=== PATIENT | female | born 1935 | race Caucasian/White ===

== ENCOUNTER 2020-10-30 | Outpatient (REF) | payer MEDICARE, SELFPAY ==
[2020-10-30 19:54] LABS: Microalbum/Creatinine Ratio Ur 7.4 ug/mg cr
== END 2020-10-30 00:01 | disposition home or self-care (01) ==
LOC: HO.LNP
PROVIDERS: Visit Provider Family Medicine
DX: Z13.89 Encounter for screening for other disorder (principal)
CPT/HCPCS: 82043

== ENCOUNTER 2020-12-21 08:43 | Outpatient (RCR) | payer MEDICARE, SELFPAY | END 2021-01-29 15:30 | disposition home or self-care (01) | LOC: HO.WCC 08:43 | PROVIDERS: PCP Family Medicine; Visit Provider Physician Assistant | DX: E11.622 Type 2 diabetes mellitus with other skin ulcer (principal); L97.912 Non-pressure chronic ulcer of unspecified part of right lower leg with fat layer exposed; E11.628 Type 2 diabetes mellitus with other skin complications; S81.811D Laceration without foreign body, right lower leg, subsequent encounter; I87.2 Venous insufficiency (chronic) (peripheral); R60.9 Edema, unspecified; Z79.84 Long term (current) use of oral hypoglycemic drugs | CPT/HCPCS: 11042; 99212 ==

== ENCOUNTER 2021-08-25 09:41 | Outpatient (REF) | payer MEDICARE, SELFPAY ==
[2021-08-25 10:50] LABS: MANUAL DIFF FLAG NO
[2021-08-25 11:04] LABS: Basophils Percent Auto 0.4 % (0-2); Eosinophils Absolute Auto 0.2 X10*3/uL (0.0-0.4); Eosinophils Percent Auto 2.3 % (0-4); Hematocrit 35.5 % (37.0-47.0); Hemoglobin 11.5 g/dl (12.0-16.0); Imm Gran Abs Auto 0.05 X10*3/uL (0.00-0.03); Imm Gran Pct Auto 0.6 % (0.0-0.4); Lymphocytes Absolute Auto 2.5 X10*3/uL (1.2-4.9); Lymphocytes Percent Auto 32.3 % (20-40); Mean Corpuscular HGB Conc 32.4 g/dl (31.0-35.0); Mean Corpuscular Hemoglobin 31.2 pg (27.0-33.0); Mean Corpuscular Volume 96.2 fL (80.0-98.0); Monocytes Absolute Auto 0.6 X10*3/uL (0.1-1.2); Monocytes Percent Auto 7.8 % (2-11); Neutrophils Absolute Auto 4.4 x10*3/uL (2.0-8.3); Neutrophils Percent Auto 56.6 % (45-73); Platelet Count 227 X10*3/uL (160-400); Red Blood Count 3.69 X10*6/uL (4.20-5.50); Red Cell Distribution Width 13.2 % (11.0-16.0); White Blood Count 7.7 X10*3/uL (4.8-10.8)
[2021-08-25 11:36] LABS: Alanine Aminotransferase 11 U/L (0-31); Albumin Level 3.5 g/dL (3.5-5.0); Alkaline Phosphatase 61 U/L (39-117); Anion Gap 13 (12-20); Aspartate Amino Transferase 11 U/L (5-31); Bilirubin Total 0.6 mg/dL (0.0-1.0); Blood Urea Nitrogen 13 mg/dL (9-16); Calcium 8.9 mg/dL (8.4-10.2); Carbon Dioxide 26 mmol/L (22-29); Chloride 105 mmol/L (96-108); Estimated Glomerular Filt Rate 47; Glucose Fasting 147 mg/dL (60-99); Potassium 3.2 mmol/L (3.3-5.1); Sodium 141 mmol/L (135-145); Total Protein 5.7 g/dL (6.5-8.0)
[2021-08-25 11:47] LABS: TSH reflex Free T4 1.45 uIU/mL (0.32-4.0)
== END 2021-08-25 09:42 | disposition home or self-care (01) ==
LOC: HO.WFDLDS 09:41
PROVIDERS: Visit Provider Family Medicine
DX: Z00.00 Encounter for general adult medical examination without abnormal findings (principal); R19.7 Diarrhea, unspecified; R63.0 Anorexia
CPT/HCPCS: 36415; 80053; 84443; 85025

== ENCOUNTER 2021-09-13 08:31 | Outpatient (REF) | payer MEDICARE, SELFPAY ==
[2021-09-13 11:36] LABS: MANUAL DIFF FLAG NO
[2021-09-13 11:59] LABS: Basophils Absolute Auto 0.1 X10*3/uL (0.0-0.2); Basophils Percent Auto 0.5 % (0-2); Eosinophils Absolute Auto 0.1 X10*3/uL (0.0-0.4); Eosinophils Percent Auto 1.4 % (0-4); Hematocrit 37.1 % (37.0-47.0); Hemoglobin 11.9 g/dl (12.0-16.0); Imm Gran Abs Auto 0.08 X10*3/uL (0.00-0.03); Imm Gran Pct Auto 0.9 % (0.0-0.4); Lymphocytes Percent Auto 31.7 % (20-40); Mean Corpuscular HGB Conc 32.1 g/dl (31.0-35.0); Mean Corpuscular Hemoglobin 31.3 pg (27.0-33.0); Mean Corpuscular Volume 97.6 fL (80.0-98.0); Mean Platelet Volume 11.3 fL (9.4-12.3); Monocytes Absolute Auto 0.7 X10*3/uL (0.1-1.2); Monocytes Percent Auto 7.6 % (2-11); Neutrophils Absolute Auto 5.4 x10*3/uL (2.0-8.3); Neutrophils Percent Auto 57.9 % (45-73); Platelet Count 294 X10*3/uL (160-400); Red Cell Distribution Width 13.3 % (11.0-16.0); White Blood Count 9.4 X10*3/uL (4.8-10.8)
[2021-09-13 12:02] LABS: Anion Gap 12 (12-20); Blood Urea Nitrogen 14 mg/dL (9-16); Calcium 9.2 mg/dL (8.4-10.2); Carbon Dioxide 30 mmol/L (22-29); Chloride 104 mmol/L (96-108); Estimated Glomerular Filt Rate 50; Glucose Random 105 mg/dL (60-115); Potassium 4.1 mmol/L (3.3-5.1); Sodium 142 mmol/L (135-145)
[2021-09-13 12:36] LABS: Folate 8.5 ng/mL (> or = 4.0); Vitamin B12 655 pg/mL (200-900)
[2021-09-13 12:53] LABS: Estimated Average Glucose 131 mg/dL; Hemoglobin A1c % 6.2 %
== END 2021-09-13 08:32 | disposition home or self-care (01) ==
LOC: HO.WFDLDS 08:31
PROVIDERS: Visit Provider Family Medicine
DX: Z00.00 Encounter for general adult medical examination without abnormal findings (principal); R73.01 Impaired fasting glucose; R19.7 Diarrhea, unspecified; D64.9 Anemia, unspecified; E53.8 Deficiency of other specified B group vitamins
CPT/HCPCS: 36415; 80048; 82607; 82746; 83036; 85025

== ENCOUNTER → 2021-09-22 10:10 | Outpatient (BNVA) | payer MEDICARE, SELFPAY | PROVIDERS: PCP Family Medicine; Referring Provider Family Medicine; Visit Provider Nurse Practitioner | DX: R15.9 Full incontinence of feces (principal); R19.7 Diarrhea, unspecified; R63.0 Anorexia | CPT/HCPCS: 99202 ==

== ENCOUNTER 2021-10-12 10:13 | Outpatient (REF) | payer MEDICARE, SELFPAY ==
[2021-10-12 13:56] LABS: MANUAL DIFF FLAG NO
[2021-10-12 14:03] LABS: Basophils Percent Auto 0.4 % (0-2); Eosinophils Absolute Auto 0.2 X10*3/uL (0.0-0.4); Eosinophils Percent Auto 1.9 % (0-4); Hematocrit 36.1 % (37.0-47.0); Hemoglobin 11.6 g/dl (12.0-16.0); Imm Gran Abs Auto 0.05 X10*3/uL (0.00-0.03); Imm Gran Pct Auto 0.5 % (0.0-0.4); Lymphocytes Absolute Auto 2.5 X10*3/uL (1.2-4.9); Lymphocytes Percent Auto 26.7 % (20-40); Mean Corpuscular HGB Conc 32.1 g/dl (31.0-35.0); Mean Corpuscular Hemoglobin 31.2 pg (27.0-33.0); Mean Platelet Volume 11.1 fL (9.4-12.3); Monocytes Absolute Auto 0.8 X10*3/uL (0.1-1.2); Monocytes Percent Auto 8.2 % (2-11); Neutrophils Absolute Auto 5.8 x10*3/uL (2.0-8.3); Neutrophils Percent Auto 62.3 % (45-73); Platelet Count 276 X10*3/uL (160-400); Red Blood Count 3.72 X10*6/uL (4.20-5.50); Red Cell Distribution Width 13.4 % (11.0-16.0); White Blood Count 9.3 X10*3/uL (4.8-10.8)
[2021-10-12 14:13] LABS: Estimated Average Glucose 123 mg/dL; Hemoglobin A1c % 5.9 %
[2021-10-12 14:38] LABS: Alanine Aminotransferase 10 U/L (0-31); Albumin Level 3.6 g/dL (3.5-5.0); Alkaline Phosphatase 70 U/L (39-117); Anion Gap 13 (12-20); Aspartate Amino Transferase 13 U/L (5-31); Bilirubin Total 0.6 mg/dL (0.0-1.0); Blood Urea Nitrogen 14 mg/dL (9-16); Calcium 9.2 mg/dL (8.4-10.2); Carbon Dioxide 30 mmol/L (22-29); Chloride 105 mmol/L (96-108); Cholesterol 227 mg/dL; Estimated Glomerular Filt Rate 52; Glucose Random 140 mg/dL (60-115); HDL Cholesterol 52 mg/dL; LDL Cholesterol Calculated 147 mg/dl; Potassium 3.8 mmol/L (3.3-5.1); Sodium 144 mmol/L (135-145); Total Protein 5.9 g/dL (6.5-8.0); Triglycerides 141 mg/dL
== END 2021-10-12 10:14 | disposition home or self-care (01) ==
LOC: HO.WFDLDS 10:13
PROVIDERS: Visit Provider Family Medicine
DX: Z00.00 Encounter for general adult medical examination without abnormal findings (principal); I50.9 Heart failure, unspecified; E11.9 Type 2 diabetes mellitus without complications
CPT/HCPCS: 36415; 80053; 80061; 83036; 85025

== ENCOUNTER 2021-12-15 14:23 | Outpatient (REF) | payer MEDICARE, SELFPAY ==
[2021-12-15 14:45] LABS: MANUAL DIFF FLAG NO
[2021-12-15 14:58] LABS: Basophils Percent Auto 0.4 % (0-2); Eosinophils Absolute Auto 0.2 X10*3/uL (0.0-0.4); Eosinophils Percent Auto 1.8 % (0-4); Hematocrit 36.9 % (37.0-47.0); Hemoglobin 12.2 g/dl (12.0-16.0); Imm Gran Abs Auto 0.09 X10*3/uL (0.00-0.03); Imm Gran Pct Auto 1.1 % (0.0-0.4); Lymphocytes Absolute Auto 2.1 X10*3/uL (1.2-4.9); Lymphocytes Percent Auto 24.4 % (20-40); Mean Corpuscular HGB Conc 33.1 g/dl (31.0-35.0); Mean Corpuscular Hemoglobin 31.4 pg (27.0-33.0); Mean Corpuscular Volume 94.9 fL (80.0-98.0); Mean Platelet Volume 9.9 fL (9.4-12.3); Monocytes Absolute Auto 0.8 X10*3/uL (0.1-1.2); Monocytes Percent Auto 9.9 % (2-11); Neutrophils Absolute Auto 5.3 x10*3/uL (2.0-8.3); Neutrophils Percent Auto 62.4 % (45-73); Platelet Count 326 X10*3/uL (160-400); Red Blood Count 3.89 X10*6/uL (4.20-5.50); Red Cell Distribution Width 13.2 % (11.0-16.0); White Blood Count 8.4 X10*3/uL (4.8-10.8)
[2021-12-15 15:28] LABS: C Reactive Protein 1.75 mg/dL (< or = 0.50)
[2021-12-22 13:46] LABS: Transglutaminase Ab IgG <1.0 U/mL; Transglutaminase IgA <1.0 U/mL
== END 2021-12-15 14:24 | disposition home or self-care (01) ==
LOC: HO.LAB 14:23
PROVIDERS: PCP Family Medicine; Visit Provider Nurse Practitioner
DX: Z00.00 Encounter for general adult medical examination without abnormal findings (principal); R19.7 Diarrhea, unspecified
CPT/HCPCS: 36415; 85025; 86140; 86364

== ENCOUNTER 2021-12-16 14:28 | Outpatient (REF) | payer MEDICARE, SELFPAY | END 2021-12-16 14:29 | disposition home or self-care (01) | LOC: HO.LNP 14:28 | PROVIDERS: Visit Provider Nurse Practitioner | DX: R19.7 Diarrhea, unspecified (principal) | CPT/HCPCS: 87045; 87046; 87338 ==

== ENCOUNTER → 2022-01-04 10:22 | Outpatient (BNVA) | payer MEDICARE, SELFPAY | PROVIDERS: PCP Family Medicine; Referring Provider Family Medicine; Visit Provider Nurse Practitioner | DX: R19.7 Diarrhea, unspecified (principal); R15.9 Full incontinence of feces | CPT/HCPCS: 99212 ==

== ENCOUNTER 2022-01-10 13:22 | Outpatient (REF) | payer MEDICARE, SELFPAY ==
--- NOTE | ~2022-01-10 | CT_ITS ---
EXAMINATION: CT HEAD WITHOUT CONTRAST CLINICAL INFORMATION: Unsteady gait. COMPARISON: None TECHNIQUE: Contiguous axial imaging was performed from the skull base to vertex without intravenous administration of contrast. This CT examination was performed using dose optimization techniques as appropriate, variously including the following: *Automated exposure control *Adjustment of mA and/or kV according to patient size (this includes techniques or standardized protocols for targeted exams where dose is matched to indication/reason for exam; i.e. extremities or head) *Use of iterative reconstruction technique DLP: 718 mGy-cm FINDINGS: There is no evidence of acute intracranial hemorrhage or territorial infarction. No abnormal mass effect or midline shift is seen. Larios to white matter differentiation is well preserved. No extra-axial fluid collections are identified. The lateral ventricles are enlarged and so are the cortical sulci. There is mild periventricular hypodensity suggestive of chronic small vessel ischemic changes. The osseous structures and soft tissues are normal. The mastoid air cells and visualized portions of the paranasal sinuses are well aerated. CT/CT head/brain wo con IMPRESSION: No acute intracranial process seen.
== END 2022-01-10 13:23 | disposition home or self-care (01) ==
LOC: HO.CT 13:22
PROVIDERS: Visit Provider Family Medicine
DX: R27.8 Other lack of coordination (principal); R26.81 Unsteadiness on feet
CPT/HCPCS: 70450

== ENCOUNTER → 2022-02-17 14:46 | Outpatient (BNVA) | payer MEDICARE, SELFPAY | PROVIDERS: PCP Family Medicine; Visit Provider Psychiatry & Neurology Neurology | DX: R26.9 Unspecified abnormalities of gait and mobility (principal); R15.9 Full incontinence of feces; R29.6 Repeated falls | CPT/HCPCS: 99202 ==

== ENCOUNTER 2022-02-24 13:31 | Outpatient (REF) | payer MEDICARE, SELFPAY ==
--- NOTE | ~2022-02-24 | MR_ITS ---
MR CERVICAL SPINE WITHOUT CONTRAST CLINICAL INFORMATION: Abnormality of gait/mobility. COMPARISON: None available. TECHNIQUE: MRI of the cervical spine was obtained using routine sequences without contrast. FINDINGS: Cervical alignment is normal. The vertebral body heights are maintained. There is moderate disc volume loss posteriorly at C5-C6 and C6-C7. Marrow edema along the anterior margin of the C4 vertebral body is most likely degenerative/inflammatory. There is no additional bone marrow edema. There are no acute fractures. Intraosseous hemangioma within the anterior and posterior elements of T3. There is a smaller hemangioma within the T1 vertebral body. Craniocervical junction is intact. The cervical arterial flow voids are maintained. No significant extraspinal soft tissue findings. C2-C3: Disc contour is normal. No central canal stenosis and no foraminal stenosis. C3-C4: Uncovertebral joint spurring and facet arthropathy result in mild left-sided foraminal encroachment. No central canal and no right foraminal stenosis. C4-C5: Uncovertebral joint spurring and facet arthropathy result in moderate left and mild right foraminal stenosis. No central canal stenosis. C5-C6: Disc osteophyte and ligamentum flavum thickening result in mild central canal stenosis. Advanced uncovertebral joint hypertrophy and hypertrophic facet arthropathy result in severe left and mild to moderate right foraminal stenosis. C6-C7: Disc osteophyte and ligamentum flavum thickening result in mild central canal stenosis. Advanced uncovertebral joint hypertrophy and hypertrophic facet arthropathy result in severe right and moderate to severe left foraminal stenosis. C7-T1: Disc contour is normal. No central canal stenosis and no foraminal stenosis. MR/MR cervical spine wo con IMPRESSION: - Multilevel cervical spondylosis. Spondylitic changes result in mild central canal stenosis at C5-C6 and C6-C7 as well as moderate left C4-C5, severe left and mild to moderate right C5-C6, and severe right and moderate to severe left C6-C7 foraminal stenosis. - There is a nodule within the posterior aspect of the right thyroid lobe that cannot be diagnostically measured, partially obscured by a saturation band. Thyroid ultrasound be helpful in further assessment.
== END 2022-02-24 13:32 | disposition home or self-care (01) ==
LOC: HO.MRI 13:31
PROVIDERS: Visit Provider Psychiatry & Neurology Neurology
DX: M54.2 Cervicalgia (principal); R15.9 Full incontinence of feces; R26.9 Unspecified abnormalities of gait and mobility; W19.XXXA Unspecified fall, initial encounter
CPT/HCPCS: 72141

== ENCOUNTER 2022-04-26 14:00 | Outpatient (RCR) | payer MEDICARE, SELFPAY ==
[2022-02-11 07:01] VITALS: BP 138/82; PULSE 72; O2SAT 96
--- NOTE | 2022-02-14 08:46 | MHC.PT.EP ---
[facility] [place] [facility] [place] [facility] [place] [facility] [address] Usman Mast [address] [phone] F: [phone] F: [phone] F: [phone] F: [phone] Physical Therapy Plan of Care Date of Evaluation: Date of Surgery: Diagnosis: Unsteadiness on feet R26.81, W19. XXA Unspecified fall, initial encounter, R27.8 Other lack of coordination signed by Dr. 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 Forbes following history of repeated falls in recent months. Pt exhibits poor LE and core strength, impaired static and dynamic balance, decreased coordination, and lack of confidence for ambulation of curbs/stairs/community ambulation. She expresses she utilize furniture for support with ambulation in her home. Today she presents to the office with use of std cane for ambulation demonstrating slow and unsteady gait. Pt expresses she has several walkers at home which were her husbands but she does not use them and is self conscious about even using her cane. She lacks a current exercise regimen and is deconditioned. Pt would benefit from attending skilled PT services at a frequency of 2x/week x 4 weeks to address impairments, implement HEP, and improve functional mobility to reduce risk of falls. Pt expressing she will be need upcoming surgery on her L anterior tibia for (+) skin CA removal- (waiting for surgical date from dermatology office). Frequency and Duration: The patient will be seen 2x/week x 4 weeks Short Term Goals: 1. Pt will demonstrate sit<>stand on first attempt. 2. Strength hip abduction 4+/5. 3. Pt will demonstrate strength hip extension 4+/5. 4. Demonstrate will demonstrate good eccentric control during functional transfers. 5. Pt will initiate HEP. Reshipping Clerk Goals: 1. Pt will complete SLR with good strength bilaterally. 2. Pt will demonstrate bridge with good symmetry. 3. Pt will be able to lift legs up and onto her bed independently with good strength. 4. Pt will demonstrate an 8 inch step with use of rail and std cane with good dynamic balance. 5. I HEP with good safety. Treatment Plan: Modalities to reduce pain, spasms and effusion. Manual therapy to restore motion and function. Therapeutic exercise to improve strength and flexibility. Neuromuscular re-education for posture and balance. Therapeutic activities to return to functional activities of daily living. Electronically signed by: Monica Osei, PT, DPT Please sign and return to therapist. Thank you for your referral.
== END 2022-05-05 15:21 | disposition home or self-care (01) ==
LOC: HO.PTWFD 14:00
PROVIDERS: Visit Provider Family Medicine
DX: R26.81 Unsteadiness on feet (principal); R27.8 Other lack of coordination; W19.XXXA Unspecified fall, initial encounter
CPT/HCPCS: 97110; 97140; 97162; 97530; 97535

== ENCOUNTER 2022-06-15 10:24 | Outpatient (REF) | payer MEDICARE, SELFPAY ==
[2022-06-15 14:44] LABS: Folate 6.7 ng/mL (> or = 4.0); Vitamin B12 555 pg/mL (200-900)
== END 2022-06-15 10:25 | disposition home or self-care (01) ==
LOC: HO.WFDLDS 10:24
PROVIDERS: Visit Provider Psychiatry & Neurology Neurology
DX: R26.81 Unsteadiness on feet (principal); W19.XXXA Unspecified fall, initial encounter
CPT/HCPCS: 36415; 82607; 82746

== ENCOUNTER → 2022-06-22 13:58 | Outpatient (BNVA) | payer MEDICARE, SELFPAY | PROVIDERS: PCP Family Medicine; Visit Provider Nurse Practitioner Family | DX: R26.9 Unspecified abnormalities of gait and mobility (principal); R15.9 Full incontinence of feces; M47.812 Spondylosis without myelopathy or radiculopathy, cervical region; M48.02 Spinal stenosis, cervical region; Z91.81 History of falling | CPT/HCPCS: 99212 ==

== ENCOUNTER 2022-09-20 10:05 | Outpatient (REF) | payer MEDICARE, SELFPAY ==
--- NOTE | ~2022-09-20 | XR_ITS ---
EXAMINATION: XR CHEST CLINICAL INFORMATION: Shortness of breath. COMPARISON: None TECHNIQUE: 2 views of the chest were obtained. FINDINGS: The lungs are clear. The heart and mediastinal structures are unremarkable. There is a moderate hiatal hernia. XR/XR chest 2V IMPRESSION: 1. No overt CHF or pneumonia. 2. Moderate hiatal hernia.
[2022-09-20 10:37] LABS: MANUAL DIFF FLAG NO
[2022-09-20 11:05] LABS: Influenza A PCR NEGATIVE (Negative); Influenza B PCR NEGATIVE (Negative); Resp Syncy Virus RNA Qual PCR NEGATIVE (Negative); SARS COV2 PCR INHOUSE NEGATIVE (Negative)
[2022-09-20 11:45] LABS: Basophils Percent Auto 0.5 % (0-2); Eosinophils Absolute Auto 0.2 X10*3/uL (0.0-0.4); Eosinophils Percent Auto 1.7 % (0-4); Hematocrit 34.2 % (37.0-47.0); Hemoglobin 11.6 g/dl (12.0-16.0); Imm Gran Abs Auto 0.05 X10*3/uL (0.00-0.03); Imm Gran Pct Auto 0.6 % (0.0-0.4); Lymphocytes Absolute Auto 1.6 X10*3/uL (1.2-4.9); Lymphocytes Percent Auto 17.6 % (20-40); Mean Corpuscular HGB Conc 33.9 g/dl (31.0-35.0); Mean Corpuscular Hemoglobin 31.4 pg (27.0-33.0); Mean Corpuscular Volume 92.7 fL (80.0-98.0); Monocytes Absolute Auto 0.9 X10*3/uL (0.1-1.2); Monocytes Percent Auto 9.9 % (2-11); Neutrophils Absolute Auto 6.1 x10*3/uL (2.0-8.3); Neutrophils Percent Auto 69.7 % (45-73); Platelet Count 239 X10*3/uL (160-400); Red Blood Count 3.69 X10*6/uL (4.20-5.50); White Blood Count 8.8 X10*3/uL (4.8-10.8)
[2022-09-20 12:48] LABS: Alanine Aminotransferase 10 U/L (0-31); Alkaline Phosphatase 73 U/L (39-117); Aspartate Amino Transferase 8 U/L (5-31); Bilirubin Total 0.6 mg/dL (0.0-1.0); Blood Urea Nitrogen 27 mg/dL (9-16); Estimated Glomerular Filt Rate 36; Glucose Random 152 mg/dL (60-115)
[2022-09-20 12:49] LABS: Albumin Level 3.4 g/dL (3.5-5.0); Anion Gap 13 (12-20); Carbon Dioxide 27 mmol/L (22-29); Chloride 99 mmol/L (96-108); Sodium 135 mmol/L (135-145); Total Protein 5.8 g/dL (6.5-8.0)
== END 2022-09-20 10:06 | disposition home or self-care (01) ==
LOC: HO.LAB 10:05
PROVIDERS: PCP Family Medicine; Visit Provider Family Medicine
DX: Z00.00 Encounter for general adult medical examination without abnormal findings (principal); Z20.822 Contact with and (suspected) exposure to COVID-19; B34.9 Viral infection, unspecified; R09.89 Other specified symptoms and signs involving the circulatory and respiratory systems; R53.83 Other fatigue
CPT/HCPCS: 0241U; 71046; 80053; 85025

== ENCOUNTER 2022-09-21 18:30 | Outpatient (REF) | payer MEDICARE, SELFPAY ==
[2022-09-22 07:52] LABS: Appearance Urine Cloudy; Color Urine Yellow; Glucose Urine UA Negative (Negative); Leukocyte Esterase Urine Moderate (2+) (Negative); Nitrite Urine Negative (Negative); Specific Gravity - Urine 1.015 (1.005-1.025); UMIC TRIGGER UA YES; Urine Blood Negative (Negative); Urine Ketones Negative (Negative); Urine Protein Negative (Neg-Trace)
[2022-09-22 08:03] LABS: Bacteria Urine None Seen (None Seen); Calcium Oxalate Crystals Urine Present; Granular Casts Urine Present
== END 2022-09-21 18:31 | disposition home or self-care (01) ==
LOC: HO.LNP 18:30
PROVIDERS: Visit Provider Family Medicine
DX: Z00.00 Encounter for general adult medical examination without abnormal findings (principal)
CPT/HCPCS: 81001

== ENCOUNTER 2022-10-11 11:18 | Outpatient (REF) | payer MEDICARE, SELFPAY ==
[2022-10-11 13:58] LABS: MANUAL DIFF FLAG NO
[2022-10-11 14:08] LABS: Basophils Absolute Auto 0.1 X10*3/uL (0.0-0.2); Basophils Percent Auto 0.6 % (0-2); Eosinophils Absolute Auto 0.2 X10*3/uL (0.0-0.4); Eosinophils Percent Auto 1.7 % (0-4); Hematocrit 35.8 % (37.0-47.0); Hemoglobin 11.6 g/dl (12.0-16.0); Imm Gran Abs Auto 0.13 X10*3/uL (0.00-0.03); Imm Gran Pct Auto 1.2 % (0.0-0.4); Lymphocytes Absolute Auto 2.7 X10*3/uL (1.2-4.9); Lymphocytes Percent Auto 25.2 % (20-40); Mean Corpuscular HGB Conc 32.4 g/dl (31.0-35.0); Mean Corpuscular Hemoglobin 30.6 pg (27.0-33.0); Mean Corpuscular Volume 94.5 fL (80.0-98.0); Mean Platelet Volume 11.1 fL (9.4-12.3); Monocytes Absolute Auto 1.1 X10*3/uL (0.1-1.2); Monocytes Percent Auto 9.9 % (2-11); Neutrophils Absolute Auto 6.6 x10*3/uL (2.0-8.3); Neutrophils Percent Auto 61.4 % (45-73); Platelet Count 326 X10*3/uL (160-400); Red Blood Count 3.79 X10*6/uL (4.20-5.50); Red Cell Distribution Width 13.9 % (11.0-16.0); White Blood Count 10.8 X10*3/uL (4.8-10.8)
[2022-10-11 14:20] LABS: Alanine Aminotransferase 11 U/L (0-31); Albumin Level 3.5 g/dL (3.5-5.0); Alkaline Phosphatase 76 U/L (39-117); Anion Gap 12 (12-20); Aspartate Amino Transferase 11 U/L (5-31); Bilirubin Total 0.5 mg/dL (0.0-1.0); Blood Urea Nitrogen 22 mg/dL (9-16); Carbon Dioxide 29 mmol/L (22-29); Chloride 104 mmol/L (96-108); Estimated Glomerular Filt Rate 32; Glucose Random 114 mg/dL (60-115); Potassium 3.2 mmol/L (3.3-5.1); Sodium 142 mmol/L (135-145)
[2022-10-11 14:27] LABS: B Type Natriuretic Peptide 179 pg/mL (<100)
== END 2022-10-11 11:19 | disposition home or self-care (01) ==
LOC: HO.WFDLDS 11:18
PROVIDERS: Visit Provider Family Medicine
DX: Z00.00 Encounter for general adult medical examination without abnormal findings (principal); I50.9 Heart failure, unspecified; R05.9 Cough, unspecified
CPT/HCPCS: 36415; 80053; 83880; 85025

== ENCOUNTER 2022-11-22 10:12 | Outpatient (REF) | payer MEDICARE, SELFPAY ==
[2022-11-22 11:49] LABS: Alanine Aminotransferase 18 U/L (0-31); Albumin Level 3.4 g/dL (3.5-5.0); Alkaline Phosphatase 82 U/L (39-117); Anion Gap 17 (12-20); Aspartate Amino Transferase 14 U/L (5-31); Bilirubin Total 0.6 mg/dL (0.0-1.0); Blood Urea Nitrogen 18 mg/dL (9-16); Calcium 9.2 mg/dL (8.4-10.2); Carbon Dioxide 29 mmol/L (22-29); Chloride 102 mmol/L (96-108); Estimated Glomerular Filt Rate 37; Glucose Random 131 mg/dL (60-115); Potassium 3.6 mmol/L (3.3-5.1); Sodium 144 mmol/L (135-145); Total Protein 6.3 g/dL (6.5-8.0)
== END 2022-11-22 10:13 | disposition home or self-care (01) ==
LOC: HO.WFDLDS 10:12
PROVIDERS: Visit Provider Family Medicine
DX: N17.9 Acute kidney failure, unspecified (principal)
CPT/HCPCS: 36415; 80053

== ENCOUNTER → 2022-12-09 14:05 | Outpatient (BNV) | payer MEDICARE, SELFPAY | PROVIDERS: PCP Family Medicine; Visit Provider Internal Medicine Medical Oncology | DX: I26.99 Other pulmonary embolism without acute cor pulmonale (principal) | CPT/HCPCS: 99204; 99213 ==

== ENCOUNTER 2023-01-10 10:14 | Outpatient (REF) | payer MEDICARE, SELFPAY ==
[2023-01-10 14:47] LABS: Uric Acid 8.7 mg/dL (2.4-5.7)
== END 2023-01-10 10:15 | disposition home or self-care (01) ==
LOC: HO.WFDLDS 10:14
PROVIDERS: Visit Provider Family Medicine
DX: M10.9 Gout, unspecified (principal)
CPT/HCPCS: 36415; 84550

== ENCOUNTER 2023-02-20 10:01 | Outpatient (REF) | payer MEDICARE, SELFPAY ==
[2023-02-20 11:13] LABS: MANUAL DIFF FLAG NO
[2023-02-20 11:39] LABS: Basophils Absolute Auto 0.1 X10*3/uL (0.0-0.2); Basophils Percent Auto 0.6 % (0-2); Eosinophils Absolute Auto 0.1 X10*3/uL (0.0-0.4); Eosinophils Percent Auto 0.9 % (0-4); Hematocrit 34.5 % (37.0-47.0); Hemoglobin 11.1 g/dl (12.0-16.0); Imm Gran Abs Auto 0.12 X10*3/uL (0.00-0.03); Imm Gran Pct Auto 1.2 % (0.0-0.4); Lymphocytes Absolute Auto 3.2 X10*3/uL (1.2-4.9); Lymphocytes Percent Auto 32.9 % (20-40); Mean Corpuscular HGB Conc 32.2 g/dl (31.0-35.0); Mean Corpuscular Hemoglobin 30.7 pg (27.0-33.0); Mean Corpuscular Volume 95.3 fL (80.0-98.0); Mean Platelet Volume 10.7 fL (9.4-12.3); Monocytes Absolute Auto 0.7 X10*3/uL (0.1-1.2); Monocytes Percent Auto 6.9 % (2-11); Neutrophils Absolute Auto 5.6 x10*3/uL (2.0-8.3); Neutrophils Percent Auto 57.5 % (45-73); Platelet Count 291 X10*3/uL (160-400); Red Blood Count 3.62 X10*6/uL (4.20-5.50); Red Cell Distribution Width 14.1 % (11.0-16.0); White Blood Count 9.7 X10*3/uL (4.8-10.8)
[2023-02-20 11:43] LABS: Alanine Aminotransferase 9 U/L (0-31); Albumin Level 3.3 g/dL (3.5-5.0); Alkaline Phosphatase 66 U/L (39-117); Anion Gap 12 (12-20); Aspartate Amino Transferase 9 U/L (5-31); Bilirubin Total 0.6 mg/dL (0.0-1.0); Blood Urea Nitrogen 25 mg/dL (9-16); Calcium 9.1 mg/dL (8.4-10.2); Carbon Dioxide 29 mmol/L (22-29); Chloride 104 mmol/L (96-108); Estimated Glomerular Filt Rate 24; Glucose Random 145 mg/dL (60-115); Potassium 3.6 mmol/L (3.3-5.1); Sodium 141 mmol/L (135-145); Total Protein 5.5 g/dL (6.5-8.0)
== END 2023-02-20 10:02 | disposition home or self-care (01) ==
LOC: HO.WFDLDS 10:01
PROVIDERS: Visit Provider Family Medicine
DX: Z00.00 Encounter for general adult medical examination without abnormal findings (principal); D64.9 Anemia, unspecified
CPT/HCPCS: 36415; 80053; 85025

== ENCOUNTER 2023-03-26 07:16 | Emergency (ER) | payer MEDICARE, SELFPAY ==
--- NOTE | ~2023-03-26 | XR_ITS ---
EXAMINATION: XR FOOT AND ANKLE, LEFT CLINICAL INFORMATION: Pain and swelling. COMPARISON: None available. TECHNIQUE: 3 views each of the left ankle and foot. FINDINGS: Diffuse moderate to severe soft tissue swelling is seen. Mild tibiotalar degenerative joint changes are seen with mild marginal osteophyte formation. The tarsal bones are normally aligned. Small plantar and retrocalcaneal spurs are seen. The metatarsals and phalanges are intact. There is no acute fracture or dislocation. XR/XR foot LT min 3V IMPRESSION: 1. Diffuse moderate to severe soft tissue swelling without acute underlying osseous abnormality. 2. Mild tibiotalar osteoarthritis. 3. Small degenerative calcaneal spurs.
--- NOTE | ~2023-03-26 | XR_ITS ---
EXAMINATION: XR FOOT AND ANKLE, LEFT CLINICAL INFORMATION: Pain and swelling. COMPARISON: None available. TECHNIQUE: 3 views each of the left ankle and foot. FINDINGS: Diffuse moderate to severe soft tissue swelling is seen. Mild tibiotalar degenerative joint changes are seen with mild marginal osteophyte formation. The tarsal bones are normally aligned. Small plantar and retrocalcaneal spurs are seen. The metatarsals and phalanges are intact. There is no acute fracture or dislocation. XR/XR ankle LT min 3V IMPRESSION: 1. Diffuse moderate to severe soft tissue swelling without acute underlying osseous abnormality. 2. Mild tibiotalar osteoarthritis. 3. Small degenerative calcaneal spurs.
[2023-03-26 07:23] VITALS: BP 156/59; BP 157/70; PULSE 59; PULSE 70; RESP 16; TEMP 37.1; O2SAT 96; O2SAT 97; BMI 31.8
[2023-03-26 07:32] VITALS: BP 156/59; PULSE 59; RESP 16; TEMP 37.1; O2SAT 96
[2023-03-26 08:02] VITALS: BP 145/50; PULSE 57; RESP 17; TEMP 36.7; O2SAT 93
[2023-03-26] MEDS: Acetaminophen 325 MG TABLET 975 MG PO (08:32)
--- NOTE | 2023-03-26 08:50 | ED_ITS ---
HPI - General Adult General Chief complaint: General Medical Stated complaint: Leg pain x 3 days per EMS Time Seen by Provider: 03/26/23 07:20 Source: patient and family Mode of arrival: EMS History of Present Illness HPI narrative: 88-year-old female who presents with complaints of left foot/ankle swelling and pain on ambulation for the past 3 days that is been increasing and denies any traumatic injury. Patient is on anticoagulation. Related Data Home Medications Medication Instructions Recorded Confirmed apixaban 5 mg tablet (Eliquis) 5 mg PO BID 11/22/22 03/06/23 Previous Rx's Medication Instructions Recorded epinephrine 0.3 mg/0.3 mL 0.3 mg (0.3 mL) IM Q10M PRN 11/17/20 injection, auto-injector (EpiPen anaphylaxis 30 days #2 ea 2-Nasir) lancets 28 gauge (FreeStyle 1 gauge miscellaneous DAILY for 10/06/21 Lancets) diabetes mellitus 90 days #100 ea lidocaine HCl 4 % topical cream 1 appl topical BID PRN pain 30 10/06/21 (Aspercreme (lidocaine HCl)) days #120 grams metoprolol succinate 50 mg 50 mg PO DAILY 90 days #90 tabs 04/19/22 tablet,extended release 24 hr blood sugar diagnostic (FreeStyle #100 ea 04/21/22 Lite Strips) lancets 28 gauge (FreeStyle #100 ea 04/25/22 Lancets) furosemide 40 mg tablet 40 mg PO DAILY 30 days #30 tabs 07/19/22 cane #1 ea 07/21/22 albuterol sulfate 90 mcg/actuation 1 inh inhalation QID PRN shortness 10/11/22 aerosol inhaler (Ventolin HFA) of breath or wheezing 30 days #8.5 grams collagenase clostridium histo. 250 1 appl topical BEDTIME PRN wound 12/30/22 unit/gram topical ointment (Santyl) care 21 days #30 grams clotrimazole 1 % topical cream 1 appl topical BID 2 weeks #60 01/16/23 grams metformin 500 mg tablet 250 mg PO BID 90 days #90 tabs 02/16/23 pantoprazole 40 mg tablet,delayed 40 mg PO DAILY 90 days #90 tabs 02/16/23 release apixaban 5 mg tablet (Eliquis) 5 mg PO BID #60 tabs 02/17/23 apixaban 5 mg tablet (Eliquis) 5 mg PO BID #60 tabs 02/17/23 apixaban 2.5 mg tablet (Eliquis) 2.5 mg PO BID #180 tabs 03/06/23 Allergies Allergy/AdvReac Type Severity Reaction Status Date / Time clams Allergy Intermediate Facial Verified 03/06/23 11:04 Swelling walnut Allergy Intermediate Hives Verified 03/06/23 11:04 ibuprofen Allergy Unknown Hives Verified 03/06/23 11:04 Review of Systems Review of Systems: Pertinent positives and negatives as stated in [facility] Past Medical History Source: nursing notes reviewed Medical History Diabetes type 2, controlled Essential hypertension Surgical History History of arthroscopy of right knee History of hysterectomy History of left knee replacement History of surgery Family History Family History Father No problems noted. Mother No problems noted. Brother No problems noted. Sister No problems noted. Son No problems noted. Son No problems noted. Son No problems noted. Daughter No problems noted. Daughter No problems noted. Daughter No problems noted. Daughter No problems noted. Social History Social History Household Members: None Housing: House Alcohol intake: never Patient Tobacco Use Status: Never used Tobacco Smoked in Last 30 Days: No e-Cigarette/Vaping Use: Never Used Second Hand Smoke Exposure: No Use of substances other than those prescribed or required for medical reasons: No Advance Directives: No service: No Current occupational status: retired Current occupational exposures/hazards: No Cognitive needs: No Hearing needs: No Vision needs: No Physical Exam ED Vital Signs: Vital Signs - 24 hr 03/26/23 07:23 03/26/23 07:32 03/26/23 08:02 Temperature 98.7 F 98.7 F 98.1 F Pulse Rate 59 59 57 Respiratory Rate 16 16 17 Blood Pressure 156/59 H 156/59 H 145/50 H Pulse Oximetry 96 96 93 Oxygen Delivery Method Room Air Room Air Room Air BMI result Body Mass Index 31.8 VITAL SIGNS: Reviewed. GENERAL: Well developed, well nourished, in no acute distress. HEAD: Normocephalic/atraumatic EYES: PERRLA, EOMI EARS: Ext canals without abnormality NOSE: Nares patent bilateral OROPHARYNX: no oral lesions noted, posterior pharynx clear NECK: Supple, no adenopathy LUNGS: Normal breath sounds. No adventitious sounds or accessory muscle use. SpO2<96> CARDIOVASCULAR: Regular rate and rhythm without noted murmurs, no JVD or lower extremity edema. ABDOMEN: Soft, non-tender, non-distended with bowel sounds. MUSCULOSKELETAL: No tenderness, deformities, or effusions noted on gross inspection. EXTREMITIES: No cyanosis, clubbing or edema; LEFT LOWER EXTREMITY: There is noted swelling over the lateral malleolus with tenderness to palpation, no pitting edema, swelling over the dorsum of the foot with mild warmth but no erythema or induration noted.. SKIN: Inspection of the skin reveals no rashes NEUROLOGIC: Alert and oriented x 4. Strength and sensation to light touch were grossly intact x 4. Medications Administered Discontinued Medications Generic Name Dose Route Start Last Admin Trade Name Freq PRN Reason Stop Dose Admin Acetaminophen 975 mg 03/26/23 08:12 03/26/23 08:32 Acetaminophen 325 Mg Tablet PO 03/26/23 08:13 975 mg ONCE ONE Administration Medical Decision Making Medical Decision Making MDM Narrative: 88-year-old female with history and clinical presentation and my interpretation is in agreement with radiology's impression that there are no acute fractures dislocations. I applied an Enmanuel wrap and will attempt to ambulate the patient and assess for improvement in weight-bearing. Clinical presentation is not consistent with cellulitis or gout at this time. On evaluation at bedside with a walker, patient is able to ambulate but foot is still significantly painful discussed with patient the possibility of short-term rehab which she is declining at this time in wishes to go home, daughter who is at bedside will be staying with her. She will follow-up with her physician andi gillow morning. Differential Diagnosis Please see the discussion above Radiology Impression Radiologist Impression: My interpretation is in agreement with radiology's impression Discharge Plan Discharge Clinical Impression: Ankle pain, left Patient Disposition: Home, Self-Care Instructions: Arthralgia (ED) Additional Instructions: 1. Resume all home medications as prescribed. 2. Recommend [id number] Tylenol and application of topical Aspercreme as well as Enmanuel wrap placement. 3. She developed worsening redness and swelling to your ankle/foot please do not hesitate to return. 4. Please follow-up with primary care provider in the morning. Return to the ER for any worsening symptoms. Prescriptions: No Action metoprolol succinate 50 mg tablet extended release 24 hr 50 mg PO DAILY 90 Days Qty: 90 3RF (DME) lancets [FreeStyle Lancets] 28 gauge misc See Rx Instructions .ROUTE .MEDSUPPLY Qty: 100 4RF Rx Instructions: As directed furosemide 40 mg tablet 40 mg PO DAILY 30 Days Qty: 30 3RF metformin 500 mg tablet 250 mg PO BID 90 Days Qty: 90 2RF pantoprazole 40 mg tablet,delayed release (DR/EC) 40 mg PO DAILY 90 Days Qty: 90 2RF Eliquis 5 mg Tablet 5 mg PO BID Qty: 60 4RF Eliquis 5 mg Tablet 5 mg PO BID Qty: 60 4RF Eliquis 2.5 mg Tablet 2.5 mg PO BID Qty: 180 3RF epinephrine [EpiPen 2-Nasir] 0.3 mg/0.3 mL auto-injector 0.3 mg IM Q10M PRN (Reason: anaphylaxis) 30 Days Qty: 2 1RF Rx Instructions: for 2 doses albuterol sulfate [Ventolin HFA] 90 mcg/actuation HFA aerosol inhaler 1 inh inhalation QID PRN (Reason: shortness of breath or wheezing) 30 Days Qty: 8.5 1RF clotrimazole 1 % cream 1 appl topical BID 14 Days Qty: 60 0RF lancets [FreeStyle Lancets] 28 gauge misc 1 gauge miscellaneous DAILY 90 Days Qty: 100 3RF lidocaine HCl [Aspercreme (lidocaine HCl)] 4 % cream 1 appl topical BID PRN (Reason: pain) 30 Days Qty: 120 2RF (DME) FreeStyle Lite Strips Strip See Rx Instructions .ROUTE .MEDSUPPLY Qty: 100 4RF Rx Instructions: DX: E11.9, test blood sugar once a day, 90 days (DME) cane Device See Rx Instructions .Route Qty: 1 0RF Rx Instructions: Cane, Daily As directed, 999 days. Eliquis 5 mg tablet 5 mg PO BID Santyl 250 unit/gram ointment 1 appl topical BEDTIME PRN (Reason: wound care) 21 Days Qty: 30 0RF Referrals: Ray Forbes MD [Primary Care Provider] -
[2023-03-26 10:46] VITALS: BP 136/60; PULSE 59; RESP 16; TEMP 36.6; O2SAT 95
== END 2023-03-26 10:57 | disposition home or self-care (01) ==
PROVIDERS: Emergency Provider Student in an Organized Health Care Education/Training Program; PCP Family Medicine
DX: M25.572 Pain in left ankle and joints of left foot (principal); Z79.899 Other long term (current) drug therapy
CPT/HCPCS: 73610; 73630; 99283; 99284

== ENCOUNTER 2023-04-28 11:09 | Outpatient (AMB) | payer MEDICARE, SELFPAY ==
[2023-04-28 11:13] VITALS: BP 130/68; PULSE 59; O2SAT 96; BMI 30.3
--- NOTE | 2023-04-28 11:13 | MHC.PC.OV ---
Vital Signs 04/28/23 11:13 Height 5 ft 3 in Weight 171 lb 2 oz BMI 30.3 BP 130/68 Blood Pressure Location Lt brachial Position Sitting Pulse 59 Pulse Source Pulse Oximeter Pulse Oximetry (%) 96 Oxygen Delivery Method Room Air Intake Visit Reasons: f/u L foot pain Intake Note: Patient is here for follow up on her left foot, which is still hurting, and giving out a little, and her diabetes. Accompanied by: Daughter Allergies clams Allergy (Intermediate, Verified 04/28/23 11:17) Facial Swelling walnut Allergy (Intermediate, Verified 04/28/23 11:17) Hives ibuprofen Allergy (Unknown, Verified 04/28/23 11:17) Hives Tobacco use date assessed: 04/28/23 Fall risk assessment: 2 + Falls in past year Last assessed Fall Risk: 04/28/23 Dental Screening Dental Screen Date: 04/28/23 Did you have a dental visit in the last 12 months?: Yes Did you have a dental problem in the last 6 months where you did not have access to dental care?: No Was dental information given to patient?: No HPI f/u L foot pain HPI Details 88 y/o female presents to f/u L foot pain. She reports ongoing L foot pain which is worse in the morning. She notes she had an x-ray in the emergency department which showed some arthritis and soft tissue swelling. Pain and swelling had much improved with prednisone but has returned. COUNT INCLUDES THE [facility] Medical History Diabetes type 2, controlled Essential hypertension Surgical History History of arthroscopy of right knee History of hysterectomy History of left knee replacement History of surgery Family History Father No problems noted. Mother No problems noted. Brother No problems noted. Sister No problems noted. Son No problems noted. Son No problems noted. Son No problems noted. Daughter No problems noted. Daughter No problems noted. Daughter No problems noted. Daughter No problems noted. Social History Household Members: None Housing: House Alcohol intake: never Patient Tobacco Use Status: Never used Tobacco e-Cigarette/Vaping Use: Never Used Second Hand Smoke Exposure: No service: No Current occupational status: retired Current occupational exposures/hazards: No Cognitive needs: No Hearing needs: No Vision needs: No Questionnaire PHQ-9 Over the last 2 weeks, how often have you been bothered by any of the following problems? 1. Little interest or pleasure in doing things: not at all 2. Feeling down, depressed, or hopeless: not at all 3. Trouble falling or staying asleep, or sleeping too much: not at all 4. Feeling tired or having little energy: nearly every day 5. Poor appetite or overeating: not at all 6. Feeling bad about yourself - or that you are a failure or have let yourself or your family down: not at all 7. Trouble concentrating on things, such as reading the newspaper or watching television: not at all 8. Moving or speaking so slowly that other people could have noticed. Or the opposite - being so fidgety or restless that you have been moving around a lot more than usual: not at all 9. Thoughts that you would be better off or of hurting yourself in some way: not at all Total score: 3 Source: Developed by Drs. Don Balderrama, Sakina Rodriguez, Reji Tse and colleagues, with an educational yaneli from [employer]. Thrive Questionnaire Date Thrive assessed: 10/11/22 CORNELIUS-7 AMB Questionnaire CORNELIUS-7 Date CORNELIUS - 7 assessed: 10/11/22 Source: Developed by Drs. Don Balderrama, Sakina Rodriguez, Reji Tse and colleagues, with an educational yaneli from [employer]. Physical exam (Primary Care) Vital Signs: Last Vital Signs Pulse 59 04/28/23 11:13 BP 130/68 04/28/23 11:13 Pulse Ox 96 04/28/23 11:13 Oxygen Delivery Method Room Air 04/28/23 11:13 BMI result Body Mass Index 30.3 Tobacco/Smoking Status: Tobacco use Status Tobacco use date assessed 04/28/23 04/28/23 11:19 Patient Tobacco Use Status Never used Tobacco 04/28/23 11:19 e-Cigarette/Vaping Use Never Used 04/28/23 11:19 PHQ-9: PHQ-9 Score PHQ-9: Total score 3 04/28/23 12:27 Thrive Assessment: Date of Thrive Assessment Date Thrive assessed 10/11/22 04/28/23 11:19 Assessment and Plan Assessment & Plan (1) Left foot pain: Code(s): M79.672 - Pain in left foot Plan: Ongoing left foot and ankle pain and swelling which was much improved with prednisone though pain and swelling have returned. X-ray showed moderately severe arthritis Check labs including uric acid level and ESR Will refer to orthopedics In the meantime, will give her a short course of prednisone again and patient notes that she had tolerated celecoxib in the past. Will give her a limited supply to help with pain while awaiting referral to Ortho. (2) Shoulder pain: Code(s): M25.519 - Pain in unspecified shoulder Plan: As above, checking labs and giving her a short course of prednisone and celecoxib. Orders: Orders CRP High Sensitivity Today M79.672 - Pain in left foot Erythrocyte Sedimentation Rate Today M79.672 - Pain in left foot Uric Acid Today M79.672 - Pain in left foot Basic Metabolic Panel Today M79.672 - Pain in left foot, Z00.00 - Encounter for general adult medical examination without abnormal findings Complete Blood Count Auto Diff Today M79.672 - Pain in left foot, Z00.00 - Encounter for general adult medical examination without abnormal findings Referrals Orthopedics Referral M19.072 - Primary osteoarthritis, left ankle and foot, M79.672 - Pain in left foot Medications: New prednisone 40 mg (2 x 20 mg) PO DAILY 8 tabs 0RF 4 days celecoxib 50 mg PO BID 56 caps 0RF 28 days Coding Level of Care Code Est Pt Level 3 (06670) Diagnoses Left foot pain M79.672 Shoulder pain M25.519
== END 2023-04-28 12:41 | disposition home or self-care (01) ==
PROVIDERS: PCP Family Medicine; Visit Provider Family Medicine
DX: M79.672 Pain in left foot (principal); M25.519 Pain in unspecified shoulder
CPT/HCPCS: 99213

== ENCOUNTER 2023-04-28 12:41 | Outpatient (REF) | payer MEDICARE, SELFPAY ==
[2023-04-28 14:24] LABS: MANUAL DIFF FLAG NO
[2023-04-28 14:35] LABS: Basophils Absolute Auto 0.1 X10*3/uL (0.0-0.2); Basophils Percent Auto 0.3 % (0-2); Eosinophils Absolute Auto 0.2 X10*3/uL (0.0-0.4); Eosinophils Percent Auto 1.2 % (0-4); Hematocrit 33.6 % (37.0-47.0); Hemoglobin 10.9 g/dl (12.0-16.0); Imm Gran Abs Auto 0.11 X10*3/uL (0.00-0.03); Imm Gran Pct Auto 0.8 % (0.0-0.4); Lymphocytes Absolute Auto 3.1 X10*3/uL (1.2-4.9); Lymphocytes Percent Auto 21.4 % (20-40); Mean Corpuscular HGB Conc 32.4 g/dl (31.0-35.0); Mean Corpuscular Hemoglobin 31.8 pg (27.0-33.0); Mean Platelet Volume 10.9 fL (9.4-12.3); Monocytes Absolute Auto 1.1 X10*3/uL (0.1-1.2); Monocytes Percent Auto 7.2 % (2-11); Neutrophils Percent Auto 69.1 % (45-73); Platelet Count 352 X10*3/uL (160-400); Red Blood Count 3.43 X10*6/uL (4.20-5.50); Red Cell Distribution Width 13.2 % (11.0-16.0); White Blood Count 14.5 X10*3/uL (4.8-10.8)
[2023-04-28 15:14] LABS: Erythrocyte Sedimentation Rate 38 MM/HR (0-20)
[2023-04-28 16:32] LABS: Anion Gap 17 (12-20); Blood Urea Nitrogen 21 mg/dL (9-16); Calcium 9.1 mg/dL (8.4-10.2); Carbon Dioxide 25 mmol/L (22-29); Chloride 102 mmol/L (96-108); Estimated Glomerular Filt Rate 45; Glucose Random 121 mg/dL (60-115); Potassium 3.1 mmol/L (3.3-5.1); Sodium 141 mmol/L (135-145); Uric Acid 9.7 mg/dL (2.4-5.7)
[2023-05-01 16:13] LABS: CRP High Sensitivity 3.1 mg/L
== END 2023-04-28 12:42 | disposition home or self-care (01) ==
LOC: HO.WFDLDS 12:41
PROVIDERS: Visit Provider Family Medicine
DX: Z00.00 Encounter for general adult medical examination without abnormal findings (principal); M79.672 Pain in left foot
CPT/HCPCS: 36415; 80048; 84550; 85025; 85652; 86141

== ENCOUNTER 2023-05-15 11:00 | Outpatient (AMB) | payer MEDICARE, SELFPAY ==
--- NOTE | 2023-05-15 11:02 | A.OFFPC_ITS ---
Vital Signs 05/15/23 11:03 Height 5 ft 3 in Weight 174 lb BMI 30.8 BP 130/70 Blood Pressure Location Lt brachial Position Sitting Pulse 68 Pulse Source Pulse Oximeter Pulse Oximetry (%) 95 Intake Visit Reasons: f/u labs Intake Note: pt is here for f/u on labs, pt is also concerned about a infection on leg Bulb Sorter Required: No Accompanied by: Self / Same As Patient Allergies clams Allergy (Intermediate, Verified 05/15/23 11:03) Facial Swelling walnut Allergy (Intermediate, Verified 05/15/23 11:03) Hives ibuprofen Allergy (Unknown, Verified 05/15/23 11:03) Hives Medication List - Last Reconciled 05/15/23 by Ray Forbes MD albuterol sulfate 90 mcg/actuation (Ventolin HFA) 1 inh inhalation QID PRN 30 days allopurinol 200 mg (2 x 100 mg) PO DAILY 30 days apixaban (Eliquis) 5 mg PO BID apixaban (Eliquis) 2.5 mg PO BID blood sugar diagnostic (FreeStyle Lite Strips) DX: E11.9, test blood sugar once a day, 90 days cane Cane, Daily As directed, 999 days. celecoxib 50 mg PO BID 28 days clotrimazole 1% 1 appl topical BID 2 weeks collagenase clostridium histo. (Santyl) 1 appl topical BEDTIME PRN 21 days epinephrine (EpiPen 2-Nasir) 0.3 mg (0.3 mL) IM Q10M PRN 30 days furosemide 40 mg PO DAILY 30 days lancets (FreeStyle Lancets) 1 gauge miscellaneous DAILY 90 days lancets (FreeStyle Lancets) As directed lidocaine HCl 4% (Aspercreme (lidocaine HCl)) 1 appl topical BID PRN 30 days metformin 250 mg (1/2 x 500 mg) PO BID 90 days metoprolol succinate ER 50 mg PO DAILY 90 days pantoprazole 40 mg PO DAILY 90 days Tobacco use date assessed: 04/28/23 Fall risk assessment: No Falls in past year Last assessed Fall Risk: 05/15/23 Dental Screening Dental Screen Date: 05/15/23 Did you have a dental visit in the last 12 months?: Yes Did you have a dental problem in the last 6 months where you did not have access to dental care?: No Was dental information given to patient?: Patient has dentist HPI f/u labs HPI Details 88 y/o female presents to f/u diabetes, hypertension and chronic conditions. Labs were drawn 04/28/23. Reviewed labs with pt. Ongoing anemia. Uric acid levels are high. Pt reports a skin infection on her leg. A1c today 05/15/23 is 6.2%. She is on metformin 250mg b.i.d. [facility] Medical History Diabetes type 2, controlled Essential hypertension Surgical History History of arthroscopy of right knee History of hysterectomy History of left knee replacement History of surgery Family History Father No problems noted. Mother No problems noted. Brother No problems noted. Sister No problems noted. Son No problems noted. Son No problems noted. Son No problems noted. Daughter No problems noted. Daughter No problems noted. Daughter No problems noted. Daughter No problems noted. Social History Household Members: None Housing: House Alcohol intake: never Patient Tobacco Use Status: Never used Tobacco e-Cigarette/Vaping Use: Never Used Second Hand Smoke Exposure: No service: No Current occupational status: retired Current occupational exposures/hazards: No Cognitive needs: No Hearing needs: No Vision needs: No Questionnaire Thrive Questionnaire Date Thrive assessed: 10/11/22 CORNELIUS-7 AMB Questionnaire CORNELIUS-7 Date CORNELIUS - 7 assessed: 10/11/22 Source: Developed by Drs. Don Balderrama, Sakina Rodriguez, Reji Tse and colleagues, with an educational yaneli from [employer]. Physical exam (Primary Care) Vital Signs: Last Vital Signs Pulse 68 05/15/23 11:03 BP 130/70 05/15/23 11:03 Pulse Ox 95 05/15/23 11:03 BMI result Body Mass Index 30.8 Tobacco/Smoking Status: Tobacco use Status Tobacco use date assessed 04/28/23 05/15/23 11:05 Patient Tobacco Use Status Never used Tobacco 05/15/23 11:05 e-Cigarette/Vaping Use Never Used 05/15/23 11:05 Thrive Assessment: Date of Thrive Assessment Date Thrive assessed 10/11/22 05/15/23 11:05 Results AMB Hemoglobin A1c AMB Hemoglobin A1c 6.2 % Last Edit by Steve Pierson CMA on 05/15/23 11: 20 Results Reviewed Results Reviewed: Laboratory Last Values Hgb A1c (Clinic) 6.2 % (4.0-6.0) H 05/15/23 11:15 Assessment and Plan Assessment & Plan (1) Gout: Code(s): M10.9 - Gout, unspecified Plan: Ankle in wrist pain with uric acid 9.7 She also has known arthritis Symptoms much improved with short course of prednisone and with Celebrex Can continue Celebrex for now. Referred to rheumatology (2) Elevated uric acid in blood: Code(s): E79.0 - Hyperuricemia without signs of inflammatory arthritis and tophaceous disease Plan: As above (3) Polyarthralgia: Code(s): M25.50 - Pain in unspecified joint Plan: As above (4) Arthritis: Code(s): M19.90 - Unspecified osteoarthritis, unspecified site Plan: History of arthritis Referred to rheumatology (5) Diabetes type 2, controlled: Code(s): E11.9 - Type 2 diabetes mellitus without complications Plan: A1c shows good control. Goal is less than 7.0% Continue current medication regimen (6) Infection of skin: Code(s): L08.9 - Local infection of the skin and subcutaneous tissue, unspecified Plan: Wound on left anterior weiss about 1/2 cm in diameter Mildly infected in wound but surrounding skin is currently intact Continue antibiotic ointment Increase dressing changes and elevate leg If not improving or worsens she will let me know and I will refer her back to wound care. Orders: Orders AMB Hemoglobin A1c Today E11.9 - Type 2 diabetes mellitus without complications, Z13.9 - Encounter for screening, unspecified Referrals Rheumatology Referral M10.9 - Gout, unspecified, M19.90 - Unspecified osteoarthritis, unspecified site, M25.50 - Pain in unspecified joint Coding Level of Care Code Est Pt Level 4 (87200) Diagnoses Gout M10.9 Elevated uric acid in blood E79.0 Polyarthralgia M25.50 Arthritis M19.90 Diabetes type 2, controlled E11.9 Infection of skin L08.9
[2023-05-15 11:03] VITALS: BP 130/70; PULSE 68; O2SAT 95; BMI 30.8
== END 2023-05-15 11:30 | disposition home or self-care (01) ==
PROVIDERS: PCP Family Medicine; Visit Provider Family Medicine
DX: M10.9 Gout, unspecified (principal); M25.50 Pain in unspecified joint; M19.90 Unspecified osteoarthritis, unspecified site; E11.9 Type 2 diabetes mellitus without complications; L08.9 Local infection of the skin and subcutaneous tissue, unspecified; Z13.9 Encounter for screening, unspecified
CPT/HCPCS: 83036; 99214

== ENCOUNTER 2023-05-31 10:53 | Outpatient (REF) | payer MEDICARE, SELFPAY ==
--- NOTE | ~2023-05-31 | US_ITS ---
EXAMINATION: US VENOUS ULTRASOUND WITH DOPPLER LOWER EXTREMITY, LEFT CLINICAL INFORMATION: History of DVT. COMPARISON: None available. TECHNIQUE: Ultrasound of the deep veins is performed from the hip to the calf with compression sonography and color and pulse Doppler assessment. Spectral analysis with color-flow imaging is performed. FINDINGS: There is normal venous compression and respiratory variation and augmented flow. The visualized common femoral vein, superficial femoral vein, profunda femoral vein, popliteal vein, and the trifurcation region shows no evidence of deep venous thrombosis. There is no significant popliteal fossa cyst. If the patient's symptoms persist, followup ultrasound in 5 days 7 days might be of value to exclude proximal propagation from a non-visualized calf vein. US/US venous duplex LE IMPRESSION: No DVT demonstrated in the left lower extremity.
== END 2023-05-31 10:54 | disposition home or self-care (01) ==
LOC: HO.US 10:53
PROVIDERS: PCP Family Medicine; Visit Provider Internal Medicine Medical Oncology
DX: I26.99 Other pulmonary embolism without acute cor pulmonale (principal)
CPT/HCPCS: 93971

== ENCOUNTER 2023-08-10 14:59 | Outpatient (AMB) | payer MEDICARE, SELFPAY ==
[2023-08-10 15:11] VITALS: BP 116/58; PULSE 61; TEMP 36.2; O2SAT 96; BMI 31.1
--- NOTE | 2023-08-10 15:11 | MHC.OFFVIS ---
Intake Vital Signs 08/10/23 15:11 Height 5 ft 3 in Weight 175 lb 7.807 oz BMI 31.1 BP 116/58 L Blood Pressure Location Rt brachial Position Sitting Pulse 61 Pulse Source Pulse Oximeter Temp 97.2 F Temp Source Skin Pulse Oximetry (%) 96 Intake Visit Reasons: Joint Pain/Gout Intake Note: New pt presents today for consult. C/o widespread joint and muscle pain. C/o pain and swelling left foot Scientific Manager Required: No Accompanied by: Daughter in Law Rocio Allergies clams Allergy (Intermediate, Verified 08/10/23 15:17) Facial Swelling walnut Allergy (Intermediate, Verified 08/10/23 15:17) Hives ibuprofen Allergy (Unknown, Verified 08/10/23 15:17) Hives Medication List - Last Reconciled 08/10/23 by Tobi Thorne MD albuterol sulfate 90 mcg/actuation (Ventolin HFA) 1 inh inhalation QID PRN 30 days allopurinol 200 mg (2 x 100 mg) PO DAILY apixaban (Eliquis) 5 mg PO BID blood sugar diagnostic (FreeStyle Lite Strips) DX: E11.9, test blood sugar once a day, 90 days cane Cane, Daily As directed, 999 days. clotrimazole 1% 1 appl topical BID PRN colchicine (gout) 0.6 mg PO BID collagenase clostridium histo. (Santyl) 1 appl topical BEDTIME PRN 21 days epinephrine (EpiPen 2-Nasir) 0.3 mg (0.3 mL) IM Q10M PRN 30 days furosemide 40 mg PO DAILY 30 days lancets (FreeStyle Lancets) 1 gauge miscellaneous DAILY 90 days lancets (FreeStyle Lancets) As directed lidocaine HCl 4% (Aspercreme (lidocaine HCl)) 1 appl topical BID PRN 30 days metformin 250 mg (1/2 x 500 mg) PO BID 90 days metoprolol succinate ER 50 mg PO DAILY 90 days pantoprazole 40 mg PO DAILY 90 days prednisone Take 3 tabs by mouth once daily with breakfast for 3 days then 2 tabs daily for 3 days then 1 tab daily for 3 days then stop HPI HPI Comments History of Present Illness Details This is an 88-year-old female who presents for evaluation of gout. Back in march of 2023 she woke up 1 day with abrupt onset left ankle and foot pain and swelling. She went to the emergency room. She was prescribed prednisone taper with relief. Since then she had 1 or 2 similar flare-ups affecting both her feet. Treated with prednisone taper. She was also briefly on Celebrex. Her uric acid was found to be 9.7. She was was started on allopurinol 200 mg daily by her PCP 3 months ago. Yesterday morning she woke up with another flare-up affecting her left foot but not as severe as her previous flare-ups. States that both her sons and her have gout. She is unaware of any history of kidney stones. COUNT INCLUDES THE [facility] Medical History Essential hypertension Diabetes type 2, controlled Surgical History History of surgery History of left knee replacement History of arthroscopy of right knee History of hysterectomy Family History Father No problems noted. Mother No problems noted. Son Multiple sclerosis Daughter Rheumatoid arthritis Hx of cancer of lung Social History Household Members: None Housing: House Alcohol intake: current Alcohol intake frequency: other Alcohol type: beer Patient Tobacco Use Status: Never used Tobacco e-Cigarette/Vaping Use: Never Used Second Hand Smoke Exposure: No service: No Current occupational status: retired Current occupational exposures/hazards: No Cognitive needs: No Hearing needs: No Vision needs: No Review of Systems Const Reports fatigue and Reports weakness Eyes Reports itchy eyes ENT Reports dry mouth Card Reports chest pain and Reports dyspnea Resp Reports dyspnea GI Reports constipation and Reports heartburn Musc Reports arthralgias, Reports joint swelling and Reports stiffness Skin/Breast Reports unusual bruising Neuro Reports weakness Endo Reports fatigue Aller/Immun Reports itchy eyes Physical Exam Vital Signs: Last Vital Signs Temp 97.2 F 08/10/23 15:11 Pulse 61 08/10/23 15:11 BP 116/58 L 08/10/23 15:11 Pulse Ox 96 08/10/23 15:11 BMI result Body Mass Index 31.1 Const General: cooperative, healthy appearing and comfortable Nutritional Appearance: obese Orientation/consciousness: patient oriented x3 Limitations: ambulation with walker HEENT Head: Yes normocephalic and Yes atraumatic Mouth: moist mucous membranes Resp Effort & Inspection: normal respiratory effort and able to speak in complete sentences Skin General skin exam: dry skin Neuro General: patient oriented x3 Extrem Other: Osteoarthritic changes of both hands with prominent 1st CMC joint bilaterally, reduced bilateral shoulder abduction Negative MCP squeeze test bilaterally Few fibromyalgia tender points bilaterally Significant edema of both lower extremities Left foot swelling, erythema warmth and tenderness Assessment & Plan Assessment & Plan (1) Gout: Code(s): M10.9 - Gout, unspecified Qualifiers: Gout site: multiple sites Gout etiology: idiopathic Chronicity: chronic Presence of tophus: without tophus Qualified Code(s): M1A.09X0 - Idiopathic chronic gout, multiple sites, without tophus (tophi) Plan: This is an 88-year-old female who presents for evaluation of gout. Her gout diagnosis is not crystal proven but she has classic symptoms and high uric acid level. Start prednisone taper to treat the acute flare Start colchicine 0.6 mg Twice daily for prophylaxis. Advised patient to lower it to 1 tablet daily if she develops diarrhea Continue allopurinol 200 mg daily We discussed some of the commonly known precipitants of gout such as seafood and alcohol consumption is a especially beer. Advised patient to avoid as much as possible. Advised patient to mixed 2 tommy with large glass of water and drink daily, use tart walters extract (with no added sugar) Labs before next visit in 2 months Plan I spent 46 minutes reviewing patient's chart, evaluating patient, ordering diagnostic workup, counseling patient and documenting in the chart Orders: Orders Complete Blood Count Auto Diff 2 Months M10.9 - Gout, unspecified Comprehensive Met. Panel 2 Months M10.9 - Gout, unspecified Uric Acid 2 Months M10.9 - Gout, unspecified Medications: New prednisone Take 3 tabs by mouth once daily with breakfast for 3 days then 2 tabs daily for 3 days then 1 tab daily for 3 days then stop 18 tabs 1RF colchicine (gout) 0.6 mg PO BID 60 tabs 2RF Changed From allopurinol 200 mg (2 x 100 mg) PO DAILY 30 days 60 tabs 2RF To allopurinol 200 mg (2 x 100 mg) PO DAILY 120 tabs 0RF Coding Level of Care Code New Pt Level 4 (14995) Diagnoses Idiopathic chronic gout of multiple sites without tophus M1A.09X0 Gout site: multiple sites Gout etiology: idiopathic Chronicity: chronic Presence of tophus: without tophus
== END 2023-08-10 15:51 | disposition home or self-care (01) ==
PROVIDERS: PCP Family Medicine; Visit Provider Student in an Organized Health Care Education/Training Program
DX: M1A.09X0 Idiopathic chronic gout, multiple sites, without tophus (tophi) (principal)
CPT/HCPCS: 99204

== ENCOUNTER → 2023-08-10 14:59 | Outpatient (BNVA) | payer MEDICARE, SELFPAY | PROVIDERS: PCP Family Medicine; Visit Provider Student in an Organized Health Care Education/Training Program ==

== ENCOUNTER 2023-09-04 14:27 | Outpatient (AMB) | payer MEDICARE, SELFPAY ==
[2023-09-04 14:31] VITALS: BP 120/62; PULSE 62; TEMP 36.8; O2SAT 97; BMI 29.8
--- NOTE | 2023-09-04 14:31 | A.OFFPC_ITS ---
Vital Signs 09/04/23 14:31 Height 5 ft 3 in Weight 168 lb 3 oz BMI 29.8 BP 120/62 Blood Pressure Location Lt brachial Position Sitting Pulse 62 Pulse Source Pulse Oximeter Temp 98.2 F Temp Source Oral Pulse Oximetry (%) 97 Oxygen Delivery Method Room Air Intake Visit Reasons: ? upper respiratory infection Intake Note: Patient is here with question of RSV, her grandchildren were diagnosed, now she has symptoms. Allergies clams Allergy (Intermediate, Verified 09/04/23 14:33) Facial Swelling walnut Allergy (Intermediate, Verified 09/04/23 14:33) Hives ibuprofen Allergy (Unknown, Verified 09/04/23 14:33) Hives Tobacco use date assessed: 09/04/23 Fall risk assessment: No Falls in past year Last assessed Fall Risk: 09/04/23 HPI ? upper respiratory infection HPI Details 88 y/o female presents with ? of an uppe r respiratory infection. Patient is here with question of RSV, her grandchildren were diagnosed, now she has symptoms. [facility] Medical History Essential hypertension Diabetes type 2, controlled Surgical History History of surgery History of left knee replacement History of arthroscopy of right knee History of hysterectomy Family History Father No problems noted. Mother No problems noted. Son Multiple sclerosis Daughter Rheumatoid arthritis Hx of cancer of lung Social History Household Members: None Housing: House Alcohol intake: current Alcohol intake frequency: other Alcohol type: beer Patient Tobacco Use Status: Never used Tobacco e-Cigarette/Vaping Use: Never Used Second Hand Smoke Exposure: No service: No Current occupational status: retired Current occupational exposures/hazards: No Cognitive needs: No Hearing needs: No Vision needs: No Questionnaire Thrive Questionnaire Date Thrive assessed: 10/11/22 CORNELIUS-7 AMB Questionnaire CORNELIUS-7 Date CORNELIUS - 7 assessed: 10/11/22 Source: Developed by Drs. Don Balderrama, Sakina Rodriguez, Reji Tse and colleagues, with an educational yaneli from [employer]. Review of Systems Const Denies chills, Denies fatigue, Denies fever(s), Denies headache(s) and Denies weakness ENT Denies dizziness and Denies headache(s) Card Denies chest pain, Denies lightheadedness, Denies dyspnea and Denies other (Palpitations) Resp Denies cough, Denies dyspnea, Denies wheezing and Denies other ( shortness of breath) Musc Denies numbness and Denies tingling Neuro Denies dizziness, Denies headache(s), Denies numbness, Denies tingling, Denies paresthesias and Denies weakness Psych Denies anxiety and Denies depression Endo Denies fatigue Aller/Immun Denies wheezing Physical exam (Primary Care) Vital Signs: Last Vital Signs Temp 98.2 F 09/04/23 14:31 Pulse 62 09/04/23 14:31 BP 120/62 09/04/23 14:31 Pulse Ox 97 09/04/23 14:31 Oxygen Delivery Method Room Air 09/04/23 14:31 BMI result Body Mass Index 29.8 Tobacco/Smoking Status: Tobacco use Status Tobacco use date assessed 09/04/23 09/04/23 14:34 Patient Tobacco Use Status Never used Tobacco 09/04/23 14:34 e-Cigarette/Vaping Use Never Used 09/04/23 14:34 Thrive Assessment: Date of Thrive Assessment Date Thrive assessed 10/11/22 09/04/23 14:34 Const General: no acute distress and well developed Nutritional Appearance: well nourished Orientation/consciousness: [facility]: Yes normocephalic and Yes atraumatic Eyes General: appearance normal, both eyes and all related structures Pupils: Equal, round and reactive pupils present EOM: EOMs intact bilaterally Resp Effort & Inspection: normal respiratory effort Auscultation: clear to auscultation bilaterally Cardio Rate: regular rate Rhythm: regular rhythm Heart sounds: S1 normal heart sound present, S2 normal heart sound present, no gallops, no murmurs and no rubs Neuro General: patient oriented x3 and gait normal Cranial nerves: Yes Equal, round and reactive pupils present Psych Affect: normal affect Assessment and Plan Assessment & Plan (1) Viral illness: Code(s): B34.9 - Viral infection, unspecified Plan: Likely?RSV?as?this?appears?to?be?a?viral?illness?and?she?has?relatives?who?had?R SV?and?visited?her?recently. Will?check?COVID/flu/RSV?swab Encouraged?fluids?and?rest Call?or?return?to?office?or?again?seen?at?urgent?care/ED?if?worsening Orders: Orders SARS-CoV2/FLU/RSV Today B34.9 - Viral infection, unspecified, R09.89 - Other specified symptoms and signs involving the circulatory and respiratory systems Coding Level of Care Code Est Pt Level 3 (08013) Diagnoses Viral illness B34.9
== END 2023-09-04 14:56 | disposition home or self-care (01) ==
PROVIDERS: PCP Family Medicine; Visit Provider Family Medicine
DX: B34.9 Viral infection, unspecified (principal)
CPT/HCPCS: 99213

== ENCOUNTER 2023-09-04 14:41 | Outpatient (REF) | payer MEDICARE, SELFPAY ==
[2023-09-05 15:37] LABS: Influenza A PCR NEGATIVE (Negative); Influenza B PCR NEGATIVE (Negative); Resp Syncy Virus RNA Qual PCR NEGATIVE (Negative); SARS COV2 PCR INHOUSE NEGATIVE (Negative)
== END 2023-09-04 14:42 | disposition home or self-care (01) ==
LOC: HO.LAB 14:41
PROVIDERS: Visit Provider Family Medicine
DX: R09.89 Other specified symptoms and signs involving the circulatory and respiratory systems (principal); Z20.822 Contact with and (suspected) exposure to COVID-19
CPT/HCPCS: 0241U

== ENCOUNTER 2023-09-29 08:22 | Outpatient (AMB) | payer MEDICARE, SELFPAY ==
--- NOTE | 2023-09-29 08:34 | MHC.PC.OV ---
Vital Signs 09/29/23 08:35 Height 5 ft 3 in Weight 173 lb 8 oz BMI 30.7 BP 126/70 Blood Pressure Location Rt brachial Position Sitting Respiration 13 Pulse 64 Pulse Source Pulse Oximeter Temp 97.8 F Temp Source Temporal Artery Scan Pulse Oximetry (%) 98 Oxygen Delivery Method Room Air Intake Visit Reasons: f/u diabetes, hypertension and chronic conditions Assistant Professor Of Drama Required: No Accompanied by: Self / Same As Patient Allergies clams Allergy (Intermediate, Verified 09/29/23 08:37) Facial Swelling walnut Allergy (Intermediate, Verified 09/29/23 08:37) Hives ibuprofen Allergy (Unknown, Verified 09/29/23 08:37) Hives Tobacco use date assessed: 09/04/23 Fall risk assessment: No Falls in past year Last assessed Fall Risk: 09/29/23 Dental Screening Dental Screen Date: 09/29/23 Did you have a dental visit in the last 12 months?: Yes Did you have a dental problem in the last 6 months where you did not have access to dental care?: No Was dental information given to patient?: Patient has dentist HPI f/u diabetes, hypertension and chronic conditions HPI Details 88 y/o female presents to f/u diabetes, hypertension and chronic conditions. A1c today 09/29/23 5.9%. She is on metformin 250mg b.i.d. BP today 126/70. She is on metoprolol 50mg daily. She notes she has an appt. next week with rheumatology. Had discontinued her colchicine as it had been causing her diarrhea. HPI Comments History of Present Illness Details Documentation assistance for Ray Forbes MD, was provided by Elio Acosta, Home Care Chaplain on 09/29/2023 9:04 AM [facility]. I, Dr. Forbes, have read, observed, and verified documentation. [facility] Medical History Essential hypertension Diabetes type 2, controlled Surgical History History of surgery History of left knee replacement History of arthroscopy of right knee History of hysterectomy Family History Father No problems noted. Mother No problems noted. Son Multiple sclerosis Daughter Rheumatoid arthritis Hx of cancer of lung Social History Household Members: None Housing: House Alcohol intake: current Alcohol intake frequency: other Alcohol type: beer Patient Tobacco Use Status: Never used Tobacco e-Cigarette/Vaping Use: Never Used Second Hand Smoke Exposure: No service: No Current occupational status: retired Current occupational exposures/hazards: No Cognitive needs: No Hearing needs: No Vision needs: No Questionnaire Thrive Questionnaire Date Thrive assessed: 10/11/22 CORNELIUS-7 AMB Questionnaire CORNELIUS-7 Date CORNELIUS - 7 assessed: 10/11/22 Source: Developed by Drs. Don Balderrama, Sakina Rodriguez, Reji Tse and colleagues, with an educational yaneli from [employer]. Review of Systems Const Denies chills, Denies fatigue, Denies fever(s), Denies headache(s) and Denies weakness ENT Denies dizziness and Denies headache(s) Card Denies dyspnea Resp Denies cough, Denies dyspnea, Denies wheezing and Denies other (shortness of breath) Musc Denies numbness and Denies tingling Neuro Denies dizziness, Denies headache(s), Denies numbness, Denies tingling and Denies weakness Psych Denies anxiety and Denies depression Endo Denies fatigue Aller/Immun Denies wheezing Physical exam (Primary Care) Vital Signs: Last Vital Signs Temp 97.8 F 09/29/23 08:35 Pulse 64 09/29/23 08:35 Resp 13 09/29/23 08:35 BP 126/70 09/29/23 08:35 Pulse Ox 98 09/29/23 08:35 Oxygen Delivery Method Room Air 09/29/23 08:35 BMI result Body Mass Index 30.7 Tobacco/Smoking Status: Tobacco use Status Tobacco use date assessed 09/04/23 09/29/23 08:35 Patient Tobacco Use Status Never used Tobacco 09/29/23 08:35 e-Cigarette/Vaping Use Never Used 09/29/23 08:35 Thrive Assessment: Date of Thrive Assessment Date Thrive assessed 10/11/22 09/29/23 08:35 Const General: well developed; No acute distress Nutritional Appearance: well nourished Orientation/consciousness: patient oriented x3 HENMT Head: Yes normocephalic and Yes atraumatic Eyes General: appearance normal, both eyes and all related structures Pupils: Equal, round and reactive pupils present EOM: EOMs intact bilaterally Resp Effort & Inspection: normal respiratory effort Auscultation: clear to auscultation bilaterally Cardio Rate: regular rate Rhythm: regular rhythm Heart sounds: S1 normal heart sound present, S2 normal heart sound present, no gallops, no murmurs and no rubs Neuro General: patient oriented x3 and gait normal Cranial nerves: Yes Equal, round and reactive pupils present Psych Affect: normal affect Results AMB Hemoglobin A1c AMB Hemoglobin A1c 5.9 % Last Edit by Kyung Aparicio MA on 09/29/23 08:53 AMB Hemoglobin A1c AMB Hemoglobin A1c 5.9 % Last Edit by Cynthia Powell CMA on 09/29/23 09:07 Results Reviewed Results Reviewed: Laboratory Last Values Hgb A1c (Clinic) 5.9 % (4.0-6.0) 09/29/23 09:06 Assessment and Plan Assessment & Plan (1) Diabetes type 2, controlled: Code(s): E11.9 - Type 2 diabetes mellitus without complications Plan: 9%?is?good?control.??Goal?is Less?than?7.0% Continue?current?medication (2) Essential hypertension: Code(s): I10 - Essential (primary) hypertension Plan: Blood?pressure?is?controlled.??Goal?is?less?than?140/90 Continue?current?medication (3) Polyarthralgia: Code(s): M25.50 - Pain in unspecified joint Plan: Gout?and?uric?acid?level?higher?than?10 She?did?not?tolerate?colchicine?due?to?diarrhea She?has?an?upcoming?appointment?with?[id number]?with?rheumatology?as?recommended (4) Elevated serum creatinine: Code(s): R79.89 - Other specified abnormal findings of blood chemistry Plan: Creatinine?level?is?elevated?mildly. Encouraged?her?to?increase?hydration Will?follow-up?with?next?lab?draw If?still?elevated?we?may?need?to?switch?metformin?to?something?else Orders: Orders AMB Hemoglobin A1c Today Z13.9 - Encounter for screening, unspecified Coding Level of Care Code Est Pt Level 4 (55857) Diagnoses Diabetes type 2, controlled E11.9 Essential hypertension I10 Polyarthralgia M25.50 Elevated serum creatinine R79.89
[2023-09-29 08:35] VITALS: BP 126/70; PULSE 64; RESP 13; TEMP 36.6; O2SAT 98; BMI 30.7
== END 2023-09-29 09:16 | disposition home or self-care (01) ==
PROVIDERS: PCP Family Medicine; Visit Provider Family Medicine
DX: E11.9 Type 2 diabetes mellitus without complications (principal); I10 Essential (primary) hypertension; M25.50 Pain in unspecified joint; R79.89 Other specified abnormal findings of blood chemistry
CPT/HCPCS: 83036; 99214

== ENCOUNTER 2023-09-29 09:31 | Outpatient (REF) | payer MEDICARE, SELFPAY ==
[2023-09-29 11:21] LABS: MANUAL DIFF FLAG NO
[2023-09-29 11:29] LABS: Basophils Absolute Auto 0.1 X10*3/uL (0.0-0.2); Basophils Percent Auto 0.9 % (0-2); Eosinophils Absolute Auto 0.3 X10*3/uL (0.0-0.4); Eosinophils Percent Auto 3.7 % (0-4); Hemoglobin 10.8 g/dl (12.0-16.0); Imm Gran Abs Auto 0.03 X10*3/uL (0.00-0.03); Imm Gran Pct Auto 0.3 % (0.0-0.4); Lymphocytes Absolute Auto 2.9 X10*3/uL (1.2-4.9); Lymphocytes Percent Auto 31.7 % (20-40); Mean Corpuscular HGB Conc 31.8 g/dl (31.0-35.0); Mean Corpuscular Hemoglobin 31.1 pg (27.0-33.0); Mean Platelet Volume 11.4 fL (9.4-12.3); Monocytes Absolute Auto 0.6 X10*3/uL (0.1-1.2); Monocytes Percent Auto 7.1 % (2-11); Neutrophils Absolute Auto 5.1 x10*3/uL (2.0-8.3); Neutrophils Percent Auto 56.3 % (45-73); Platelet Count 290 X10*3/uL (160-400); Red Blood Count 3.47 X10*6/uL (4.20-5.50); Red Cell Distribution Width 14.5 % (11.0-16.0)
[2023-09-29 11:43] LABS: Alanine Aminotransferase 10 U/L (0-31); Albumin Level 3.8 g/dL (3.5-5.0); Alkaline Phosphatase 82 U/L (39-117); Anion Gap 12 (12-20); Aspartate Amino Transferase 14 U/L (5-31); Bilirubin Total 0.3 mg/dL (0.0-1.0); Blood Urea Nitrogen 19 mg/dL (9-16); Calcium 9.8 mg/dL (8.4-10.2); Carbon Dioxide 31 mmol/L (22-29); Chloride 104 mmol/L (96-108); Estimated Glomerular Filt Rate 31; Glucose Random 117 mg/dL (60-115); Potassium 3.3 mmol/L (3.3-5.1); Sodium 144 mmol/L (135-145); Total Protein 6.5 g/dL (6.5-8.0); Uric Acid 4.3 mg/dL (2.4-5.7)
== END 2023-09-29 09:32 | disposition home or self-care (01) ==
LOC: HO.WFDLDS 09:31
PROVIDERS: Visit Provider Student in an Organized Health Care Education/Training Program
DX: M10.9 Gout, unspecified (principal); Z13.9 Encounter for screening, unspecified
CPT/HCPCS: 36415; 80053; 84550; 85025

== ENCOUNTER 2023-10-05 14:41 | Outpatient (AMB) | payer MEDICARE, SELFPAY ==
--- NOTE | 2023-10-05 14:44 | A.OFFVIS_ITS ---
Intake Vital Signs 10/05/23 14:53 Height 5 ft 3 in Weight 175 lb 7.807 oz BMI 31.1 BP 140/72 H Blood Pressure Location Rt brachial Position Sitting Pulse 62 Pulse Source Pulse Oximeter Temp 97 F Temp Source Skin Pulse Oximetry (%) 95 Oxygen Delivery Method Room Air Intake Visit Reasons: Gout Intake Note: Pt last seen 08/10/23 presents today for follow up and test results. 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 clotrimazole 1% 1 appl topical BID PRN collagenase clostridium histo. (Santyl) 1 appl topical BEDTIME PRN 21 days epinephrine (EpiPen 2-Nasir) 0.3 mg (0.3 mL) IM Q10M PRN 30 days furosemide 40 mg PO DAILY 30 days lancets (FreeStyle Lancets) 1 gauge miscellaneous DAILY 90 days lancets (FreeStyle Lancets) As directed lidocaine HCl 4% (Aspercreme (lidocaine HCl)) 1 appl topical BID PRN 30 days metformin 250 mg (1/2 x 500 mg) PO BID 90 days metoprolol succinate ER 50 mg PO DAILY 90 days pantoprazole 40 mg PO DAILY 90 days HPI HPI Comments History of Present Illness Details 88-year-old female with gout returns for follow-up. She is doing well overall in terms of her gout. On allopurinol 200 mg daily. She could not tolerate colchicine even 1 tab daily. Has not had any gout flare-ups since last visit. She has been using the tart walters juice. She states that she has known bilateral shoulder osteoarthritis as well as rotator cuff tendinitis. She used to get steroid injections in her shoulders by Orthopedics but she missed her most recent appointment as she was sick with a viral infection. Today she is complaining of bilateral shoulder pain, worse on the right and requesting an injection. States that her blood sugar is in the 90s Initial history: This is an 88-year-old female who presents for evaluation of gout. Back in march of 2023 she woke up 1 day with abrupt onset left ankle and foot pain and swelling. She went to the emergency room. She was prescribed prednisone taper with relief. Since then she had 1 or 2 similar flare-ups affecting both her feet. Treated with prednisone taper. She was also briefly on Celebrex. Her uric acid was found to be 9.7. She was was started on allopurinol 200 mg daily by her PCP 3 months ago. Yesterday morning she woke up with another flare-up affecting her left foot but not as severe as her previous flare-ups. States that both her sons and her have gout. She is unaware of any history of kidney stones. [facility] Medical History Essential hypertension Diabetes type 2, controlled Surgical History History of surgery History of left knee replacement History of arthroscopy of right knee History of hysterectomy Family History Father No problems noted. Mother No problems noted. Son Multiple sclerosis Daughter Rheumatoid arthritis Hx of cancer of lung Social History Household Members: None Housing: House Alcohol intake: current Alcohol intake frequency: other Alcohol type: beer Patient Tobacco Use Status: Never used Tobacco e-Cigarette/Vaping Use: Never Used Second Hand Smoke Exposure: No service: No Current occupational status: retired Current occupational exposures/hazards: No Cognitive needs: No Hearing needs: No Vision needs: No Review of Systems Musc Reports arthralgias, Reports limited range of motion and Reports stiffness Physical Exam Vital Signs: Last Vital Signs Temp 97 F 10/05/23 14:53 Pulse 62 10/05/23 14:53 BP 140/72 H 10/05/23 14:53 Pulse Ox 95 12/21/23 14:53 Oxygen Delivery Method Room Air 10/05/23 14:53 BMI result Body Mass Index 31.1 Const General: cooperative, healthy appearing and comfortable Nutritional Appearance: obese Orientation/consciousness: patient oriented x3 Limitations: ambulation with walker HEENT Head: Yes normocephalic and Yes atraumatic Mouth: moist mucous membranes Resp Effort & Inspection: normal respiratory effort and able to speak in complete sentences Skin General skin exam: dry skin Neuro General: patient oriented x3 Extrem Other: Osteoarthritic changes of both hands with prominent 1st CMC joint bilaterally, reduced bilateral shoulder abduction worse on the right Negative MCP squeeze test bilaterally Few fibromyalgia tender points bilaterally Significant edema of both lower extremities No active synovitis today Office Procedures Joint Injection/Drain Joint Injection/Drain Primary Site: right shoulder Prep: site was prepped using sterile technique and ethochloride spray was applied Injected: 40 mg of, Kenalog and other (2 mL of 1% lidocaine) Approach Used: posterolateral Procedure: The patient tolerated the procedure well Coding Details: With the patient's consent the right shoulder was prepped with ChloraPrep and alcohol. Under a topical ethyl chloride spray the left subacromial space was injected with 40 mg of triamcinolone and 2 cc of 1% lidocaine. The patient tolerated the procedure without any acute adverse effects. - Large joint Procedure code (CPT) selection complete Assessment & Plan Assessment & Plan (1) Gout: Comment: Allopurinol 07/2023 Colchicine could not be tolerated even 1 tab daily Code(s): M10.9 - Gout, unspecified Qualifiers: Gout site: multiple sites Gout etiology: idiopathic Chronicity: chronic Presence of tophus: without tophus Qualified Code(s): M1A.09X0 - Idiopathic chronic gout, multiple sites, without tophus (tophi) Plan: This is an 88-year-old female with gout who presents for follow-up. Doing well overall no gout flare-ups. On allopurinol 100 mg daily. Uric acid level is 4.3. At target. She could not tolerate colchicine even 1 tab daily Patient has been using the tart walters juice. Continue with that Continue allopurinol 200 mg daily Labs before next visit in 3 months (2) Osteoarthritis of shoulders, bilateral: Code(s): M19.011 - Primary osteoarthritis, right shoulder; M19.012 - Primary osteoarthritis, left shoulder Qualifiers: Osteoarthritis type: primary Qualified Code(s): M19.011 - Primary osteoarthritis, right shoulder; M19.012 - Primary osteoarthritis, left shoulder Plan: With patient consent, right shoulder was injected with Kenalog today. Advised patient to watch her blood sugar [id number] 3-4 days. Can call the office for injection in the left shoulder as needed Plan I spent 26 minutes reviewing patient's chart, evaluating patient, ordering diagnostic workup, counseling patient and documenting in the chart Orders: Orders Comprehensive Met. Panel 3 Months M10.9 - Gout, unspecified Uric Acid 3 Months M10.9 - Gout, unspecified AMB Joint Injection/Aspiration Today M19.011 - Primary osteoarthritis, right shoulder, M19.012 - Primary osteoarthritis, left shoulder Coding Level of Care Code Est Pt Level 4 (71135) Diagnoses Idiopathic chronic gout of multiple sites without tophus M1A.09X0 Gout site: multiple sites Gout etiology: idiopathic Chronicity: chronic Presence of tophus: without tophus Primary osteoarthritis of both shoulders M19.011; M19.012 Osteoarthritis type: primary CPT Codes Coding - 25483 Large joint: 37466 - Large joint ([id number])
[2023-10-05 14:53] VITALS: BP 140/72; PULSE 62; TEMP 36.1; O2SAT 95; BMI 31.1
== END 2023-10-05 15:20 | disposition home or self-care (01) ==
PROVIDERS: PCP Family Medicine; Visit Provider Student in an Organized Health Care Education/Training Program
DX: M1A.09X0 Idiopathic chronic gout, multiple sites, without tophus (tophi) (principal); M19.011 Primary osteoarthritis, right shoulder; M19.012 Primary osteoarthritis, left shoulder
CPT/HCPCS: 20610; 99214

== ENCOUNTER → 2023-10-05 14:41 | Outpatient (BNVA) | payer MEDICARE, SELFPAY | PROVIDERS: PCP Family Medicine; Visit Provider Student in an Organized Health Care Education/Training Program | DX: M1A.09X0 Idiopathic chronic gout, multiple sites, without tophus (tophi) (principal); M19.011 Primary osteoarthritis, right shoulder; M19.012 Primary osteoarthritis, left shoulder | CPT/HCPCS: 20610; 99212 ==

== ENCOUNTER 2024-01-04 09:55 | Outpatient (REF) | payer MEDICARE, SELFPAY ==
[2024-01-04 11:54] LABS: MANUAL DIFF FLAG NO
[2024-01-04 12:03] LABS: Basophils Absolute Auto 0.1 X10*3/uL (0.0-0.2); Basophils Percent Auto 0.5 % (0-2); Eosinophils Absolute Auto 0.3 X10*3/uL (0.0-0.4); Eosinophils Percent Auto 2.8 % (0-4); Hemoglobin 10.6 g/dl (12.0-16.0); Imm Gran Abs Auto 0.04 X10*3/uL (0.00-0.03); Imm Gran Pct Auto 0.4 % (0.0-0.4); Lymphocytes Absolute Auto 2.5 X10*3/uL (1.2-4.9); Lymphocytes Percent Auto 26.9 % (20-40); Mean Corpuscular HGB Conc 32.1 g/dl (31.0-35.0); Mean Corpuscular Hemoglobin 31.1 pg (27.0-33.0); Mean Corpuscular Volume 96.8 fL (80.0-98.0); Mean Platelet Volume 10.9 fL (9.4-12.3); Monocytes Absolute Auto 0.5 X10*3/uL (0.1-1.2); Monocytes Percent Auto 5.5 % (2-11); Neutrophils Absolute Auto 5.9 x10*3/uL (2.0-8.3); Neutrophils Percent Auto 63.9 % (45-73); Platelet Count 281 X10*3/uL (160-400); Red Blood Count 3.41 X10*6/uL (4.20-5.50); Red Cell Distribution Width 14.7 % (11.0-16.0); White Blood Count 9.3 X10*3/uL (4.8-10.8)
[2024-01-04 12:10] LABS: D Dimer High Sensitivity < 150 NG/ML
[2024-01-04 12:30] LABS: Alanine Aminotransferase 8 U/L (0-31); Albumin Level 3.6 g/dL (3.5-5.0); Alkaline Phosphatase 72 U/L (39-117); Anion Gap 12 (12-20); Aspartate Amino Transferase 12 U/L (5-31); Bilirubin Total 0.5 mg/dL (0.0-1.0); Blood Urea Nitrogen 18 mg/dL (9-16); Calcium 9.6 mg/dL (8.4-10.2); Carbon Dioxide 29 mmol/L (22-29); Chloride 105 mmol/L (96-108); Cholesterol 220 mg/dL (<200); Estimated Glomerular Filt Rate 42; Glucose Fasting 104 mg/dL (60-99); Glucose Random 102 mg/dL (60-115); HDL Cholesterol 49 mg/dL (>40); LDL Cholesterol Calculated 140 mg/dL (<100); Potassium 3.1 mmol/L (3.3-5.1); Sodium 143 mmol/L (135-145); Total Protein 6.3 g/dL (6.5-8.0); Triglycerides 157 mg/dL (<150)
[2024-01-04 12:45] LABS: Uric Acid 4.2 mg/dL (2.4-5.7)
[2024-01-04 12:52] LABS: Vitamin D 25-OH Total 30.4 ng/mL (>30)
[2024-01-04 13:03] LABS: Folate 6.7 ng/mL (> or = 4.0); Vitamin B12 523 pg/mL (200-900)
== END 2024-01-04 09:56 | disposition home or self-care (01) ==
LOC: HO.WFDLDS 09:55
PROVIDERS: Internal Medicine Medical Oncology; Referring Provider Student in an Organized Health Care Education/Training Program; Visit Provider Family Medicine
DX: Z00.00 Encounter for general adult medical examination without abnormal findings (principal); Z13.6 Encounter for screening for cardiovascular disorders; I26.99 Other pulmonary embolism without acute cor pulmonale; E55.9 Vitamin D deficiency, unspecified; E53.8 Deficiency of other specified B group vitamins; M10.9 Gout, unspecified
CPT/HCPCS: 36415; 80053; 80061; 82306; 82607; 82746; 84550; 85025; 85379

== ENCOUNTER 2024-01-08 14:01 | Outpatient (AMB) | payer MEDICARE, SELFPAY ==
--- NOTE | 2024-01-08 14:15 | A.OFFVIS_ITS ---
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 Accompanied by: Daughter Allergies clams Allergy (Intermediate, Verified 01/08/24 14:23) Facial Swelling walnut Allergy (Intermediate, Verified 01/08/24 14:23) Hives ibuprofen Allergy (Unknown, Verified 01/08/24 14:23) Hives colchicine Adverse Reaction (Intermediate, Verified 01/08/24 14:44) gi upset Medication List - Last Reconciled 01/08/24 by Tobi Thorne MD albuterol sulfate 90 mcg/actuation (Ventolin HFA) 1 inh inhalation QID PRN 30 days allopurinol 200 mg (2 x 100 mg) PO DAILY apixaban (Eliquis) 5 mg PO BID apixaban (Eliquis) 2.5 mg PO BID blood sugar diagnostic (FreeStyle Lite Strips) DX: E11.9, test blood sugar once a day, 90 days cane Cane, Daily As directed, 999 days. collagenase clostridium histo. (Santyl) 1 appl topical BEDTIME PRN 21 days epinephrine (EpiPen 2-Nasir) 0.3 mg (0.3 mL) IM Q10M PRN 30 days furosemide 40 mg PO DAILY 30 days lancets (FreeStyle Lancets) 1 gauge miscellaneous DAILY 90 days lancets (FreeStyle Lancets) As directed lidocaine HCl 4% (Aspercreme (lidocaine HCl)) 1 appl topical BID PRN 30 days metformin 250 mg (1/2 x 500 mg) PO BID 90 days metoprolol succinate ER 50 mg PO DAILY 90 days pantoprazole 40 mg PO DAILY 90 days HPI HPI Comments History of Present Illness Details 88-year-old female with gout returns for follow-up. She is doing well overall in terms of her gout. On allopurinol 200 mg daily. Has had no flare- ups for many months. She states that steroid injection done last visit did not provide any relief. She continues to have bilateral shoulder stiffness and limited range of motion, much worse on the right Initial history: This is an 88-year-old female who presents for evaluation of gout. Back in march of 2023 she woke up 1 day with abrupt onset left ankle and foot pain and swelling. She went to the emergency room. She was prescribed prednisone taper with relief. Since then she had 1 or 2 similar flare-ups af fecting both her feet. Treated with prednisone taper. She was also briefly on Celebrex. Her uric acid was found to be 9.7. She was was started on allopurinol 200 mg daily by her PCP 3 months ago. Yesterday morning she woke up with another flare-up affecting her left foot but not as severe as her previous flare-ups. States that both her sons and her have gout. She is unaware of any h istory of kidney stones. [facility] Medical History Essential hypertension Diabetes type 2, controlled Surgical History History of surgery History of left knee replacement History of arthroscopy of right knee History of hysterectomy Family History Father No problems noted. Mother No problems noted. Son Multiple sclerosis Daughter Rheumatoid arthritis Hx of cancer of lung Social History Household Members: None Housing: House Alcohol intake: current Alcohol intake frequency: other Alcohol type: beer Patient Tobacco Use Status: Never used Tobacco e-Cigarette/Vaping Use: Never Used Second Hand Smoke Exposure: No service: No Current occupational status: retired Current occupational exposures/hazards: No Cognitive needs: No Hearing needs: No Vision needs: No Review of Systems Musc Reports arthralgias, Reports limited range of motion and Reports stiffness Physical Exam Vital Signs: Last Vital Signs Temp 97 F 01/08/24 14:22 Pulse 60 01/08/24 14:22 BP 144/76 H 01/08/24 14:22 BMI result Body Mass Index 29.8 Const General: cooperative, healthy appearing and comfortable Nutritional Appearance: obese Orientation/consciousness: patient oriented x3 Limitations: ambulation with walker HEENT Head: Yes normocephalic and Yes atraumatic Mouth: moist mucous membranes Resp Effort & Inspection: normal respiratory effort and able to speak in complete sentences Skin General skin exam: dry skin Neuro General: patient oriented x3 Extrem Other: Osteoarthritic changes of both hands with prominent 1st CMC joint bilaterally, reduced bilateral shoulder abduction worse on the right Negative MCP squeeze test bilaterally Few fibromyalgia tender points bilaterally Significant edema of both lower extremities No active synovitis today Assessment & Plan Assessment & Plan (1) Gout: Comment: Allopurinol 07/2023 Colchicine could not be tolerated even 1 tab daily Code(s): M10.9 - Gout, unspecified Qualifiers: Chronicity: chronic Gout etiology: idiopathic Gout site: multiple sites Presence of tophus: without tophus Qualified Code(s): M1A.09X0 - Idiopathic chronic gout, multiple sites, without tophus (tophi) Plan: This is an 88-year-old female with gout who presents for follow-up. Doing well overall no gout flare-ups. On allopurinol 100 mg daily. Uric acid level is 4.2. At target. Patient has been using the tart walters juice. Continue with that Continue allopurinol 200 mg daily At this point, patient has not had any gout flare-ups for 4-5 months. Follow-up with PCP. Follow-up with me as needed (2) Osteoarthritis of shoulders, bilateral: Code(s): M19.011 - Primary osteoarthritis, right shoulder; M19.012 - Primary osteoarthritis, left shoulder Qualifiers: Osteoarthritis type: primary Qualified Code(s): M19.011 - Primary osteo arthritis, right shoulder; M19.012 - Primary osteoarthritis, left shoulder Plan: Right shoulder Injection done last visit, not helpful, will refer patient to pain management (3) Hypokalemia: Code(s): E87.6 - Hypokalemia Plan: Follow-up with PCP Plan I spent 26 minutes reviewing patient's chart, evaluating patient, counseling patient and documenting in the chart Orders: Referrals Pain Management Referral M19.011 - Primary osteoarthritis, right shoulder, M19.012 - Primary osteoarthritis, left shoulder Coding Level of Care Code Est Pt Level 4 (89894) Diagnoses Idiopathic chronic gout of multiple sites without tophus M1A.09X0 Chronicity: chronic Gout etiology: idiopathic Gout site: multiple sites Presence of tophus: without tophus Primary osteoarthritis of both shoulders M19.011; M19.012 Osteoarthritis type: primary Hypokalemia E87.6
[2024-01-08 14:22] VITALS: BP 144/76; PULSE 60; TEMP 36.1; BMI 29.8
== END 2024-01-08 14:42 | disposition home or self-care (01) ==
PROVIDERS: PCP Family Medicine; Visit Provider Student in an Organized Health Care Education/Training Program
DX: M1A.09X0 Idiopathic chronic gout, multiple sites, without tophus (tophi) (principal); M19.011 Primary osteoarthritis, right shoulder; M19.012 Primary osteoarthritis, left shoulder; E87.6 Hypokalemia
CPT/HCPCS: 99214

== ENCOUNTER → 2024-01-08 14:01 | Outpatient (BNVA) | payer MEDICARE, SELFPAY | PROVIDERS: PCP Family Medicine; Visit Provider Student in an Organized Health Care Education/Training Program | DX: M1A.09X0 Idiopathic chronic gout, multiple sites, without tophus (tophi) (principal); M19.011 Primary osteoarthritis, right shoulder; M19.012 Primary osteoarthritis, left shoulder; E87.6 Hypokalemia | CPT/HCPCS: 99212 ==

== ENCOUNTER 2024-01-09 10:50 | Outpatient (AMB) | payer MEDICARE, SELFPAY ==
[2024-01-09 10:54] VITALS: BP 142/78; PULSE 53; O2SAT 99
--- NOTE | 2024-01-09 10:54 | MHC.PC.OV ---
Vital Signs 01/09/24 10:54 Height 5 ft 3 in Weight 169 lb 2 oz BMI 30.0 BP 142/78 H Blood Pressure Location Lt brachial Position Sitting Pulse 53 Pulse Source Pulse Oximeter Pulse Oximetry (%) 99 Oxygen Delivery Method Room Air Intake Visit Reasons: Extended exam with f/u labs and health maint. Intake Note: Patient is here for extended exam and follow up on labs. Allergies clams Allergy (Intermediate, Verified 01/09/24 10:57) Facial Swelling walnut Allergy (Intermediate, Verified 01/09/24 10:57) Hives ibuprofen Allergy (Unknown, Verified 01/09/24 10:57) Hives colchicine Adverse Reaction (Intermediate, Verified 01/09/24 10:57) gi upset Tobacco use date assessed: 01/09/24 Fall risk assessment: 1 Fall in past year Last assessed Fall Risk: 01/09/24 Dental Screening Dental Screen Date: 01/09/24 Did you have a dental visit in the last 12 months?: Yes Did you have a dental problem in the last 6 months where you did not have access to dental care?: No Was dental information given to patient?: Patient has dentist HPI Extended exam with f/u labs and health maint. HPI Details 88 y/o female presents for an extended exam with f/u labs. Labs were drawn 01/04/24. Reviewed labs with pt. Ongoing anemia. Last A1c September 5.9%. Triglycerides 157. TC 220. LDL 140. HDL 49. Follows up with Cardiology Dr. Mota for her heart murmur. [facility] Medical History Essential hypertension Diabetes type 2, controlled Surgical History History of surgery History of left knee replacement History of arthroscopy of right knee History of hysterectomy Family History Father No problems noted. Mother No problems noted. Son Multiple sclerosis Daughter Rheumatoid arthritis Hx of cancer of lung Social History Household Members: None Housing: House Alcohol intake: current Alcohol intake frequency: other Alcohol type: beer Patient Tobacco Use Status: Never used Tobacco e-Cigarette/Vaping Use: Never Used Second Hand Smoke Exposure: No service: No Current occupational status: retired Current occupational exposures/hazards: No Cognitive needs: No Hearing needs: No Vision needs: No Questionnaire PHQ-9 Over the last 2 weeks, how often have you been bothered by any of the following problems? 1. Little interest or pleasure in doing things: not at all 2. Feeling down, depressed, or hopeless: not at all 3. Trouble falling or staying asleep, or sleeping too much: not at all 4. Feeling tired or having little energy: not at all 5. Poor appetite or overeating: not at all 6. Feeling bad about yourself - or that you are a failure or have let yourself or your family down: not at all 7. Trouble concentrating on things, such as reading the newspaper or watching television: not at all 8. Moving or speaking so slowly that other people could have noticed. Or the opposite - being so fidgety or restless that you have been moving around a lot more than usual: not at all 9. Thoughts that you would be better off or of hurting yourself in some way: not at all Total score: 0 Depression Screening Interpretation: Negative Depression Screening Done: Yes Source: Developed by Drs. Don Balderrama, Sakina Rodriguez, Reji Tse and colleagues, with an educational yaneli from [employer]. Thrive Questionnaire Date Thrive assessed: 01/09/24 I am a: Patient What is your living situation today?: I have a steady place to live Within the past 12 months, did the food you bought not last and you didn't have the money to get more?: Never true Within the past 12 months, did you worry whether your food would run out before you got money to buy more?: Never true Do you have trouble paying for medicines?: No Do you have trouble getting transportation to medical appointments?: No Do you have trouble paying your heating and electricity bill?: No Do you have trouble taking care of your child, family member or friend?: No Do you have trouble with day-to-day activities such as bathing, preparing meals, shopping, managing finances, etc.?: No Are you currently unemployed and looking for a job?: No Are you interested in more education?: No THRIVE Score: 0 AUDIT C Alcohol Use Questionnaire (AUDIT-C) 1. How often do you have a drink containing alcohol?: Monthly or less 2. How many drinks containing alcohol do you have on a typical day when you are drinking?: 1 or 2 3. How often do you have six or more drinks on one occasion?: Never Total Score: 1 CORNELIUS-7 AMB Questionnaire CORNELIUS-7 Date CORNELIUS - 7 assessed: 01/09/24 Feeling nervous, anxious, or on edge: 0 = Not at all Not being able to stop or control worryin = Not at all Worrying too much about different things: 0 = Not at all Trouble relaxin = Not at all Being so restless that it is hard to sit still: 0 = Not at all Becoming easily annoyed or irritable: 0 = Not at all Feeling afraid as if something awful might happen: 0 = Not at all Total CORNELIUS-7 score (0-4 normal; 5-9 mild; 10-14 moderate; 15-21 severe): 0 Source: Developed by Drs. Don Balderrama, Sakina Rodriguez, Reji Tse and colleagues, with an educational yaneli from [employer]. Review of Systems Const Denies chills, Denies fatigue, Denies fever(s), Denies headache(s) and Denies weakness Eyes Denies change in vision ENT Denies dizziness, Denies headache(s), Denies hearing loss, Denies nasal congestion, Denies sinus pain, Denies sinus pressure and Denies sore throat Card Denies chest pain, Denies lightheadedness, Denies dyspnea and Denies other (palpitations) Resp Denies cough, Denies dyspnea and Denies wheezing GI Denies abdominal pain, Denies melena, Denies hematochezia, Denies change in bowel habits, Denies dyspepsia and Denies nausea Denies hematuria and Denies dysuria Musc Denies abnormal gait, Denies myalgias, Denies arthralgias, Denies numbness and Denies tingling Skin/Breast Denies rash, Denies unusual bruising and Denies wounds Neuro Denies abnormal gait, Denies dizziness, Denies headache(s), Denies memory loss, Denies numbness, Denies Sensory deficit (Neuro), Denies tingling and Denies weakness Psych Denies anxiety, Denies depression and Denies memory loss Endo Denies cold intolerance, Denies fatigue, Denies heat intolerance, Denies polydipsia and Denies polyuria Braxton/Lymph Denies easy bleeding and Denies easy bruising Aller/Immun Denies wheezing Physical exam (Primary Care) Vital Signs: Last Vital Signs Pulse 53 01/09/24 10:54 BP 142/78 H 01/09/24 10:54 Pulse Ox 99 01/09/24 10:54 Oxygen Delivery Method Room Air 01/09/24 10:54 BMI result Body Mass Index 30.0 Tobacco/Smoking Status: Tobacco use Status Tobacco use date assessed 01/09/24 01/09/24 11:03 Patient Tobacco Use Status Never used Tobacco 01/09/24 11:03 e-Cigarette/Vaping Use Never Used 01/09/24 11:03 PHQ-9: PHQ-9 Score PHQ-9: Total score 0 01/09/24 11:05 Depression Screening Interpretation: Negative Thrive Assessment: Date of Thrive Assessment Date Thrive assessed 01/09/24 01/09/24 11:03 Const General: no acute distress, well developed, alert and awake Nutritional Appearance: well nourished Orientation/consciousness: patient oriented x3 HENMT Head: Yes normocephalic and Yes atraumatic Ears: hearing grossly normal bilaterally and TM's normal bilaterally General nose exam: Normal external nose present and Normal nares present Mouth: Normal oral and palatal mucosa present and moist mucous membranes Teeth and gingiva: dentition normal Throat: Yes posterior oropharynx normal Eyes General: appearance normal, both eyes and all related structures Pupils: Equal, round and reactive pupils present and Pupil accommodation reflex normal EOM: EOMs intact bilaterally Neck Neck: Yes normal visual inspection, Yes no lymphadenopathy and Yes trachea midline Thyroid: Thyroid normal Carotids: no bruits Lymphatic: no lymphadenopathy noted Chest Chest palpation & inspection: normal inspection of the chest Resp Effort & Inspection: normal respiratory effort Auscultation: clear to auscultation bilaterally Cardio Rate: regular rate Rhythm: regular rhythm Heart sounds: S1 normal heart sound present, S2 normal heart sound present, no gallops, Murmur heart sound present and no rubs Bruits: no abdominal aortic bruits and no carotid bruits GI Palpation (GI): No Abdominal aortic bruit present, Soft to palpation, nontender, No hepatosplenomegaly present and No Rebound tenderness present Auscultation: normal bowel sounds General: Yes no CVA tenderness Back/Spine/Pelvis Back: no CVA tenderness Cervical Spine: cervical ROM normal and No Cervical spine tenderness Thoracic/Lumbar Spine: thoraco-lumbar ROM normal, No pain with thoraco-lumbar ROM, No thoracic spinal tenderness and No lumbar spinal tenderness Skin Lesions: no lesions Rashes: no rashes Trauma: no lacerations or abrasions Wounds: no wounds Nails: normal Neuro General: patient oriented x3 Cranial nerves: Yes Equal, round and reactive pupils present Cognition (Neuro): normal cognition Gait exam (Neuro): Normal gait present Motor exam (neuro): 5/5 motor strength present throughout Sensory Exam: No Sensory deficit (Neuro) Deep tendon reflexes (DTR's): Right patellar reflex intensity grade: 2+ and Left patellar reflex intensity grade: 2+ Extrem General: Yes normal to inspection and No edema Psych Appearance: grossly normal Affect: normal affect Attitude: cooperative Thought process: Normal thought process present Assessment and Plan Assessment & Plan (1) Anemia: Code(s): D64.9 - Anemia, unspecified Plan: Mild, stable?anemia.??Follow-up?with?Hematology-Oncology?as?recommended (2) Essential hypertension: Code(s): I10 - Essential (primary) hypertension Plan: Blood?pressure?is?a?little?too?high.??Goal?is?less?than?140/90 Had?been?on?losartan?but?her?creatinine?level?had?risen. Continue?metoprolol.??Will?trial?a?low?dose?of?amlodipine.??She?will?let?me?know?if?lower?extremity?edema?occurs (3) Right shoulder strain: Code(s): S46.911A - Strain of unspecified muscle, fascia and tendon at shoulder and upper arm level, right arm, initial encounter Plan: Followed?by?rheumatology?and?has?been?referred?to?pain?management Continue?Tylenol?and?can?use?topicals?as?well?as?ice?and?heat (4) Diabetes type 2, controlled: Code(s): E11.9 - Type 2 diabetes mellitus without complications Plan: She?is?taking?metformin?as?prescribed Will?check?A1c?with?her?next?lab?work (5) Gout: Comment: Allopurinol 07/2023 Colchicine could not be tolerated even 1 tab daily Code(s): M10.9 - Gout, unspecified Qualifiers: Chronicity: chronic Gout etiology: idiopathic Gout site: multiple sites Presence of tophus: without tophus Qualified Code(s): M1A.09X0 - Idiopathic chronic gout, multiple sites, without tophus (tophi) Plan: On?allopurinol?and?followed?by?rheumatology Was?recent?uric?acid?was?4.2 Continue?current?regimen (6) Screening for osteoporosis: Code(s): Z13.820 - Encounter for screening for osteoporosis Plan: Due?for?bone?density?test (7) Subjective hearing change: Code(s): H91.90 - Unspecified hearing loss, unspecified ear Plan: Referred?to?audiology?for?testing (8) GERD (gastroesophageal reflux disease): Code(s): K21.9 - Gastro-esophageal reflux disease without esophagitis Plan: Currently?on?pantoprazole Avoid?triggers Will?refer?her?back?to?GI?if?symptoms?worsen. (9) Murmur: Code(s): R01.1 - Cardiac murmur, unspecified Plan: Loud,?stable?systolic?murmur - known. Followed?by?cardiology,?Dr. Mota?whom?she?recently?saw. Will?request?note (10) Unsteady gait: Code(s): R26.81 - Unsteadiness on feet Plan: Unsteady?gait?secondary?to?lower?extremity?weakness?due?to?deconditioning Patient?has?had?a?few?falls Referred?to?physical?therapy Use?cane (11) Adult general medical exam: Code(s): Z00.00 - Encounter for general adult medical examination without abnormal findings Plan: 88-year-old?female?presents?for?an?extended?exam Orders: Orders XR DEXA axial skeleton Today M81.0 - Age-related osteoporosis without current pathological fracture Referrals Audiology Referral H91.90 - Unspecified hearing loss, unspecified ear Medications: New amlodipine 5 mg PO DAILY 30 tabs 2RF 30 days atorvastatin 10 mg PO BEDTIME 90 tabs 2RF 90 days Coding Level of Care Code Est Pt Level 4 (74716) Diagnoses Anemia D64.9 Essential hypertension I10 Right shoulder strain S46.911A Diabetes type 2, controlled E11.9 Idiopathic chronic gout of multiple sites without tophus M1A.09X0 Chronicity: chronic Gout etiology: idiopathic Gout site: multiple sites Presence of tophus: without tophus Screening for osteoporosis Z13.820 Subjective hearing change H91.90 GERD (gastroesophageal reflux disease) K21.9 Murmur R01.1 Unsteady gait R26.81 Adult general medical exam Z00.00
== END 2024-01-09 11:36 | disposition home or self-care (01) ==
PROVIDERS: PCP Family Medicine; Visit Provider Family Medicine
DX: E11.9 Type 2 diabetes mellitus without complications (principal); D64.9 Anemia, unspecified; I10 Essential (primary) hypertension; S46.911A Strain of unspecified muscle, fascia and tendon at shoulder and upper arm level, right arm, initial encounter; M1A.09X0 Idiopathic chronic gout, multiple sites, without tophus (tophi); R26.81 Unsteadiness on feet; Z13.820 Encounter for screening for osteoporosis; K21.9 Gastro-esophageal reflux disease without esophagitis; R01.1 Cardiac murmur, unspecified; H91.93 Unspecified hearing loss, bilateral
CPT/HCPCS: 99214

== ENCOUNTER 2024-01-15 14:39 | Outpatient (AMB) | payer MEDICARE, SELFPAY ==
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
[2024-01-15 15:00] VITALS: BP 140/66; PULSE 65; RESP 14; O2SAT 95; BMI 29.2
== END 2024-01-15 15:07 | disposition home or self-care (01) ==
PROVIDERS: PCP Family Medicine; Referring Provider Student in an Organized Health Care Education/Training Program; Visit Provider Anesthesiology
DX: M19.011 Primary osteoarthritis, right shoulder (principal); M19.012 Primary osteoarthritis, left shoulder; M25.511 Pain in right shoulder; M54.12 Radiculopathy, cervical region; M50.30 Other cervical disc degeneration, unspecified cervical region
CPT/HCPCS: 99203

== ENCOUNTER → 2024-01-15 14:39 | Outpatient (BNVA) | payer MEDICARE, SELFPAY | PROVIDERS: PCP Family Medicine; Referring Provider Student in an Organized Health Care Education/Training Program; Visit Provider Anesthesiology | DX: M19.012 Primary osteoarthritis, left shoulder (principal); M19.011 Primary osteoarthritis, right shoulder; M54.12 Radiculopathy, cervical region; M50.30 Other cervical disc degeneration, unspecified cervical region | CPT/HCPCS: 99202 ==

== ENCOUNTER 2024-02-13 06:17 | Outpatient (REF) | payer MEDICARE, SELFPAY ==
--- NOTE | ~2024-02-13 | FL_ITS ---
EXAMINATION: XR FLUOROSCOPY WITH IMAGES CLINICAL INFORMATION: Right shoulder injection. COMPARISON: None available. TECHNIQUE: Fluoroscopy Supervised By: Dr. Bhavesh Hanson. Fluoroscopy Time: 0.4 minute. Cumulative Dose: 2.56 mGy. DAP: 0.688 Gycm2. Images: 2. FINDINGS: Intraoperative fluoroscopy and spot films were performed during a procedure in the OR. A needle is present in the region of the axilla with some contrast around its tip. Please see Dr. Bhavesh Hanson's report for complete details. FL/FL guidance in treatment room IMPRESSION: Intraoperative fluoroscopy and spot films were obtained. Please see Dr. Bhavesh Hanson's report for complete details.
== END 2024-02-13 06:18 | disposition home or self-care (01) ==
LOC: CF 06:17
PROVIDERS: Visit Provider Anesthesiology
DX: M19.011 Primary osteoarthritis, right shoulder (principal); M19.012 Primary osteoarthritis, left shoulder; M54.12 Radiculopathy, cervical region; M50.30 Other cervical disc degeneration, unspecified cervical region
CPT/HCPCS: 64418; J2795; Q9967

== ENCOUNTER 2024-02-13 13:16 | Outpatient (AMB) | payer MEDICARE, SELFPAY ==
[2024-02-13 13:18] VITALS: BP 126/74; PULSE 59; RESP 14; O2SAT 97; BMI 29.2
--- NOTE | 2024-02-13 13:18 | MHC.OFFVIS ---
Vital Signs 02/13/24 13:18 02/13/24 14:24 Height 5 ft 3 in Weight 165 lb BMI 29.2 BP 126/74 132/80 Blood Pressure Location Lt brachial Lt brachial Position Sitting Sitting Respiration 14 16 Pulse 59 66 Pulse Source Pulse Oximeter Pulse Oximeter Pulse Oximetry (%) 97 95 Oxygen Delivery Method Room Air Room Air Comment Pre-Op Post Op Intake Visit Reasons: RIGHT DIAGNOSTIC SUPRASCAPULAR NERVE BLOCK Allergies clams Allergy (Intermediate, Verified 01/15/24 14:55) Facial Swelling walnut Allergy (Intermediate, Verified 01/15/24 14:55) Hives ibuprofen Allergy (Unknown, Verified 01/15/24 14:55) Hives colchicine Adverse Reaction (Intermediate, Verified 01/15/24 14:55) gi upset PFSH Medical History Essential hypertension Diabetes type 2, controlled Surgical History History of surgery History of left knee replacement History of arthroscopy of right knee History of hysterectomy Family History Father No problems noted. Mother No problems noted. Son Multiple sclerosis Daughter Rheumatoid arthritis Hx of cancer of lung Social History Household Members: None Housing: House Alcohol intake: current Alcohol intake frequency: other Alcohol type: beer Patient Tobacco Use Status: Never used Tobacco e-Cigarette/Vaping Use: Never Used Second Hand Smoke Exposure: No service: No Current occupational status: retired Current occupational exposures/hazards: No Cognitive needs: No Hearing needs: No Vision needs: No Physical Exam Vital Signs: Last Vital Signs Pulse 66 02/13/24 14:24 Resp 16 02/13/24 14:24 BP 132/80 02/13/24 14:24 Pulse Ox 95 02/13/24 14:24 Oxygen Delivery Method Room Air 02/13/24 14:24 BMI result Body Mass Index 29.2 Assessment & Plan Assessment & Plan (1) Bilateral shoulder region arthritis: Code(s): M19.011 - Primary osteoarthritis, right shoulder; M19.012 - Primary osteoarthritis, left shoulder Category: Medical Plan: Right diagnostic suprascapular nerve block ?Informed consent was explained to the patient. All questions were explained and answered.? The patient was taken inside the operating room where she was positioned prone on the operating table. Time-out was performed delineating correct site, side, the nature of the procedure, patient's allergy, preoperative antibiotic if needed.? All operating room staff was participating in OR time-out procedure. Right side of the back was prepped with ChloraPrep and draped with sterile towels.? Sterilely draped C-arm was brought over the operating field and sq picture of the right scapula was delineated on the screen.? Points of interest were delineated as the suprascapular notch on the right. It was chosen as the target of the tip of the needles on AP view.? The projections of the point of interest to the skin were injected with the small amount of local anesthetic lidocaine 2% 1-1.5 cc.? After that 22 gauge 3and 1/2 inch? spinal needle was driven to the point of interest in tunnel vision fashion. After needle gently contacted the bone at the point of interests the needle was injected with small amount of the contrast. The injections did not demonstrate intravascular or pleural spread.. After that ropivacaine 0.5%-2cc. was injected into the needle Upon completion of the injections the needle was removed and sterile dressings were applied, the patient was a taken? outside of the operating room to recovery room where she recovered uneventfully. (2) Right shoulder pain: Code(s): M25.511 - Pain in right shoulder Category: Medical (3) Radiculopathy, cervical: Code(s): M54.12 - Radiculopathy, cervical region Category: Medical (4) Degeneration, intervertebral disc, cervical: Code(s): M50.30 - Other cervical disc degeneration, unspecified cervical region Category: Medical Plan Possibility exists that the patient pain does come from the pain in the shoulder. However she has significant changes on her MRI of the cervical spine which would allow me to suspect radiculopathy on the right as well. I offered this patient diagnostic suprascapular nerve block. With success of the block I can treat the pain in the right shoulder with sprint PNS. However if the block was not be possible I would pay more attention to patient's cervical spine were on several levels severe foraminal stenosis exists. I probably would need to perform interlaminar epidural steroid injection. Spinal cord stimulator cervical position would be considered if she has not a surgical candidate and her pain is coming from the right side foramina in the cervical spine. Orders: Orders FL guidance in treatment room Today M25.511 - Pain in right shoulder Coding Level of Care Code Procedure Only Diagnoses Bilateral shoulder region arthritis M19.011; M19.012 Right shoulder pain M25.511 Radiculopathy, cervical M54.12 Degeneration, intervertebral disc, cervical M50.30
[2024-02-13 14:24] VITALS: BP 132/80; PULSE 66; RESP 16; O2SAT 95
== END 2024-02-13 14:22 | disposition home or self-care (01) ==
LOC: HO.PMCPRC 13:16
PROVIDERS: PCP Family Medicine; Visit Provider Anesthesiology
DX: M19.011 Primary osteoarthritis, right shoulder (principal); M25.511 Pain in right shoulder
CPT/HCPCS: 64418; 77002

== ENCOUNTER 2024-02-19 13:21 | Outpatient (AMB) | payer MEDICARE, SELFPAY ==
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
[2024-02-19 13:30] VITALS: BP 160/80; PULSE 62; RESP 16; O2SAT 98; BMI 29.8
== END 2024-02-19 13:55 | disposition home or self-care (01) ==
PROVIDERS: PCP Family Medicine; Visit Provider Anesthesiology
DX: M19.011 Primary osteoarthritis, right shoulder (principal); M19.012 Primary osteoarthritis, left shoulder; M54.12 Radiculopathy, cervical region; M50.30 Other cervical disc degeneration, unspecified cervical region
CPT/HCPCS: 99213

== ENCOUNTER → 2024-02-19 13:21 | Outpatient (BNVA) | payer MEDICARE, SELFPAY | PROVIDERS: PCP Family Medicine; Visit Provider Anesthesiology | DX: M19.011 Primary osteoarthritis, right shoulder (principal); M19.012 Primary osteoarthritis, left shoulder; M25.511 Pain in right shoulder; M54.12 Radiculopathy, cervical region; M50.30 Other cervical disc degeneration, unspecified cervical region | CPT/HCPCS: 99212 ==

== ENCOUNTER 2024-03-13 15:35 | Outpatient (REF) | payer MEDICARE, SELFPAY | END 2024-03-13 15:36 | disposition home or self-care (01) | LOC: HO.SH 15:35 | PROVIDERS: Visit Provider Family Medicine | DX: Z01.118 Encounter for examination of ears and hearing with other abnormal findings (principal); H90.3 Sensorineural hearing loss, bilateral | CPT/HCPCS: 92557 ==

== ENCOUNTER 2024-03-19 06:54 | Outpatient (REF) | payer MEDICARE, SELFPAY | END 2024-03-19 06:55 | disposition home or self-care (01) | LOC: CF 06:54 | PROVIDERS: Visit Provider Anesthesiology | DX: M19.012 Primary osteoarthritis, left shoulder (principal); M19.011 Primary osteoarthritis, right shoulder; M54.12 Radiculopathy, cervical region; M50.30 Other cervical disc degeneration, unspecified cervical region | CPT/HCPCS: 64415; J2795 ==

== ENCOUNTER 2024-03-19 13:08 | Outpatient (AMB) | payer MEDICARE, SELFPAY ==
--- NOTE | 2024-03-19 13:50 | MHC.OFFVIS ---
Vital Signs 03/19/24 15:11 Height 5 ft 3 in Weight 168 lb BMI 29.8 BP 128/68 Blood Pressure Location Lt brachial Position Sitting Respiration 14 Pulse 60 Pulse Source Pulse Oximeter Pulse Oximetry (%) 98 Oxygen Delivery Method Room Air Comment Post-Op Intake Visit Reasons: Right Dx interscalene block Allergies clams Allergy (Intermediate, Verified 02/19/24 13:30) Facial Swelling walnut Allergy (Intermediate, Verified 02/19/24 13:30) Hives ibuprofen Allergy (Unknown, Verified 02/19/24 13:30) Hives colchicine Adverse Reaction (Intermediate, Verified 02/19/24 13:30) gi upset PFSH Medical History Essential hypertension Diabetes type 2, controlled Surgical History History of surgery History of left knee replacement History of arthroscopy of right knee History of hysterectomy Family History Father No problems noted. Mother No problems noted. Son Multiple sclerosis Daughter Rheumatoid arthritis Hx of cancer of lung Social History Household Members: None Housing: House Alcohol intake: current Alcohol intake frequency: other Alcohol type: beer Patient Tobacco Use Status: Never used Tobacco e-Cigarette/Vaping Use: Never Used Second Hand Smoke Exposure: No service: No Current occupational status: retired Current occupational exposures/hazards: No Cognitive needs: No Hearing needs: No Vision needs: No Physical Exam Vital Signs: Last Vital Signs Pulse 60 03/19/24 15:11 Resp 14 03/19/24 15:11 BP 128/68 03/19/24 15:11 Pulse Ox 98 03/19/24 15:11 Oxygen Delivery Method Room Air 03/19/24 15:11 BMI result Body Mass Index 29.8 Assessment & Plan Assessment & Plan (1) Bilateral shoulder region arthritis: Code(s): M19.011 - Primary osteoarthritis, right shoulder; M19.012 - Primary osteoarthritis, left shoulder Category: Medical (2) Right shoulder pain: Code(s): M25.511 - Pain in right shoulder Category: Medical Plan: Interscalene left brachial plexus block Informed consent was thoroughly explained to the patient before the procedure.? The patient came to the operating room.? She was positioned supine with the head and shoulders elevated on the examination bed. Time-out was performed delineating correct site and side of the procedure, nature of the injection, name and date of of the patient. The left neck and left upper shoulder of the patient was prepped with ChloraPrep and draped with sterile utility towels.? Sterilely draped ultrasound probe was brought over the operating field and image of the brachial plexus in the interscalene space was demonstrated on the screen. After that echo stim needle 100 mm 22 gauge was inserted extra anatomically through the skin and was advanced to were the brachial plexus on the direct ultrasound view. When tip of the needle entered between the 4th and 5th brachial plexus roots injection of the normal saline was performed demonstrating spread of the medication in appropriate fashion. After that injection of the treatment medicine ropivacaine 0.5% 4 cc was slowly performed into the needle. Upon completion of the injection needle was withdrawn sterile Band-Aid was applied. The patient tolerated procedure well. (3) Radiculopathy, cervical: Code(s): M54.12 - Radiculopathy, cervical region Category: Medical (4) Degeneration, intervertebral disc, cervical: Code(s): M50.30 - Other cervical disc degeneration, unspecified cervical region Category: Medical Plan Possibility exists that the patient pain does come from the pain in the shoulder. However she has significant changes on her MRI of the cervical spine which would allow me to suspect radiculopathy on the right as well. Diagnostic suprascapular nerve block resulted in no improvement. I offered the patient today diagnostic ultrasound-guided interscalene injection. If this will help the patient I will be able to schedule her for the trial of PNS. Alternatively considering her complains on pain in the contralateral left shoulder spinal cord stimulator site trial in cervical position might be better option to treat this patient's pain. Orders: Orders [place] guidance in treatment room Today M25.511 - Pain in right shoulder Coding Level of Care Code Procedure Only Diagnoses Bilateral shoulder region arthritis M19.011; M19.012 Right shoulder pain M25.511 Radiculopathy, cervical M54.12 Degeneration, intervertebral disc, cervical M50.30
[2024-03-19 15:11] VITALS: BP 128/68; PULSE 60; RESP 14; O2SAT 98; BMI 29.8
== END 2024-03-19 14:11 | disposition home or self-care (01) ==
LOC: HO.PMCPRC 13:08
PROVIDERS: PCP Family Medicine; Referring Provider Family Medicine; Visit Provider Anesthesiology
DX: M25.512 Pain in left shoulder (principal); M19.012 Primary osteoarthritis, left shoulder
CPT/HCPCS: 64415; 76942

== ENCOUNTER 2024-03-25 13:02 | Outpatient (AMB) | payer MEDICARE, SELFPAY ==
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
[2024-03-25 13:24] VITALS: BP 132/86; PULSE 60; RESP 12; O2SAT 96; BMI 29.8
== END 2024-03-25 13:42 | disposition home or self-care (01) ==
PROVIDERS: PCP Family Medicine; Visit Provider Anesthesiology
DX: M19.011 Primary osteoarthritis, right shoulder (principal); M19.012 Primary osteoarthritis, left shoulder; M25.511 Pain in right shoulder; M54.12 Radiculopathy, cervical region; M50.30 Other cervical disc degeneration, unspecified cervical region
CPT/HCPCS: 99214

== ENCOUNTER → 2024-03-25 13:02 | Outpatient (BNVA) | payer MEDICARE, SELFPAY | PROVIDERS: PCP Family Medicine; Visit Provider Anesthesiology | DX: M19.011 Primary osteoarthritis, right shoulder (principal); M19.012 Primary osteoarthritis, left shoulder; M25.511 Pain in right shoulder; M54.12 Radiculopathy, cervical region; M50.30 Other cervical disc degeneration, unspecified cervical region | CPT/HCPCS: 99212 ==

== ENCOUNTER 2024-04-12 08:48 | Outpatient (AMB) | payer MEDICARE, SELFPAY ==
--- NOTE | 2024-04-12 08:58 | A.OFFPC_ITS ---
Vital Signs 04/12/24 09:04 04/12/24 09:08 Height 5 ft 1.02 in Weight 164 lb 6 oz BMI 31.0 BP 152/66 H 143/63 H Blood Pressure Location Rt brachial Rt brachial Position Sitting Sitting Respiration 14 Pulse 57 Pulse Source Pulse Oximeter Temp 97.5 F Temp Source Temporal Artery Scan Pulse Oximetry (%) 95 Oxygen Delivery Method Room Air Intake Visit Reasons: est/ right leg infections Intake Note: New patient visit. Glucose fasting this morning 92. Bean Picker Required: No Allergies clams Allergy (Intermediate, Verified 04/12/24 09:03) Facial Swelling walnut Allergy (Intermediate, Verified 04/12/24 09:03) Hives ibuprofen Allergy (Unknown, Verified 04/12/24 09:03) Hives colchicine Adverse Reaction (Intermediate, Verified 04/12/24 09:03) gi upset Tobacco use date assessed: 04/12/24 Fall risk assessment: 2 + Falls in past year Last assessed Fall Risk: 04/12/24 Dental Screening Dental Screen Date: 04/12/24 Did you have a dental visit in the last 12 months?: Yes Did you have a dental problem in the last 6 months where you did not have access to dental care?: No Was dental information given to patient?: Patient has dentist HPI HPI Comments History of Present Illness Details This is an 89-year-old female with a past medical history of controlled type 2 diabetes, CAD, CKD stage IIIB, DVT and PE, CHF, hypertension and chronic pain presenting for evaluation of a skin infection. The symptoms began 3 or 4 days ago. She noticed redness on her right weiss. It has slowly expanded over the last few days. She also noticed a smaller red spot close to it this morning. It is not painful. It feels warm. Denies trauma, fevers, chills. She applied bacitracin without improvement. Her blood glucose this morning was 92. Reviewed lab 01/06: Creatinine 1.21, GFR 42. PFSH Medical History Essential hypertension Diabetes type 2, controlled Surgical History History of surgery History of left knee replacement History of arthroscopy of right knee History of hysterectomy Family History (Updated 04/12/24 @ 09:08 by Brittaney Espitia CMA) Father No problems noted. Mother No problems noted. Son Multiple sclerosis Daughter Rheumatoid arthritis Hx of cancer of lung Social History (Reviewed 01/09/24 @ 10:59 by Cynthia Powell [facility]) Household Members: None Housing: House Alcohol intake: current Alcohol intake frequency: other Alcohol type: beer Patient Tobacco Use Status: Never used Tobacco e-Cigarette/Vaping Use: Never Used Second Hand Smoke Exposure: No service: No Current occupational status: retired Current occupational exposures/hazards: No Cognitive needs: No Hearing needs: No Vision needs: No Questionnaire Thrive Questionnaire Date Thrive assessed: 01/09/24 AUDIT C Alcohol Use Questionnaire (AUDIT-C) 1. How often do you have a drink containing alcohol?: Monthly or less (rarely) 2. How many drinks containing alcohol do you have on a typical day when you are drinking?: 1 or 2 3. How often do you have six or more drinks on one occasion?: Never Total Score: 1 CRONELIUS-7 AMB Questionnaire CORNELIUS-7 Date CORNELIUS - 7 assessed: 01/09/24 Source: Developed by Drs. Don Balderrama, Sakina Rodriguez, Reji Tse and colleagues, with an educational yaneli from [employer]. Review of Systems Const Details: Constitutional: No fevers or chills Neurologic: No headache, dizziness, syncope Skin: see HPI Physical exam (Primary Care) Vital Signs: Last Vital Signs Temp 97.5 F 04/12/24 09:04 Pulse 57 04/12/24 09:04 Resp 14 04/12/24 09:04 BP 143/63 H 04/12/24 09:08 Pulse Ox 95 04/12/24 09:04 Oxygen Delivery Method Room Air 04/12/24 09:04 BMI result Body Mass Index 31.0 Tobacco/Smoking Status: Tobacco use Status Tobacco use date assessed 04/12/24 04/12/24 09:09 Patient Tobacco Use Status Never used Tobacco 04/12/24 09:09 e-Cigarette/Vaping Use Never Used 04/12/24 09:09 Thrive Assessment: Date of Thrive Assessment Date Thrive assessed 01/09/24 04/12/24 09:09 Const Other: Constitutional: Alert, in no distress. Respiratory: Clear to auscultation. Cardiovascular: S1 S2 regular. Murmur present. Extremities: No edema present. Dry, flaking skin on lower extremities. 4 x 2.4 cm erythematous, warm area on right weiss with yellowish skin in the center. Small erythematous spot inferior to this. No fluctuance, discharge or open wound of either lesion. They are nontender. 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 Diabetes is currently well controlled. Continue current management plan and glucose monitoring. The patient is prescribed cephalexin. I will have her repeat her creatinine test today to make sure it is stable. Based on last labs creatinine clearance is 39 therefore cephalexin does not require dose adjustment. Instructed to keep the areas clean and dry. Take cephalexin 500 mg every 6 hours for 10 days. Take with food and probiotics/yougurt to minimize GI side effects. She will follow up on Monday for a recheck. Traced lesions. She will monitor closely at home. Advised to go to the ER for rapidly expanding erythema, fevers, chills or other worsening symptoms. 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
[2024-04-12 09:04] VITALS: BP 152/66; PULSE 57; RESP 14; TEMP 36.4; O2SAT 95; BMI 31.0
[2024-04-12 09:08] VITALS: BP 143/63
== END 2024-04-12 09:36 | disposition home or self-care (01) ==
PROVIDERS: PCP Family Medicine; Visit Provider Physician Assistant Medical
DX: L03.115 Cellulitis of right lower limb (principal); E11.22 Type 2 diabetes mellitus with diabetic chronic kidney disease; N18.32 Chronic kidney disease, stage 3b
CPT/HCPCS: 99214; G2211

== ENCOUNTER 2024-04-12 09:42 | Outpatient (REF) | payer MEDICARE, SELFPAY ==
[2024-04-12 12:01] LABS: Estimated Glomerular Filt Rate 29
== END 2024-04-12 09:43 | disposition home or self-care (01) ==
LOC: HO.WFDLDS 09:42
PROVIDERS: Visit Provider Physician Assistant Medical
DX: L03.115 Cellulitis of right lower limb (principal)
CPT/HCPCS: 36415; 82565

== ENCOUNTER 2024-04-15 08:45 | Outpatient (AMB) | payer MEDICARE, SELFPAY ==
--- NOTE | 2024-04-15 08:47 | A.OFFPC_ITS ---
Vital Signs 04/15/24 08:54 Weight 165 lb 6 oz BP 148/68 H Blood Pressure Location Rt brachial Position Sitting Pulse 59 Pulse Source Pulse Oximeter Temp 97.8 F Temp Source Temporal Artery Scan Pulse Oximetry (%) 98 Oxygen Delivery Method Room Air Intake Visit Reasons: recheck cellulitis Intake Note: patient is here for follow up on cellulitis. 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 Required: No Is last menstrual period known: No Post menopausal: No Patient : No Allergies clams Allergy (Intermediate, Verified 04/12/24 09:03) Facial Swelling walnut Allergy (Intermediate, Verified 04/12/24 09:03) Hives ibuprofen Allergy (Unknown, Verified 04/12/24 09:03) Hives colchicine Adverse Reaction (Intermediate, Verified 04/12/24 09:03) gi upset Tobacco use date assessed: 04/12/24 Dental Screening Dental Screen Date: 04/12/24 HPI HPI Comments History of Present Illness Details This is an 89-year-old female with a past medical history of controlled type 2 diabetes, CAD, CKD stage IIIB, DVT and PE, CHF, hypertension and chronic pain presenting for re-evaluation of cellulitis. I documented the following at our visit on 04/12/2024: The symptoms began 3 or 4 days ago. She noticed redness on her right weiss. It has slowly expanded over the last few days. She also noticed a smaller red spot close to it this morning. It is not painful. It feels warm. Denies trauma, fevers, chills. She applied bacitracin without improvement. Her blood glucose this morning was 92. Reviewed lab 01/06: Creatinine 1.21, GFR 42. Patient was placed on cephalexin 500 mg t.i.d. (dose adjusted for renal impairment-creatinine level drawn that day). Creatinine has fluctuated over the past year: 04/12/2024 1.65 01/04/2024 1.21 11/21/2023 1.33 09/29/2023 1.59 06/02/2023 1.53 04/28/2023 1.15 03/06/2023 1.38 02/20/2023 1.99 The patient started her 1st dose of antibiotics on Monday evening. The smaller spot on her weiss has faded. She noticed pinkness spreading yesterday morning a little bit lower than the tracing of the larger spot, but today it is fading. No fevers or chills. Her blood glucose yesterday was 103. [facility] Medical History Essential hypertension Diabetes type 2, controlled Surgical History History of surgery History of left knee replacement History of arthroscopy of right knee History of hysterectomy Family History (Updated 04/12/24 @ 09:08 by Brittaney Espitia CMA) Father No problems noted. Mother No problems noted. Son Multiple sclerosis Daughter Rheumatoid arthritis Hx of cancer of lung Social History Household Members: None Housing: House Alcohol intake: current Alcohol intake frequency: other Alcohol type: beer Patient Tobacco Use Status: Never used Tobacco e-Cigarette/Vaping Use: Never Used Second Hand Smoke Exposure: No service: No Current occupational status: retired Current occupational exposures/hazards: No Cognitive needs: No Hearing needs: No Vision needs: No Questionnaire Thrive Questionnaire Date Thrive assessed: 01/09/24 CORNELIUS-7 AMB Questionnaire CORNELIUS-7 Date CORNELIUS - 7 assessed: 01/09/24 Source: Developed by Drs. Don Balderrama, Sakina Rodriguez, Reji Tse and colleagues, with an educational yaneli from [employer] (acquired by [employer] in 2014). Review of Systems Const Details: Constitutional: No fevers or chills Skin: see HPI Physical exam (Primary Care) Tobacco/Smoking Status: Tobacco use Status Tobacco use date assessed 04/12/24 04/15/24 08:49 Patient Tobacco Use Status Never used Tobacco 04/15/24 08:49 e-Cigarette/Vaping Use Never Used 04/15/24 08:49 Thrive Assessment: Date of Thrive Assessment Date Thrive assessed 01/09/24 04/15/24 08:49 Const Other: Constitutional: Alert, in no distress. Respiratory: Clear to auscultation. Cardiovascular: S1 S2 regular. Murmur present. Extremities: No edema present. Dry, flaking skin on lower extremities. The larger erythematous area on the right weiss with yellowish skin at the center now has dried out some in the center, and the erythema around the edges is faded though there is light pink discoloration a little beyond the lower border of the tracing. The small spot inferior to this has faded significantly. No fluctuance, discharge or open wound of either lesion. They are nontender. 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 Diabetes is currently well controlled. Continue current management plan and glucose m onitoring. The patient will continue cephalexin 500 mg t.i.d. which was dose adjusted for renal impairment. There was a little erythema spreading beyond the lower edge of the tracing, but this was early in her course of antibiotics, and it is fading today. I will also have her apply topical Bactroban ointment twice daily. She was instructed to elevate her leg, and she can apply warm compresses. She has a follow up scheduled with her PCP on April 23 2024, and she did schedule a follow up to recheck her cellulitis this Monday, but I advised her that she can cancel it and wait until April 23 if it continues to improve. Her systolic blood pressure is a little elevated today. In the past she had been referred to Dr. Sumner. Discussed referral back She will discuss this with her PCP at the follow up appointment. Medications: New mupirocin 2% 1 appl topical BID 10 days 22 grams 0RF Coding Level of Care Code Est Pt Level 4 (11647) Complex EM visit Add On G2211 Diagnoses Cellulitis of right leg L03.115 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 disease, without long-term current use of insulin E11.22; N18.30 Diabetes mellitus long-term insulin use: without long-term use Diabetes mellitus complication status: with kidney complications Diabetes mellitus complication detail: with chronic kidney disease Chronic kidney disease stage: stage 3 (moderate) CKD stage 3b, GFR 30-44 ml/min N18.32
[2024-04-15 08:54] VITALS: BP 148/68; PULSE 59; TEMP 36.6; O2SAT 98
== END 2024-04-15 09:20 | disposition home or self-care (01) ==
PROVIDERS: PCP Family Medicine; Visit Provider Physician Assistant Medical
DX: E11.22 Type 2 diabetes mellitus with diabetic chronic kidney disease (principal); L03.115 Cellulitis of right lower limb; N18.32 Chronic kidney disease, stage 3b
CPT/HCPCS: 99214; G2211

== ENCOUNTER 2024-04-19 08:48 | Outpatient (AMB) | payer MEDICARE, SELFPAY ==
--- NOTE | 2024-04-19 08:58 | MHC.PC.OV ---
Vital Signs 04/19/24 09:00 Height 5 ft 1.02 in Weight 165 lb BMI 31.2 BP 128/60 Blood Pressure Location Lt brachial Position Sitting Respiration 14 Pulse 65 Pulse Source Pulse Oximeter Temp 98.1 F Temp Source Oral Pulse Oximetry (%) 95 Oxygen Delivery Method Room Air Intake Visit Reasons: follow up leg infection Intake Note: Follow up, leg infected right leg Allergies clams Allergy (Intermediate, Verified 04/19/24 08:59) Facial Swelling walnut Allergy (Intermediate, Verified 04/19/24 08:59) Hives ibuprofen Allergy (Unknown, Verified 04/19/24 08:59) Hives colchicine Adverse Reaction (Intermediate, Verified 04/19/24 08:59) gi upset Tobacco use date assessed: 04/12/24 Dental Screening Dental Screen Date: 04/12/24 HPI HPI Comments History of Present Illness Details This is an 89-year-old female with a past medical history of controlled type 2 diabetes, CAD, CKD stage IIIB, DVT and PE, CHF, hypertension and chronic pain presenting for re-evaluation of cellulitis. I documented the following at our visit on 04/12/2024: The symptoms began 3 or 4 days ago. She noticed redness on her right weiss. It has slowly expanded over the last few days. She also noticed a smaller red spot close to it this morning. It is not painful. It feels warm. Denies trauma, fevers, chills. She applied bacitracin without improvement. Her blood glucose this morning was 92. Reviewed lab 01/06: Creatinine 1.21, GFR 42. Patient was placed on cephalexin 500 mg t.i.d. (dose adjusted for renal impairment-creatinine level drawn that day). At her follow-up visit she was also put on topical mupirocin ointment. No fevers or chills. [facility] Medical History Essential hypertension Diabetes type 2, controlled Surgical History History of surgery History of left knee replacement History of arthroscopy of right knee History of hysterectomy Family History (Updated 04/12/24 @ 09:08 by Brittaney Espitia CMA) Father No problems noted. Mother No problems noted. Son Multiple sclerosis Daughter Rheumatoid arthritis Hx of cancer of lung Social History Household Members: None Housing: House Alcohol intake: current Alcohol intake frequency: other Alcohol type: beer Patient Tobacco Use Status: Never used Tobacco e-Cigarette/Vaping Use: Never Used Second Hand Smoke Exposure: No service: No Current occupational status: retired Current occupational exposures/hazards: No Cognitive needs: No Hearing needs: No Vision needs: No Questionnaire Thrive Questionnaire Date Thrive assessed: 01/09/24 CORNELIUS-7 AMB Questionnaire CORNELIUS-7 Date CORNELIUS - 7 assessed: 01/09/24 Source: Developed by Drs. Don Balderrama, Sakina Rodriguez, Reji Tse and colleagues, with an educational yaneli from [employer]. Review of Systems Const Details: Constitutional: No fevers or chills Skin: see HPI Physical exam (Primary Care) Vital Signs: Last Vital Signs Temp 98.1 F 04/19/24 09:00 Pulse 65 04/19/24 09:00 Resp 14 04/19/24 09:00 BP 128/60 04/19/24 09:00 Pulse Ox 95 04/19/24 09:00 Oxygen Delivery Method Room Air 04/19/24 09:00 BMI result Body Mass Index 31.2 Tobacco/Smoking Status: Tobacco use Status Tobacco use date assessed 04/12/24 04/19/24 09:03 Patient Tobacco Use Status Never used Tobacco 04/19/24 09:03 e-Cigarette/Vaping Use Never Used 04/19/24 09:03 Thrive Assessment: Date of Thrive Assessment Date Thrive assessed 01/09/24 04/19/24 09:03 Const Other: Constitutional: Alert, in no distress. Respiratory: Clear to auscultation. Cardiovascular: S1 S2 regular. Murmur present. Extremities: No edema present. Dry, flaking skin on lower extremities. The larger erythematous area on the right weiss is stable from prior exam in size and color. The scab in the center is gone now. The smaller inferior spot is stable in size and color, and there is a pinpoint pustule at the center. No fluctuance or discharge. They are nontender. Psychiatric: Normal mood and affect Assessment and Plan Assessment & Plan (1) Cellulitis of right leg: Code(s): L03.115 - Cellulitis of right lower limb (2) Diabetes type 2, controlled: Code(s): E11.9 - Type 2 diabetes mellitus without complications Qualifiers: Chronic kidney disease stage: stage 3 (moderate) Diabetes mellitus complication detail: with chronic kidney disease Diabetes mellitus complication status: with kidney complications Diabetes mellitus local company intermodal truck driver insulin use: without local company intermodal truck driver use Qualified Code(s): E11.22 - Type 2 diabetes mellitus with diabetic chronic kidney disease; N18.30 - Chronic kidney disease, stage 3 unspecified Plan The patient has type 2 diabetes which increases her risk of infection. Diabetes is currently well controlled. Continue current management plan and glucose monitoring. Continue to apply mupirocin ointment. Patient will discontinue cephalexin. Lesions do not look worse, but they are not getting progressively better since last exam. Start doxycycline. We reviewed potential side effects of the medication including nausea, vomiting, acid reflux and a rash. We discussed that the skin may be more sensitive to sunlight or develop a rash with sun exposure. Administer with meals to decrease GI upset. Administer capsules and tablets with at least 8 ounces of water and sit up for at least 30 minutes after taking it to reduce the risk of esophageal irritation and ulceration. Patient is on PPI. She was instructed to elevate her leg, and she can apply warm compresses. She has a follow up scheduled with her PCP on April 23 2024. Medications: New clotrimazole 1% 1 appl topical BID 2 weeks 30 grams 3RF doxycycline hyclate 100 mg PO BID 10 days 20 caps 0RF Discontinued cephalexin Discontinued Reason: No Longer Medically Relevant 500 mg PO Q6H 10 days 40 caps 0RF Coding Level of Care Code Est Pt Level 4 (85467) Complex EM visit Add On G2211 Diagnoses Cellulitis of right leg L03.115 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 disease, without long-term current use of insulin E11.22; N18.30 Chronic kidney disease stage: stage 3 (moderate) Diabetes mellitus complication detail: with chronic kidney disease Diabetes mellitus complication status: with kidney complications Diabetes mellitus assisted insulin use: without local company intermodal truck driver use
[2024-04-19 09:00] VITALS: BP 128/60; PULSE 65; RESP 14; TEMP 36.7; O2SAT 95; BMI 31.2
== END 2024-04-19 10:43 | disposition home or self-care (01) ==
PROVIDERS: PCP Family Medicine; Visit Provider Physician Assistant Medical
DX: L03.115 Cellulitis of right lower limb (principal); E11.22 Type 2 diabetes mellitus with diabetic chronic kidney disease; N18.30 Chronic kidney disease, stage 3 unspecified
CPT/HCPCS: 99214; G2211

== ENCOUNTER 2024-04-23 14:42 | Outpatient (AMB) | payer MEDICARE, SELFPAY ==
[2024-04-23 14:49] VITALS: BP 130/72; PULSE 61; O2SAT 97; BMI 31.0
--- NOTE | 2024-04-23 14:49 | A.OFFPC_ITS ---
Vital Signs 04/23/24 14:49 Height 5 ft 1.02 in Weight 164 lb BMI 31.0 BP 130/72 Blood Pressure Location Lt brachial Position Sitting Pulse 61 Pulse Source Pulse Oximeter Pulse Oximetry (%) 97 Oxygen Delivery Method Room Air Intake Visit Reasons: 3 month follow up Intake Note: Patient is here for 3 month follow up on hypertension and diabetes. Allergies clams Allergy (Intermediate, Verified 04/23/24 14:57) Facial Swelling walnut Allergy (Intermediate, Verified 04/23/24 14:57) Hives ibuprofen Allergy (Unknown, Verified 04/23/24 14:57) Hives colchicine Adverse Reaction (Intermediate, Verified 04/23/24 14:57) gi upset Medication List - Last Reconciled 04/23/24 by Ray Forbes MD allopurinol 200 mg (2 x 100 mg) PO DAILY amlodipine 5 mg PO DAILY 30 days apixaban (Eliquis) 5 mg PO BID atorvastatin 10 mg PO BEDTIME 90 days blood sugar diagnostic (FreeStyle Lite Strips) DX: E11.9, test blood sugar once a day, 90 days cane Cane, Daily As directed, 999 days. clotrimazole 1% 1 appl topical BID 2 weeks doxycycline hyclate 100 mg PO BID 10 days epinephrine (EpiPen 2-Nasir) 0.3 mg (0.3 mL) IM Q10M PRN 30 days furosemide 40 mg PO DAILY 30 days lancets (FreeStyle Lancets) 1 gauge miscellaneous DAILY 90 days lancets (FreeStyle Lancets) As directed lidocaine HCl 4% (Aspercreme (lidocaine HCl)) 1 appl topical BID PRN 30 days metformin 250 mg (1/2 x 500 mg) PO BID 90 days metoprolol succinate ER 50 mg PO DAILY 90 days mupirocin 2% 1 appl topical BID 10 days pantoprazole 40 mg PO DAILY 90 days Tobacco use date assessed: 04/12/24 Fall risk assessment: 2 + Falls in past year Last assessed Fall Risk: 04/23/24 Dental Screening Dental Screen Date: 04/12/24 HPI 3 month follow up HPI Details 89 y/o female presents to f/u hypertensi on and diabetes. Blood pressure today 130/72. She is on metoprolol 50mg, amlodipine 5mg daily. Last A1c September 5.9%. A1c today 7/9/24 is 5.8%. She is on metformin and denies any problems with this medication. Pt reports dizziness when changing directions or tilting her head back. HPI Comments History of Present Illness Details Documentation assistance for Ray Forbes MD, was provided by Elio Acosta, Heel Builder on 04/23/2024 at 3:22 PM EST. I, Dr. Forbes, have read, observed, and verified documentation. [facility] Medical History Essential hypertension Diabetes type 2, controlled Surgical History History of surgery History of left knee replacement History of arthroscopy of right knee History of hysterectomy Family History (Updated 04/12/24 @ 09:08 by Brittaney Espitia CMA) Father No problems noted. Mother No problems noted. Son Multiple sclerosis Daughter Rheumatoid arthritis Hx of cancer of lung Social History Household Members: None Housing: House Alcohol intake: current Alcohol intake frequency: other Alcohol type: beer Patient Tobacco Use Status: Never used Tobacco e-Cigarette/Vaping Use: Never Used Second Hand Smoke Exposure: No service: No Current occupational status: retired Current occupational exposures/hazards: No Cognitive needs: No Hearing needs: No Vision needs: No Questionnaire Thrive Questionnaire Date Thrive assessed: 01/09/24 CORNELIUS-7 AMB Questionnaire CORNELIUS-7 Date CORNELIUS - 7 assessed: 01/09/24 Source: Developed by Drs. Don Balderrama, Sakina Rodriguez, Reji Tse and colleagues, with an educational yaneli from [employer]. Review of Systems Const Denies chills, Denies fatigue, Denies fever(s), Denies headache(s) and Denies weakness ENT Denies dizziness and Denies headache(s) Card Denies dyspnea Resp Denies cough, Denies dyspnea, Denies wheezing and Denies other (shortness of breath) Musc Denies numbness and Denies tingling Neuro Denies dizziness, Denies headache(s), Denies numbness, Denies tingling and Denies weakness Psych Denies anxiety and Denies depression Endo Denies fatigue Aller/Immun Denies wheezing Physical exam (Primary Care) Vital Signs: Last Vital Signs Pulse 61 07/09/24 14:49 BP 130/72 04/23/24 14:49 Pulse Ox 97 04/23/24 14:49 Oxygen Delivery Method Room Air 04/23/24 14:49 BMI result Body Mass Index 31.0 Tobacco/Smoking Status: Tobacco use Status Tobacco use date assessed 04/12/24 04/23/24 14:54 Patient Tobacco Use Status Never used Tobacco 04/23/24 14:54 e-Cigarette/Vaping Use Never Used 04/23/24 14:54 Thrive Assessment: Date of Thrive Assessment Date Thrive assessed 01/09/24 04/23/24 14:54 Const General: well developed; No acute distress Nutritional Appearance: well nourished Orientation/consciousness: patient oriented x3 HENMT Head: Yes normocephalic and Yes atraumatic Eyes General: appearance normal, both eyes and all related structures Pupils: Equal, round and reactive pupils present EOM: EOMs intact bilaterally Resp Effort & Inspection: normal respiratory effort Neuro General: patient oriented x3 and gait normal Cranial nerves: Yes Equal, round and reactive pupils present Psych Affect: normal affect Assessment and Plan Assessment & Plan (1) Essential hypertension: Code(s): I10 - Essential (primary) hypertension Plan: Blood?pressure?is?controlled.??Goal?is?less?than?140/90 Continue?current?medication (2) Diabetes type 2, controlled: Code(s): E11.9 - Type 2 diabetes mellitus without complications Qualifiers: Chronic kidney disease stage: stage 3 (moderate) Diabetes mellitus complication detail: with chronic kidney disease Diabetes mellitus complication status: with kidney complications Diabetes mellitus manager long term care insulin use: without manager long term care use Qualified Code(s): E11.22 - Type 2 diabetes mellitus with diabetic chronic kidney disease; N18.30 - Chronic kidney disease, stage 3 unspecified Plan: A1c?5.8%.??Good?control.??Goal?is?less?than?7.0% Continue?current?medication (3) Cellulitis: Code(s): L03.90 - Cellulitis, unspecified Plan: She?has?been?taking?doxycycline. Infection?appears?improved However,?she?also?had?history?of?squamous?cell?carcinoma?and?lesion?on?leg?is?mi ldly?suspicious.??Referred?to?Dermatology (4) History of squamous cell carcinoma: Code(s): Z85.89 - Personal history of malignant neoplasm of other organs and systems Plan: As?above (5) Swelling of right lower extremity: Code(s): M79.89 - Other specified soft tissue disorders Plan: Some?venous?insufficiency Elevate?legs (6) Dizziness: Code(s): R42 - Dizziness and giddiness Plan: Ongoing?dizziness?associated?with?head?movements Referred?to?ENT (7) Neoplasm of uncertain behavior of skin: Code(s): D48.5 - Neoplasm of uncertain behavior of skin Plan: As?above,?she?has?a?lesion?on?right?weiss?and?hi story?of?squamous?cell?carcinoma?on?legs. Referred?to?Dermatology (8) Osteoarthritis of shoulder: Code(s): M19.019 - Primary osteoarthritis, unspecified shoulder Plan: Was?seen?by?pain?management. May?benefit?from?opioid?therapy?and?she?will?follow-up?with?pain?management?to?d etermine?if?this?is?the?proper?course. She?can?managed?by?pain?management?or?by?me. We?can?review?after?her?next?visit?with?pain?management. (9) Screening for osteoporosis: Code(s): Z13.820 - Encounter for screening for osteoporosis Plan: Patient?declines?this?as?she?is?89?years?old?and?does?not?want?t o?perform?testing. Orders: Referrals Ear/Nose/Throat Referral H91.90 - Unspecified hearing loss, unspecified ear, R42 - Dizziness and giddiness Dermatology Referral D48.5 - Neoplasm of uncertain behavior of skin, Z85.89 - Personal history of malignant neoplasm of other organs and systems Coding Level of Care Code Est Pt Level 4 (75095) Diagnoses Essential hypertension I10 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 disease, without long-term current use of insulin E11.22; N18.30 Chronic kidney disease stage: stage 3 (moderate) Diabetes mellitus complication detail: with chronic kidney disease Diabetes mellitus complication status: with kidney complications Diabetes mellitus care home insulin use: without manager long term care use Cellulitis L03.90 History of squamous cell carcinoma Z85.89 Swelling of right lower extremity M79.89 Dizziness R42 Neoplasm of uncertain behavior of skin D48.5 Osteoarthritis of shoulder M19.019 Screening for osteoporosis Z13.820
== END 2024-04-23 15:40 | disposition home or self-care (01) ==
PROVIDERS: PCP Family Medicine; Visit Provider Family Medicine
DX: I12.9 Hypertensive chronic kidney disease with stage 1 through stage 4 chronic kidney disease, or unspecified chronic kidney disease (principal); E11.22 Type 2 diabetes mellitus with diabetic chronic kidney disease; N18.30 Chronic kidney disease, stage 3 unspecified; L03.90 Cellulitis, unspecified; Z85.89 Personal history of malignant neoplasm of other organs and systems; M79.89 Other specified soft tissue disorders; R42 Dizziness and giddiness; D48.5 Neoplasm of uncertain behavior of skin; M19.011 Primary osteoarthritis, right shoulder; Z13.820 Encounter for screening for osteoporosis
CPT/HCPCS: 83036; 99214

== ENCOUNTER 2024-07-03 10:37 | Outpatient (AMB) | payer MEDICARE, SELFPAY ==
--- NOTE | 2024-07-03 10:40 | A.OFFPC_ITS ---
Vital Signs 07/03/24 10:44 Height 5 ft 3 in Weight 165 lb 6 oz BMI 29.3 BP 120/80 Blood Pressure Location Rt brachial Position Sitting Respiration 12 Pulse 51 Pulse Source Pulse Oximeter Temp 98.3 F Temp Source Tympanic Pulse Oximetry (%) 99 Oxygen Delivery Method Room Air Intake Visit Reasons: f/u chronic conditions Intake Note: follow up for chronic conditions Allergies clams Allergy (Intermediate, Verified 07/03/24 10:41) Facial Swelling walnut Allergy (Intermediate, Verified 07/03/24 10:41) Hives ibuprofen Allergy (Unknown, Verified 07/03/24 10:41) Hives colchicine Adverse Reaction (Intermediate, Verified 07/03/24 10:41) gi upset Medication List - Last Reconciled 07/03/24 by Ray Forbes MD allopurinol 200 mg (2 x 100 mg) PO DAILY amlodipine 5 mg PO DAILY 30 days atorvastatin 10 mg PO BEDTIME 90 days blood sugar diagnostic (FreeStyle Lite Strips) DX: E11.9, test blood sugar once a day, 90 days cane Cane, Daily As directed, 999 days. clotrimazole 1% 1 appl topical BID 2 weeks epinephrine (EpiPen 2-Nasir) 0.3 mg (0.3 mL) IM Q10M PRN 30 days furosemide 40 mg PO DAILY 30 days lancets (FreeStyle Lancets) 1 gauge miscellaneous DAILY 90 days lancets (FreeStyle Lancets) As directed lidocaine HCl 4% (Aspercreme (lidocaine HCl)) 1 appl topical BID PRN 30 days metformin 250 mg (1/2 x 500 mg) PO BID 90 days metoprolol succinate ER 50 mg PO DAILY 90 days mupirocin 2% 1 appl topical BID 10 days pantoprazole 40 mg PO DAILY 90 days Tobacco use date assessed: 04/12/24 Dental Screening Dental Screen Date: 04/12/24 HPI f/u chronic conditions HPI Details 89 y/o female presents to f/u diabetes, hypertension. Also f/u LE edema, lesion on R weiss. Followed?by?pain?management?and?they?have?determine?that?she?may?benefit?from?op ioid?therapy. Blood pressure today 120/80, 51p. She is on amlodipine 5mg, metoprolol 50mg daily. Had referred to ENT for dizziness. A1c today 07/03/24 5.8%. Creatinine level 1.66 mg/Dl from labs drawn in May. [facility] Medical History Essential hypertension Diabetes type 2, controlled Surgical History History of surgery History of left knee replacement History of arthroscopy of right knee History of hysterectomy Family History Father No problems noted. Mother No problems noted. Son Multiple sclerosis Daughter Rheumatoid arthritis Hx of cancer of lung Social History Household Members: None Housing: House Alcohol intake: current Alcohol intake frequency: other Alcohol type: beer Patient Tobacco Use Status: Never used Tobacco e-Cigarette/Vaping Use: Never Used Second Hand Smoke Exposure: No service: No Current occupational status: retired Current occupational exposures/hazards: No Cognitive needs: No Hearing needs: No Vision needs: No Questionnaire Thrive Questionnaire Date Thrive assessed: 01/09/24 CORNELIUS-7 AMB Questionnaire CORNELIUS-7 Date CORNELIUS - 7 assessed: 01/09/24 Source: Developed by Drs. Don Balderrama, Sakina Rodriguez, Reji ortiz nd colleagues, with an educational yaneli from [employer]. Review of Systems Const Denies chills, Denies fatigue, Denies fever(s), Denies headache(s) and Denies weakness ENT Denies dizziness and Denies headache(s) Card Denies dyspnea Resp Denies cough, Denies dyspnea, Denies wheezing and Denies other (shortness of breath) Musc Denies numbness and Denies tingling Neuro Denies dizziness, Denies headache(s), Denies numbness, Denies tingling and Denies weakness Psych Denies anxiety and Denies depression Endo Denies fatigue Aller/Immun Denies wheezing Physical exam (Primary Care) Vital Signs: Last Vital Signs Temp 98.3 F 07/03/24 10:44 Pulse 51 07/03/24 10:44 Resp 12 07/03/24 10:44 BP 120/80 07/03/24 10:44 Pulse Ox 99 07/03/24 10:44 Oxygen Delivery Method Room Air 07/03/24 10:44 BMI result Body Mass Index 29.3 Tobacco/Smoking Status: Tobacco use Status Tobacco use date assessed 04/12/24 07/03/24 10:43 Patient Tobacco Use Status Never used Tobacco 07/03/24 10:43 e-Cigarette/Vaping Use Never Used 07/03/24 10:43 Thrive Assessment: Date of Thrive Assessment Date Thrive assessed 01/09/24 07/03/24 10:43 Const General: well developed; No acute distress Nutritional Appearance: well nourished Orientation/consciousness: patient oriented x3 HENMT Head: Yes normocephalic and Yes atraumatic Eyes General: appearance normal, both eyes and all related structures Pupils: Equal, round and reactive pupils present EOM: EOMs intact bilaterally Resp Effort & Inspection: normal respiratory effort Auscultation: clear to auscultation bilaterally Cardio Rate: regular rate Rhythm: regular rhythm Heart sounds: S1 normal heart sound present, S2 normal heart sound present, no gallops, no murmurs and no rubs Neuro General: patient oriented x3 and gait normal Cranial nerves: Yes Equal, round and reactive pupils present Psych Affect: normal affect Assessment and Plan Assessment & Plan (1) Diabetes type 2, controlled: Code(s): E11.9 - Type 2 diabetes mellitus without complications Qualifiers: Chronic kidney disease stage: stage 3 (moderate) Diabetes mellitus complication detail: with chronic kidney disease Diabetes mellitus complication status: with kidney complications Diabetes mellitus custodial insulin use: without watermelon harvesting supervisor use Qualified Code(s): E11.22 - Type 2 diabetes mellitus with diabetic chronic kidney disease; N18.30 - Chronic kidney disease, stage 3 unspecified Plan: A1c?shows?good?control.??Goal?is?less?than?7.0% She?is?on?metformin?250?mg?b.i.d. Good?control?and?no?changes?made?today. However,?creatinine?level?is?rising.??Referring?her?to?Nephro logy.??May?need?to?adjust/change?her?medication (2) Essential hypertension: Code(s): I10 - Essential (primary) hypertension Plan: Blood?pressure?is?controlled.??Goal?is?less?than?130/80 Continue?current?medications (3) Dizziness: Code(s): R42 - Dizziness and giddiness Plan: Had?referred?her?to?ENT?and?they?sent?her?a?letter?but?she?has?not?received?it?a nd?not?been?contacted. I?gave?her?the?phone?number?for?ENT?and?she?will?call?to?make?an?appointment. If?ENT?does?not?find?a?cause?of?her?dizziness,?will change?direction?of?our?investigation. (4) Osteoarthritis of shoulder: Code(s): M19.019 - Primary osteoarthritis, unspecified shoulder Plan: Ongoing?right?shoulder?and?neck?pain. She?has?seen?pain?management?and?they?have?tried?injection?therapy. Pain?management?says?that?she?is?a?good?candidate?for?opioid?therapy?and?I?advis ed?her?to?follow-up?with?them. (5) Renal failure: Code(s): N19 - Unspecified kidney failure Plan: Worsening?renal?failure Will?refer?her?to?Nephrology. She?is?stable?on?metformin?but?we?may?need?to?adjust?this. She?is?also?on?furosemide?which?may?be?significantly?affecting?her?renal?functio n?as?well.??However?patient?bain s?rather?significant?lower?extremity?edema?and?furosemide?is?prescribed?by?her?c ardiologist.??She?has?a?history?of?CHF. Advised?she?elevate?legs?as?much?as?she?can.??Avoid?salt/sodium. I?have?referred?her?to?Nephrology (6) CHF (congestive heart failure): Code(s): I50.9 - Heart failure, unspecified Plan: History?of?CHF She?is?on?furosemide?prescribed?by?Cardiology Avoid?salt/sodium.??Continue?furosemide?for?now?but?I?am?referring?her?to?nephro logy?due?to worsening?renal?function. She? does?have?significant?lower?extremity?edema?but?no?JVD?distention?and?she?is?elenita athing?easily?with?clear?lungs. Checking?BNP (7) Bilateral lower extremity edema: Code(s): R60.0 - Localized edema Plan: As?above Orders: Orders B Type Natriuretic Peptide Today I50.9 - Heart failure, unspecified Complete Blood Count Auto Diff Today Z00.00 - Encounter for general adult medical examination without abnormal findings Comprehensive Met. Panel Today N19 - Unspecified kidney failure D Dimer High Sensitivity Today I26.99 - Other pulmonary embolism without acute cor pulmonale Referrals Nephrology Referral N19 - Unspecified kidney failure Coding Level of Care Code Est Pt Level 4 (43212) Diagnoses 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 disease, without long-term current use of insulin E11.22; N18.30 Chronic kidney disease stage: stage 3 (moderate) Diabetes mellitus complication detail: with chronic kidney disease Diabetes mellitus complication status: with kidney complications Diabetes mellitus custodial insulin use: without custodial use Essential hypertension I10 Dizziness R42 Osteoarthritis of shoulder M19.019 Renal failure N19 CHF (congestive heart failure) I50.9 Bilateral lower extremity edema R60.0
[2024-07-03 10:44] VITALS: BP 120/80; PULSE 51; RESP 12; TEMP 36.8; O2SAT 99; BMI 29.3
== END 2024-07-03 11:28 | disposition home or self-care (01) ==
PROVIDERS: PCP Family Medicine; Visit Provider Family Medicine
DX: E11.22 Type 2 diabetes mellitus with diabetic chronic kidney disease (principal); N18.30 Chronic kidney disease, stage 3 unspecified; I50.9 Heart failure, unspecified; I10 Essential (primary) hypertension; R42 Dizziness and giddiness; M19.019 Primary osteoarthritis, unspecified shoulder; N19 Unspecified kidney failure; R60.0 Localized edema

== ENCOUNTER → 2024-07-03 10:37 | Outpatient (BNVA) | payer MEDICARE, SELFPAY | PROVIDERS: PCP Family Medicine; Visit Provider Family Medicine | DX: I13.0 Hypertensive heart and chronic kidney disease with heart failure and stage 1 through stage 4 chronic kidney disease, or unspecified chronic kidney disease (principal); E11.22 Type 2 diabetes mellitus with diabetic chronic kidney disease; N18.30 Chronic kidney disease, stage 3 unspecified; I50.9 Heart failure, unspecified; R42 Dizziness and giddiness; M19.019 Primary osteoarthritis, unspecified shoulder; R60.0 Localized edema | CPT/HCPCS: 99212 ==

== ENCOUNTER 2024-07-03 11:34 | Outpatient (REF) | payer MEDICARE, SELFPAY ==
[2024-07-03 14:13] LABS: MANUAL DIFF FLAG NO
[2024-07-03 14:36] LABS: Basophils Absolute Auto 0.1 X10*3/uL (0.0-0.2); Basophils Percent Auto 0.6 % (0-2); Eosinophils Absolute Auto 0.3 X10*3/uL (0.0-0.4); Eosinophils Percent Auto 2.7 % (0-4); Hematocrit 35.2 % (37.0-47.0); Hemoglobin 11.4 g/dl (12.0-16.0); Imm Gran Abs Auto 0.06 X10*3/uL (0.00-0.03); Imm Gran Pct Auto 0.5 % (0.0-0.4); Lymphocytes Absolute Auto 3.2 X10*3/uL (1.2-4.9); Lymphocytes Percent Auto 28.7 % (20-40); Mean Corpuscular HGB Conc 32.4 g/dl (31.0-35.0); Mean Corpuscular Hemoglobin 32.1 pg (27.0-33.0); Mean Corpuscular Volume 99.2 fL (80.0-98.0); Mean Platelet Volume 11.1 fL (9.4-12.3); Monocytes Absolute Auto 0.8 X10*3/uL (0.1-1.2); Monocytes Percent Auto 7.2 % (2-11); Neutrophils Absolute Auto 6.7 x10*3/uL (2.0-8.3); Neutrophils Percent Auto 60.3 % (45-73); Platelet Count 290 X10*3/uL (160-400); Red Blood Count 3.55 X10*6/uL (4.20-5.50); Red Cell Distribution Width 14.2 % (11.0-16.0); White Blood Count 11.1 X10*3/uL (4.8-10.8)
[2024-07-03 14:47] LABS: B Type Natriuretic Peptide 464 pg/mL (<100)
[2024-07-03 15:00] LABS: D Dimer High Sensitivity 416 NG/ML
[2024-07-03 15:20] LABS: Alanine Aminotransferase 7 U/L (0-31); Albumin Level 3.9 g/dL (3.5-5.0); Alkaline Phosphatase 94 U/L (39-117); Anion Gap 13 (12-20); Aspartate Amino Transferase 13 U/L (5-31); Bilirubin Total 0.4 mg/dL (0.0-1.0); Blood Urea Nitrogen 22 mg/dL (9-16); Calcium 9.7 mg/dL (8.4-10.2); Carbon Dioxide 28 mmol/L (22-29); Chloride 107 mmol/L (96-108); Estimated Glomerular Filt Rate 27; Glucose Random 97 mg/dL (60-115); Potassium 4.1 mmol/L (3.3-5.1); Sodium 144 mmol/L (135-145); Total Protein 6.6 g/dL (6.5-8.0)
== END 2024-07-03 11:35 | disposition home or self-care (01) ==
LOC: HO.WFDLDS 11:34
PROVIDERS: Visit Provider Family Medicine
DX: Z00.00 Encounter for general adult medical examination without abnormal findings (principal); I26.99 Other pulmonary embolism without acute cor pulmonale; E11.22 Type 2 diabetes mellitus with diabetic chronic kidney disease; I13.0 Hypertensive heart and chronic kidney disease with heart failure and stage 1 through stage 4 chronic kidney disease, or unspecified chronic kidney disease; I50.9 Heart failure, unspecified; N18.30 Chronic kidney disease, stage 3 unspecified; R42 Dizziness and giddiness; M19.011 Primary osteoarthritis, right shoulder; M54.2 Cervicalgia; R60.0 Localized edema
CPT/HCPCS: 36415; 80053; 83880; 85025; 85379; 99212

== ENCOUNTER 2024-07-25 14:19 | Outpatient (AMB) | payer MEDICARE, SELFPAY ==
--- NOTE | 2024-07-25 14:20 | HO.NEPHOV_ITS ---
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 She is 89 years of age who has been in good health. She is a diabetic and does not have any retinopathy, significant proteinuria or neuropathy. She de nies any carotid artery disease, CVA, GURPREET, PAD, CAD or CHF. She has chronic edema. She has H/O PE. She does not take any excessive nonsteroidal anti- inflammatories. She has no history of dry eyes and dry mouth or generalized joint pains. She does not get recurrent urinary infections. She tries to maintain good hydration. She has no hearing issues, sinusitis, epistaxis, photosensitivity, urinary symptoms, history of renal calculus, flank pain, new bone pain. She has no history of hypercalcemia. She is clinically well and was without any specific complaints [facility] Medical History Essential hypertension Diabetes type 2, controlled Surgical History History of surgery History of left knee replacement History of arthroscopy of right knee History of hysterectomy Family History Father No problems noted. Mother No problems noted. Son Multiple sclerosis Daughter Rheumatoid arthritis Hx of cancer of lung Social History Household Members: None Housing: House Alcohol intake: current Alcohol intake frequency: other Alcohol type: beer Patient Tobacco Use Status: Never used Tobacco e-Cigarette/Vaping Use: Never Used Second Hand Smoke Exposure: No service: No Current occupational status: retired Current occupational exposures/hazards: No Cognitive needs: No Hearing needs: No Vision needs: No Review of Systems Const All systems reviewed & are unremarkable except as noted in HPI and below Physical Exam Vital Signs: Last Vital Signs Pulse 55 07/25/24 14:23 BP 140/62 H 07/25/24 14:23 Pulse Ox 96 07/25/24 14:23 Oxygen Delivery Method Room Air 07/25/24 14:23 BMI result Body Mass Index 30.0 Const General: comfortable and no acute distress Orientation/consciousness: patient oriented x3 HEENT Head: Yes normocephalic Mouth: Normal oral and palatal mucosa present Eyes EOM: EOMs intact bilaterally Neck Neck: Yes supple Resp Auscultation: clear to auscultation bilaterally Cardio Jugular venous distension: no JVD Rate: regular rate GI Palpation (GI): Soft to palpation Auscultation: normal bowel sounds General: Yes no CVA tenderness Back/Spine/Pelvis Back: no CVA tenderness Skin General skin exam: no rashes or lesions noted Neuro General: patient oriented x3 and moves all extremities Extrem General: Yes edema Results Reviewed Nephrology Results: Hgb 11.4 g/dl (12.0-16.0) L 07/03/24 WBC 11.1 X10*3/uL (4.8-10.8) H 07/03/24 Plt Count 290 X10*3/uL (160-400) 07/03/24 Sodium 144 mmol/L (135-145) 07/03/24 Potassium 4.1 mmol/L (3.3-5.1) 07/03/24 Chloride 107 mmol/L (96-108) 07/03/24 Carbon Dioxide 28 mmol/L (22-29) 07/03/24 BUN 22 mg/dL (9-16) H 07/03/24 Creatinine 1.76 mg/dL (0.5-1.4) H 07/03/24 Calcium 9.7 mg/dL (8.4-10.2) 07/03/24 Assessment & Plan Assessment & Plan (1) CKD stage 3a, GFR 45-59 ml/min: Code(s): N18.31 - Chronic kidney disease, stage 3a Category: Medical (2) Bilateral lower extremity edema: Code(s): R60.0 - Localized edema Category: Medical (3) Essential hypertension: Code(s): I10 - Essential (primary) hypertension Category: Medical Plan Lakshmi likely had TITUS due to tubular injury sometime ago. She is not known to have any significant proteinuria. She does not take any excessive nonsteroidal inflammatories. She denies any renal calculi , microscopic hematuria or pedal edema. She denied retinopathy. She has good urine output and there is no reason to suspect any obstructive uropathy. I asked her to cut down sodium in the diet and maintain good hydration. I discontinued Amlodipine and started her on Isosorbide. She had an ECHO copy of which was not available for review at the time of this office visit. I have ordered repeat renal functions . I plan to do creatinine clearance after next visit. Time spent retrieving all her past medical records, patient encounter and documentation 52 minutes. All questions answered. Follow-up appointment given Orders: Orders Creatinine 4 Weeks N18.31 - Chronic kidney disease, stage 3a Blood Urea Nitrogen 4 Weeks N18.31 - Chronic kidney disease, stage 3a Electrolytes 4 Weeks N18.31 - Chronic kidney disease, stage 3a Medications: New isosorbide mononitrate ER 30 mg PO DAILY 30 tabs 2RF Discontinued amlodipine Discontinued Reason: Doctor's Order 5 mg PO DAILY 30 days 30 tabs 2RF Coding Level of Care Code New Pt Level 5 (98152) Diagnoses CKD stage 3a, GFR 45-59 ml/min N18.31 Bilateral lower extremity edema R60.0 Essential hypertension I10
[2024-07-25 14:23] VITALS: BP 140/62; PULSE 55; O2SAT 96
== END 2024-07-25 15:06 | disposition home or self-care (01) ==
PROVIDERS: PCP Family Medicine; Referring Provider Family Medicine; Visit Provider Internal Medicine Nephrology
DX: N18.31 Chronic kidney disease, stage 3a (principal); R60.0 Localized edema; I10 Essential (primary) hypertension
CPT/HCPCS: 99204

== ENCOUNTER → 2024-07-25 14:19 | Outpatient (BNVA) | payer MEDICARE, SELFPAY | PROVIDERS: PCP Family Medicine; Referring Provider Family Medicine; Visit Provider Internal Medicine Nephrology | DX: I12.9 Hypertensive chronic kidney disease with stage 1 through stage 4 chronic kidney disease, or unspecified chronic kidney disease (principal); R60.0 Localized edema; N18.31 Chronic kidney disease, stage 3a | CPT/HCPCS: 99202 ==

== ENCOUNTER 2024-08-09 09:42 | Outpatient (AMB) | payer MEDICARE, SELFPAY ==
--- NOTE | 2024-08-09 10:00 | MHC.PC.OV ---
Vital Signs 08/09/24 10:05 08/09/24 10:11 Height 5 ft 3 in Weight 168 lb 8 oz BMI 29.8 BP 164/70 H 171/74 H Blood Pressure Location Lt brachial Lt brachial Position Sitting Sitting Respiration 14 Pulse 49 L Pulse Source Pulse Oximeter Temp 36.1 F L Temp Source Temporal Artery Scan Pulse Oximetry (%) 97 Oxygen Delivery Method Room Air Intake Visit Reasons: f/u labs, chronic conditions - see comments Intake Note: follow up labs and chronic conditions Allergies clams Allergy (Intermediate, Verified 08/09/24 10:03) Facial Swelling walnut Allergy (Intermediate, Verified 08/09/24 10:03) Hives ibuprofen Allergy (Unknown, Verified 08/09/24 10:03) Hives colchicine Adverse Reaction (Intermediate, Verified 08/09/24 10:03) gi upset Tobacco use date assessed: 04/12/24 Dental Screening Dental Screen Date: 04/12/24 HPI f/u labs, chronic conditions - see comments HPI Details 89 y/o female presents to f/u worsening renal function. Had referred her to nephrology. Had seen nephrology 07/25/24. Had discontinued her amlodipine and started her on isosorbide. Has a follow up with them in a couple weeks. Blood pressure today 164/70, 49p. She is on metoprolol 50mg, isosorbide 30mg daily. She notes she checked her blood pressure at home about a week ago and had recorded 130s systolic. HPI Comments History of Present Illness Details Documentation assistance for Ray Forbes MD, was provided by Elio Acosta,? [employer] on 08/09/2024 at 10:39 AM EST. I, Dr. Forbes, have read, observed, and verified documentation. [facility]LY [facility], [facility] Medical History Essential hypertension Diabetes type 2, controlled Surgical History History of surgery History of left knee replacement History of arthroscopy of right knee History of hysterectomy Family History Father No problems noted. Mother No problems noted. Son Multiple sclerosis Daughter Rheumatoid arthritis Hx of cancer of lung Social History Household Members: None Housing: House Alcohol intake: current Alcohol intake frequency: other Alcohol type: beer Patient Tobacco Use Status: Never used Tobacco e-Cigarette/Vaping Use: Never Used Second Hand Smoke Exposure: No service: No Current occupational status: retired Current occupational exposures/hazards: No Cognitive needs: No Hearing needs: No Vision needs: No Questionnaire PHQ-9 Over the last 2 weeks, how often have you been bothered by any of the following problems? 1. Little interest or pleasure in doing things: not at all 2. Feeling down, depressed, or hopeless: not at all 3. Trouble falling or staying asleep, or sleeping too much: not at all 4. Feeling tired or having little energy: not at all 5. Poor appetite or overeating: not at all 6. Feeling bad about yourself - or that you are a failure or have let yourself or your family down: not at all 7. Trouble concentrating on things, such as reading the newspaper or watching television: not at all 8. Moving or speaking so slowly that other people could have noticed. Or the opposite - being so fidgety or restless that you have been moving around a lot more than usual: not at all 9. Thoughts that you would be better off or of hurting yourself in some way: not at all Total score: 0 Source: Developed by Drs. Don Balderrama, Sakina Rodriguez, Reji Tse and colleagues, with an educational yaneli from [employer]. Thrive Questionnaire Date Thrive assessed: 01/09/24 I am a: Patient What is your living situation today?: I have a steady place to live Within the past 12 months, did the food you bought not last and you didn't have the money to get more?: Never true Within the past 12 months, did you worry whether your food would run out before you got money to buy more?: Never true Do you have trouble paying for medicines?: No Do you have trouble getting transportation to medical appointments?: No Do you have trouble paying your heating and electricity bill?: No Do you have trouble taking care of your child, family member or friend?: No Do you have trouble with day-to-day activities such as bathing, preparing meals, shopping, managing finances, etc.?: Yes Are you currently unemployed and looking for a job?: No Are you interested in more education?: No Please select the resources that you would like help with: Daily support Currently or been in a relationship where the following occur: No concerns reported THRIVE Score: 0 AUDIT C Alcohol Use Questionnaire (AUDIT-C) 1. How often do you have a drink containing alcohol?: Never Total Score: 0 CORNELIUS-7 AMB Questionnaire CORNELIUS-7 Date CORNELIUS - 7 assessed: 01/09/24 Feeling nervous, anxious, or on edge: 0 = Not at all Not being able to stop or control worryin = Not at all Worrying too much about different things: 0 = Not at all Trouble relaxin = Not at all Being so restless that it is hard to sit still: 0 = Not at all Becoming easily annoyed or irritable: 0 = Not at all Feeling afraid as if something awful might happen: 0 = Not at all Total CORNELIUS-7 score (0-4 normal; 5-9 mild; 10-14 moderate; 15-21 severe): 0 Source: Developed by Drs. Don Balderrama, Sakina Rodriguez, Reji Tse and colleagues, with an educational yaneli from [employer]. Review of Systems Const Denies chills, Denies fatigue, Denies fever(s), Denies headache(s) and Denies weakness ENT Denies dizziness and Denies headache(s) Card Denies dyspnea Resp Denies cough, Denies dyspnea, Denies wheezing and Denies other (shortness of breath) Musc Denies numbness and Denies tingling Neuro Denies dizziness, Denies headache(s), Denies numbness, Denies tingling and Denies weakness Psych Denies anxiety and Denies depression Endo Denies fatigue Aller/Immun Denies wheezing Physical exam (Primary Care) Vital Signs: Last Vital Signs Temp 36.1 F L 08/09/24 10:05 Pulse 49 L 08/09/24 10:05 Resp 14 08/09/24 10:05 BP 171/74 H 08/09/24 10:11 Pulse Ox 97 08/09/24 10:05 Oxygen Delivery Method Room Air 08/09/24 10:05 BMI result Body Mass Index 29.8 Tobacco/Smoking Status: Tobacco use Status Tobacco use date assessed 04/12/24 08/09/24 10:00 Patient Tobacco Use Status Never used Tobacco 08/09/24 10:00 e-Cigarette/Vaping Use Never Used 08/09/24 10:00 PHQ-9: PHQ-9 Score PHQ-9: Total score 0 08/09/24 10:39 Thrive Assessment: Date of Thrive Assessment Date Thrive assessed 01/09/24 08/09/24 10:00 Currently or been in a relationship where the following occur: No concerns reported Const General: well developed; No acute distress Nutritional Appearance: well nourished Orientation/consciousness: patient oriented x3 HENMT Head: Yes normocephalic and Yes atraumatic Eyes General: appearance normal, both eyes and all related structures Pupils: Equal, round and reactive pupils present EOM: EOMs intact bilaterally Resp Effort & Inspection: normal respiratory effort Neuro General: patient oriented x3 and gait normal Cranial nerves: Yes Equal, round and reactive pupils present Psych Affect: normal affect Coding Level of Care Code Est Pt Level 3 (16965) Diagnoses CKD stage 3a, GFR 45-59 ml/min N18.31 Essential hypertension I10 Bilateral lower extremity edema R60.0 Assessment & Plan Assessment & Plan (1) CKD stage 3a, GFR 45-59 ml/min: Code(s): N18.31 - Chronic kidney disease, stage 3a Category: Medical Plan: Now?followed?by?Nephrology?and?has?upcoming?appointment?again?in?a?couple?of?weeks (2) Essential hypertension: Code(s): I10 - Essential (primary) hypertension Category: Medical Plan: Had?been?on?amlodipine?and?metoprolol She?does?get?lower?extremity?edema so?amlodipine?was?stopped?and?isosorbide?mononitrate?was?started. However,?now?blood?pressure?is?significantly?elevated. Will?add?back?a?small?amount?of?amlodipine?to?see?if?we?can?get?better?blood?pressure?control?without?so?much?edema. (3) Bilateral lower extremity edema: Code(s): R60.0 - Localized edema Category: Medical Plan: As?above Elevate?legs Avoid?salt/sodium Using?furosemide?every?other?day Will?follow Medications: New amlodipine 2.5 mg PO DAILY 30 tabs 1RF 30 days
[2024-08-09 10:05] VITALS: BP 164/70; PULSE 49; RESP 14; TEMP 2.3; TEMP 36.1; O2SAT 97; BMI 29.8
[2024-08-09 10:11] VITALS: BP 171/74
== END 2024-08-09 10:54 | disposition home or self-care (01) ==
PROVIDERS: PCP Family Medicine; Visit Provider Family Medicine
DX: N18.31 Chronic kidney disease, stage 3a (principal); I10 Essential (primary) hypertension; R60.0 Localized edema

== ENCOUNTER → 2024-08-09 09:42 | Outpatient (BNVA) | payer MEDICARE, SELFPAY | PROVIDERS: PCP Family Medicine; Visit Provider Family Medicine | DX: R60.0 Localized edema (principal); I12.9 Hypertensive chronic kidney disease with stage 1 through stage 4 chronic kidney disease, or unspecified chronic kidney disease; N18.31 Chronic kidney disease, stage 3a | CPT/HCPCS: 96127; 99212 ==

== ENCOUNTER 2024-08-23 08:13 | Outpatient (REF) | payer MEDICARE, SELFPAY ==
[2024-08-23 11:02] LABS: Appearance Urine Cloudy; Color Urine Yellow; Glucose Urine UA Negative (Negative); Leukocyte Esterase Urine Trace (Negative); Nitrite Urine Negative (Negative); Specific Gravity - Urine 1.015 (1.005-1.025); UMIC TRIGGER UA YES; Urine Blood Negative (Negative); Urine Ketones Negative (Negative); Urine Protein Negative (Neg-Trace)
[2024-08-23 11:14] LABS: Bacteria Urine None Seen (None Seen); Calcium Oxalate Crystals Urine Present; Hyaline Casts Urine 0-2 /LPF (0-2); RBC Urine 0-2 /HPF (0-2); WBC Urine 0-5 /HPF (0-5)
[2024-08-23 11:52] LABS: Basophils Absolute Auto 0.1 X10*3/uL (0.0-0.2); Basophils Percent Auto 0.5 % (0-2); Eosinophils Absolute Auto 0.3 X10*3/uL (0.0-0.4); Eosinophils Percent Auto 3.6 % (0-4); Hematocrit 34.3 % (37.0-47.0); Hemoglobin 11.1 g/dl (12.0-16.0); Imm Gran Abs Auto 0.04 X10*3/uL (0.00-0.03); Imm Gran Pct Auto 0.4 % (0.0-0.4); Lymphocytes Absolute Auto 2.6 X10*3/uL (1.2-4.9); Lymphocytes Percent Auto 27.7 % (20-40); MANUAL DIFF FLAG NO; Mean Corpuscular HGB Conc 32.4 g/dl (31.0-35.0); Mean Corpuscular Hemoglobin 31.5 pg (27.0-33.0); Mean Corpuscular Volume 97.4 fL (80.0-98.0); Monocytes Absolute Auto 0.6 X10*3/uL (0.1-1.2); Monocytes Percent Auto 6.9 % (2-11); Neutrophils Absolute Auto 5.7 x10*3/uL (2.0-8.3); Neutrophils Percent Auto 60.9 % (45-73); Platelet Count 270 X10*3/uL (160-400); Red Blood Count 3.52 X10*6/uL (4.20-5.50); Red Cell Distribution Width 13.8 % (11.0-16.0); White Blood Count 9.3 X10*3/uL (4.8-10.8)
[2024-08-23 12:13] LABS: Estimated Average Glucose 114 mg/dL; Hemoglobin A1C 111.1128 umol/L; Hemoglobin A1c % 5.6 % (<6.0)
[2024-08-23 12:19] LABS: Creatinine Urine 73.03 mg/dL; Microalbum/Creatinine Ratio Ur 8.2 ug/mg cr (<30)
[2024-08-23 12:26] LABS: B Type Natriuretic Peptide 190 pg/mL (<100)
[2024-08-23 12:40] LABS: Alanine Aminotransferase 7 U/L (0-31); Albumin Level 3.8 g/dL (3.5-5.0); Alkaline Phosphatase 106 U/L (39-117); Anion Gap 14 (12-20); Aspartate Amino Transferase 15 U/L (5-31); Bilirubin Total 0.5 mg/dL (0.0-1.0); Blood Urea Nitrogen 21 mg/dL (9-16); Calcium 9.6 mg/dL (8.4-10.2); Carbon Dioxide 26 mmol/L (22-29); Chloride 108 mmol/L (96-108); Estimated Glomerular Filt Rate 29; Glucose Fasting 97 mg/dL (60-99); Potassium 3.8 mmol/L (3.3-5.1); Sodium 144 mmol/L (135-145); Total Protein 6.4 g/dL (6.5-8.0)
== END 2024-08-23 08:14 | disposition home or self-care (01) ==
LOC: HO.WFDLDS 08:13
PROVIDERS: Student in an Organized Health Care Education/Training Program; Referring Provider Internal Medicine Nephrology; Visit Provider Family Medicine
DX: Z00.00 Encounter for general adult medical examination without abnormal findings (principal); I50.9 Heart failure, unspecified; E11.9 Type 2 diabetes mellitus without complications; I10 Essential (primary) hypertension
CPT/HCPCS: 36415; 80053; 81001; 82043; 82570; 83036; 83880; 85025

== ENCOUNTER 2024-08-29 14:07 | Outpatient (AMB) | payer MEDICARE, SELFPAY ==
--- NOTE | 2024-08-29 14:32 | HO.NEPHOV_ITS ---
Vital Signs 08/29/24 14:33 Height 5 ft 3 in Weight 169 lb BMI 29.9 BP 146/60 H Blood Pressure Location Lt brachial Position Sitting Pulse 58 Pulse Source Pulse Oximeter Pulse Oximetry (%) 95 Oxygen Delivery Method Room Air Intake Visit Reasons: 4-6wk follow up-Conf Lost And Found Clerk Required: No Accompanied by: Daughter Allergies clams Allergy (Intermediate, Verified 08/29/24 14:33) Facial Swelling walnut Allergy (Intermediate, Verified 08/29/24 14:33) Hives ibuprofen Allergy (Unknown, Verified 08/29/24 14:33) Hives colchicine Adverse Reaction (Intermediate, Verified 08/29/24 14:33) gi upset HPI Comments Details: Lakshmi was seen for fluctuant serum creatinine on a backdrop of CKD. She is 89 years of age who has been in good health. She is a diabetic and does not have any retinopathy, significant proteinuria or neuropathy. She denies any carotid artery disease, CVA, GURPREET, PAD, CAD or CHF. She has chronic edema. She has H/O PE. She does not take any excessive nonsteroidal anti-inflammatories. She has no history of dry eyes and dry mouth or generalized joint pains. She does not get recurrent urinary infections. She tries to maintain good hydration. She has no hearing issues, sinusitis, epistaxis, photosensitivity, urinary symptoms, history of renal calculus, flank pain, new bone pain. She has no history of hypercalcemia. [facility] Medical History Essential hypertension Diabetes type 2, controlled Surgical History History of surgery History of left knee replacement History of arthroscopy of right knee History of hysterectomy Family History Father No problems noted. Mother No problems noted. Son Multiple sclerosis Daughter Rheumatoid arthritis Hx of cancer of lung Social History Household Members: None Housing: House Alcohol intake: current Alcohol intake frequency: other Alcohol type: beer Patient Tobacco Use Status: Never used Tobacco e-Cigarette/Vaping Use: Never Used Second Hand Smoke Exposure: No service: No Current occupational status: retired Current occupational exposures/hazards: No Cognitive needs: No Hearing needs: No Vision needs: No Review of Systems Const All systems reviewed & are unremarkable except as noted in HPI and below Physical Exam Vital Signs: Last Vital Signs Pulse 58 08/29/24 14:33 BP 146/60 H 08/29/24 14:33 Pulse Ox 95 08/29/24 14:33 Oxygen Delivery Method Room Air 08/29/24 14:33 BMI result Body Mass Index 29.9 Const General: comfortable and no acute distress Orientation/consciousness: patient oriented x3 HEENT Head: Yes normocephalic Mouth: Normal oral and palatal mucosa present Eyes EOM: EOMs intact bilaterally Neck Neck: Yes supple Resp Auscultation: clear to auscultation bilaterally Cardio Jugular venous distension: no JVD Rate: regular rate GI Palpation (GI): Soft to palpation Auscultation: normal bowel sounds General: Yes no CVA tenderness Back/Spine/Pelvis Back: no CVA tenderness Skin General skin exam: no rashes or lesions noted Neuro General: patient oriented x3 and moves all extremities Results Reviewed Nephrology Results: Hgb 11.1 g/dl (12.0-16.0) L 08/23/24 WBC 9.3 X10*3/uL (4.8-10.8) 08/23/24 Plt Count 270 X10*3/uL (160-400) 08/23/24 Sodium 144 mmol/L (135-145) 08/23/24 Potassium 3.8 mmol/L (3.3-5.1) 08/23/24 Chloride 108 mmol/L (96-108) 08/23/24 Carbon Dioxide 26 mmol/L (22-29) 08/23/24 BUN 21 mg/dL (9-16) H 08/23/24 Creatinine 1.65 mg/dL (0.5-1.4) H 08/23/24 Calcium 9.6 mg/dL (8.4-10.2) 08/23/24 Urine Protein Negative mg/dL (Neg-Trace) 08/23/24 Urine Creatinine 73.03 mg/dL 08/23/24 Assessment & Plan Assessment & Plan (1) CKD stage 3a, GFR 45-59 ml/min: Code(s): N18.31 - Chronic kidney disease, stage 3a Category: Medical (2) Essential hypertension: Code(s): I10 - Essential (primary) hypertension Category: Medical Plan Lakshmi has CKD 3 at baseline. Her renal functions are stable. She is not known to have any significant proteinuria. She does not take any excessive nonsteroidal inflammatories. She denies any renal calculi , microscopic hematuria or pedal edema. She denied retinopathy. She has good urine output and there is no reason to suspect any obstructive uropathy. I asked her to cut down sodium in the diet and maintain good hydration. I have ordered repeat renal functions. All questions answered. Orders: Orders Creatinine 6 Months N18.31 - Chronic kidney disease, stage 3a Blood Urea Nitrogen 6 Months N18.31 - Chronic kidney disease, stage 3a Calcium 6 Months N18.31 - Chronic kidney disease, stage 3a Immunofixation Pnl, Serum 6 Months N18.31 - Chronic kidney disease, stage 3a Electrolytes 6 Months N18.31 - Chronic kidney disease, stage 3a Parathyroid Hormone Intact 6 Months N18.31 - Chronic kidney disease, stage 3a Vitamin D 25-OH Total 6 Months N18.31 - Chronic kidney disease, stage 3a Coding Level of Care Code Est Pt Level 4 (74956) Diagnoses CKD stage 3a, GFR 45-59 ml/min N18.31 Essential hypertension I10
[2024-08-29 14:33] VITALS: BP 146/60; PULSE 58; O2SAT 95; BMI 29.9
== END 2024-08-29 15:03 | disposition home or self-care (01) ==
PROVIDERS: PCP Family Medicine; Visit Provider Internal Medicine Nephrology
DX: N18.31 Chronic kidney disease, stage 3a (principal); I10 Essential (primary) hypertension
CPT/HCPCS: 99214

== ENCOUNTER → 2024-08-29 14:07 | Outpatient (BNVA) | payer MEDICARE, SELFPAY | PROVIDERS: PCP Family Medicine; Visit Provider Internal Medicine Nephrology | DX: I12.9 Hypertensive chronic kidney disease with stage 1 through stage 4 chronic kidney disease, or unspecified chronic kidney disease (principal); R60.9 Edema, unspecified; N18.31 Chronic kidney disease, stage 3a | CPT/HCPCS: 99212 ==

== ENCOUNTER 2024-09-23 10:22 | Outpatient (AMB) | payer MEDICARE, SELFPAY ==
--- NOTE | 2024-09-23 10:27 | MHC.PC.OV ---
Vital Signs 09/23/24 10:32 Height 5 ft 3 in Weight 168 lb 4 oz BMI 29.8 BP 130/60 Blood Pressure Location Rt brachial Position Sitting Respiration 16 Pulse 53 Pulse Source Pulse Oximeter Temp 97.4 F Temp Source Oral Pulse Oximetry (%) 96 Oxygen Delivery Method Room Air Intake Visit Reasons: f/u hypertension, chronic conditions Intake Note: HTN f/u Allergies clams Allergy (Intermediate, Verified 09/23/24 10:31) Facial Swelling walnut Allergy (Intermediate, Verified 09/23/24 10:31) Hives ibuprofen Allergy (Unknown, Verified 09/23/24 10:31) Hives colchicine Adverse Reaction (Intermediate, Verified 09/23/24 10:31) gi upset Medication List - Last Reconciled 09/23/24 by Ray Forbes MD allopurinol TAKE 2 TABLETS (200mg) BY MOUTH ONCE DAILY amlodipine 2.5 mg PO DAILY 30 days atorvastatin 10 mg PO BEDTIME 90 days blood sugar diagnostic (FreeStyle Lite Strips) DX: E11.9, test blood sugar once a day, 90 days cane Cane, Daily As directed, 999 days. clotrimazole 1% 1 appl topical BID PRN epinephrine (EpiPen 2-Nasir) 0.3 mg (0.3 mL) IM Q10M PRN 30 days furosemide 20 mg PO DAILY isosorbide mononitrate ER 30 mg PO DAILY lancets (FreeStyle Lancets) 1 gauge miscellaneous DAILY 90 days lancets (FreeStyle Lancets) As directed lidocaine HCl 4% (Aspercreme (lidocaine HCl)) 1 appl topical BID PRN 30 days metformin 250 mg (1/2 x 500 mg) PO BID 90 days metoprolol succinate ER 50 mg PO DAILY 90 days mupirocin 2% 1 appl topical BID 10 days pantoprazole 40 mg PO DAILY 90 days Tobacco use date assessed: 04/12/24 Dental Screening Dental Screen Date: 04/12/24 HPI f/u hypertension, chronic conditions HPI Details 89 y/o female presents to f/u hypertension, chronic conditions. Blood pressure today 130/60, 53p. She is on isosorbide 30mg, metoprolol 50mg. Kidney function checked 08/23/24. Creatinine level improved from 1.76 to 1.65. [facility] Medical History Essential hypertension Diabetes type 2, controlled Surgical History History of surgery History of left knee replacement History of arthroscopy of right knee History of hysterectomy Family History Father No problems noted. Mother No problems noted. Son Multiple sclerosis Daughter Rheumatoid arthritis Hx of cancer of lung Social History Household Members: None Housing: House Alcohol intake: current Alcohol intake frequency: other Alcohol type: beer Patient Tobacco Use Status: Never used Tobacco e-Cigarette/Vaping Use: Never Used Second Hand Smoke Exposure: No service: No Current occupational status: retired Current occupational exposures/hazards: No Cognitive needs: No Hearing needs: No Vision needs: No Questionnaire Thrive Questionnaire Date Thrive assessed: 08/09/24 I am a: Patient What is your living situation today?: I have a steady place to live Within the past 12 months, did the food you bought not last and you didn't have the money to get more?: Never true Within the past 12 months, did you worry whether your food would run out before you got money to buy more?: Never true Do you have trouble paying for medicines?: No Do you have trouble getting transportation to medical appointments?: No Do you have trouble paying your heating and electricity bill?: No Do you have trouble taking care of your child, family member or friend?: No Do you have trouble with day-to-day activities such as bathing, preparing meals, shopping, managing finances, etc.?: Yes Are you currently unemployed and looking for a job?: No Are you interested in more education?: No Please select the resources that you would like help with: Daily support Currently or been in a relationship where the following occur: No concerns reported THRIVE Score: 0 CORNELIUS-7 AMB Questionnaire CORNELIUS-7 Date CORNELIUS - 7 assessed: 01/09/24 Source: Developed by Drs. Don Balderrama, Sakina Rodriguez, Reji Tse and colleagues, with an educational yaneli from [employer]. Physical exam (Primary Care) Vital Signs: Last Vital Signs Temp 97.4 F 09/23/24 10:32 Pulse 53 09/23/24 10:32 Resp 16 09/23/24 10:32 BP 130/60 09/23/24 10:32 Pulse Ox 96 09/23/24 10:32 Oxygen Delivery Method Room Air 09/23/24 10:32 BMI result Body Mass Index 29.8 Tobacco/Smoking Status: Tobacco use Status Tobacco use date assessed 04/12/24 09/23/24 10:28 Patient Tobacco Use Status Never used Tobacco 09/23/24 10:28 e-Cigarette/Vaping Use Never Used 09/23/24 10:28 Thrive Assessment: Date of Thrive Assessment Date Thrive assessed 08/09/24 09/23/24 10:28 Currently or been in a relationship where the following occur: No concerns reported Coding Level of Care Code Est Pt Level 4 (56101) Diagnoses Essential hypertension I10 CKD stage 3a, GFR 45-59 ml/min N18.31 Immunization counseling Z71.85 Assessment & Plan Assessment & Plan (1) Essential hypertension: Code(s): I10 - Essential (primary) hypertension Category: Medical Plan: Blood?pressure?is?controlled.??Goal?is?less?than?140/90 Continue?current?medications (2) CKD stage 3a, GFR 45-59 ml/min: Code(s): N18.31 - Chronic kidney disease, stage 3a Category: Medical Plan: Creatinine?is?at?baseline?of?around?1.65 Stable Control?blood?pressure,?avoid?salt/sodium. ?We?have?adjusted?her?hypertension?medications she?is?taking?furosemide?20 mg?daily?rather?40?daily. Follow-up?nephrology?as?recommended (3) Immunization counseling: Code(s): Z71.85 - Encounter for immunization safety counseling Category: Medical Plan: She?has?gotten?her?COVID?and?flu?shots?this?year. Has?not?gotten?RSV?yet?and?I?advised?this
[2024-09-23 10:32] VITALS: BP 130/60; PULSE 53; RESP 16; TEMP 36.3; O2SAT 96; BMI 29.8
== END 2024-09-23 10:52 | disposition home or self-care (01) ==
PROVIDERS: PCP Family Medicine; Visit Provider Family Medicine
DX: I10 Essential (primary) hypertension (principal); N18.31 Chronic kidney disease, stage 3a; Z71.85 Encounter for immunization safety counseling

== ENCOUNTER → 2024-09-23 10:22 | Outpatient (BNVA) | payer MEDICARE, SELFPAY | PROVIDERS: PCP Family Medicine; Visit Provider Family Medicine | DX: I12.9 Hypertensive chronic kidney disease with stage 1 through stage 4 chronic kidney disease, or unspecified chronic kidney disease (principal); N18.31 Chronic kidney disease, stage 3a; Z71.85 Encounter for immunization safety counseling | CPT/HCPCS: 99212 ==

== ENCOUNTER 2024-12-26 10:44 | Outpatient (AMB) | payer MEDICARE, SELFPAY ==
--- NOTE | 2024-12-26 11:31 | A.OFFPC_ITS ---
Vital Signs 12/26/24 11:33 Height 5 ft 3 in Weight 174 lb 4 oz BMI 30.9 BP 136/60 Blood Pressure Location Lt brachial Position Sitting Respiration 14 Pulse 61 Pulse Source Pulse Oximeter Temp 97.8 F Temp Source Oral Pulse Oximetry (%) 96 Oxygen Delivery Method Room Air Intake Visit Reasons: f/u HTN, kidney functions Intake Note: patient is scheduled to follow up on htn and kidney function [place] Library Director Required: No Allergies clams Allergy (Intermediate, Verified 12/26/24 11:32) Facial Swelling walnut Allergy (Intermediate, Verified 12/26/24 11:32) Hives ibuprofen Allergy (Unknown, Verified 12/26/24 11:32) Hives colchicine Adverse Reaction (Intermediate, Verified 12/26/24 11:32) gi upset Medication List - Last Reconciled 12/26/24 by Ray Forbes MD allopurinol TAKE 2 TABLETS (200mg) BY MOUTH ONCE DAILY amlodipine 2.5 mg PO DAILY 30 days atorvastatin 10 mg PO BEDTIME 90 days blood sugar diagnostic (FreeStyle Lite Strips) DX: E11.9, test blood sugar once a day, 90 days cane Cane, Daily As directed, 999 days. clotrimazole 1% 1 appl topical BID PRN epinephrine (EpiPen 2-Nasir) 0.3 mg (0.3 mL) IM Q10M PRN 30 days furosemide 20 mg PO DAILY isosorbide mononitrate ER 30 mg PO DAILY lancets (FreeStyle Lancets) 1 gauge miscellaneous DAILY 90 days lancets (FreeStyle Lancets) As directed lidocaine HCl 4% (Aspercreme (lidocaine HCl)) 1 appl topical BID PRN 30 days metformin 250 mg (1/2 x 500 mg) PO BID 90 days metoprolol succinate ER 50 mg PO DAILY 90 days mupirocin 2% 1 appl topical BID 10 days pantoprazole 40 mg PO DAILY 90 days Tobacco use date assessed: 04/12/24 Dental Screening Dental Screen Date: 04/12/24 HPI f/u HTN, kidney functions HPI Details 89 y/o female presents to f/u HTN, kidne y functions. Blood pressure today 136/60, 61p. She is on isosorbide, amlodipine and metoprolol. Last creatinine level 08/23/24 1.65. Follows up with Dr. Paiz in February. Last A1c 5.6% which was good control. A1c today 12/26/24 5.9%. She notes ongoing shoulder pain, joint pain. She takes tylenol during the day which seems to help some. Also notes jaw joint pain, R side. HPI Comments History of Present Illness Details Documentation assistance for Ray Forbes MD, was provided by Elio Acosta,? Coal Gasification Technician on 12/26/2024 at 11:45 AM EST. I, Dr. Forbes, have read, observed, and verified documentation. [facility] Medical History Essential hypertension Diabetes type 2, controlled Surgical History History of surgery History of left knee replacement History of arthroscopy of right knee History of hysterectomy Family History Father No problems noted. Mother No problems noted. Son Multiple sclerosis Daughter Rheumatoid arthritis Hx of cancer of lung Social History Household Members: None Housing: House Alcohol intake: current Alcohol intake frequency: other Alcohol type: beer Patient Tobacco Use Status: Never used Tobacco e-Cigarette/Vaping Use: Never Used Second Hand Smoke Exposure: No service: No Current occupational status: retired Current occupational exposures/hazards: No Cognitive needs: No Hearing needs: No Vision needs: No Questionnaire PHQ-9 Over the last 2 weeks, how often have you been bothered by any of the following problems? 1. Little interest or pleasure in doing things: not at all 2. Feeling down, depressed, or hopeless: not at all 3. Trouble falling or staying asleep, or sleeping too much: not at all 4. Feeling tired or having little energy: not at all 5. Poor appetite or overeating: not at all 6. Feeling bad about yourself - or that you are a failure or have let yourself or your family down: not at all 7. Trouble concentrating on things, such as reading the newspaper or watching television: not at all 8. Moving or speaking so slowly that other people could have noticed. Or the opposite - being so fidgety or restless that you have been moving around a lot more than usual: not at all 9. Thoughts that you would be better off or of hurting yourself in some way: not at all Total score: 0 Depression Screening Interpretation: Negative Depression Screening Done: Yes 00193 - PHQ-9 Billing: Yes Source: Developed by Drs. Don Balderrama, Sakina Rodriguez, Reji Tse and colleagues, with an educational yaneli from [employer]. Thrive Questionnaire Date Thrive assessed: 12/19/24 I am a: Patient What is your living situation today?: I have a steady place to live Within the past 12 months, did the food you bought not last and you didn't have the money to get more?: Never true Within the past 12 months, did you worry whether your food would run out before you got money to buy more?: Never true Do you have trouble paying for medicines?: No Do you have trouble getting transportation to medical appointments?: No Do you have trouble paying your heating and electricity bill?: No Do you have trouble taking care of your child, family member or friend?: I choose not to answer this question Do you have trouble with day-to-day activities such as bathing, preparing meals, shopping, managing finances, etc.?: Yes Are you currently unemployed and looking for a job?: No Are you interested in more education?: No Please select the resources that you would like help with: None Currently or been in a relationship where the following occur: No concerns reported THRIVE Score: 0 AUDIT C Alcohol Use Questionnaire (AUDIT-C) 3. How often do you have six or more drinks on one occasion?: Never Total Score: 0 CORNELIUS-7 AMB Questionnaire CORNELIUS-7 Date CORNELIUS - 7 assessed: 01/09/24 Feeling nervous, anxious, or on edge: 0 = Not at all Not being able to stop or control worryin = Not at all Worrying too much about different things: 0 = Not at all Trouble relaxin = Not at all Being so restless that it is hard to sit still: 0 = Not at all Becoming easily annoyed or irritable: 0 = Not at all Feeling afraid as if something awful might happen: 0 = Not at all Total CORNELIUS-7 score (0-4 normal; 5-9 mild; 10-14 moderate; 15-21 severe): 0 Source: Developed by Drs. Don Balderrama, Sakina Rodriguez, Reji Tse and colleagues, with an educational yaneli from [employer]. Review of Systems Musc Details: Shoulder pain Physical exam (Primary Care) Vital Signs: Last Vital Signs Temp 97.8 F 12/26/24 11:33 Pulse 61 12/26/24 11:33 Resp 14 12/26/24 11:33 BP 136/60 12/26/24 11:33 Pulse Ox 96 12/26/24 11:33 Oxygen Delivery Method Room Air 12/26/24 11:33 BMI result Body Mass Index 30.9 Tobacco/Smoking Status: Tobacco use Status Tobacco use date assessed 04/12/24 12/26/24 11:37 Patient Tobacco Use Status Never used Tobacco 12/26/24 11:37 e-Cigarette/Vaping Use Never Used 12/26/24 11:37 PHQ-9: PHQ-9 Score PHQ-9: Total score 0 12/26/24 11:44 Depression Screening Interpretation: Negative Thrive Assessment: Date of Thrive Assessment Date Thrive assessed 12/19/24 12/26/24 11:37 Currently or been in a relationship where the following occur: No concerns repor rory Results AMB Hemoglobin A1c AMB Hemoglobin A1c 5.9 % Last Edit by Yesica Iniguez RN on 12/26/24 12:25 Coding Level of Care Code Est Pt Level 4 (95027) Diagnoses Essential hypertension I10 CKD (chronic kidney disease) N18.9 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 disease, without long-term current use of insulin E11.22; N18.30 Chronic kidney disease stage: stage 3 (moderate) Diabetes mellitus complication detail: with chronic kidney disease Diabetes mellitus complication status: with kidney complications 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 use: without intermediate use Polyarthralgia M25.50 Shoulder pain M25.519 Jaw pain R68.84 Sleep apnea G47.30 Thumb pain M79.646 Left wrist pain M25.532 Additional Codes PHQ-9 - 86565 - PHQ-9 Billing: Yes ([id number]) Assessment & Plan Assessment & Plan (1) Essential hypertension: Code(s): I10 - Essential (primary) hypertension Category: Medical Plan: Blood?pressure?is?controlled.??Goal?is?less?than?140/90 Continue?her?medications (2) CKD (chronic kidney disease): Code(s): N18.9 - Chronic kidney disease, unspecified Category: Medical Plan: Followed?by??[facility] Avoid?salt Controlled?blood?pressure?and?blood?sugar Check?labs (3) Diabetes type 2, controlled: Code(s): E11.9 - Type 2 diabetes mellitus without complications Category: Medical Qualifiers: Chronic kidney disease stage: stage 3 (moderate) Diabetes mellitus complication detail: with chronic kidney disease Diabetes mellitus complication status: with kidney complications Diabetes mellitus intermediate insulin use: without regional intermodal truck driver use Qualified Code(s): E11.22 - Type 2 diabetes mellitus with diabetic chronic kidney disease; N18.30 - Chronic kidney disease, stage 3 unspecified Plan: A1c?5.6%?in?August Today?A1c is?5.9%.??Still?good?control.??Goal?is?less?than?7.0% Continue?metformin?as?prescribed She?sees?Dr. Nicholas for?diabetic?retinal?exam?once?a?year.??She?is?up-to-date?though?she?says?she?ne eds?an?appointment?fairly?soon?and?I?reminded?her?to?call (4) Polyarthralgia: Code(s): M25.50 - Pain in unspecified joint Category: Medical Plan: Multiple?joint?pains. Uses?Tylenol,?ice?and?heat Will?give?her?a?script?for diclofenac?gel (5) Shoulder pain: Code(s): M25.519 - Pain in unspecified shoulder Category: Medical Plan: As?above (6) Jaw pain: Code(s): R68.84 - Jaw pain Category: Medical Plan: Likely?TMJ Follow-up?with?dentist (7) Sleep apnea: Code(s): G47.30 - Sleep apnea, unspecified Category: Medical Plan: Patient?has?not?been?evaluated?in?years. Referred?to?Sleep?Medicine (8) Thumb pain: Code(s): M79.646 - Pain in unspecified finger(s) Category: Medical Plan: Ongoing?left?wrist?and?base?of?thumb?pain. Referred?to?hand?specialist (9) Left wrist pain: Code(s): M25.532 - Pain in left wrist Category: Medical Plan: As above Orders: Orders Microalbumin, Random (w Creat) Today I10 - Essential (primary) hypertension Basic Metabolic Panel Today I10 - Essential (primary) hypertension, Z00.00 - Encounter for general adult medical examination without abnormal findings Referrals Sleep Medicine Referral M79.646 - Pain in unspecified finger(s) Hand Surgery Referral M25.532 - Pain in left wrist, M79.646 - Pain in unspecified finger(s) Medications: New diclofenac sodium 1% (Arthritis Pain (diclofenac)) 4 grams topical BID 30 days 200 grams 2RF
[2024-12-26 11:33] VITALS: BP 136/60; PULSE 61; RESP 14; TEMP 36.6; O2SAT 96; BMI 30.9
--- OUTSIDE RECORDS SUMMARY | 2024-12-26 13:38 | XMS_ITS | Clinical Summary ---
Author Organization [facility] Facility Address [address] [place] [id number] Care Team Providers Care Gas Flow Regulator Name Role Phone Unavailable Primary Care Provider Unavailabl e Social History Tobacco Use Types Packs/Day Years Used Date Smoking Tobacco: Never Assessed Comments Unknown Sex and Gender Information Value Date Recorded Sex Assigned at Not on file Legal Sex Female 1:54 PM EST Gender Identity Not on file Sexual Orientation Not on file Plan of Treatment Health Maintenance Due Date Last Done Comments Diabetes: Hemoglobin A1C 11/25/2022 Diabetes: Ophthalmology Exam 11/25/2022 Diabetes: Pedal Pulse Checked 11/25/2022 Diabetes: Sensory Foot Exam 11/25/2022 Diabetes: Visual Foot Exam 11/25/2022 Influenza Vaccine (#1) 2024 Pneumococcal Vaccine: 65+ Years Completed 07/15/2019, 06/26/2019, 07/19/2005 Hepatitis B Vaccine Aged Out No longe r eligible based on patient's age to complete this topic Insurance MEDICARE [facility] MEDICARE [facility]
== END 2024-12-26 13:19 | disposition home or self-care (01) ==
LOC: HO.HMCFM 10:45
PROVIDERS: PCP Family Medicine; Visit Provider Family Medicine
DX: I12.9 Hypertensive chronic kidney disease with stage 1 through stage 4 chronic kidney disease, or unspecified chronic kidney disease (principal); N18.9 Chronic kidney disease, unspecified; E11.22 Type 2 diabetes mellitus with diabetic chronic kidney disease; N18.30 Chronic kidney disease, stage 3 unspecified; M25.50 Pain in unspecified joint; M25.519 Pain in unspecified shoulder; R68.84 Jaw pain; G47.30 Sleep apnea, unspecified; M79.646 Pain in unspecified finger(s); M25.532 Pain in left wrist; Z13.9 Encounter for screening, unspecified

== ENCOUNTER → 2024-12-26 10:44 | Outpatient (BNVA) | payer MEDICARE, SELFPAY | PROVIDERS: PCP Family Medicine; Visit Provider Family Medicine | DX: Z00.00 Encounter for general adult medical examination without abnormal findings (principal); I12.9 Hypertensive chronic kidney disease with stage 1 through stage 4 chronic kidney disease, or unspecified chronic kidney disease; E11.22 Type 2 diabetes mellitus with diabetic chronic kidney disease; N18.30 Chronic kidney disease, stage 3 unspecified; R68.84 Jaw pain; G47.30 Sleep apnea, unspecified; M25.532 Pain in left wrist | CPT/HCPCS: 83036; 96127; 99212 ==

== ENCOUNTER 2025-01-22 00:20 | Emergency (ER) | payer MEDICARE, SELFPAY ==
[2025-01-22] VITALS (8 sets, daily range): BP systolic 117–149; BP diastolic 37–86; PULSE 64–86; RESP 16–18; TEMP 36.2–37.3; O2SAT 90–97; BMI 30.7
--- NOTE | ~2025-01-22 | CT_ITS ---
CLINICAL HISTORY: Left ear pain left neck pain rule out abscess CT head without contrast Comparison: None Findings: Scattered subcortical and periventricular hypoattenuation, likely in keeping with chronic small vessel ischemic disease. Parenchymal volume loss with compensatory prominence of the ventricles and CSF spaces. No acute territorial infarction, intracranial hemorrhage, midline shift or hydrocephalus. Scattered lacunar infarcts throughout the supra tentorium and right cerebellum. Left mastoid effusion. Paranasal sinuses are clear. Suspect subtle soft tissue thickening in the left middle ear cavity, nonspecific. The orbits are unremarkable. No skull fracture. Bilateral lens extraction. IMPRESSION: 1. No acute intracranial hemorrhage or territorial infarction. 2. Additional findings as described. This document has been electronically signed by: Mickey Holguin MD on 01/22/2025 04:42:17
--- NOTE | ~2025-01-22 | CT_ITS ---
CLINICAL HISTORY: Left ear pain left-sided neck pain, r o abscess CT soft tissue neck without contrast Comparison: None Findings: Large left mastoid effusion. Mild soft tissue thickening noted in the mesial and hypo tympanum of the left middle ear cavity. No erosive changes along the middle ear ossicles. Thickening of the left tympanic membrane. No prevertebral fluid. Epiglottis is within normal limits. Pharyngeal mucosal space and parapharyngeal fat are normal. Salivary glands are within normal limits. No sialoliths. Multinodular thyroid gland with the dominant nodule in the right gland with calcifications measuring up to 4.9 cm. This may be further evaluated with ultrasound. Atelectasis. No acute fracture or dislocation. 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 Multilevel spondylosis with osteophytosis, uncovertebral hypertrophy, facet arthropathy and degenerative disc disease. 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 Sclerotic focus along the left posterior aspect of T5 may reflect bone island nonspecific. No erosive changes. IMPRESSION: Left mastoid effusion with soft tissue thickening in the middle ear cavity. Differentials include mastoiditis, otomastoiditis, less likely cholesteatoma, otitis media amongst other etiologies. Clinical correlation advised. ENT consult may be helpful. This document has been electronically signed by: Mickey Holguin MD on 01/22/2025 04:43:41
--- OUTSIDE RECORDS SUMMARY | 2025-01-22 00:46 | XMS_ITS | Clinical Summary ---
Author Organization [facility] Facility Address [address] [place] [id number] Care Team Providers Care Auto Detailer Name Role Phone Unavailable Primary Care Provider [...] Diabetes: Visual Foot Exam 11/25/2022 Influenza Vaccine (Season Ended) 2025 Pneumococcal Vaccine: 65+ Years Completed 07/15/2019, 06/26/2019, 07/19/2005 Hepatitis B Vaccine Aged Out No longe r eligible based on patient's age to complete this topic Insurance MEDICARE [facility] MEDICARE [facility]
--- NOTE | 2025-01-22 02:11 | PC.NURSE ---
pt states he neck hurt each time she breaths in. provider made aware.
--- NOTE | 2025-01-22 02:22 | ED_ITS ---
HPI - Ear Problem General Chief complaint: Ear Problems Stated complaint: EAR INFECTION Time Seen by Provider: 01/22/25 02:10 Source: patient and family (Daughter) Mode of arrival: ambulatory Limitations: no limitations History of Present Illness ED Provider: DR. Mckeon HPI Narrative: 89-year-old female recently diagnosed with left ear infection at a walk-in clinic last week patient was started on amoxicillin 5 days ago for total of 10 days' course presented today for worsening of left ear pain, left-sided neck pain especially when she moves or taking a deep breath, signed chills, otherwise no fever. Related Data Home Medications ?Medication ?Instructions ?Recorded ?Confirmed clotrimazole 1 % topical cream 1 appl topical BID PRN 07/25/24 12/26/24 furosemide 40 mg tablet 20 mg PO DAILY 07/25/24 12/26/24 Previous Rx's ?Medication ?Instructions ?Recorded epinephrine 0.3 mg/0.3 mL 0.3 mg (0.3 mL) IM Q10M PRN 11/17/20 injection, auto-injector (EpiPen anaphylaxis 30 days #2 ea 2-Nasir) lancets 28 gauge (FreeStyle 1 gauge miscellaneous DAILY for 10/06/21 Lancets) diabetes mellitus 90 days #100 ea lidocaine HCl 4 % topical cream 1 appl topical BID PRN pain 30 10/06/21 (Aspercreme (lidocaine HCl)) days #120 grams blood sugar diagnostic (FreeStyle #100 ea 04/21/22 Lite Strips) lancets 28 gauge (FreeStyle #100 ea 04/25/22 Lancets) cane #1 ea 07/21/22 mupirocin 2 % topical ointment 1 appl topical BID 10 days #22 04/15/24 grams metoprolol succinate 50 mg 50 mg PO DAILY 90 days #90 tabs 07/17/24 tablet,extended release 24 hr pantoprazole 40 mg tablet,delayed 40 mg PO DAILY 90 days #90 tabs 08/12/24 release metformin 500 mg tablet 250 mg (1/2 x 500 mg) PO BID 90 08/31/24 days #90 tabs allopurinol 100 mg tablet See Rx Instructions .Route 11/04/24 .COMPLEX #180 tabs isosorbide mononitrate 30 mg 30 mg PO DAILY #30 tabs 11/06/24 tablet,extended release 24 hr amlodipine 2.5 mg tablet 2.5 mg PO DAILY 30 days #30 tabs 12/05/24 atorvastatin 10 mg tablet 10 mg PO BEDTIME 90 days #90 tabs 12/08/24 diclofenac sodium 1 % topical gel 4 g topical BID 30 days #200 grams 12/26/24 (Arthritis Pain (diclofenac)) Allergies Allergy/AdvReac Type Severity Reaction Status Date / Time clams Allergy Intermediate Facial Verified 01/22/25 00:32 Swelling walnut Allergy Intermediate Hives Verified 01/22/25 00:32 ibuprofen Allergy Unknown Hives Verified 01/22/25 00:32 colchicine AdvReac Intermediate gi upset Verified 01/22/25 00:32 Review of Systems 2 Review of Systems: All other systems are reviewed and are negative Constitutional: Reports as per HPI and Reports no additional constitutional complaints Eyes: Reports as per HPI and Reports no additional eye complaints Reports system reviewed and no additional complaints, except as documented Cardiovascular: Reports as per HPI and Reports no additional cardiovascular complaints Respiratory: Reports as per HPI and Reports no additional respiratory complaints Gastrointestinal: Reports as per HPI and Reports no additional gastrointestinal complaints Genitourinary: Reports no additional female genitourinary complaints Musculoskeletal: Reports no additional musculoskeletal complaints Skin/Breast: Reports system reviewed and no additional complaints, except as docu Psychiatric: Reports no additional psychiatric complaints Endocrine: Reports no additional endocrine complaints Hematologic/Lymphatic: Reports no additional hematologic/lymphatic complaints Allergic/Immunologic: Reports no additional allergic/immunologic complaints Reports system reviewed and no additional complaints, except as documented and Reports Abnormal speech present [facility] Past Medical History Medical History Essential hypertension Diabetes type 2, controlled Surgical History History of surgery History of left knee replacement History of arthroscopy of right knee History of hysterectomy Family History Family History Father No problems noted. Mother No problems noted. Son Multiple sclerosis Daughter Rheumatoid arthritis Hx of cancer of lung Social History Social History Household Members: None Housing: House Alcohol intake: never Patient Tobacco Use Status: Never used Tobacco Smoked in Last 30 Days: No e-Cigarette/Vaping Use: Never Used Second Hand Smoke Exposure: No Use of substances other than those prescribed or required for medical reasons: No Advance Directives: No Do you have a plan to hurt others: No Plan service: No Current occupational status: retired Current occupational exposures/hazards: No Cognitive needs: No Hearing needs: No Vision needs: No Physical Exam 2 Vital Signs: Vital Signs: Last Vital Signs Temp 99.1 F 01/22/25 04:00 Pulse 64 01/22/25 04:00 Resp 16 01/22/25 04:00 BP 117/37 L 01/22/25 04:00 Pulse Ox 93 01/22/25 04:00 O2 Del Method Room Air 01/22/25 04:00 BMI result Body Mass Index 30.7 Vital signs have been reviewed and appear to be correct. Blood pressure elevated. Heart rate normal. Respiratory rate normal. Temperature normal. Oxygen saturation normal. Appearance: Alert. Oriented X3. No acute distress. Head: Normal external exam. Normocephalic. Atraumatic. No Barrera signs noted. No raccoon eyes noted Eyes: PERRLA. EOMI. Conjunctiva and sclera normal. Eyelids normal. ENT: TM's Normal. Pharynx normal. Uvula midline. Moist mucous membranes. No sign of erythema or tenderness over left mastoid, there is a left-sided neck mild tenderness with no appreciated abscess of fluctuation. No trismus noted. No drooling noted. No muffled voice noted. Neck: Normal inspection. Neck supple. FROM. No adenopathy. Thyroid Normal. No meningeal signs. No neck mass noted. CVS: Normal heart rate and rhythm. Heart sound normal. No murmurs noted. Pulses normal throughout. Respiratory: No respiratory distress. Painless inspiration. Breath sounds normal. No wheezes/rales/rhonchi noted. Chest nontender. No accessory muscle usage noted or decreased air movement noted. Abdomen: Soft and nontender. Bowel sounds normal in all 4 quadrants. No distention noted. No organomegaly noted. No visible injury noted. Back: No CVA tenderness. Full range of motion noted. Skin: Skin warm and dry. Normal skin color. Normal skin turgor. No rashes/lesions/lacerations noted. Extremities: No lower extremity edema. Extremities exhibit normal range of motion. Extremities nontender. Neuro: Oriented X 3. Cranial nerve exam: II-XII are grossly intact No motor deficit. No sensory deficit. Reflexes normal. Course Reevaluation(s) Reevaluation #1: Progression of left ear pain and left-sided neck pain after been treated for left ear infection with amoxicillin day 5. +leukocytosis, CT is concern of mastoiditis, unsuccessful phone calls to the local hospital to accept the patient, patient has been accepted to [facility] ED worrlel. Time: 06:45 Medications Administered Discontinued Medications Generic Name Dose Route Start Last Admin Trade Name Freq PRN Reason Stop Dose Admin Hydromorphone HCl 0.5 mg 01/22/25 02:34 01/22/25 03:36 Hydromorphone Hcl 0.5 Mg/0.5 Ml Syringe IVPUSH 01/22/25 02:35 0.5 mg ONCE ONE Administration Protocol Medical Decision Making Differential Diagnosis Differential Diagnoses: The differential diagnosis associated with the presentation includes (Left neck abscess, left mastoiditis, worsening of left otitis media.) Admission/Observation Consideration of admission/observation: Escalation of care including admission/observation considered Lab Data [facility] Lab Attestation statement: I reviewed the patient's lab results. 01/22/25 04:28 01/22/25 04:28 Labs: Lab Results 01/22/25 Range/Units 04:28 WBC 17.0 H (4.8-10.8) X10*3/uL RBC 3.34 L (4.20-5.50) X10*6/uL Hgb 10.8 L (12.0-16.0) g/dl Hct 31.2 L (37.0-47.0) % MCV 93.4 (80.0-98.0) fL MCH 32.3 (27.0-33.0) pg MCHC 34.6 (31.0-35.0) g/dl RDW 13.9 (11.0-16.0) % Plt Count 250 (160-400) X10*3/uL MPV 10.2 (9.4-12.3) fL Immature Gran % (Auto) 0.6 H (0.0-0.4) % Neut % (Auto) 78.8 H (45-73) % Lymph % (Auto) 10.4 L (20-40) % [place] % (Auto) 9.8 (2-11) % Eos % (Auto) 0.1 (0-4) % Baso % (Auto) 0.3 (0-2) % Lymph # (Auto) 1.8 (1.2-4.9) X10*3/uL [place] # (Auto) 1.7 H (0.1-1.2) X10*3/uL Eos # (Auto) 0.0 (0.0-0.4) X10*3/uL Baso # (Auto) 0.1 (0.0-0.2) X10*3/uL Abs Immat Gran (auto) 0.10 H (0.00-0.03) X10*3/uL Absolute Neuts (auto) 13.4 H (2.0-8.3) x10*3/uL Absolute Nucleated RBC 0.000 (0.0-0.012) X10*3/uL Nucleated RBC % (auto) 0.0 (0.0-0.2) /100WBC Smear Tech's Comments VERIFIED Sodium 140 (135-145) mmol/L Potassium 4.2 (3.3-5.1) mmol/L Chloride 109 H (96-108) mmol/L Carbon Dioxide 21 L (22-29) mmol/L Anion Gap 14 (12-20) BUN 24 H (9-16) mg/dL Creatinine 1.61 H (0.5-1.4) mg/dL Estim Creat Clear Calc 24.0 Estimated GFR 30 Random Glucose 164 H (60-115) mg/dL Calcium 9.0 D (8.4-10.2) mg/dL Independent Interpretation I performed an independent interpretation of an: CT Scan (Head and neck CT:Left mastoid effusion with soft tissue thickening in the middle ear cavity. Differentials include mastoiditis, otomastoiditis, less likely cholesteatoma, otitis media amongst other etiologies. Clinical correlation advised. ENT consult may be helpful.) Radiology Impression Discussion of test interpretation with radiology: I have reviewed the radiologist's reading. Discharge Plan Discharge Clinical Impression: Acute mastoiditis of left side, Acute left otitis media [facility] Transfer Details: [facility] ED. Prescriptions: No Action (DME) lancets [FreeStyle Lancets] 28 gauge misc See Rx Instructions .ROUTE .MEDSUPPLY Qty: 100 4RF Rx Instructions: As directed metoprolol succinate 50 mg tablet extended release 24 hr 50 mg PO DAILY 90 Days Qty: 90 3RF pantoprazole 40 mg tablet,delayed release (DR/EC) 40 mg PO DAILY 90 Days Qty: 90 2RF allopurinol 100 mg tablet See Rx Instructions .ROUTE .COMPLEX Qty: 180 0RF Dose Instruction: TAKE 2 TABLETS (200mg) BY MOUTH ONCE DAILY Rx Instructions: TAKE 2 TABLETS (200mg) BY MOUTH ONCE DAILY isosorbide mononitrate 30 mg tablet extended release 24 hr 30 mg PO DAILY Qty: 30 2RF amlodipine 2.5 mg tablet 2.5 mg PO DAILY 30 Days Qty: 30 2RF atorvastatin 10 mg tablet 10 mg PO BEDTIME 90 Days Qty: 90 2RF metformin 500 mg tablet 250 mg PO BID 90 Days Qty: 90 2RF epinephrine [EpiPen 2-Nasir] 0.3 mg/0.3 mL auto-injector 0.3 mg IM Q10M PRN (Reason: anaphylaxis) 30 Days Qty: 2 1RF Rx Instructions: for 2 doses mupirocin 2 % ointment 1 appl topical BID 10 Days Qty: 22 0RF lancets [FreeStyle Lancets] 28 gauge misc 1 gauge miscellaneous DAILY 90 Days Qty: 100 3RF lidocaine HCl [Aspercreme (lidocaine HCl)] 4 % cream 1 appl topical BID PRN (Reason: pain) 30 Days Qty: 120 2RF (DME) FreeStyle Lite Strips Strip See Rx Instructions .ROUTE .MEDSUPPLY Qty: 100 4RF Rx Instructions: DX: E11.9, test blood sugar once a day, 90 days (DME) cane Device See Rx Instructions .Route Qty: 1 0RF Rx Instructions: Cane, Daily As directed, 999 days. clotrimazole 1 % cream 1 appl topical BID PRN furosemide 40 mg tablet 20 mg PO DAILY diclofenac sodium [Arthritis Pain (diclofenac)] 1 % gel 4 g topical BID 30 Days Qty: 200 2RF Print Language: Malagasy
--- NOTE | 2025-01-22 03:09 | PC.NURSE ---
pt taken to ct, 20 left ac.
[2025-01-22] MEDS: HYDROmorphone HCl 0.5 MG/0.5 ML SYRINGE IVPUSH ×2 (03:36→08:24)
[2025-01-22 04:35] LABS: Basophils Absolute Auto 0.1 X10*3/uL (0.0-0.2); Basophils Percent Auto 0.3 % (0-2); Eosinophils Percent Auto 0.1 % (0-4); Hematocrit 31.2 % (37.0-47.0); Hemoglobin 10.8 g/dl (12.0-16.0); Imm Gran Pct Auto 0.6 % (0.0-0.4); Lymphocytes Absolute Auto 1.8 X10*3/uL (1.2-4.9); Lymphocytes Percent Auto 10.4 % (20-40); MANUAL DIFF FLAG SCAN; Mean Corpuscular HGB Conc 34.6 g/dl (31.0-35.0); Mean Corpuscular Hemoglobin 32.3 pg (27.0-33.0); Mean Corpuscular Volume 93.4 fL (80.0-98.0); Mean Platelet Volume 10.2 fL (9.4-12.3); Monocytes Absolute Auto 1.7 X10*3/uL (0.1-1.2); Monocytes Percent Auto 9.8 % (2-11); Neutrophils Absolute Auto 13.4 x10*3/uL (2.0-8.3); Neutrophils Percent Auto 78.8 % (45-73); Platelet Count 250 X10*3/uL (160-400); Red Blood Count 3.34 X10*6/uL (4.20-5.50); Red Cell Distribution Width 13.9 % (11.0-16.0); SCAN SMEAR FLAG 1
[2025-01-22 04:36] LABS: SLIDE REVIEW VERIFIED
[2025-01-22 04:48] LABS: Anion Gap 14 (12-20); Blood Urea Nitrogen 24 mg/dL (9-16); Carbon Dioxide 21 mmol/L (22-29); Chloride 109 mmol/L (96-108); Estimated Glomerular Filt Rate 30; Glucose Random 164 mg/dL (60-115); Potassium 4.2 mmol/L (3.3-5.1); Sodium 140 mmol/L (135-145)
[2025-01-22] MEDS: Piperacillin Sodium/Tazobactam 3.375 GM in 0.9 % Sodium Chloride 50 ML IV (06:45)
--- NOTE | 2025-01-22 07:18 | PC.NURSE ---
Report called to Theresa etcher printed circuit boards at ED.
== END 2025-01-22 08:48 | disposition short-term general hospital (02) ==
PROVIDERS: Emergency Provider Emergency Medicine; PCP Family Medicine
DX: H70.002 Acute mastoiditis without complications, left ear (principal); H66.92 Otitis media, unspecified, left ear; M54.2 Cervicalgia; H92.02 Otalgia, left ear; Z79.899 Other long term (current) drug therapy
CPT/HCPCS: 36415; 70450; 70490; 80048; 85025; 96365; 96375; 96376; 99284; J1171; J2543

== ENCOUNTER → 2025-01-22 02:18 | Outpatient (BNV) | payer MEDICARE, SELFPAY | PROVIDERS: Emergency Provider Emergency Medicine; PCP Family Medicine; Visit Provider Radiology Diagnostic Radiology | DX: H74.8X2 Other specified disorders of left middle ear and mastoid (principal); H92.02 Otalgia, left ear; M54.2 Cervicalgia | CPT/HCPCS: 70450; 70490 ==

== ENCOUNTER → 2025-01-29 11:26 | Outpatient (BNVA) | payer MEDICARE, SELFPAY | PROVIDERS: PCP Family Medicine ==

== ENCOUNTER 2025-01-29 13:46 | Outpatient (REF) | payer MEDICARE, SELFPAY ==
--- OUTSIDE RECORDS SUMMARY | 2025-01-29 16:27 | XMS_ITS | Encounter Summary ---
Author Organization Formerly [facility] Address [address] [place] [address] Care Team Providers Care Experimental Physicist Name Role Phone Unavailable Primary Care Provider Unavailabl e Reason for Referral * Home Health (Routine) - Pending Review Specialty Diagnoses / Procedures Referred By Conttrevon t Referred To Contact Diagnoses Mastoiditis Lissy Burgess, DO [address] [place] [address] Phone: tel: fax: [facility] [address] [place] [address] Phone: tel: fax: Referral ID Status Reason Start Date Expiration Date V isits Requested Visits Authorized [id number] Pending Review 01/24/2025 01/25/2026 999 999 Question Answer Primary Reason for Home Health (Enter diagnosis; avoid symptoms): Mastoiditis [[id number]] Physician to follow patient's care PCP At Home Intensive? No Pre-Book? No Comments Please evaluate Lakshmi Huffman for admission to HomeCare Services The following services are medically necessary home health services: Nursing: Disease Process: assess for S/S of decompensation or adverse effects of new/exacerbated disease Medication Management and Teaching Nutritional Status: assess and provide teaching about disease specific diet recommendations Safety Eval: assess for additional needs Physical Therapy: ADL/IADLs: improve independence Home Safety Evaluation and Teaching Strengthening: improve function and mobility Secondary Disciplines &Services: Occupational Therapy: , ADL/IADLs: improve independence, Home Safety Evaluation and Teaching, and Strengthening: improve function and mobility Special Instructions: None This patient is homebound because: Difficulty with ambulation and transfers requiring assistance of others to leave home safely. and Extreme weakness r/t disease and illness Date of F2F Encounter: I verify that a F2F Encounter occurred on 01/24/25 upon which the patient was found to be homebound and require intermittent skilled care by a SN, PT, ST or OT. Services. The encounter findings are communicated to the certifying physician Reason for Visit * Reason Comments Jaw Pain * Auth/Cert (Routine) Specialty Diagnoses / Procedures Referred By Contac t Referred To Contact Diagnoses Mastoiditis L side Mastoiditis Procedures N/A Referral ID Status Reason Start Date Expiration Date Visits Re quested Visits Authorized [id number] 1 1 Encounter Details Date Type Department Care Team (Late st Contact Info) Description 01/22/2025 9:39 AM EDT - 01/24/2025 12:21 PM EDT Hospital Encounter [facility] [address] [place] [phone] Angelic Gross MD Emergency Medicine [address] [place] [phone] Audrey Simmons MD [address] [place] [phone] Lissy Burgess DO [address] [place] [id number] Mastoiditis (Primary Dx) Discharge Disposition: Home with Health Care Services Social History Tobacco Use Types Packs/Day Years Used Date Smoking Tobacco: Never Assessed [facility] Utilities Answer Date Recorded In the past 12 months has e whoactually, gas, oil, or water [employer]ES[employer] threatened to shut off services in your home? No 01/23/2025 Hunger Vital Sign Answer Date Recorded Within the past 12 months, y ou worried that your food would run out before you got the money to buy more. Never true 01/24/20 25 Within the past 12 months, t he food you bought just didn't last and you didn't have money to get more. Never true 01/23/2025 PRAPARE - Transportation Answer Date Re corded In the past 12 months, has l ack of transportation kept you from medical appointments or from getting medications? No 01/14 In the past 12 months, has l ack of transportation kept you from meetings, work, or from getting things needed for daily living? No 01/23/2025 Housing Stability Vital Sign Answer Davi e Recorded In the last 12 months, was t here a time when you were not able to pay the mortgage or rent on time? No 01/23/2025 In the past 12 months, how m any times have you moved where you were living? 1 01/23/2025 At any time in the past 12 m [facility], were you homeless or living in a chcf (including now)? No 01/23/2025 Comments Unknown Sex and Gender Information Value Date Recorded Sex Assigned at Female 01/22/2025 9:42 AM EDT Legal Sex Female 6:14 AM EDT Gender Identity Female 01/22/2025 9:42 AM EDT Sexual Orientation Choose not to disclose 2024 9:42 AM EDT documented as of this encounter Last Filed Vital Signs Vital Sign Reading Time Taken Comments Blood Pressure 126/70 01/24/2025 8:25 AM EDT Pulse 68 01/24/2025 8:25 AM EDT Temperature 37.6 ??C (99.6 ??F) 01/24/2025 4:41 AM ED T Respiratory Rate 16 01/24/2025 4:41 AM EDT Oxygen Saturation 99% 01/24/2025 4:41 AM EDT Inhaled Oxygen Concentration - - Weight 77.1 kg (170 lb) 01/22/2025 2:55 PM EDT Height 160 cm (5' 3 ) 01/22/2025 2:55 PM EDT Body Mass Index 30.11 01/22/2025 2:55 PM EDT documented in this encounter Discharge Summaries * Lissy Burgess DO - 01/24/2025 10:07 AM EDT 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 Allergies Allergen Reactions Clams Unknown/Patient and Family Unable to Define Colchicine Unknown/Patient and Family Unable to Define Ibuprofen Unknown/Patient and Family Unable to Define [place] Unknown/Patient and Family Unable to Define Admission Date: 01/22/2025 Admitting Provider: Audrey Simmons MD Discharge Provider: Lissy Burgess DO Discharge Date: 01/24/25 Primary Care Physician at Discharge: No primary care provider on file. OUTPATIENT TEAM No care steam pan sponger to display PRIMARY DISCHARGE DIAGNOSIS Primary Discharge Diagnosis Principal Problem: Mastoiditis (POA: Yes) Active Problems: CKD (chronic kidney disease) (POA: Unknown) Type 2 diabetes mellitus without complication, without long-term current use of insulin (HCC) (POA:Unknown) CHF (congestive heart failure) (HCC) (POA: Unknown) HTN (hypertension) (POA: Unknown) Resolved Problems: DISCHARGE DISPOSITION Home Or Self Care Code Status Procedures DNR (DO NOT RESUSCITATE) Order Specific Question: Decision thoroughly discussed with Answer: Patient . MEDICATIONS AT TIME OF ADMISSION Current Outpatient Medications Medication Instructions acetaminophen (TYLENOL) 650 mg, Oral, Every 6 hours PRN allopurinol (ZYLOPRIM) 200 mg, Oral, Daily amLODIPine (NORVASC) 2.5 mg, Oral, Daily amoxicillin (AMOXIL) 500 MG capsule TAKE 2 CAPSULES BY MOUTH TWICE DAILY FOR 10 DAYS amoxicillin-clavulanate (AUGMENTIN) 500-125 MG per tablet 1 tablet, Oral, 2 times daily atorvastatin (LIPITOR) 10 mg, Oral, Nightly isosorbide mononitrate (IMDUR) 30 mg, Oral, Daily metFORMIN (GLUCOPHAGE) 500 MG tablet 0.5 tablets, Mouth/Oral Cavity, Every 12 hours metoPROLOL SUCCINATE (TOPROL-XL) 50 mg, Oral, Daily PANTOprazole (PROTONIX) 40 mg, Oral, Daily DISCHARGE MEDICATIONS ( Includes Changes Made During Current Admission) Discharge Medications New Medications Sig amoxicillin-clavulanate 500-125 MG per tablet Commonly known as: AUGMENTIN Take 1 tablet by mouth 2 times a day. Quantity: 42 tablet Stop taking on: February 14, 2025 Medications To Continue Sig acetaminophen 325 MG tablet Commonly known as: TYLENOL Take 2 tablets (650 mg total) by mouth 4 times daily (every 6 hours) as needed for mild pain. allopurinol 100 mg tablet Commonly known as: ZYLOPRIM Take 2 tablets (200 mg total) by mouth daily. amLODIPine 2.5 MG tablet Commonly known as: NORVASC Take 1 tablet (2.5 mg total) by mouth daily. atorvastatin 10 MG tablet Commonly known as: LIPITOR Take 1 tablet (10 mg total) by mouth nightly. isosorbide mononitrate 30 MG 24 hr tablet Commonly known as: IMDUR Take 1 tablet (30 mg total) by mouth daily. metoPROLOL SUCCINATE 50 MG 24 hr tablet Commonly known as: TOPROL-XL Take 1 tablet (50 mg total) by mouth daily. PANTOprazole 40 MG EC tablet Commonly known as: PROTONIX Take 1 tablet (40 mg total) by mouth daily. Stopped Medications amoxicillin 500 MG capsule Commonly known as: AMOXIL metFORMIN 500 MG tablet Commonly known as: GLUCOPHAGE DISCHARGE INSTRUCTIONS Basic Metabolic Panel Standing Status: Future Number of Occurrences: 1 Standing Exp. Date: 01/24/26 Release to Patient Immediate [1] Amb Referral to Home Health Referral Priority: Routine Referral Type: Home Health Referral Location: [facility] Number of Visits Requested: 999 Activity as tolerated DISCHARGE DIET Diet Restricted Diet Diet Restrictions Diabetic Calorie/Carb Restriction Carb Counting 60g/meal 1600-1900kcal FOLLOW UP No future appointments. ACTIVE ISSUES FOR FOLLOW UP Please see discharge instructions and radiological and hematological tests below for follow up. Mastoiditis S/p iv unasyn while inpatient. She was seen by ENT and no surgical intervention was recommended. Her symptoms improved significantly. Discharge on augmentin 500 BID for 3 weeks, the dose may need to be adjusted if her kidney function improves. Follow up with PCP TITUS on CKD Unclear baseline Cr. She is not sure her baseline and says this is a recent diagnosis. She was supposed to see a motorcycle engine assembler this week but will have to reschedule due to this hospitalization. She has been instructed to hold her lasix and metformin until she gets the Cr rechecked. She says she wants to go home today and will go to her primary care provider on Monday to get her bloodwork rechecked. INCIDENTAL FINDINGS Incidental hospital findings:none PENDING TEST RESULTS DISCHARGE DAY NOTE Patient was seen and examined by me on the date of discharge. General Appearance: Alert, Awake, not in acute distress. Cardiovascular: S1-S2 present, no murmurs present. Respiratory: Bilateral air entry present, no added sounds heard Gastrointestinal: soft, non-tender, non-distended, bowel sounds present. Extremities: negative edema I spoke with the patient regarding the discharge plan. The discharge plan was discussed with the case management and the nursing staff. Patient verbalzied understanding of the discharge and was agreeable for the discharge plan. Discharge Condition: stable Last Vitals: Pulse:68,Resp:16,BP:126/70,SpO2:99 %,Weight: 77.1 kg (170 lb) Temp Last 24 hrs: Temp Min: 97.3 ??F (36.3 ??C) Max: 99.6 ??F (37.6 ??C) DETAILS OF HOSPITAL STAY History of Present Illness (from the H&P) This is an 89-year-old female with past medical history of congestive heart failure, unknown EF, history of pulmonary emboli-not currently on Eliquis, CKD, hypertension, diabetes, hyperlipidemia. Patient has been having left ear pain for 5 to 6 days for which she was seen at urgent care and prescribed antibiotics. Symptoms continued to get worse for which she presented to the emergency room at [facility] last night. CAT scan revealed mastoiditis. Patient was transferred to [facility] for ENT evaluation which was not available at [facility]. Hospital Course Patient was admitted due to mastoiditis. She was seen by ENT no surgical intervention was recommended. She was seen by infectious disease and maintained on Unasyn while admitted inpatient. She had significant improvement in her symptoms including both ear pain and anterior neck pain. Her leukocytosis improved from 22-13. She did have an elevated creatinine during her hospital stay, starting at 1.5 and elevating to 2.2. Is unclear what her baseline creatinine is given she was recently diagnosed with CKD in [place] however we do not have those records and she does not know what her baseline creatinine is. Her Lasix was held. She first leaves today rather than staying to continue to monitor her kidney function. She will be discharged without her Lasix or metformin and she will need to get a recheck of her BMP on Monday with her PCP. She reports that she will go to his office on Monday to get the blood drawn. She was supposed to see motorcycle engine assembler this week however it has been rescheduled due to her hospitalization. She will try to schedule that appointment as soon as possible. She will be discharged on renally adjusted Augmentin 500 twice daily for 3 weeks per infectious disease recommendations. Consults: This is an 89-year-old female with a history of CHF, history of pulmonary emboli not on anticoagulation, history of hypertension, history of CKD, history of type 2 diabetes, history hyperlipidemia, who has had left ear pain for 5 to 6 days. She was seen in urgent care and given antibiotics. Symptoms continued to get worse and she came to the ED at [place] last night. CT scan showed mastoiditis. Patient was transferred here for ENT evaluation. She has discomfort over the left ear that can get severe at times. White count is 22.2. The patient has had a course of amoxicillin. CT scan without contrast showed a partial effusion of the left mastoid air cells, none coalesced, no bony erosion. ENT recommends continuing the amoxicillin although it did not seem to be working for her. Temperature is99 with a white count of 22.2. The patient is on Unasyn. Allergies include clams colchicine ibuprofen walnuts Social history she lives by herself. Does not drink or smoke. She is independent. Family history there is no history of premature coronary disease Procedures: none Diagnostic Studies: CTA Chest for P.E. Result Date: 01/22/2025 EXAM DESCRIPTION: CT CHEST ANGIOGRAPHY WITH IV CONTRAST INDICATION: Chest pain and history of pulmonary embolism in the past. COMPARISON: XR Chest 01/22/2025. TECHNIQUE: Contiguous axial CT images ofthe chest following the uneventful administration of intravenous contrast. MIPS and/or 3-D reconstructions, and coronal and sagittal reformats. This exam was performed according to our departmental dose-optimization program, which includes automated exposure control, adjustment of the mA and/or kV according to patient size and/or use of iterative reconstruction technique. FINDINGS: Mediastinum: Mild cardiomegaly.No significant mediastinal or hilar lymphadenopathy. Small pericardial effusion. Coronary artery calcifications. The thoracic aorta is normal in course and caliber. Large atherosclerotic plaque of the thoracic aorta. Large hiatal hernia containing most of the stomach. Pulmonary arteries: The pulmonary arteries are well opacified. No filling defect is identified to suggest pulmonary embolism. Lungs: No consolidation.. There is no pleural effusion . No pneumothorax. Bilateral lower lobe atelectasis. Bones: Multilevel degenerative changes of the spine. Degenerative changes of theshoulders. Thoracic dextroscoliosis. T3 vertebral body hemangioma. Upper abdomen: Calcified granuloma in the liver. Colonic diverticula. Misc: Bilateral thyroid nodules with a 2.9 x 2.4 cm right thyroid nodule and a 2.9 x 1.3 cm left thyroid nodule. 1. No evidence of pulmonary embolism. 2. Large hiatal hernia. 3. Bilateral thyroid nodules. Recommend non-emergent thyroid ultrasound if clinically warranted given patient age. Reference: J Am Aranza Radiol. 2015 Nov;12(2): 143-50 XR Chest 1 view-Portable Result Date: 01/22/2025 EXAMINATION: XR CHEST CLINICAL INFORMATION: SOB COMPARISON: None available. TECHNIQUE: Single frontal semierect view of the chest was obtained. FINDINGS: Heart is enlarged. Obscuration of portions ofthe left heart border and left hemidiaphragm could be related to patient positioning, airspace consolidation, and/or effusion. No pneumothorax. Nonspecific interstitial prominence could be related tomild interstitial edema and/or scarring. Cardiomegaly. Increased opacity at the left lung base, as discussed above, in this patient without prior studies available for direct comparison. CACHORRO Archive for reference only CT Result Date: 01/22/2025 This order has been auto-finalized and does not contain a result. CACHORRO Archive for reference only CT Result Date: 01/22/2025 This order has been auto-finalized and does not contain a result. Results from last 7 days Lab Units 01/24/25 0659 01/23/25 0740 01/22/25 1106 WHITE BLOOD CELL COUNT Thou/uL 13.8* 20.6* 22.2* HEMOGLOBIN g/dL 9.6* 10.5* 11.7 HEMATOCRIT % 30.4* 32.7* 37.3 PLATELET COUNT Thou/uL 251 267 254 NEUTROS PCT % -- 76.0 82.8 LYMPHS PCT % -- 14.7 7.5 MONOS PCT % -- 8.2 8.2 EOS PCT % -- 0.2 0.0 BASOS PCT % -- 0.2 0.2 Results from last 7 days Lab Units 01/24/25 0802 01/24/25 0659 01/23/25 2156 01/23/25 1143 01/23/25 0740 01/22/25 1742 01/22/25 1106 SODIUM mmol/L -- 138 -- -- 139 -- 141 POTASSIUM mmol/L -- 3.7 -- -- 3.6 -- 3.8 CHLORIDE mmol/L -- 103 -- -- 103 -- 104 CO2 mmol/L -- 24 -- -- 22 -- 23 BUN mg/dL -- 34* -- -- 29* -- 23* CREATININE mg/dL -- 2.2* -- -- 1.8* -- 1.5* CALCIUM mg/dL -- 9.1 -- -- 9.0 -- 9.2 GLUCOSE mg/dL -- 133* -- -- 115* -- 158* GLUCOSE, POC mg/dL 134* -- 97 < > -- < > -- EGFR -- 21* -- -- 27* -- 33* < > = values in this interval not displayed. No results found for: ALT , AST , GGT , ALKPHOS , BILITOT Results from last 7 days Lab Units 01/22/25 1210 PROTHROMBIN TIME (PT) seconds 13.6* INR 1.2 Lab Results Component Value Date PROBNP 2,546 (H) 01/22/2025 Blood Cultures: No results found for: SOURCE , SREQ , CULTURE , STATUS Urine Cultures: No results found for: CRYSUA , HYALNCSTUA , UROBILINOGEN , BILIUA , BLOODUA , CLARITYUA , COLORUA , UACOMMENT , GLUCU , KETONESUA , LEUKOCYTESUA , NITRITEUA , PHUA , PROTEINUA , RBCUA , SPECIMEN , SPECGRAVUA , SQEPIUA , WBCUA C. Difficile: No results found for: CDIFFTOX , NAP1 TIME SPENT FOR DISCHARGE Total time spent for discharge >30 minutes Time was spent in educating the patient, making a comprehensive discharge plan and discussion with the staff regarding the discharge plan, medication reconciliation and discharge summary. Lissy Burgess DO 01/24/2025 10:08 AM documented in this encounter Discharge Instructions * Discharge Instr - Other Orders* Lissy Burgess DO - 01/24/2025 9:37 AM EDT Please follow up with your primary care provider next week. You need to get a repeat BMP done on Monday or Monday and discuss the results with your primary care provider. You should not take your lasix or metformin until your kidney function improves. Call your doctor or return to the ER if you note a significant decrease in the amount of urine you make or if you develop nausea, vomiting, confusion, excessive sleepiness. Please weight yourself daily and call your doctor if you gain more than 2lbs for 2 days in a row or 5lbs in 1 week as this may mean you may need to restart your lasix. * Attachments The following attachments cannot be sent through Care Everywhere. * Otitis Media Adult Gaaz-cy-Xidd ([place]) * Acute Kidney Injury Adult ([place]wandan) documented in this encounter Medications at Time of Discharge allopurinol (ZYLOPRIM) 100 mg tablet Take 2 tablets (200 mg total) by mouth daily. 11/04/2024 amLODIPine (NORVASC) 2.5 MG tablet Take 1 tablet (2.5 mg total) by mouth daily. 12/05/2024 atorvastatin (LIPITOR) 10 MG tablet Take 1 tablet (10 mg total) by mouth nightly. 01/15/2025 isosorbide mononitrate (IMDUR) 30 MG 24 hr tablet Take 1 tablet (30 mg total) by mouth daily. 11/06/2024 metoPROLOL SUCCINATE (TOPROL-XL) 50 MG 24 hr tablet Take 1 tablet (50 mg total) by mouth daily. 01/15/2025 PANTOprazole (PROTONIX) 40 MG EC tablet Take 1 tablet (40 mg total) by mouth daily. 12/04/2024 acetaminophen (TYLENOL) 325 MG tablet Take 2 tablets (650 mg total) by mouth 4 times daily (every 6 hours) as needed for mild pain. amoxicillin-clavu lanate (AUGMENTIN) 500-125 MG per tabletIndications :Mastoiditis Take 1 tablet by mouth 2 times a day. 42 tablet 01/24/2025 02/14/2025 documented as of this encounter Progress Notes * Claudia Proctor RN - 01/24/2025 10:25 AM EDT 01/24/25 1000 Discharge Coordination/Tasks Status Patient/Patient [employer] Provided With Choices Of Homecare Company Preferences(s) Homecare Company Preference(s) [facility] Plan Plan Home with Home care Patient/Family in Agreement with Plan yes Final Discharge Disposition Code 06 - home with home health care Final Case Management Care Plan Note Summary: Per provider, patient is medically ready to transition home with services. Confirmed that patient is able to obtain medications/food/necessities post discharge. Met with patient at bedside and patient verified she has all the help she needs at home. She is agreeable to [facility] for SN, OT, PT. Son is at bedside and daughter is on her way to slate picker patient. Patient is agreeable to discharge today and has no further questions/concerns at this time. Final Destination: home with home care Plan for home support/Caregiver/responsible person: self/sons and daughters available to assist. Follow-up provider appointment: Per AVS/W-10 Equipment Ordered and Given at Discharge: n/a - patient has cane, RW Final Discharge Transportation: family * Marco Jackson MD - 01/24/2025 9:47 AM EDT [facility] Progress Note Assessment & Plan Assessment History of CHF Pulmonary emboli Hypertension CKD Type 2 diabetes Diagnosed with left mastoiditis ENT does not see much on their exam Her main complaint is left neck pain The pain is much better Temperature is 99.6 with a white count of 13.8 and a creatinine of 2.2 Not sure why her creatinine is elevated. Could be because she is dry. Plan We would send her home on Augmentin 500 mg twice a day for 3 weeks. Subjective No shortness of breath or chest pain Objective Last Vitals Pulse:68,Resp:16,BP:126/70,SpO2:99 %,Weight:77.1 kg (170 lb) Temp Last 24 hrs: Temp Min: 97.3 ??F (36.3 ??C) Max: 99.6 ??F (37.6 ??C) Last temp: 99.6 ??F (37.6 ??C) (Tympanic) Physical Exam Lungs: Clear Cardiac: RRR Abdomen: +BS Soft Nontender Skin:No rash No skin lesions Anti-infectives (From admission, onward) Start Dose/Rate Route Frequency Ordered Stop 01/22/25 1800 ampicillin-sulbactam (UNASYN) 3 g in sodium chloride-MBP (NS) 100 mL IVPB-MBP 3 g 100 mL/hr over 60 Minutes Intravenous Every 12 hours 01/22/25 1737 Intake/Output Summary (Last 24 hours) at 01/24/2025 0947 Last data filed at 01/24/2025 0533 Gross per 24 hour Intake 10 ml Output 1 ml Net 9 ml Relevant data reviewed MEDICATIONS Current Facility-Administered Medications Medication Dose Route Frequency Provider Last Rate Last Admin allopurinol (ZYLOPRIM) tablet 200 mg 200 mg Oral Daily Audrey Simmons MD 200 mg at 01/24/25826 amLODIPine (NORVASC) tablet 2.5 mg 2.5 mg Oral Daily Audrey Simmons MD 2.5 mg at 01/24/25826 ampicillin-sulbactam (UNASYN) 3 g in sodium chloride-MBP (NS) 100 mL IVPB-MBP 3 g Intravenous Q12H Marco Jackson MD 100 mL/hr at 01/24/25 0828 3 g at 01/24/25827 atorvastatin (LIPITOR) tablet 10 mg 10 mg Oral Nightly Audrey Simmons MD 10 mg at 01/23/252235 glucose (GLUTOSE 15) 40 % oral gel 37.5 g 1 Tube Oral Q15 Min PRN Audrey Simmons MD Or glucose (GLUTOSE 15) 40 % oral gel 75 g 2 Tube Oral Q15 Min PRN Audrey Simmons MD Or dextrose 50 % solution 12.5 g 12.5 g Intravenous Q15 Min PRN Audrey Simmons MD Or dextrose 50 % solution 25 g 25 g Intravenous Q15 Min PRN Audrey Simmons MD Or glucagon (GLUCAGEN) injection 1 mg 1 mg Intramuscular Daily PRN Audrey Simmons MD enoxaparin (LOVENOX) syringe 30 mg 30 mg Subcutaneous Q24H ZAID Audrey Simmons MD 30 mg at 01/24/25826 HYDROmorphone (DILAUDID) injection 1 mg 1 mg Intravenous Q4H PRN Audrey Simmons MD HYDROmorphone (DILAUDID) tablet 2 mg 2 mg Oral Q4H PRN Audrey Simmons MD 2 mg at 01/23/25 2249 insulin lispro (HumaLOG/ADMELOG) 100 units/mL injection 1-6 Units 1-6 Units Subcutaneous TID with meals Audrey Simmons MD 3 Units at 01/23/25 1759 isosorbide mononitrate (IMDUR) 24 hr tablet 30 mg 30 mg Oral Daily Audrey Simmons MD 30 mg at 01/24/25 0827 metoPROLOL SUCCINATE (TOPROL-XL) 24 hr tablet 50 mg 50 mg Oral Daily Audrey Simmons MD 50 mg at 01/24/25 0827 ondansetron (ZOFRAN-ODT) disintegrating tablet 4 mg 4 mg Oral Q6H PRN Audrey Simmons MD 4 mg at 01/22/25 1856 PANTOprazole (PROTONIX) EC tablet 40 mg 40 mg Oral Daily Audrey Simmons MD 40 mg at 01/24/25 08 polyethylene glycol (miraLAx) packet 17 g 17 g Oral Daily PRN Audrey Simmons MD Notable labs are: Lab Results Component Value Date WBC 13.8 (H) 01/24/2025 HGB 9.6 (L) 01/24/2025 HCT 30.4 (L) 01/24/2025 PLT 251 01/24/2025 No results found for: AST , ALT , ALKPHOS , BILITOT , BILIDIR , ALBUMIN , PROT Lab Results Component Value Date CREAT 2.2 (H) 01/24/2025 Blood Cultures: No results found for: SOURCE , SREQ , CULTURE , STATUS Urine Cultures: No results found for: CRYSUA , HYALNCSTUA , UROBILINOGEN , BILIUA , BLOODUA , CLARITYUA , COLORUA , UACOMMENT , GLUCU , KETONESUA , LEUKOCYTESUA , NITRITEUA , PHUA , PROTEINUA , RBCUA , SPECIMEN , SPECGRAVUA , SQEPIUA , WBCUA No components found for: WOUND C. Difficile: No results found for: CDIFFTOX , NAP1 Sign Marco Jackson MD 01/24/2025 9:47 AM Marco Jackson * Claudia Proctor RN - 01/23/2025 7:09 PM EDT 01/23/25 1900 General Information Admission Type inpatient Arrived From Hospital Initial Information Source of Information patient;health record Designated Caregiver for Discharge Coordination Do You Have a Designated Caregiver for Discharge? yes Designated Caregiver's Name Gris Caregiver's Relationship to Patient children's entertainer's Living Environment People in Home alone Current Living Arrangements home Family Caregiver if Needed child(sherry), adult Able to Return to Prior Arrangements yes Resource/Environmental Concerns Transportation Concerns none Disability/Function Equipment Currently Used at Home cane, straight;walker, rolling Functional Status, IADL IADL Comments Independent Living Arrangement Living arrangement: Alone Type of residence: Private residence Housing Stability In the last 12 months, was there a time when you were not able to pay the mortgage or rent on time?N In the past 12 months, how many times have you moved where you were living? 1 At any time in the past 12 months, were you homeless or living in a chcf (including now)? N Food Insecurity Within the past 12 months, you worried that your food would run out before you got the money to buymore. Never true Within the past 12 months, the food you bought just didn't last and you didn't have money to get more. Never true Transportation Needs In the past 12 months, has lack of transportation kept you from medical appointments or from getting medications? no In the past 12 months, has lack of transportation kept you from meetings, work, or from getting things needed for daily living? No Utilities In the past 12 months has the whoactually, gas, oil, or water [employer] threatened to shut off services in your home? No Interpersonal Safety Within the last year, have you been humiliated or emotionally abused in other ways by anyone? No Within the last year, have you been kicked, hit, slapped, or otherwise physically hurt by anyone? No Discharge Needs Assessment Readmission Within the Last 30 Days no previous admission in last 30 days Concerns to be Addressed discharge planning Patient/Family Anticipates Transition to home with help/services Patient/Family Anticipated Services at Transition home health care Transportation Anticipated family or friend will provide Discharge Coordination/Tasks Status Patient/Patient [employer] Provided With Choices Of they had no preference Plan Plan Home with Home care Patient/Family in Agreement with Plan yes Final Discharge Disposition Code 06 - home with home health care * Marco Jackson MD - 01/23/2025 12:45 PM EDT [facility] Progress Note Assessment & Plan Assessment History of CHF Pulmonary emboli Hypertension CKD Type 2 diabetes Diagnosed with left mastoiditis ENT does not see much on their exam Her main complaint is left neck pain Temperature is 98.6 with a white count of 20.6 and a creatinine of 1.8 Plan She is on Unasyn Should we get a CT of her neck? Subjective Left ear pain seems a little less Objective Last Vitals Pulse:69,Resp:16,BP:(!) 123/57,SpO2:(!) 90 %,Weight:77.1 kg (170 lb) Temp Last 24 hrs: Temp Min: 96.1 ??F (35.6 ??C) Max: 98.6 ??F (37 ??C) Last temp: 96.9 ??F (36.1 ??C) (Tympanic) Physical Exam Lungs: Clear Cardiac: RRR Abdomen: +BS Soft Nontender Skin:No rash No skin lesions Anti-infectives (From admission, onward) Start Dose/Rate Route Frequency Ordered Stop 01/22/25 1800 ampicillin-sulbactam (UNASYN) 3 g in sodium chloride-MBP (NS) 100 mL IVPB-MBP 3 g 100 mL/hr over 60 Minutes Intravenous Every 12 hours 01/22/25 1737 Intake/Output Summary (Last 24 hours) at 01/23/2025 1245 Last data filed at 01/23/2025 0931 Gross per 24 hour Intake 111 ml Output -- Net 111 ml Relevant data reviewed MEDICATIONS Current Facility-Administered Medications Medication Dose Route Frequency Provider Last Rate Last Admin allopurinol (ZYLOPRIM) tablet 200 mg 200 mg Oral Daily Audrey Simmons MD 200 mg at 01/23/25 0931 amLODIPine (NORVASC) tablet 2.5 mg 2.5 mg Oral Daily Audrey Simmons MD 2.5 mg at 01/23/25 0931 ampicillin-sulbactam (UNASYN) 3 g in sodium chloride-MBP (NS) 100 mL IVPB-MBP 3 g Intravenous Q12H Marco Jackson MD 100 mL/hr at 01/23/2531 3 g at 01/23/25930 atorvastatin (LIPITOR) tablet 10 mg 10 mg Oral Nightly Audrey Simmons MD 10 mg at 01/22/252154 glucose (GLUTOSE 15) 40 % oral gel 37.5 g 1 Tube Oral Q15 Min PRN Audrey Simmons MD Or glucose (GLUTOSE 15) 40 % oral gel 75 g 2 Tube Oral Q15 Min PRN Audrey Simmons MD Or dextrose 50 % solution 12.5 g 12.5 g Intravenous Q15 Min PRN Audrey Simmons MD Or dextrose 50 % solution 25 g 25 g Intravenous Q15 Min PRN Audrey Simmons MD Or glucagon (GLUCAGEN) injection 1 mg 1 mg Intramuscular Daily PRN Audrey Simmons MD enoxaparin (LOVENOX) syringe 30 mg 30 mg Subcutaneous Q24H ZAID Audrey Simmons MD 30 mg at 01/23/25930 HYDROmorphone (DILAUDID) injection 1 mg 1 mg Intravenous Q4H PRN Audrey Simmons MD HYDROmorphone (DILAUDID) tablet 2 mg 2 mg Oral Q4H PRN Audrey Simmons MD insulin lispro (HumaLOG/ADMELOG) 100 units/mL injection 1-6 Units 1-6 Units Subcutaneous TID with meals Audrey Simmons MD 1 Units at 01/22/25 1748 isosorbide mononitrate (IMDUR) 24 hr tablet 30 mg 30 mg Oral Daily Audrey Simmons MD 30 mg at 01/23/2530 metoPROLOL SUCCINATE (TOPROL-XL) 24 hr tablet 50 mg 50 mg Oral Daily Audrey Simmons MD 50 mg at 01/23/25930 ondansetron (ZOFRAN-ODT) disintegrating tablet 4 mg 4 mg Oral Q6H PRN Audrey Simmons MD 4 mg at 01/22/25 1856 PANTOprazole (PROTONIX) EC tablet 40 mg 40 mg Oral Daily Audrey Simmons MD 40 mg at 01/23/25930 polyethylene glycol (miraLAx) packet 17 g 17 g Oral Daily PRN Audrey Simmons MD Notable labs are: Lab Results Component Value Date WBC 20.6 (H) 01/23/2025 HGB 10.5 (L) 01/23/2025 HCT 32.7 (L) 01/23/2025 PLT 267 01/23/2025 No results found for: AST , ALT , ALKPHOS , BILITOT , BILIDIR , ALBUMIN , PROT Lab Results Component Value Date CREAT 1.8 (H) 01/23/2025 Blood Cultures: No results found for: SOURCE , SREQ , CULTURE , STATUS Urine Cultures: No results found for: CRYSUA , HYALNCSTUA , UROBILINOGEN , BILIUA , BLOODUA , CLARITYUA , COLORUA , UACOMMENT , GLUCU , KETONESUA , LEUKOCYTESUA , NITRITEUA , PHUA , PROTEINUA , RBCUA , SPECIMEN , SPECGRAVUA , SQEPIUA , WBCUA No components found for: WOUND C. Difficile: No results found for: CDIFFTOX , NAP1 Sign Marco Jackson MD 01/23/2025 12:45 PM Marco Jackson * Lissy Burgess DO - 01/23/2025 8:51 AM EDT Progress Note Hospital Day: 2, Admit Date: 01/22/2025 Assessment and plan: Ms. Huffman is a 89 y.o. female with past medical history of congestive heart failure, unknown EF, history of pulmonary emboli-not currently on Eliquis, CKD, hypertension, diabetes, hyperlipidemia, presenting with ear pain and admitted for mastoiditis Assessment & Plan Mastoiditis ID and ENT following ENT recs reviewed, no surgical intervention planned at this time Id recs reviewed, continue unasyn CKD (chronic kidney disease) Unknown baseline Cr today is 1.8 Will hold lasix for now Avoid nephrotoxic medications Type 2 diabetes mellitus without complication, without long-term current use of insulin (HCC) SSI and diabetic diet CHF (congestive heart failure) (HCC) Appears euvolemic on exam Holding lasix for now, it does not look like it was renewed so I will need to clarify if she is still on this Continue lipitor Continue metoprolol Continue imdur HTN (hypertension) Continue amlodipine Holding lasix as above I have updated the Patient and addressed their questions/concerns. Barriers to patient transition/ medical necessity requiring continued inpatient stay: IV antibiotics Quality metrics: # Telemetry: No Active Telemetry Order # Diet: Diet Diabetic/ Calorie Controlled; Carb Counting 60g/meal [id number] kcal # Code status: DNR # Nava catheter: No Active Urethral Catheter (Nava) Order # Central lines: # Expected Date of Discharge: 01/24/2025 VTE Time Out IMPROVE SCORE: 3 (01/22/2025 2:17 PM) Interpretation - High Risk Chemical Prophylaxis enoxaparin (LOVENOX) syringe 30 mg Subcutaneous Every 24 hours scheduled Enoxaparin Sodium 30 mg Last dose 01/22/2025 5:47 PM Mechanical Prophylaxis SCDs are ordered - Bilateral (Knee High) # Antibiotic Stewardship: Treatment Indication: mastoiditis Current antibiotic/day of therapy: Anti-infectives (From admission, onward) Start Dose/Rate Route Frequency Ordered Stop 01/22/25 1800 ampicillin-sulbactam (UNASYN) 3 g in sodium chloride-MBP (NS) 100 mL IVPB-MBP 3 g 100 mL/hr over 60 Minutes Intravenous Every 12 hours 01/22/25 6897 Subjective: Chief complaint Chief Complaint Patient presents with Jaw Pain Patient is being seen for acute medical problems and follow-up for chronic medical issues as mentioned in the assessment and plan above. # Event overnight: No acute events reported Ms. Huffman was seen earlier today. she reported feeling significantly better though she still has some ear pain. Patient denies chest pain, palpitations, cough, shortness of breath, abdominal pain, nausea, vomiting. Objective: Last Filed Values 01/23/25927 BP: (!) 123/57 Pulse: 69 Resp: Temp: TempSrc: SpO2: (!) 90% SpO2 Min: 92 % Max: 98 % O2 Device: nasal cannula Flow (L/min) (Oxygen Therapy): 1 Weight: on admission: 77.1 kg (170 lb), (01/22/2025 2:55 PM) Recent: 77.1 kg (170 lb), (01/22/2025 2:55 PM) Last Documented Bowel Movement - 01/20/25 (01/22/25 1752) Intake/Output Summary (Last 24 hours) at 01/23/2025 0891 Last data filed at 01/22/20252053 Gross per 24 hour Intake 11 ml Output -- Net 11 ml Physical Exam Constitutional - alert. well appearing and not in acute distress. Head - normocephalic and atraumatic. Ear - right and left external ear normal. Slight tenderness of the left mastoid, no erythema Eyes - PERRL and conjunctivae normal. no scleral icterus. Nose - appears normal. Cardiovascular - normal rate. murmur +. Pulmonary - breath sounds present bilaterally. no wheezing and no crackles. Abdominal - soft. no distension and no tenderness. Musculoskeletal - no joint swelling. Skin - warm. no rash, no bruising and no jaundice. Neurological - alert and oriented x 4. Scheduled medications 01/23/25 8:51 AM As needed medications: allopurinol, 200 mg, Oral, Daily amLODIPine, 2.5 mg, Oral, Daily ampicillin-sulbactam, 3 g, Intravenous, Q12H atorvastatin, 10 mg, Oral, Nightly enoxaparin (LOVENOX) injection for prophylaxis, 30 mg, Subcutaneous, Q24H ZAID insulin lispro, 1-6 Units, Subcutaneous, TID with meals isosorbide mononitrate, 30 mg, Oral, Daily metoPROLOL SUCCINATE, 50 mg, Oral, Daily PANTOprazole, 40 mg, Oral, Daily glucose OR glucose OR dextrose OR dextrose OR glucagon HYDROmorphone HYDROmorphone ondansetron polyethylene glycol Current infusions: Diagnostic studies: I have reviewed the labs and ordered new labs if needed. Recent Labs 01/22/25 1106 01/23/25 0740 WBC 22.2* 20.6* HGB 11.7 10.5* HCT 37.3 32.7* PLT 254 267 Recent Labs 01/22/25 1106 01/23/25 0740 NA 141 139 K 3.8 3.6 CO2 23 22 CL 104 103 BUN 23* 29* CREAT 1.5* 1.8* CALCIUM 9.2 9.0 Recent Labs 01/22/25 1210 INR 1.2 No results for input(s): SARSCOV2 , INFLAV , INFLBV in the last 72 hours. Blood Culture Results Since Admission No results found for this visit on 01/22/25. Urine Culture Results Since Admission No results found for this visit on 01/22/25. Imaging Studies: No images to review. Lissy Burgess DO * Joseph Heredia PharmD - 01/22/2025 5:33 PM EDT Images from the original note were not included. Pharmacy - Antibiotic Renal Adjustment Note Labs: Renal Creatinine (72h ago through now) Date/Time Serum Creatinine Range CrCl 01/22/25 1106 1.5 mg/dL 0.4 - 1.1 mg/dL 25.5 mL/min Blood Urea Nitrogen (BUN) BUN 01/22/25 1106 23 Estimated Creatinine Clearance: 25.5 mL/min (A) (by C-G formula based on SCr of 1.5 mg/dL (H)). Last Height/Weight Flowsheet Row Most Recent Value Height 1.6 m (5' 3 ) filed at: 01/22/2025 1455 Weight 77.1 kg (170 lb) filed at: 01/22/2025 1455 [place] body weight: 52.4 kg (115 lb 8.3 oz) Adjusted ideal body weight: 62.3 kg (137 lb 5 oz) Lakshmi Huffman is a 89 y.o. female that is receiving antimicrobial therapy for mastoiditis . Ampicillin/ Sulbactam was changed from 1.5 gram q8h to 1.5 gram q12h per the pharmacist automatic renal adjustment protocol. Pharmacy will continue to follow the patient's renal function, culture results and clinical progress daily. Joseph Heredia (RJ), PharmD, [facility], [facility] A Document for: [facility] Title: Pharmacist Automatic Antimicrobial Renal Dose Adjustment_[facility] Purpose: To define practices for pharmacist automatic antimicrobial renal dose adjustment Scope: Pharmacists, providers Policy Statement(s): Antibiotics included in the Pharmacist Automatic Antimicrobial Renal Dose Adjustment document will automatically be dose-adjusted for renal function and appropriate dosing. The pharmacist will automatically dose-adjust antibiotic frequencies, based on the patient???s estimated creatinine clearance If the indication specified at wire border assembler does not meet the dosing recommendations within the protocol or is not included in the protocol, providers will be contacted for order clarification. Indication-specific doses should not be adjusted per protocol as some indications have differing doses. Dosing intervals should be automatically adjusted based on creatinine clearance ranges. (For example: pharmacists may change daptomycin from q24h dosing to q48h dosing for a CrCl of 20 mL/min, but NOT from 6 mg/kg dose to 8 mg/kg dose.) If an antimicrobial requires an adjustment in dose at a specific creatinine clearance range, pharmacists may automatically adjust (For example: an order originally placed for cefepime 2 g can be automatically reduced to 1 g every 24 hours for a CrCl less than 10 mL/min) Indication-specific dosing recommendations are suggestions, and patient-specific factors may require alternative dosing recommendations that are not highlighted in the table below. Due to the vast number of possible antimicrobial indications for antimicrobials included, some indications may not be listed. Providers should be contacted if questions arise regarding the appropriateness of dosing regimens. Patients requiring extracorporeal membrane circulation (ECMO) are excluded from this policy, and required dose adjustments should be discussed with the provider. This document contains antimicrobial dosing regimens that are safe, effective, and evidence based. However, there are some instances where multiple dosing regimens are safe, effective, and evidence based. Please consider alternative dosing regimens when an infectious diseases provider is placing anorder for an antimicrobial. Please contact [facility] if you have any questions. Procedure: Upon receipt or review of an order that contains a dosing frequency that does not correspond with apatient???s creatinine clearance, the pharmacist will automatically adjust the antibiotic to the frequency that is defined by the dosing parameters in the protocol. Dosage adjustments will be made for antibiotics that do not have dose ranges. Antibiotics that havedose ranges will not be automatically adjusted and the provider will be contacted. Dosage adjustments for renal dysfunction will be processed and documented in [facility]. All orders entered in [facility] should be entered as ???per protocol: no cosign required?? . Antimicrobial renal dose adjustments should be documented as ivents in Epic under ???Antimicrobial stewardship?? with the subtype ???renal dose adjustment?? . Ivents must be copied into the chart as a progress note. Definitions: Ivent: an ivent is a means of documentation in Epic viewable only to pharmacist. Appendix A: Adult Antimicrobial Dosing Guide [facility] Adult Antimicrobial Dosing Guide Antimicrobial Agent Creatinine Clearance (mL/min) Indication-specific dosing Greater than 50 30-50 10-30 Less than 10 or HD (dose after dialysis) CRRT Acyclovir (IV) Use AdjBW if weight greater than 120% of IBW HSV encephalitis/ VZV/ zoster ophthalmicus 10 mg/kg q8h 10 mg/kg q12h 10 mg/kg q24h 5 mg/kg q24h 10 mg/kg q12h HSV genital or mucocutaneous 5 mg/kg q8h 5 mg/kg q12h 5 mg/kg q24h 2.5 mg/kg q24h 5 mg/kg q12h Acyclovir (PO) VZV 800 mg 5 times daily 800 mg q8h 800 mg q12h HSV genital or mucocutaneous 400 mg q8h 200 mg q8h 200 mg q12h HSV prophylaxis 400 mg q12h 200 mg q12h Amphotericin B Lipid Complex (Abelcet??)(IV) Dose using IBW. Use actual weight if less than IBW 5 mg/kg q24h Liposomal Amphotericin B (Ambisome) (IV) Use AdjBW if weight greater than 120% of IBW Cryptococcal meningitis 3-4 mg/kg q24h Mucormycosis 5-10 mg/kg q24h Other systemic infection 3-5 mg/kg q24h Amoxicillin (PO) All others 500 mg q8h 500 mg q12h 500 mg q24h 500 mg q12h CAP 1g q8h 1g q12h 500 mg q12h 500 mg q12h Amoxicillin/ clavulanate (PO) 875/125 mg q12h 500/125 mg q12h 500/125 mg q24h 500/125 mg q24h Ampicillin (IV) Endocarditis/ [employer] S[employer] HEALTH MANAGER/ bacteremia/ osteomyelitis/ PJI/ severe^ 2 g q4h 2 g q6h 2 g q8h 2 g q12h 2 g q8h All others 2 g q6h 2 g q8h 2 g q12h 2 g q24h 2 g q8h Ampicillin/ Sulbactam (IV) All others 3 g q6h 3 g q12h 3 g q24h 3 g q8h Cystitis 1.5 g q6h 1.5 g q8h 1.5 g q12h 1.5 g q24h 1.5 g q8h MDR+ Acinetobacter baumannii 3g q4h 3g q6h 3g q8h 3g q12h 3g q6h Azithromycin (IV/PO) 500 mg q24h Aztreonam (IV) Pseudomonas/ severe^ 2 g q8h 2 g q12h 2 g q24h 1 g q24h 2 g q8h All others 1 g q8h 1g q12h 1 g q24h 1 g q24h 1 g q8h Cefazolin (IV) All others 2 g q8h 2 g q12h CrCl less than 10 HD 2 g q8h 2 g q24h 1 g q24h UTI/ cellulitis/ uncomplicated SSTIs 1 g q8h 1 g q12h 1 g q24h 1 g q8h Cefepime (IV) All others/ SDD isolates* 2 g q8h 2 g q12h 2 g q24h 1 g q24h 2 g q8h UTI/ cellulitis/ uncomplicated SSTIs 1 g q8h 1 g q12h 1 g q24h 1g q24h 1 g q8h Cefiderocol (IV) CrCl greater than or equal to 120 CrCl 60-120 CrCl 30-60 CrCl 15-30 CrCl less than 15 or HD CRRT 2 g q6h 2 g q8h 1.5 g q8h 1 g q8h 750 mg q12h Dosing based on effluent rate; see package insert [facility] Adult Antimicrobial Dosing Guide Antimicrobial Agent Creatinine Clearance (mL/min) Indication-specific dosing Greater than 50 30-50 10-30 Less than 10 or HD (dose after dialysis) CRRT Cefpodoxime (PO) All others 200 mg q12h 200 mg q24h UTI 100 mg q12h 100 mg q24h SSTI or bacteremia 400 mg q12h 400 mg q24h 200 mg q24h Ceftaroline (IV) Bacteremia/ endocarditis/ severe^ 600 mg q8h 400 mg q8h 300 mg q8h 200 mg q8h 600 mg q8h All others 600 mg q12h 400 mg q12h 300 mg q12h 200 mg q12h 600 mg q12h Ceftazidime (IV) [employer] HE[employer]NAGER/ pneumonia/ severe^ 2 g q8h 2 g q12h 2 g q24h 1 g q24h 2 g q8h All others 1 g q8h 1 g q12h 1g q24h 1g q24h 1 g q8h Ceftazidime/ avibactam (IV) 2.5 g q8h 1.25 g q8h CrCl 15-29 CrCl 5-14 CrCl less than 5 HD 1.25 g q8h 0.94 g q12h 0.94 g q24h 0.94 g q48h 0.94 g q24h Ceftolozane/ tazobactam (IV) Pneumonia/ bacteremia/ severe^ 3 g q8h 1.5 g q8h CrCl 15-29 CrCl less than 15 HD 1.5 g q8h 750 mg q8h No data 2.25 g x1, then 450 mg q8h All others 1.5 g q8h 750 mg q8h CrCl 15-29 CrCl less than 15 HD 1.5 g q8h 375 mg q8h No data 750 mg x1, then 150 mg q8h Ceftriaxone (IV) [employer] HE[employer]GER or Enterococcal IE synergy 2 g q12h Osteomyelitis/ septic joint/ Strep. endocarditis/ Lyme 2 g q24h All others 1 g q24h Cefuroxime (PO) All others 500 mg q12h 500 mg q24h 500 mg q48h UTI 250 mg q12h 250 mg q24h 250 mg q48h Cephalexin (PO) All others 500 mg q6h 500 mg q8h 500 mg q12h 500 mg q12h UTI 500 mg q12h 500 mg q24h 500 mg q24h Ciprofloxacin (IV) Pneumonia/ severe^ 400 mg q8h 400 mg q12h 400 mg q24h 400 mg q8h All others 400 mg q12h 400 mg q24h 400 mg q12h Ciprofloxacin (PO) Pneumonia/ severe^ 750 mg q12h 750 mg q24h 750 mg q12h All others 500 mg q12h 500 mg q24h 500 mg q12h Clindamycin (IV) Necrotizing fasciitis/ PJP/ toxoplasmosis 900 mg q8h All others 600 mg q8h Clindamycin (PO) 300-450 mg q6-8h Dalbavancin (IV) Acute bacterial SSSI (one-time dose in ED only) 1,500 mg x1 1,125 mg x1 1,500 mg x1 Daptomycin (IV) Use AdjBW if weight greater than 120% of IBW VRE infection bacteremia/ endocarditis/ SDD* 10-12 mg/kg q24h 10-12 mg/kg q48h MRSA bacteremia/ endocarditis 8-10 mg/kg q24h 8-10 mg/kg q48h All others 6 mg/kg q24h 6 mg/kg q48h Doxycycline (IV/PO) 100 mg q12h [facility] Adult Antimicrobial Dosing Guide Antimicrobial Agent Creatinine Clearance (mL/min) Indication-specific dosing Greater than 50 30-50 10-30 Less than 10 or HD (dose after dialysis) CRRT Fluconazole (IV/PO) Invasive candidiasis 800 mg (12 mg/kg) x1, then 400 mg (6 mg/kg) q24h 800 mg (12 mg/kg) x1, then 200 mg (3mg/kg) q24h 800 mg (12 mg/kg) x1, then 400 mg (6 mg/kg) q24h Esophageal candidiasis 400 mg q24h 200 mg q24h Febrile neutropenia prophylaxis 400 mg q24h 200 mg q24h Oropharyngeal candidiasis 200 mg q24h 100 mg q24h Flucytosine (PO) Use IBW if weight greater than 120% of IBW CrCl greater than 40 CrCl 20-40 CrCl 10-20 CrCl less than 10 or HD 25 mg/kg [id number] 25 mg/kg q6h 25 mg/kg q12h 25 mg/kg q24h 25 mg/kg q48h Fosfomycin (PO) Complicated UTI 3 g q48h x3 doses 3 g q72h x2 doses Uncomplicated UTI 3 g x1 dose Ganciclovir (IV) Use AdjBW if weight greater than 120% of IBW CMV treatment CrCl greater than 70 CrCl 50-70 CrCl 25-50 CrCl 10-25 CrCl less than 10 or HD 5 mg/kg q12h 2.5 mg/kg q12h 2.5 mg/kg q24h 1.25 mg/kg q24h 1.25 mg/kg three times weekly CMV prophylaxis 5 mg/kg q24h 2.5 mg/kg q24h 1.25 mg/kg q24h 0.625 mg/kg q24h 0.625 mg/kg three times weekly Isavuconazonium sulfate (IV/PO) Invasive aspergillosis or mucormycosis 372 mg q8h x 6 doses, then 372 mg q24h (initiate 12-24h after last loading dose) Letermovir (IV) CMV prophylaxis, allogeneic HSCT 480 mg q24h No dose adjustment with CrCl > 10 mL/min. Accumulation of IV vehicle may occur in CrCl < 50 mL/min, closely monitor SCr Letermovir (PO) CMV prophylaxis, allogeneic HSCT 480 mg q24h CrCl less than 10 Not defined Levofloxacin (IV/PO) Pneumonia/ severe^ 750 mg q24h CrCl 20-49 CrCl less than 20 or HD 750 mg q24h 750 mg q48h 500 mg q48h All others 500 mg q24h CrCl 20-49 CrCl less than 20 or HD 500 mg q24h 500 mg q48h 250 mg q48h Linezolid (IV/PO) 600 mg q12h Maribavir (PO) CMV treatment, refractory 400 mg q12h Meropenem (IV) [employer] HEALTH MANAGER/VAP 2 g q8h 1 g q8h CrCl less than 30 HD 2 g q8h 1 g q12h 500 mg q24h All others 500 mg q6h 500 mg q8h CrCl less than 30 HD 500 mg q6h 500 mg q12h 500 mg q24h Metronidazole (IV/PO) Brain abscess 500 mg q6h Clostridioides difficile infection 500 mg q8h All others 500 mg q12h Micafungin (IV) Esophageal candidiasis/ intravascular infection 150 mg q24h All others, including prophylaxis 100 mg q24h Minocycline (PO) All others 100 mg q12h Stenotrophomonas maltophilia or MDR+ A. baumannii 200 mg q12h Nafcillin (IV) 2 g q4h [facility] Adult Antimicrobial Dosing Guide Antimicrobial Agent Creatinine Clearance (mL/min) Indication-specific dosing Greater than 50 30-50 10-30 Less than 10 or HD (dose after dialysis) CRRT Nitrofurantoin (PO) Uncomplicated cystitis CrCl greater than 30 CrCl less than 30 100 mg q12h Avoid use Oseltamivir (PO) Influenza treatment 75 mg q12h 75 mg q24h CrCl Less than 10 HD 75 mg x1 then 30 mg q24h 30 mg q24h 75 mg x1 then 30 mg post HD Influenza prophylaxis 75 mg q24h 30 mg q24h 30 mg q48h CrCl Less than 10 HD 30 mg q24h 30 mg q48h 30 mg x1, then 30 mg post HD Penicillin G (IV) Neurosyphilis/ meningitis/ necrotizing fasciitis/ endocarditis 4 mil units q4h 3 mil units q4h 2 mil units q4h 4 mil units x1, then 3 mil units q4h Peramivir (IV) Influenza treatment 600 mg once 200 mg once 100 mg once 100 mg once Piperacillin/ tazobactam (IV) CrCl > 40 CrCl 20-40 CrCl < 20 or HD 4.5 g q6h 4.5 g q6h 4.5 g q8h 4.5 g q12h Posaconazole (PO) 300 mg q12h x 2 doses then 300 mg q24h Posaconazole (IV) 300 mg q12h x 2 doses then 300 mg q24h Oral formulation preferred when CrCl < 50 mL/min Trimethoprim/ sulfamethoxazole (IV/PO) Dose calculated based on TMP; use AdjBW if weight greater than 120% of IBW UTI & pyelonephritis 1 DS tab q12h 1 DS tab q24h PJP or Nocardia 15-20 mg/kg/day divided in 3-4 doses 7.5-10mg/kg/day divided in 1-2 doses Toxoplasma encephalitis 10 mg/kg/day divided in 2 doses 5 mg/kg/day divided in 2 doses S. maltophilia or Systemic infection 8-12 mg/kg/day divided in 2-3 doses 4-6 mg/kg/day divided in 1-2 doses Valacyclovir (PO) Herpes zoster 1000 mg q8h 1000 mg q12h 1000 mg q24h 500 mg q24h Cold sores (x1 day) 2 g q12h 1 g q12h 500 mg q12h 500 mg x 1 Genital herpes treatment: Initial episode (x10 days) 1000 mg q12h 1000 mg q24h 500 mg q24h Genital herpes treatment: recurrent episodes (x3 days) 500 mg q12h 500 mg q24h 500 mg q24h Genital herpes prophylaxis: immunocompetent 500 - 1000 mg q24h 500 - 1000 mg q24h 500 mg q24h 500 mg q24h Genital herpes prophylaxis: HIV-infected/ immunocompromised 500 mg q12h 500 mg q12h 500 mg q24h 500 mg q24h Valganciclovir (PO) CMV Treatment CrCl greater than or equal to 60 CrCl 40-60 CrCl 25-40 CrCl less than 25 or HD 450 mg q12h 900 mg q12h 450 mg q12h 450 mg q24h 450 mg q48h CMV Prophylaxis 900 mg q24h 450 mg q24h 450 mg q48h 450 mg twice weekly 450 mg q24h [facility] Adult Antimicrobial Dosing Guide Antimicrobial Agent Creatinine Clearance (mL/min) Indication-specific dosing Greater than 50 30-50 10-30 Less than 10 or HD (dose after dialysis) CRRT Vancomycin (PO) Clostridioides difficile infection (nonfulminant) 125 mg q6h Clostridioides difficile infection (fulminant) 500 mg q6h Clostridioides difficile Prophylaxis 125 mg q24h Voriconazole (IV) Use AdjBW if weight greater than 120% of IBW 6 mg/kg q12h x 1 day, then 4 mg/kg q12h Oral formulation preferred when CrCl < 50 mL/ min Voriconazole (PO) Use AdjBW if weight greater than 120% of IBW 6 mg/kg q12h x 1 day, then 4 mg/kg q12h *SDD: Susceptible dose dependent (isolates that are susceptible dose dependent will be reported as such in Epic) +MDR: Multi-drug resistant, which includes carbapenem-resistant Acinetobacter baumannii (CRAB) ^Severe: Infections categorized as severe may include but are not limited to pneumonia, endocarditis, bacteremia, necrotizing fasciitis, meningitis, osteomyelitis. Categorization of infection type should be discussed with provider. * Sara MillerD - 01/22/2025 3:35 PM EDT Pharmacy- Enoxaparin VTE Prophylaxis Dose Adjustment Note Lakshmi Huffman is a 89 y.o. female who is receiving enoxaparin for VTE prophylaxis. Enoxaparin was changed from 40 mg every day to 30 mg daily per the Pharmacist Automatic Prophylactic Enoxaparin Renal and Weight Dose Adjustment protocol. Pharmacy will continue to follow the patient's renal function and weight. Weight: Last wt 01/22/25 77.1 kg (170 lb) Labs: Estimated Creatinine Clearance: 25.5 mL/min (A) (by C-G formula based on SCr of 1.5 mg/dL (H)). Creatinine Date/Time Value Ref Range Status 01/22/2025 11:06 AM 1.5 (H) 0.4 - 1.1 mg/dL Final Blood Urea Nitrogen (BUN) Date/Time Value Ref Range Status 01/22/2025 11:06 AM 23 (H) 8 - 21 mg/dL Final Luis Lopez, PharmD Title: Pharmacist Automatic Prophylactic Enoxaparin Renal and Weight Dose Adjustment_[facility] Purpose: To define practices for pharmacist automatic renal and weight dose adjustment Scope: Licensed Practitioners and pharmacists Protocol: 1. The pharmacist will automatically adjust enoxaparin doses and frequencies, based on the patient???s renal function, using estimated creatinine clearance, and weight as described below. 2. Exclusions for this protocol are as follows: One time doses Switch to unfractionated heparin (UFH) Obstetric patients Patients with weight greater than 100 kg AND BMI greater than 40 Patients with acute ischemic stroke, spinal cord injury, traumatic brain injury, or cerebral hemorrhage. Procedure: 1. Upon receipt or review of an order that contains a dose or frequency that does not correspond with an adult patient???s creatinine clearance or weight, the pharmacist will automatically adjust theenoxaparin to the regimen that is defined by the dosing parameters in the protocol. (See table below.) 2. Dosage adjustments for renal function or weight will be processed and documented in [facility]. All orders entered in [facility] should be entered as ???per protocol: no cosign required?? . Enoxaparin renal dose or weight adjustments should be documented as I-vents in [facility] under Pharmacy Dosing Protocol - s ubtype Enoxaparin?? . I-vents must be copied into the chart as a progress note. 3. For patients on prophylactic enoxaparin, pharmacists are authorized to order serum creatinine ifnot obtained in the last three days or resulted within 30 days pre-op. Table 1. Enoxaparin Regimen Adjustments for Non-Trauma Patients Creatinine Clearance (mL/min) Weight/BMI/CrCl Greater than 30 Less than or equal to 30 Hemodialysis or Peritoneal dialysis Weight less than 100 kg OR BMI less than 40 AND more than 45 kg 40 mg SQ q24h 30 mg SQ q24h Avoid use-contact licensed practitioner to recommend UFH 5000 units SQ q8h Weight more than 100 kg AND BMI greater than 40 Contact licensed practitioner to discuss risk/benefit of dose adjustment Contact licensed practitioner to discuss risk/benefit of dose adjustment Contact licensed practitioner to discuss risk/benefit of dose adjustment 35-45 kg 30 mg SQ q24h Contact licensed practitioner to recommend UFH 5000 units SQ q12h Avoid use-contact licensed practitioner to recommend UFH 5000 units SQ q12h Table 2. Enoxaparin Regimen Adjustments for Trauma Patients Creatinine Clearance (mL/min) Age/Weight/BMI/CrCl Greater than 60 30-60 CrCl less than 30 mLs/min OR HD 18-65 years Weight less than 100 kg OR BMI less than 40 AND more than 45 kg 40 mg SQ q12h 40 mg SQ q24h Avoid use-contact licensed practitioner to recommend UFH 5000 units SQ q8h More than 65 years Weight less than 100 kg OR BMI less than 40 AND more than 45 kg 40 mg SQ q24h 40 mg SQ q24h Avoid use-contact licensed practitioner to recommend UFH 5000 units SQ q8h Weight more than 100 kg AND BMI greater than 40 Contact licensed practitioner to discuss risk/benefit of dose adjustment Contact licensed practitioner to discuss risk/benefit of dose adjustment Contact licensed practitioner to discuss risk/benefit of dose adjustment 35-45 kg 30 mg SQ q24h 30 mg SQ q24h Avoid use-contact licensed practitioner to recommend UFH 5000 units SQ q12h documented in this encounter H&P Notes * Audrey Simmons MD - 01/22/2025 2:04 PM EDT Images from the original note were not included. HOSPITAL MEDICINE ADMISSION HISTORY & PHYSICAL Admit Date: 01/22/2025 9:39 AM Patient's Primary Care Physician: No primary care provider on file. ASSESSMENT & PLAN Active Problems: * No active hospital problems. * Resolved Problems: Brief summary/HPI This is an 89-year-old female with past medical history of congestive heart failure, unknown EF, history of pulmonary emboli-not currently on Eliquis, CKD, hypertension, diabetes, hyperlipidemia. Patient has been having left ear pain for 5 to 6 days for which she was seen at urgent care and prescribed antibiotics. Symptoms continued to get worse for which she presented to the emergency room at [facility] last night. CAT scan revealed mastoiditis. Patient was transferred to [facility] for ENT evaluation which was not available at [facility]. ED course Patient currently reporting some left ear discomfort and generalized malaise. She denies any recentfevers or chills. Denies any nausea or vomiting. She has also been having some chest discomfort today. Vitals She is afebrile, not tachycardic or tachypneic, blood pressure 133/60, O2 sats of 96% on room air at this time. Labs Leukocytosis with WBC count of 22.2, H&H is within normal, platelet count is normal. Sodium and potassium levels within normal, BUN/creatinine of 23/1.5, blood glucose of 158. High-sensitivity troponin of 27, proBNP of 2500. Imaging Chest [id number] cardiomegaly. Increased opacity at the left lung base. No previous x-ray available for comparison. CTA chest 1. No evidence of pulmonary embolism. 2. Large hiatal hernia. 3. Bilateral thyroid nodules. Recommend non-emergent thyroid ultrasound if clinically warranted given patient age. EKG Normal sinus rhythm with ventricular rate of [address] wave changes. Meds given Patient reportedly received some antibiotic at [facility] prior to the transfer. Assessment Mastoiditis Leukocytosis of 22K BUN/creatinine of 23/1.5 CKD with unclear baseline creatinine. Diabetes mellitus-not on insulin. History of congestive heart failure. Details are unclear. High-sensitivity troponin of 27, proBNP of 2500 Chest x-ray showing cardiomegaly Patient currently does not appear fluid overloaded. Previous history of pulmonary emboli. No longer on Eliquis which was discontinued sometime last year. Plan Admit to medicine [facility] antibiotics ENT consult Will hold off on IV hydration given history of CHF. Ins and outs will be monitored. Will monitor daily weights. Will hold Lasix at this time while treating for infection. Blood glucose management with regular insulin sliding scale protocol. Low-salt and low sugar diet. Other previous home medications including allopurinol, amlodipine, atorvastatin, Imdur, metoprolol succinate and pantoprazole will be continued. CODE STATUS: do not resuscitate HCP/Decision maker: Patient Discussed patient's condition,further plan and management with patient and agreed with it. Expected Date of Discharge: [facility] Telemetry: No DVT PROPHYLAXIS Risk Assessment Scores and Dates: VTE Time Out VTE risk assessment NOT done - Click here to document Chemical Prophylaxis Mechanical Prophylaxis ANTIBIOTIC STEWARDSHIP (Disclaimer : absence of data in section implies that patient is not on any antibiotics). ANTIBIOTIC TIME OUT Treatment Indication: Acute mastoiditis with leukocytosis Current antibiotic/day of therapy: Oral antibiotic transition date: To be decided Anticipated Stop date: To be decided Supportive Microbiology: Emp[facility] SUBJECTIVE Chief Complaint: Transferred to [facility] with diagnosis of acute mastoiditis Chief Complaint Patient presents with Jaw Pain Subjective Patient reporting generalized malaise and left ear discomfort at this time. Reports chronic chest discomfort on and off. Denies any recent trouble breathing. Denies any changes in urination or bowel movements. Reports chronically poor appetite REVIEW OF SYSTEMS Review of Systems Constitutional: Positive for decreased appetite and malaise/fatigue. Negative for chills and fever. HENT: Positive for ear pain. Negative for sore throat. Eyes: Negative for visual disturbance. Cardiovascular: Negative for chest pain and dyspnea on exertion. Respiratory: Negative for cough and shortness of breath. Hematologic/Lymphatic: Does not bruise/bleed easily. Skin: Negative for rash. Musculoskeletal: Negative for joint pain and joint swelling. Gastrointestinal: Negative for abdominal pain, diarrhea, nausea and vomiting. Genitourinary: Negative for dysuria and frequency. Neurological: Negative for dizziness and light-headedness. Psychiatric/Behavioral: Negative for depression. The patient is not nervous/anxious. PAST HISTORY No past medical history on file. No past surgical history on file. No family history on file. ALLERGIES Allergies Allergen Reactions Clams Unknown/Patient and Family Unable to Define Colchicine Unknown/Patient and Family Unable to Define Ibuprofen Unknown/Patient and Family Unable to Define [place] Unknown/Patient and Family Unable to Define HOME MEDICATIONS Prior to Admission medications Not on File OBJECTIVE Patient Vitals for the past 8 hrs: BP Temp Temp src Pulse Resp SpO2 01/22/25 1228 133/60 98.7 ??F (37.1 ??C) Tympanic 64 -- 96 % 01/22/25 0935 122/68 99 ??F (37.2 ??C) Tympanic 70 18 98 % No intake or output data in the 24 hours ending 01/22/25 1405 Physical Exam Constitutional: General: She is not in acute distress. Appearance: Normal appearance. HENT: Mouth/Throat: Mouth: Mucous membranes are moist. Eyes: Extraocular Movements: Extraocular movements intact. Pupils: Pupils are equal, round, and reactive to light. Cardiovascular: Rate and Rhythm: Normal rate and regular rhythm. Pulses: Normal pulses. Heart sounds: Normal heart sounds. Pulmonary: Effort: Pulmonary effort is normal. Breath sounds: Normal breath sounds. No wheezing or rales. Abdominal: General: Bowel sounds are normal. Palpations: Abdomen is soft. Tenderness: There is no abdominal tenderness. Musculoskeletal: General: Normal range of motion. Cervical back: Normal range of motion and neck supple. Right lower leg: No edema. Left lower leg: No edema. Skin: General: Skin is warm. Neurological: General: No focal deficit present. Mental Status: She is alert and oriented to person, place, and time. Mental status is at baseline. Psychiatric: Mood and Affect: Mood normal. Relevant data reviewed Results from last 7 days Lab Units 01/22/25 1106 WHITE BLOOD CELL COUNT Thou/uL 22.2* HEMOGLOBIN g/dL 11.7 HEMATOCRIT % 37.3 PLATELET COUNT Thou/uL 254 NEUTROS PCT % 82.8 LYMPHS PCT % 7.5 MONOS PCT % 8.2 EOS PCT % 0.0 BASOS PCT % 0.2 Results from last 7 days Lab Units 01/22/25 1106 SODIUM mmol/L 141 POTASSIUM mmol/L 3.8 CHLORIDE mmol/L 104 CO2 mmol/L 23 BUN mg/dL 23* CREATININE mg/dL 1.5* CALCIUM mg/dL 9.2 GLUCOSE mg/dL 158* EGFR 33* No results found for: ALT , AST , GGT , ALKPHOS , BILITOT Results from last 7 days Lab Units 01/22/25 1210 PROTHROMBIN TIME (PT) seconds 13.6* INR 1.2 Sign Audrey Simmons MD 01/22/2025 2:05 PM documented in this encounter Consult Notes * Marco Jackson MD - 01/22/2025 5:35 PM EDT [facility] DISE[facility] CONSULT NOTE Date of Consult: 01/22/2025 Patient's Primary Care Physician: No primary care provider on file. Physician Requesting Consult: Audrey Simmons MD Reason for Consultation: Mastoiditis Principal Problem: Mastoiditis (POA: Yes) Resolved Problems: ASSESSMENT & PLAN Assessment Left mastoiditis. She has pain in the ear. Plan Cover with Unasyn SUBJECTIVE Chief Complaint: Left ear pain History of Present Illness: This is an 89-year-old female with a history of CHF, history of pulmonary emboli not on anticoagulation, history of hypertension, history of CKD, history of type 2 diabetes, history hyperlipidemia, who has had left ear pain for 5 to 6 days. She was seen in urgent care and given antibiotics. Symptoms continued to get worse and she came to the ED at [place] last night. CT scan showed mastoiditis. Patient was transferred here for ENT evaluation. She has discomfort over the left ear that can get severe at times. White count is 22.2. The patient has had a course of amoxicillin. CT scan without contrast showed a partial effusion of the left mastoid air cells, none coalesced, no bony erosion. ENT recommends continuing the amoxicillin although it did not seem to be working for her. Temperature is99 with a white count of 22.2. The patient is on Unasyn. Allergies include clams colchicine ibuprofen walnuts Social history she lives by herself. Does not drink or smoke. She is independent. Family history there is no history of premature coronary disease Review of Systems: Weakness, fatigue otherwise 10 point review of systems is negative PAST MEDICAL HISTORY: Past Medical History: Diagnosis Date CHF (congestive heart failure) (HCC) Diabetes mellitus (HCC) GERD (gastroesophageal reflux disease) Hyperlipidemia Hypertension Pulmonary embolism (HCC) Renal disorder No past surgical history on file. SOCIAL HISTORY: FAMILY HISTORY: No family history on file. OBJECTIVE Allergies Allergen Reactions Clams Unknown/Patient and Family Unable to Define Colchicine Unknown/Patient and Family Unable to Define Ibuprofen Unknown/Patient and Family Unable to Define [place] Unknown/Patient and Family Unable to Define Physical Exam Last Vitals Pulse:72,Resp:18,BP:(!) 144/65,SpO2:92 %,Weight:77.1 kg (170 lb) Temp Last 24 hrs: Temp Min: 96.1 ??F (35.6 ??C) Max: 99 ??F (37.2 ??C) Last temp: (!) 96.1 ??F (35.6 ??C) (Tympanic) No acute distress HEENT: Mucous membranes are moist. PERRLA. EOMI. Neck supple without nodes. Lungs: Clear. Cardiac: RRR. Abdomen: +BS Soft Nontender. Extremities: No lesions. Joints: No degenerative joint disease. Skin: No rash. Lymph nodes: No lymph nodes palpated. Neuro: Moves all extremities. No intake or output data in the 24 hours ending 01/22/25 1735 Relevant data reviewed: Results from last 7 days Lab Units 01/22/25 1106 WHITE BLOOD CELL COUNT Thou/uL 22.2* HEMOGLOBIN g/dL 11.7 HEMATOCRIT % 37.3 PLATELET COUNT Thou/uL 254 NEUTROS PCT % 82.8 LYMPHS PCT % 7.5 MONOS PCT % 8.2 EOS PCT % 0.0 BASOS PCT % 0.2 Results from last 7 days Lab Units 01/22/25 1106 SODIUM mmol/L 141 POTASSIUM mmol/L 3.8 CHLORIDE mmol/L 104 CO2 mmol/L 23 BUN mg/dL 23* CREATININE mg/dL 1.5* CALCIUM mg/dL 9.2 GLUCOSE mg/dL 158* EGFR 33* No results found for: ALT , AST , GGT , ALKPHOS , BILITOT Results from last 7 days Lab Units 01/22/25 1210 PROTHROMBIN TIME (PT) seconds 13.6* INR 1.2 proBNP, N-terminal Date Value Ref Range Status 01/22/2025 2,546 (H) <450 pg/mL Final Blood Cultures: No results found for: SOURCE , SREQ , CULTURE , STATUS Urine Cultures: No results found for: CRYSUA , HYALNCSTUA , UROBILINOGEN , BILIUA , BLOODUA , CLARITYUA , COLORUA , UACOMMENT , GLUCU , KETONESUA , LEUKOCYTESUA , NITRITEUA , PHUA , PROTEINUA , RBCUA , SPECIMEN , SPECGRAVUA , SQEPIUA , WBCUA C. Difficile: No results found for: CDIFFTOX , NAP1 Current Medications: Current Facility-Administered Medications Medication Dose Route Frequency Provider Last Rate Last Admin allopurinol (ZYLOPRIM) tablet 200 mg 200 mg Oral Daily Audrey Simmons MD 200 mg at 01/22/25 1458 amLODIPine (NORVASC) tablet 2.5 mg 2.5 mg Oral Daily Audrey Simmons MD 2.5 mg at 01/22/25 1458 ampicillin-sulbactam (UNASYN) 1.5 g in sodium chloride-MBP (NS) 100 mL IVPB-MBP 1.5 g Intravenous Q12H Audrey Simmons MD atorvastatin (LIPITOR) tablet 10 mg 10 mg Oral Nightly Audrey Simmons MD glucose (GLUTOSE 15) 40 % oral gel 37.5 g 1 Tube Oral Q15 Min PRN Audrey Simmons MD Or glucose (GLUTOSE 15) 40 % oral gel 75 g 2 Tube Oral Q15 Min PRN Audrey Simmons MD Or dextrose 50 % solution 12.5 g 12.5 g Intravenous Q15 Min PRN Audrey Simmons MD Or dextrose 50 % solution 25 g 25 g Intravenous Q15 Min PRN Audrey Simmons MD Or glucagon (GLUCAGEN) injection 1 mg 1 mg Intramuscular Daily PRN Audrey Simmons MD enoxaparin (LOVENOX) syringe 30 mg 30 mg Subcutaneous Q24H ZAID Audrey Simmons MD insulin lispro (HumaLOG/ADMELOG) 100 units/mL injection 1-6 Units 1-6 Units Subcutaneous TID with meals Audrey Simmons MD isosorbide mononitrate (IMDUR) 24 hr tablet 30 mg 30 mg Oral Daily Audrey Simmons MD 30 mg at 01/22/25 1458 metoPROLOL SUCCINATE (TOPROL-XL) 24 hr tablet 50 mg 50 mg Oral Daily Audrey Simmons MD 50 mg at 01/22/25 1458 PANTOprazole (PROTONIX) EC tablet 40 mg 40 mg Oral Daily Audrey Simmons MD 40 mg at 01/22/25 1458 polyethylene glycol (miraLAx) packet 17 g 17 g Oral Daily PRN Audrey Simmons MD Imaging Studies: CTA Chest for P.E. Result Date: 01/22/2025 EXAM DESCRIPTION: CT CHEST ANGIOGRAPHY WITH IV CONTRAST INDICATION: Chest pain and history of pulmonary embolism in the past. COMPARISON: XR Chest 01/22/2025. TECHNIQUE: Contiguous axial CT images ofthe chest following the uneventful administration of intravenous contrast. MIPS and/or 3-D reconstructions, and coronal and sagittal reformats. This exam was performed according to our departmental dose-optimization program, which includes automated exposure control, adjustment of the mA and/or kV according to patient size and/or use of iterative reconstruction technique. FINDINGS: Mediastinum: Mild cardiomegaly.No significant mediastinal or hilar lymphadenopathy. Small pericardial effusion. Coronary artery calcifications. The thoracic aorta is normal in course and caliber. Large atherosclerotic plaque of the thoracic aorta. Large hiatal hernia containing most of the stomach. Pulmonary arteries: The pulmonary arteries are well opacified. No filling defect is identified to suggest pulmonary embolism. Lungs: No consolidation.. There is no pleural effusion . No pneumothorax. Bilateral lower lobe atelectasis. Bones: Multilevel degenerative changes of the spine. Degenerative changes of theshoulders. Thoracic dextroscoliosis. T3 vertebral body hemangioma. Upper abdomen: Calcified granuloma in the liver. Colonic diverticula. Misc: Bilateral thyroid nodules with a 2.9 x 2.4 cm right thyroid nodule and a 2.9 x 1.3 cm left thyroid nodule. 1. No evidence of pulmonary embolism. 2. Large hiatal hernia. 3. Bilateral thyroid nodules. Recommend non-emergent thyroid ultrasound if clinically warranted given patient age. Reference: J Am Aranza Radiol. 2015 Nov;12(2): 143-50 XR Chest 1 view-Portable Result Date: 01/22/2025 EXAMINATION: XR CHEST CLINICAL INFORMATION: SOB COMPARISON: None available. TECHNIQUE: Single frontal semierect view of the chest was obtained. FINDINGS: Heart is enlarged. Obscuration of portions ofthe left heart border and left hemidiaphragm could be related to patient positioning, airspace consolidation, and/or effusion. No pneumothorax. Nonspecific interstitial prominence could be related tomild interstitial edema and/or scarring. Cardiomegaly. Increased opacity at the left lung base, as discussed above, in this patient without prior studies available for direct comparison. CACHORRO Archive for reference only CT Result Date: 01/22/2025 This order has been auto-finalized and does not contain a result. CACHORRO Archive for reference only CT Result Date: 01/22/2025 This order has been auto-finalized and does not contain a result. Sign: Marco Jackson MD 01/22/2025 5:35 PM documented in this encounter ED Notes * Ankush Abbott RN - 01/22/2025 3:54 PM EDT S Situation Lakshmi Huffman is a 89 y.o. female with a chief complaint of Jaw Pain Lakshmi Huffman is being admitted with an admitting diagnosis of: 1. Mastoiditis . B Background Stated Reason for Visit: Pt arrives via EMS from [facility], pt with x3 weeks of L jaw pain, pt dx with mastoiditis, coming for ENT, airway patent, 92% RA at OSH so placed on 2L, denies TC A Assessment Neuro/Cognitive Assessment: Cognitive/Neuro/Behavioral WDL: WDL Skin Assessment: Skin WDL: WDL Cardiac Rhythm: Focused Assessment:his is an 89-year-old female with past medical history of congestive heart failure, unknown EF, history of pulmonary emboli-not currently on Eliquis, CKD, hypertension, diabetes, hyperlipidemia. Patient has been having left ear pain for 5 to 6 days for which she was seen at urgent care and prescribed antibiotics. Symptoms continued to get worse for which she presented to the emergency room at [facility] last night. CAT scan revealed mastoiditis. Patient was transferred to [facility] for ENT evaluation which was not available at [facility]. Isolation: No active isolations Critical labs: see chart Recent Labs 01/22/25 1106 GLUC 158* Type of Diabetes:N/A Insulin Pump:N/A Insulin Therapy (fast-acting):N/A Insulin Therapy (long-acting):N/A Interventions performed: see chart R Recommendation Special Needs or Precautions: see chart Pending tests or interventions: see chart Ankush Abbott RN 01/22/25 3:54 PM Phone number: [phone] Ankush Abbott RN 01/22/25 1554 * Domonique Delgado RN - 01/22/2025 3:32 PM EDT Report given to ankush chen and care transferred at this time. Domonique Delgado RN 01/22/25 1533 * Domonique Delgado RN - 01/22/2025 2:58 PM EDT Pt resting on stretcher in nad. RR even and unlabored on RA, breathing with ease. Pt took off O2, satting 93% and reports no sob. Continues to have chest pain but mild. No other complaints. Medicatedper dec. Plan for admit. Domonique Delgado RN 01/22/25 1539 * Angelic Gross MD - 01/22/2025 11:46 AM EDT Attending Attestation Note: I personally saw the patient and performed a substantive portion of thevisit including all aspects of the medical decision- making. I reviewed the AP's or resident's findings, supervised the management of the patient, made/approved the management plan and take responsibility for the patient management. Further, I agree with the controlled substance prescriptions(s) and/or order(s) as written by the AP, if any. My note reflects my personal findings on my history and exam. I Reviewed any nurses notes, vital signs, home medication lists, other history or pertinent diagnostic tests available HPI: Lakshmi Huffman is a 89 y.o. female who presents to the emergency department with 5 days of left ear pain, took amoxicillin with no improvement. Went to [facility] ED today, CT showed possible mastoiditis. Gave zosyn and sent for ENT eval. 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 She was place d on nasal cannula at the outside hospital for sats of 91%. No past medical history on file. Social History Socioeconomic History Marital status: Spouse name: Not on file Number of children: Not on file Years of education: Not on file Highest education level: Not on file Occupational History Not on file Tobacco Use Smoking status: Not on file Smokeless tobacco: Not on file Substance and Sexual Activity Alcohol use: Not on file Drug use: Not on file Sexual activity: Not on file Other Topics Concern Not on file Social History Narrative Not on file Social Determinants of Health Financial Resource Strain: Not on file Food Insecurity: Not on file Transportation Needs: Not on file Physical Activity: Not on file Stress: Not on file Social Connections: Not on file Housing Stability: Not on file No family history on file. Review of Systems: Per documentation in HPI Physical Exam: Vitals: 01/22/25 0935 BP: 122/68 Pulse: 70 Resp: 18 Temp: 99 ??F (37.2 ??C) SpO2: 98% General: no acute distress HEENT: dry mucous membranes. Left mastoid tenderness. TM clear. CV: Normal rate and rhythm, + chest wall tenderness to palpation Respiratory: Clear to auscultation bilaterally Neuro: No gross focal deficits MSK: Appropriate range of motion Skin: Warm and dry Medical Decision Making Lakshmi Huffman presents today with the above documented complaints. ENT consulted for the possible mastoiditis. In regards to her pleuritic chest pain, she does have a history of PE and will obtain CTA PE to rule out. Leukocytosis here to 22K will continue IV antibiotics. Planned admission. Co-Morbidities Present During Encounter: See above. Comorbidities Impact on Encounter: See above Records Reviewed from External Provider, Facility, or Healthcare Organization: Recent visits in EMR. Care Everywhere. History Obtained from Other Source: Medical records. Relative. Interpretation of Diagnostic Study: Laboratory test. Radiology. Interpretation Comments: See above Treatments Given During Visit: as per [facility] Testing or Treatment Considered but Not Performed: N/A. Discussion with Other Healthcare Provider: Flavio VICKERS Prescription Medication Management: Home medication management deferred to admitting team. Social Determinants of Health that Impact Care: Patient-specific factors. Social Determinants Limited Treatment by: N/A Admission vs. Discharge: admission Patient Refusal of Diagnostic Procedure or Treatment: N/A Angelic Gross MD 01/22/25 11:46 AM Angelic Gross MD 01/22/25 1520 * Alexander Cooley PA-C - 01/22/2025 11:45 AM EDT History Chief Complaint Patient presents with Jaw Pain HPI: Associated symptoms and Additional history: Patient is a 89-year-old female with a past medical history of hypertension, hyperlipidemia, and diabetes who presents to the ED for evaluation of mastoiditis as a transfer from [facility]. Patient notes the past 5 days she has had persistent left ear pain. Denies any other URI symptoms at this time. Was seen at urgent care and diagnosed with otitis media and started on amoxicillin. Did not have improvement in her pain and presented to the ED where a CT w/o contrast of the head and neck was performed which shows evidence of mastoiditis. Patient was transferred here for further ENT evaluation. Did receive Zosyn prior to arrival. Separately, patient notes she has had 2 days of midsternal chest discomfort associated with mild shortness of breath. Denies any worsening leg swelling. Has a history of PE in the past and is not on Eliquis currently. Denies any cough or any other complaints this time. Was found to be satting 92% on room air requiring nasal cannula. Jaw Pain Past Medical History: Diagnosis Date CHF (congestive heart failure) (HCC) Diabetes mellitus (HCC) GERD (gastroesophageal reflux disease) Hyperlipidemia Hypertension Pulmonary embolism (HCC) Renal disorder No past surgical history on file. No family history on file. Review of Systems All other systems negative x 10 except where noted in HPI or above Physical Exam BP (!) 144/66 (BP Location: Left arm, Patient Position: Lying) Pulse 70 Temp 98.6 ??F (37 ??C) (Tympanic) Resp 18 Ht 1.6 m (5' 3 ) Wt 77.1 kg (170 lb) SpO2 96% BMI 30.11 kg/m?? Physical Exam Constitutional: Appearance: Normal appearance. HENT: Head: Normocephalic and atraumatic. Ears: Comments: Unable to visualize TM bilaterally due to debris in ear canal. Patient has left mastoid tenderness. No meningismus and normal range of motion of cervical spine. No mastoid swelling or erythema. Mouth/Throat: Mouth: Mucous membranes are moist. Pharynx: Oropharynx is clear. Eyes: General: No scleral icterus. Conjunctiva/sclera: Conjunctivae normal. Cardiovascular: Rate and Rhythm: Normal rate and regular rhythm. Pulses: Normal pulses. Heart sounds: Normal heart sounds. Pulmonary: Effort: Pulmonary effort is normal. Breath sounds: Normal breath sounds. Abdominal: General: There is no distension. Palpations: Abdomen is soft. Tenderness: There is no abdominal tenderness. There is no guarding. Musculoskeletal: Right lower leg: Edema present. Left lower leg: Edema present. Nonpitting bilateral lower extremity edema Skin: General: Skin is warm and dry. Neurological: General: No focal deficit present. Mental Status: She is alert and oriented to person, place, and time. Psychiatric: Mood and Affect: Mood normal. ED Course Final diagnoses: Mastoiditis MDM: Number and Complexity of Problems Addressed MDM Detail: Patient is a 89-year-old female who presents to the ED for evaluation of possible mastoiditis appreciated on outpatient CT imaging. Patient does have tenderness over mastoid and persistent left ear pain. Separately, patient has had 2 days of midsternal chest discomfort associated mild shortness of breath. Found to be satting 92% on room air at outside hospital and started on nasal cannula. Lung sounds are equal and clear bilaterally. Given history of PE and patient not currently on anticoagulation, will obtain CTA of chest to rule out PE as well as EKG and troponin testing. Laboratories obtained in triage including BMP and CBC notable for leukocytosis of 22.2. Patient with history of CKD and creatinine 1.5. ENT was consulted given concern for mastoiditis. 2:25 PM CTA without evidence of PE. Troponins minimally elevated but flat. Mild elevation in BNP. Medicine was contacted and accepted patient for further management. Amount and Complexity of Data History obtained from other source -see HPI for details: Medical Records Independent Interpretation of Diagnostic study by ED clinician: Laboratory Test and Radiology Discussion with Other Healthcare Provider: Discussed case and plan with Dr. Taylor and ENT Prescription Medication Management: Administration of Prescription Strength Medication Risk of Complications and/or Morbidity or Mortality of Patient Management Critical Care CTA Chest for P.E. XR Chest 1 view-Portable CACHORRO Archive for reference only CT CACHORRO Archive for reference only CT Alexander Cooley PA-C 01/22/25 1641 Cosigned by Angelic Gross MD at 01/23/2025 4:57 PM EDT Associated attestation - Angelic Gross MD - 01/23/2025 4:57 PM EDT I personally saw the patient and performed a substantive portion of the visit including all aspectsof the medical decision-making. I reviewed the AP's or resident's findings, supervised the management of the patient, made/approved the management plan and take responsibility for the patient management. Further, I agree with the controlled substance prescriptions(s) and/or order(s) as written by the AP, if any. My note reflects my personal findings on my history and exam. documented in this encounter Miscellaneous Notes * Plan of Care - Sugey Coffey RN - 01/24/2025 12:21 PM EDT Alert and orientedX4. Discomfort in ear, Refuse pain meds. ABX administered. Medicated per MAR. Transitioned home with services. IV removed intact. Summary discussed with PT, understanding verbalized. Belongings packed By PT. Home by son Sugey Coffey 01/24/2025 12:23 PM * Plan of Care - Claudia Amor RN - 01/24/2025 6:59 AM EDT Outcome Evaluation: Patient A+OX4 with complaints of pain, PRN given with positive effect. VSS on RA. Medications administered per DEC. Safety maintained, roundin complete, care plan continued. Claudia Amor 01/24/2025 6:59 AM * Plan of Care - Sugey Coffey RN - 01/23/2025 9:04 PM EDT Plan of Care Reviewed With: patient Progress: improving Outcome Evaluation: Alert and orientedX4. Discomfort in ear, Refuse pain meds. ABX administered. Medicated per MAR, safety maintained. Continue per plan of care. Sugey Coffey 01/23/2025 9:04 PM * Plan of Care - Claudia Proctor RN - 01/23/2025 7:09 PM EDT Initial Case Management Care Plan Note Assessment completed with patient and/or patient's development representative, medical record review and discussion with clinical team. CC met with the patient using social distancing. Provided a Case Coordination packet with contact information, CC pamphlet and Your Next Step: Care Outside the Hospital brochure to the patient and/or patient development representative. Summary: Per H&P, This is an 89-year-old female with past medical history of congestive heart failure, unknown EF, history of pulmonary emboli-not currently on Eliquis, CKD, hypertension, diabetes, hyperlipidemia. Patient has been having left ear pain for 5 to 6 days for which she was seen at urgent care and prescribed antibiotics. Symptoms continued to get worse for which she presented to the emergency room at [facility] last night. CAT scan revealed mastoiditis. Patient was transferred to [facility] for ENT evaluation which was not available at [facility]. Met with patientfor transition planning. She lives alone in private home. She uses a cane at baseline but also has rolling walker if needed. Confirmed PCP is Ray Mon in [facility]. Patient is independent and able to drive. Her daughter Gris is available to assist if needed at discharge [phone]. Lily templeton would like home care services at discharge. Referrals placed, pending home care acceptance. Case Coordination will continue to follow. Anticipated transition plan: home with services Caregiver/responsible person supports: self/daughter PCP: Confirmed Anticipated transportation: daughter Referrals made: Made per patient/family choice as outlined in the flowsheet Barriers to discharge: ID, ENT following Problem: Adult Inpatient Plan of Care Goal: Readiness for Transition of Care Outcome: Progressing Claudia Proctor 01/23/2025 7:09 PM * Assessment & Plan Note - Lissy Burgess DO - 01/23/2025 9:41 AM EDTAssociated Problem(s): CHF (congestive heart failure) (HCC) Appears euvolemic on exam Holding lasix for now, it does not look like it was renewed so I will need to clarify if she is still on this Continue lipitor Continue metoprolol Continue imdur * Assessment & Plan Note - Lissy Burgess DO - 01/23/2025 8:59 AM EDTAssociated Problem(s): Mastoiditis ID and ENT following ENT recs reviewed, no surgical intervention planned at this time Id recs reviewed, continue unasyn * Assessment & Plan Note - Lissy Burgess DO - 01/23/2025 8:59 AM EDTAssociated Problem(s): CKD (chronic kidney disease) Unknown baseline Cr today is 1.8 Will hold lasix for now Avoid nephrotoxic medications * Assessment & Plan Note - Lissy Burgess DO - 01/23/2025 8:59 AM EDTAssociated Problem(s): Type 2 diabetes mellitus without complication, without long-term current useof insulin (HCC) SSI and diabetic diet * Assessment & Plan Note - Lissy Burgess DO - 01/23/2025 8:59 AM EDTAssociated Problem(s): HTN (hypertension) Continue amlodipine Holding lasix as above * Plan of Care - Aimee Aragon RN - 01/23/2025 6:19 AM EDT Plan of Care Reviewed With: patient Outcome Evaluation: Pt aox4, VSS on 1L NC. Pt c/o mild pain, refused pain PRN. Pt medicated per DEC. Safety maintained and hygiene needs met. Continue with plan of care. Aimee Aragon 01/23/2025 6:19 AM * Plan of Care - Zhang Kowalski RN - 01/22/2025 6:09 PM EDT Problem: Adult Inpatient Plan of Care Goal: Plan of Care Review Outcome: Progressing Goal: Patient-Specific Goal (Individualized) Outcome: Progressing Goal: Absence of Hospital-Acquired Illness or Injury Outcome: Progressing Goal: Optimal Comfort and Wellbeing Outcome: Progressing Goal: Readiness for Transition of Care Outcome: Progressing Patient is alert, oriented, cooperative. C/o neck pain and nausea, will request PRNs when availableprovider is signed in. Remains on 1L NC, not on at baseline. Takes meds whole, tolerating diet, sugar monitored. [facility], plan of care continues. Zhang Kowalski 01/22/2025 6:09 PM * ED Front end provider - ALEE Zuluaga - 01/22/2025 9:55 AM EDT HPI: 89-year-old female presenting to the ED as a transfer from [facility] after being diagnosed with mastoiditis-has had several days of left ear pain. Reportedly had CT imaging revealing mastoiditis. Patient had ear pain for 5 to 6 days prior. Placed on oral antibiotics by outpatient clinic. Given a dose of IV antibiotics prior to transfer out. Daughter is a nurse at [facility] and does not quite understand why the transfer was performed. Constitutional:Mental status alert and appropriate ENT:Patient speaking in normal voice, handling secretions without problems. Tender palpation over left mastoid. MDM: documented in this encounter Plan of Treatment Scheduled Orders Name Type Priority Associated Diagnoses Orde r Schedule CACHORRO Archive for reference only CT Imaging Routine 01/22/2025 unt il discontinued, 1 completed CACHORRO Archive for reference only CT Imaging Routine 01/22/2025 unt il discontinued, 1 completed Basic Metabolic Panel Lab Routine Mastoiditis Expected: 01/24/2025, Expires: 01/24/2026 Scheduled Referrals Name Type Priority Associated Diagnoses Orde r Schedule Amb Referral to Home Health Outpatient Referral Routine Mastoiditis Ordered: 01/24/2025 documented as of this encounter Procedures Procedure Name Priority Date/Time Associated Diagnosis Comments POCT GLUCOSE, FINGERSTICK (CHARGE) Routine 01/24/2025 8:02 AM EDT COMPLETE BLOOD COUNT, WITHOUT DIFFERENTIAL Routine 01/24/2025 6:59 AM EDT BASIC METABOLIC PANEL Routine 01/24/2025 6:59 AM EDT POCT GLUCOSE, FINGERSTICK (CHARGE) Routine 01/23/2025 9:56 PM EDT POCT GLUCOSE, FINGERSTICK (CHARGE) Routine 01/23/2025 5:05 PM EDT POCT GLUCOSE, FINGERSTICK (CHARGE) Routine 01/23/2025 11:43 AM EDT HEMOGLOBIN A1C WITH ESTIMATED AVERAGE GLUCOSE Routine 01/23/2025 7:40 AM EDT COMPLETE BLOOD COUNT, WITH DIFFERENTIAL Routine 01/23/2025 7:40 AM EDT BASIC METABOLIC PANEL Routine 01/23/2025 7:40 AM EDT POCT GLUCOSE, FINGERSTICK (CHARGE) Routine 01/23/2025 7:36 AM EDT POCT GLUCOSE, FINGERSTICK (CHARGE) Routine 01/22/2025 9:05 PM EDT POCT GLUCOSE, FINGERSTICK (CHARGE) Routine 01/22/2025 5:42 PM EDT HIGH SENSITIVITY TROPONIN T Routine 01/22/2025 1:30 PM EDT CTA CHEST FOR P.E. STAT 01/22/2025 1: 20 PM EDT ECG 12-LEAD STAT 01/22/2025 12:24 PM EDT HIGH SENSITIVITY TROPONIN T CARD 01/22/2025 12:10 PM EDT PROBNP, N-TERMINAL STAT 01/22/2025 12 :10 PM EDT PROTIME-INR STAT 01/22/2025 12:10 PM EDT XR CHEST 1 VIEW-PORTABLE STAT 01/22/2025 12:05 PM EDT COMPLETE BLOOD COUNT, WITH DIFFERENTIAL STAT 01/22/2025 11:06 AM EDT BASIC METABOLIC PANEL STAT 01/22/2025 11:06 AM EDT CACHORRO ARCHIVE FOR REFERENCE ONLY CT Routine 01/22/2025 7:25 AM EDT CACHORRO ARCHIVE FOR REFERENCE ONLY CT Routine 01/22/2025 7:20 AM EDT documented in this encounter Results * (ABNORMAL) POCT Glucose, Fingerstick (01/24/2025 8:02 AM EDT) Pathologist [facility] POC Glucose 134(H) 65 - 99 mg/dL 01/24/2025 8:12 AM EDT Blood specimen / Unknown 01/24/2025 8:02 AM EDT 01/24/2025 8:12 AM EDT us Angelic Gross MD POINT OF CARE TEST ORDERABLES Final Result [facility]ITAL LAB See Below * (ABNORMAL) BASIC METABOLIC PANEL (01/24/2025 6:59 AM EDT) Glucose 133(H) 65 - 99 mg/dL 01/24/2025 8:01 AM [facility] Comment:Fasting: <100 mg/dL, Non-Fasting: <200 mg/dL (ADA 2004) Blood Urea Nitrogen (BUN) 34(H) 8 - 21 mg/dL 01/24/2025 8:01 AM [facility] Creatinine 2.2(H) 0.4 - 1.1 mg/dL 01/24/2025 8:01 AM [facility] eGFR 21(L) >59 01/24/2025 8:01 AM [facility] Comment:CKD-EPI (2020) in mL /min/1.73 sq meters. Sodium 138 136 - 145 mmol/L 01/24/2025 8:01 AM [facility] Potassium 3.7 3.4 - 5.3 mmol/L 01/24/2025 8:01 AM [facility] Chloride 103 98 - 107 mmol/L 01/24/2025 8:01 AM [facility] CO2 24 22 - 33 mmol/L 01/24/2025 8:01 AM [facility] Anion Gap 11 7 - 17 01/24/2025 8:01 AM [facility] Calcium 9.1 8.7 - 10.5 mg/dL 01/24/2025 8:01 AM [facility] BUN/Creatinine Ratio 15 10.0 - 25.0 Ratio 01/24/2025 8:01 AM [facility] Blood Blood specimen / Unknown 01/24/2025 6:59 AM EDT 01/24/2025 7:20 AM EDT Lissy Burgess DO LAB BLOOD ORDERABLES Final Resul t [address] [address], [address] [address] * (ABNORMAL) Complete Blood Count WITHOUT Differential - in AM (01/24/2025 6:59 AM EDT) White Blood Cell Count 13.8(H) 4.0 - 11.0 Thou/uL 01/24/2025 7:27 AM [facility] Platelet Count 251 150 - 450 Thou/uL 01/24/2025 7:27 AM [facility] Hemoglobin 9.6(L) 11.7 - 15.7 g/dL 01/24/2025 7:27 AM [facility] Hematocrit 30.4(L) 35.0 - 47.0 % 01/24/2025 7:27 AM [facility] Red Blood Cell Count 3.11(L) 4.00 - 5.40 Mil/uL 01/24/2025 7:27 AM [facility] MCV 98 80 - 100 fL 01/24/2025 7:27 AM [facility] MCH 30.9 27.0 - 31.0 pg 01/24/2025 7:27 AM [facility] MCHC 31.6 30.0 - 36.0 g/dL 01/24/2025 7:27 AM [facility] RDW 14.2 11.5 - 14.5 % 01/24/2025 7:27 AM [facility] MPV 10.8 7.5 - 12.5 fL 01/24/2025 7:27 AM [facility] Blood Blood specimen / Unknown 01/24/2025 6:59 AM EDT 01/24/2025 7:20 AM EDT Lissy Burgess DO LAB BLOOD ORDERABLES [place] [address], [place] [address] * POCT Glucose, Fingerstick (01/23/2025 9:56 PM EDT) [facility] POC Glucose 97 65 - 99 mg/dL 01/23/2025 9:57 PM EDT Blood specimen / Unknown 01/23/2025 9:56 PM EDT 01/23/2025 9:57 PM EDT us Angelic Gross MD POINT OF CARE TEST ORDERABLES Final Result Performing Organization Address [facility] Phone [facility] LAB See Below * (ABNORMAL) POCT Glucose, Fingerstick (01/23/2025 5:05 PM EDT) POC Glucose 222(H) 65 - 99 mg/dL 01/23/2025 5:18 PM EDT Blood specimen / Unknown 01/23/2025 5:05 PM EDT 01/23/2025 5:18 PM EDT Angelic Gross MD POINT OF CARE TEST ORDERABLES Final Result Performing Organization Address [facility] LAB See Below * (ABNORMAL) POCT Glucose, Fingerstick (01/23/2025 11:43 AM EDT) POC Glucose 138(H) 65 - 99 mg/dL 01/23/2025 11:45 AM EDT Blood specimen / Unknown 01/23/2025 11:43 AM EDT 01/23/2025 11:45 AM EDT Angelic Gross MD POINT OF CARE TEST ORDERABLES Final Result Performing Organization Address [facility] LAB See Below * (ABNORMAL) Hemoglobin A1c with Estimated Average Glucose (01/23/2025 7:40 AM EDT) Hemoglobin A1C 6.1(H) <5.7 % 01/23/2025 8:58 AM EDT [facility] Comment: A1c% ? Interpretation 5.7 - 6.0 ?Increase risk of diabetes 6.1 - 6.4 ?Higher risk of diabetes > or = 6.5 ?? Consistent with diabetes Diabetes Care, 33(Supp 1):S1-S61, 2009 Estimated Average Glucose 128 mg/dL 01/23/2025 8:58 AM EDT [facility] Blood Blood specimen / Unknown 01/23/2025 7:40 AM EDT 01/23/2025 8:00 AM EDT Audrey Simmons MD LAB BLOOD ORDERABLES Final Result [facility] [address] [place] [address], [facility] [address] [place] [address] * (ABNORMAL) Basic Metabolic Panel (01/23/2025 7:40 AM EDT) Glucose 115(H) 65 - 99 mg/dL 01/23/2025 8:30 AM EDT [facility] Comment:Fasting: <100 mg/dL, Non-Fasting: <200 mg/dL (ADA 2004) Blood Urea Nitrogen (BUN) 29(H) 8 - 21 mg/dL 01/23/2025 8:30 AM [facility] Creatinine 1.8(H) 0.4 - 1.1 mg/dL 01/23/2025 8:30 AM [facility] eGFR 27(L) >59 01/23/2025 8:30 AM [facility] Comment:CKD-EPI (2020) in mL /min/1.73 sq meters. Sodium 139 136 - 145 mmol/L 01/23/2025 8:30 AM [facility] Potassium 3.6 3.4 - 5.3 mmol/L 01/23/2025 8:30 AM [facility] Chloride 103 98 - 107 mmol/L 01/23/2025 8:30 AM [facility] CO2 22 22 - 33 mmol/L 01/23/2025 8:30 AM [facility] Anion Gap 14 7 - 17 01/23/2025 8:30 AM [facility] Calcium 9.0 8.7 - 10.5 mg/dL 01/23/2025 8:30 AM [facility] BUN/Creatinine Ratio 16 10.0 - 25.0 Ratio 01/23/2025 8:30 AM [facility] Blood Blood specimen / Unknown 01/23/2025 7:40 AM EDT 01/23/2025 8:00 AM EDT us Audrey Simmons MD LAB BLOOD ORDERABLES Final Result [facility] [address] [place] [address], [facility] [address] [place] [address] * (ABNORMAL) Complete Blood Count, with Differential (01/23/2025 7:40 AM EDT) White Blood Cell Count 20.6(H) 4.0 - 11.0 Thou/uL 01/23/2025 8:19 AM [facility] Platelet Count 267 150 - 450 Thou/uL 01/23/2025 8:19 AM [facility] Hemoglobin 10.5(L) 11.7 - 15.7 g/dL 01/23/2025 8:19 AM [facility] Hematocrit 32.7(L) 35.0 - 47.0 % 01/23/2025 8:19 AM [facility] Red Blood Cell Count 3.35(L) 4.00 - 5.40 Mil/uL 01/23/2025 8:19 AM [facility] MCV 98 80 - 100 fL 01/23/2025 8:19 AM [facility] MCH 31.3(H) 27.0 - 31.0 pg 01/23/2025 8:19 AM [facility] MCHC 32.1 30.0 - 36.0 g/dL 01/23/2025 8:19 AM [facility] RDW 14.0 11.5 - 14.5 % 01/23/2025 8:19 AM [facility] MPV 10.8 7.5 - 12.5 fL 01/23/2025 8:19 AM [facility] Neutrophils Auto 76.0 % 01/24/20 8:19 AM [facility] Immature Granulocytes 0.7 % 01/23/2025 8:19 AM [facility] Lymphocytes Auto 14.7 % 01/24/20 8:19 AM [facility] Monocytes Auto 8.2 % 01/23/2025 8:19 AM [facility] Eosinophils Auto 0.2 % 01/24/20 8:19 AM [facility] Basophils Auto 0.2 % 01/23/2025 8:19 AM EDT [facility] Abs Neutrophils Auto 15.61(H) 2.00 - 7.50 Thou/uL 01/23/2025 8:19 AM EDT [facility] Abs Immature Granulocytes 0.15(H) 0.00 - 0.10 Thou/uL 01/23/2025 8:19 AM EDT [facility] Abs Lymphocytes Auto 3.02 1.50 - 4.50 Thou/uL [facility] Monocytes Auto 1.68(H) 0.20 - 1.50 Thou/uL 01/23/2025 8:19 AM [facility] Abs Eosinophils Auto 0.05 0.00 - 0.70 Thou/uL 01/23/2025 8:19 AM [facility] Abs Basophils Auto 0.05 0.00 - 0.20 Thou/uL 01/23/2025 8:19 AM EDT [facility] Blood Blood specimen / Unknown 01/23/2025 7:40 AM EDT 01/23/2025 8:00 AM EDT us Audrey Simmons MD LAB BLOOD ORDERABLES [place] [address], [place] [address] * (ABNORMAL) POCT Glucose, Fingerstick (01/23/2025 7:36 AM EDT) POC Glucose 129(H) 65 - 99 mg/dL 01/23/2025 7:42 AM EDT Blood specimen / Unknown 01/23/2025 7:36 AM EDT 01/23/2025 7:42 AM EDT us Angelic Gross MD POINT OF CARE TEST ORDERABLES Final Result [facility] See Below * (ABNORMAL) POCT Glucose, Fingerstick (01/22/2025 9:05 PM EDT) Pathologist [facility] [place] POC Glucose 143(H) 65 - 99 mg/dL 01/22/2025 9:06 PM EDT Blood specimen / Unknown 01/22/2025 9:05 PM EDT 01/22/2025 9:06 PM EDT Angelic Gross MD POINT OF CARE TEST ORDERABLES Final Result [facility] See Below * (ABNORMAL) POCT Glucose, Fingerstick (01/22/2025 5:42 PM EDT) [facility] POC Glucose 165(H) 65 - 99 mg/dL 01/22/2025 5:42 PM EDT Blood specimen / Unknown 01/22/2025 5:42 PM EDT 01/22/2025 5:43 PM EDT Angelic Gross MD POINT OF CARE TEST ORDERABLES Final Result Performing Organization Address City/[facility] Co de Phone Number [facility] See Below * (ABNORMAL) High Sensitivity Troponin T (01/22/2025 1:30 PM EDT) [facility] High Sensitivity Troponin T 28(H) <15 ng/L 01/22/2025 2:17 PM EDT [facility] Delta (Change) 1 <3 01/22/2025 2:17 PM EDT [facility] Comment:Increased 01/22/2025 1:30 PM EDT 01/22/2025 1:36 PM EDT Alexander Cooley PA-C LAB BLOOD ORDERABLES F inal Result Performing Organization Address [facility] Co de Phone Number [address] [address], [address] [address] * CTA Chest for P.E. (01/22/2025 1:20 PM EDT) Anatomical Region Laterality Modality Chest Computed Tomogra phy 01/22/2025 12:5 9 PM EDT Impressions 01/22/2025 1:44 PM EDT 1. ??No evidence of pulmonary embolism. 2. ??Large hiatal hernia. 3. ??Bilateral thyroid nodules. Recommend non-emergent thyroid ultrasound if clinically warranted given patient age. Reference: J Am Aranza Radiol. 2015 Nov;12(2): 143-50 Narrative 01/22/2025 1:44 PM EDT EXAM DESCRIPTION: CT CHEST ANGIOGRAPHY WITH IV CONTRAST INDICATION: Chest pain and history of pulmonary embolism in the past. COMPARISON: XR Chest 01/22/2025. TECHNIQUE: Contiguous axial CT images ??of the chest following the uneventful administration of intravenous contrast. MIPS and/or 3-D reconstructions, and coronal and sagittal reformats. This exam was performed according to our departmental dose-optimization program, which includes automated exposure control, adjustment of the mA and/or kV according to patient size and/or use of iterative reconstruction technique. FINDINGS: Mediastinum: Mild cardiomegaly.No significant mediastinal or hilar lymphadenopathy. Small pericardial effusion. Coronary artery calcifications. The thoracic aorta is normal in course and caliber. Large atherosclerotic plaque of the thoracic aorta. Large hiatal hernia containing most of the stomach. Pulmonary arteries: The pulmonary arteries are well opacified. No filling defect is identified to suggest pulmonary embolism. Lungs: No consolidation.. There is no pleural effusion . ??No pneumothorax. Bilateral lower lobe atelectasis. Bones: Multilevel degenerative changes of the spine. ??Degenerative changes of the shoulders. Thoracic dextroscoliosis. T3 vertebral body hemangioma. Upper abdomen: ??Calcified granuloma in the liver. Colonic diverticula. Misc: Bilateral thyroid nodules with a 2.9 x 2.4 cm right thyroid nodule and a 2.9 x 1.3 cm left thyroid nodule. Procedure Note Becky Pizano MD - 01/22/2025 EXAM DESCRIPTION: CT CHEST ANGIOGRAPHY WITH IV CONTRAST INDICATION: Chest pain and history of pulmonary embolism in the past. COMPARISON: XR Chest 01/22/2025. TECHNIQUE: Contiguous axial CT images of the chest following the uneventful administration of intravenous contrast. MIPS and/or 3-D reconstructions, and coronal and sagittal reformats. This exam was performed according to our departmental dose-optimization program, which includes automated exposure control, adjustment of the mA and/or kV according to patient size and/or use of iterative reconstruction technique. FINDINGS: Mediastinum: Mild cardiomegaly.No significant mediastinal or hilar lymphadenopathy. Small pericardial effusion. Coronary artery calcifications. The thoracic aorta is normal in course and caliber. Large atherosclerotic plaque of the thoracic aorta. Large hiatal hernia containing most of the stomach. Pulmonary arteries: The pulmonary arteries are well opacified. No filling defect is identified to suggest pulmonary embolism. Lungs: No consolidation.. There is no pleural effusion . No pneumothorax. Bilateral lower lobe atelectasis. Bones: Multilevel degenerative changes of the spine. Degenerative changes of the shoulders. Thoracic dextroscoliosis. T3 vertebral body hemangioma. Upper abdomen: Calcified granuloma in the liver. Colonic diverticula. Misc: Bilateral thyroid nodules with a 2.9 x 2.4 cm right thyroid nodule and a 2.9 x 1.3 cm left thyroid nodule. IMPRESSION: 1. No evidence of pulmonary embolism. 2. Large hiatal hernia. 3. Bilateral thyroid nodules. Recommend non-emergent thyroid ultrasound if clinically warranted given patient age. Reference: J Am Aranza Radiol. 2015 Nov;12(2): 143-50 Alexander Cooley PA-C IMG CT ORDERABLES Kerrie shipley Result * ECG 12 lead (01/22/2025 12:24 PM EDT) Ventricular rate 65 BPM EKG [facility] Atrial rate 65 BPM EKG [facility] P-R interval 208 ms EKG [facility] QRS duration 80 ms EKG [facility] Q-T interval 414 ms EKG [facility] QTC calculation (Bazett) 431 ms EKG [facility] P axis 79 degrees EKG [facility] R axis 13 degrees EKG [facility] T axis 29 degrees EKG [facility] 01/22/2025 12:2 4 PM EDT Narrative EKG [facility] - 01/22/2025 5:30 PM EDT Normal sinus rhythm Normal ECG No previous ECGs available Confirmed by MD Elizondo Kevin ([id number]) on 01/22/2025 5:30:50 PM Procedure Note Dariel Elizondo MD - 01/22/2025 Normal sinus rhythm Normal ECG No previous ECGs available Confirmed by MD Elizondo Kevin ([id number]) on 01/22/2025 5:30:50 PM Alexander Cooley PA-C ECG ORDERABLES Final Result Performing Organization Address City/[facility]/ZIP Co de Phone Number EKG [facility] * (ABNORMAL) proBNP, N-terminal (BNP) (01/22/2025 12:10 PM EDT) proBNP, N-terminal 2,546(H) <450 pg/mL 01/22/2025 1:25 PM EDT [facility] Blood Blood specimen / Unknown 01/22/2025 12:10 PM EDT 01/22/2025 12:47 PM EDT Alexander GARZAC LAB BLOOD ORDERABLES F inal Result Performing Organization Address [facility] Co de Phone Number [address] [address], [address] [address] * (ABNORMAL) INR (01/22/2025 12:10 PM EDT) Anticoagulant NO ANTI COAGULANT MEDS 01/22/2025 11:42 AM EDT [facility] Prothrombin Time (PT) 13.6(H) 10.0 - 13.5 seconds 01/22/2025 1:31 PM EDT [facility] INR 1.2 01/22/2025 1:31 PM EDT [facility] Comment:INR Therapeutic Rang es: Standard dose anticoagulant 2.0 to 3.0, High dose anticoagulant 2.5-3.5. Blood Blood specimen / Unknown 01/22/2025 12:10 PM EDT 01/22/2025 12:47 PM EDT Alexander VICKERS-C LAB BLOOD ORDERABLES F inal Result Performing Organization Address [facility] Co de Phone Number [address] [address], [address] [address] * (ABNORMAL) Troponin T, High Sensitivity - STAT and in 1 hour (01/22/2025 12:10 PM EDT) High Sensitivity Troponin T 27(H) <15 ng/L 01/22/2025 1:25 PM EDT [facility] Delta (Change) NO PREVIOUS RESULT <3 01/22/2025 1:25 PM EDT [facility] Blood Blood specimen / Unknown 01/22/2025 12:10 PM EDT 01/22/2025 12:47 PM EDT Alexander VICKERS-C LAB BLOOD ORDERABLES F inal Result Performing Organization Address [facility] Co de Phone Number [address] [address], [address] [address] * XR Chest 1 view-Portable (01/22/2025 12:05 PM EDT) Anatomical Region Laterality Modality Chest Computed Radiogr aphy 01/22/2025 11:5 3 AM EDT Impressions 01/22/2025 12:17 PM EDT Cardiomegaly. Increased opacity at the left lung base, as discussed above, in this patient without prior studies available for direct comparison. Narrative 01/22/2025 12:17 PM EDT EXAMINATION: XR CHEST CLINICAL INFORMATION: SOB COMPARISON: None available. TECHNIQUE: Single frontal semierect view of the chest was obtained. FINDINGS: Heart is enlarged. Obscuration of portions of the left heart border and left hemidiaphragm could be related to patient positioning, airspace consolidation, and/or effusion. No pneumothorax. Nonspecific interstitial prominence could be related to mild interstitial edema and/or scarring. Procedure Note Luis Antonio Mc MD - 01/22/2025 EXAMINATION: XR CHEST CLINICAL INFORMATION: SOB COMPARISON: None available. TECHNIQUE: Single frontal semierect view of the chest was obtained. FINDINGS: Heart is enlarged. Obscuration of portions of the left heart border and left hemidiaphragm could be related to patient positioning, airspace consolidation, and/or effusion. No pneumothorax. Nonspecific interstitial prominence could be related to mild interstitial edema and/or scarring. IMPRESSION: Cardiomegaly. Increased opacity at the left lung base, as discussed above, in this patient without prior studies available for direct comparison. Alexander Cooley PA-C IMFile[facility] DIAGNOSTIC IMAGING ORDERABLES Final Result * (ABNORMAL) Basic Metabolic Panel (01/22/2025 11:06 AM EDT) Glucose 158(H) 65 - 99 mg/dL 01/22/2025 11:50 AM [facility] Comment:Fasting: <100 mg/dL, Non-Fasting: <200 mg/dL (ADA 2004) Blood Urea Nitrogen (BUN) 23(H) 8 - 21 mg/dL 01/22/2025 11:50 AM [facility] Creatinine 1.5(H) 0.4 - 1.1 mg/dL 01/22/2025 11:50 AM [facility] eGFR 33(L) >59 01/22/2025 11:50 AM [facility] Comment:CKD-EPI (2020) in mL /min/1.73 sq meters. Sodium 141 136 - 145 mmol/L 01/22/2025 11:50 AM [facility] Potassium 3.8 3.4 - 5.3 mmol/L 01/22/2025 11:50 AM [facility] Chloride 104 98 - 107 mmol/L 01/22/2025 11:50 AM [facility] CO2 23 22 - 33 mmol/L 01/22/2025 11:50 AM [facility] Anion Gap 14 7 - 17 01/22/2025 11:50 AM [facility] Calcium 9.2 8.7 - 10.5 mg/dL 01/22/2025 11:50 AM [facility] BUN/Creatinine Ratio 15 10.0 - 25.0 Ratio 01/22/2025 11:50 AM [facility] Blood Blood specimen / Unknown 01/22/2025 11:06 AM EDT 01/22/2025 11:16 AM EDT us Emilia VICKERS LAB BLOOD ORDERABLES Final Re sult [facility] [address] [place] [address], [facility] [address] [place] [address] * (ABNORMAL) Complete Blood Count, with Differential (01/22/2025 11:06 AM EDT) White Blood Cell Count 22.2(H) 4.0 - 11.0 Thou/uL 01/22/2025 11:59 AM [facility] Platelet Count 254 150 - 450 Thou/uL 01/22/2025 11:59 AM [facility] Comment: Results verified by smear review. Test results repeated. Occasional platelet clumps present on smear Hemoglobin 11.7 11.7 - 15.7 g/dL 01/22/2025 11:59 AM [facility] Hematocrit 37.3 35.0 - 47.0 % 01/22/2025 11:59 AM [facility] Red Blood Cell Count 3.71(L) 4.00 - 5.40 Mil/uL 01/22/2025 11:59 AM [facility] MCV 101(H) 80 - 100 fL 01/22/2025 11:59 AM [facility] MCH 31.5(H) 27.0 - 31.0 pg 01/22/2025 11:59 AM [facility] MCHC 31.4 30.0 - 36.0 g/dL 01/22/2025 11:59 AM [facility] RDW 13.7 11.5 - 14.5 % 01/22/2025 11:59 AM [facility] Neutrophils Auto 82.8 % 01/23/20 11:59 AM [facility] Immature Granulocytes 1.3 % 01/22/2025 11:59 AM [facility] Lymphocytes Auto 7.5 % 01/23/20 11:59 AM [facility] Monocytes Auto 8.2 % 01/22/2025 11:59 AM [facility] Eosinophils Auto 0.0 % 01/23/20 11:59 AM EDT [facility] Basophils Auto 0.2 % 01/22/2025 11:59 AM EDT [facility] Abs Neutrophils Auto 18.36(H) 2.00 - 7.50 Thou/uL 01/22/2025 11:59 AM EDT [facility] Abs Immature Granulocytes 0.28(H) 0.00 - 0.10 Thou/uL 01/22/2025 11:59 AM EDT [facility] Abs Lymphocytes Auto 1.67 1.50 - 4.50 Thou/uL 01/22/2025 11:59 AM EDT [facility] Abs Monocytes Auto 1.81(H) 0.20 - 1.50 Thou/uL 01/22/2025 11:59 AM EDT [facility] Abs Eosinophils Auto 0.01 0.00 - 0.70 Thou/uL [facility] Basophils Auto 0.05 0.00 - 0.20 Thou/uL [facility]22[facility]25 [facility] Blood Blood specimen / Unknown 01/22/2025 11:06 AM EDT 01/22/2025 11:16 AM EDT Emilia VICKERS LAB BLOOD ORDERABLES Final Re sult [address] [address], [address] [address] * CACHORRO Archive for reference only CT (01/22/2025 7:25 AM EDT) Narrative SYSTEMGENERATED, DOCUMENTATION - 01/22/2025 7:16 AM EDT This order has been auto-finalized and does not contain a result. us File Room Provider IMG DIGITIZE FILMS Final Resu lt * CACHORRO Archive for reference only CT (01/22/2025 7:20 AM EDT) Narrative SYSTEMGENERATED, DOCUMENTATION - 01/22/2025 7:16 AM EDT This order has been auto-finalized and does not contain a result. us File Room Provider IMG DIGITIZE FILMS Final Resu lt documented in this encounter Visit Diagnoses Diagnosis Mastoiditis- Primary Unspecified mastoiditis Mastoiditis Unspecified mastoiditis CKD (chronic kidney disease) Chronic kidney disease, unspecified Type 2 diabetes mellitus without complication, without long-term current use of insulin (HCC) CHF (congestive heart failure) (HCC) Congestive heart failure, unspecified HTN (hypertension) Unspecified essential hypertension documented in this encounter Admitting Diagnoses Diagnosis Mastoiditis Unspecified mastoiditis documented in this encounter Administered Medications Inactive Administered Medications - up to 1 most recent administrations Medication Order MAR Action Action Date Dose Rate Site sodium chloride 0.9 % (NS) bolus 500 mL, Intravenous, Administer over 1 Hours, Once, On Mon01/24/25 at 1030, For 1 dose New Bag 01/24/2025 10:36 AM EDT 500 mL 500 mL/hr allopurinol (ZYLOPRIM) tablet 200 mg 200 mg, Oral, Daily, First dose on Mon01/22/25 at 1427, Administer after meals with plenty of fluid. Given 01/24/2025 8:27 AM EDT 200 mg amLODIPine (NORVASC) tablet 2.5 mg 2.5 mg, Oral, Daily, First dose on Mon01/22/25 at 1427, Hold for SBP less than 100 mmHg. Notify provider if a dose is held. Given 01/24/2025 8:27 AM EDT 2.5 mg amoxicillin-clavulanate (AUGMENTIN) 500-125 MG per tablet 1 tablet 1 tablet, Oral, 2 times daily, First dose on Mon01/24/25 at 2100, For 21 days, All antimicrobials used at [facility] require an indication. Please complete the following documentation. Bacterial Infection Documented, Type of Therapy: Modification of Therapy, Indication: Other, Specify: mastoiditis ampicillin-sulbactam (UNASYN) 3 g in sodium chloride-MBP (NS) 100 mL IVPB-MBP 3 g, Intravenous, Administer over 60 Minutes, Every 12 hours, First dose (after last modification) on Mon01/22/25 at 1800, All antimicrobials used at [facility] require an indication. Please complete the following documentation. Bacterial Infection Suspected, Type of Therapy: New Therapy, Indication: Other, Specify: Mastoiditis New Bag 01/24/2025 8:28 AM EDT 3 g 100 mL/hr atorvastatin (LIPITOR) tablet 10 mg 10 mg, Oral, Nightly, First dose on Mon01/22/25 at 2100 Given 01/23/2025 10:36 PM EDT 10 mg dextrose 50 % solution 12.5 g 12.5 g, Intravenous, Every 15 min PRN, low blood sugar, between 50 and 69 mg/dL, Starting on Mon01/22/25 at 1419, For patient with IV access who is NPO or unable to swallow. See Hypoglycemia Management guideline. dextrose 50 % solution 25 g 25 g, Intravenous, Every 15 min PRN, low blood sugar, less than 50 mg/dL, Starting on Mon01/22/25 at 1419, For patient with IV access who is NPO or unable to swallow. See Hypoglycemia Management guideline. enoxaparin (LOVENOX) syringe 30 mg 30 mg, Subcutaneous, Every 24 hours scheduled, First dose (after last reorder) on Mon01/22/25 at 1536, Not for use in patients receiving dialysis.Indications:Pro phylaxis of Venous Thromboembolism Given 01/24/2025 8:27 AM EDT 30 mg Abdominal Tissue glucagon (GLUCAGEN) injection 1 mg 1 mg, Intramuscular, Daily PRN, low blood sugar, for Blood Glucose LESS than 70 mg/dL and NPO and no IV access, Starting on Mon01/22/25 at 1419, Glucagon may be repeated x 1 (for a total of 2 doses per hypoglycemic event) if patient remains hypoglycemic after first dose. Do not use with hepatic disease or alcohol intoxication. See Hypoglycemia Management guideline. Reconstitute vial with 1 mL sterile water for injection. glucose (GLUTOSE 15) 40 % oral gel 37.5 g 37.5 g (1 Tube), Oral, Every 15 min PRN, low blood sugar, between 50 and 69 mg/dL, Starting on Mon01/22/25 at 1419, Juice or soda is preferred for alert patients (4 oz juice or 6 oz soda). Use glucose gel for patients with fluid restriction. See Hypoglycemia Management guideline. Each 37.5 gram tube of glucose 40 % = 15 grams of glucose. glucose (GLUTOSE 15) 40 % oral gel 75 g 75 g (2 Tube), Oral, Every 15 min PRN, low blood sugar, less than 50 mg/dL, Starting on Mon01/22/25 at 1419, Juice or soda is preferred for alert patients (8 oz juice or 12 oz soda). Use glucose gel for patients with fluid restriction. See Hypoglycemia Management guideline. Each 37.5 gram tube of glucose 40 % = 15 grams of glucose. HYDROmorphone (DILAUDID) injection 1 mg 1 mg, Intravenous, Every 4 hours PRN, severe to excruciating pain 7-10, Starting on Mon01/22/25 at 1850, For 7 days HYDROmorphone (DILAUDID) tablet 2 mg 2 mg, Oral, Every 4 hours PRN, moderate to moderately severe pain 4-6, Starting on Mon01/22/25 at 1850, For 7 days Given 01/23/2025 10:49 PM EDT 2 mg insulin lispro (HumaLOG/ADMELOG) 100 units/mL injection 1-6 Units 1-6 Units, Subcutaneous, 3 times daily with meals, First dose on Mon01/22/25 at 1700, DO NOT HOLD IF NPO Notify provider if Blood Glucose LESS than 70 For BG 141-180 administer 1 unit For BG 181-220 administer 2 units For BG 221-260 administer 3 units For BG 261-300 administer 4 units For BG 301-340 administer 5 units For BG MORE than 340, administer 6 units AND notify provider Given 01/23/2025 5:59 PM EDT 3 Units Abdominal Tissue iohexol (OMNIPAQUE) 350 mg/mL injection 50 mL 50 mL, Intravenous, Once in imaging, contrast, Starting on Mon01/22/25 at 1321, For 1 dose, Radiology Appointment Given 01/22/2025 1:22 PM EDT 50 mL isosorbide mononitrate (IMDUR) 24 hr tablet 30 mg 30 mg, Oral, Daily, First dose on Mon01/22/25 at 1427, Do not chew or crush. Scored tablets may be split. Hold for SBP less than 90 mmHg. Notify provider if a dose is held. Given 01/24/2025 8:27 AM EDT 30 mg metoPROLOL SUCCINATE (TOPROL-XL) 24 hr tablet 50 mg 50 mg, Oral, Daily, First dose on Mon01/22/25 at 1427, Hold for HR less than 45 bpm and/or SBP less than 90 mmHg. Notify provider if a dose is held. *DO NOT CHEW OR CRUSH* Given 01/24/2025 8:27 AM EDT 50 mg ondansetron (ZOFRAN-ODT) disintegrating tablet 4 mg 4 mg, Oral, Every 6 hours PRN, nausea, vomiting, Starting on Mon01/22/25 at 1850, Using dry hands, place tablet on tongue and allow to dissolve. Swallow with saliva. Given 01/22/2025 6:56 PM EDT 4 mg PANTOprazole (PROTONIX) EC tablet 40 mg 40 mg, Oral, Daily, First dose on Mon01/22/25 at 1427, *DO NOT CHEW OR CRUSH* Given 01/24/2025 8:27 AM EDT 40 mg polyethylene glycol (miraLAx) packet 17 g 17 g, Oral, Daily PRN, constipation, Starting on Mon01/22/25 at 1505, Stir and dissolve in 4-8 oz of fluids. documented in this encounter Active and Recently Administered Medications Times are shown in EDT. Scheduled Medication Order 01/22/2025 01/23/2025 01/24/2025 sodium chloride 0.9 % (NS) bolus (COMPLETED) 500 mL, Intravenous, Administer over 1 Hours, Once, On Mon01/24/25 at 1030, For 1 dose 1036 (New Bag - Provider: Barbara Kowalski, RORY)1149 (Stopped - Provider: Sugey Coffey, RN) allopurinol (ZYLOPRIM) tablet 200 mg 200 mg, Oral, Daily, First dose on Mon01/22/25 at 1427, Administer after meals with plenty of fluid. 1458 (Given - Provider: Domonique Delgado RN) 0931 (Given - Provider: Sugey Coffey, RN) 0827 (Given - Provider: Sugey Coffey, RN) amLODIPine (NORVASC) tablet 2.5 mg 2.5 mg, Oral, Daily, First dose on Mon01/22/25 at 1427, Hold for SBP less than 100 mmHg. Notify provider if a dose is held. 1458 (Given - Provider: Domonique Delgado RN) 0931 (Given - Provider: Sugey Coffey, RORY) 0827 (Given - Provider: Sugey Coffey, RORY) amoxicillin-clavulanate (AUGMENTIN) 500-125 MG per tablet 1 tablet 1 tablet, Oral, 2 times daily, First dose on Mon01/24/25 at 2100, For 21 days, All antimicrobials used at [facility] require an indication. Please complete the following documentation. Bacterial Infection Documented, Type of Therapy: Modification of Therapy, Indication: Other, Specify: mastoiditis ampicillin-sulbactam (UNASYN) 3 g in sodium chloride-MBP (NS) 100 mL IVPB-MBP (CANCELED) 3 g, Intravenous, Administer over 60 Minutes, Every 12 hours, First dose (after last modification) on Mon01/22/25 at 1800, All antimicrobials used at [facility] require an indication. Please complete the following documentation. Bacterial Infection Suspected, Type of Therapy: New Therapy, Indication: Other, Specify: Mastoiditis 1801 (New Bag - Provider: Zhang Kowalski RN)2045 (Stopped - Provider: Aimee Aragon RN) 0931 (New Bag - Provider: Sugey Coffey RN)1155 (Stopped - Provider: Sugey Coffey, RORY)2237 (New Bag - Provider: Claudia Amor RN) 0044 (Stopped - Provider: Claudia Amor, RORY)0828 (New Bag - Provider: Sugey Coffey, RORY)0945 (Stopped - Provider: Sugey Coffey, RORY) atorvastatin (LIPITOR) tablet 10 mg 10 mg, Oral, Nightly, First dose on Mon01/22/25 at 2100 2155 (Given - Provider: Aimee Aragon RN) 2236 (Given - Provider: Claudia Amor RN) enoxaparin (LOVENOX) syringe 30 mg 30 mg, Subcutaneous, Every 24 hours scheduled, First dose (after last reorder) on Mon01/22/25 at 1536, Not for use in patients receiving dialysis. 1747 (Given - Provider: Zhang Kowalski RN) 0931 (Given - Provider: Sugey Coffey RN) 0827 (Given - Provider: Sugey Coffey, RORY) insulin lispro (HumaLOG/ADMELOG) 100 units/mL injection 1-6 Units 1-6 Units, Subcutaneous, 3 times daily with meals, First dose on Mon01/22/25 at 1700, DO NOT HOLD IF NPO Notify provider if Blood Glucose LESS than 70 For BG 141-180 administer 1 unit For BG 181-220 administer 2 units For BG 221-260 administer 3 units For BG 261-300 administer 4 units For BG 301-340 administer 5 units For BG MORE than 340, administer 6 units AND notify provider 1748 (Given - Provider: Zhang Kowalski RN) 0906 (Not Given - Provider: Sugey Coffey RN - Reason: Dose held per order parameters)1256 (Not Given - Provider: Sugey Coffey RN - Reason: Dose held per order parameters)1759 (Given - Provider: Sugey Coffey RN) 0828 (Not Given - Provider: Sugey Coffey RN - Reason: Dose held per order parameters)1200 (Due) isosorbide mononitrate (IMDUR) 24 hr tablet 30 mg 30 mg, Oral, Daily, First dose on Mon01/22/25 at 1427, Do not chew or crush. Scored tablets may be split. Hold for SBP less than 90 mmHg. Notify provider if a dose is held. 1458 (Given - Provider: Domonique Delgado RN) 0930 (Given - Provider: Sugey Coffey RN) 0827 (Given - Provider: Sugey Coffey, RORY) metoPROLOL SUCCINATE (TOPROL-XL) 24 hr tablet 50 mg 50 mg, Oral, Daily, First dose on Mon01/22/25 at 1427, Hold for HR less than 45 bpm and/or SBP less than 90 mmHg. Notify provider if a dose is held. *DO NOT CHEW OR CRUSH* 1458 (Given - Provider: Domonique Delgado RN) 0931 (Given - Provider: Sugey Coffey, RORY) 0827 (Given - Provider: Sugey Coffey, RORY) PANTOprazole (PROTONIX) EC tablet 40 mg 40 mg, Oral, Daily, First dose on Mon01/22/25 at 1427, *DO NOT CHEW OR CRUSH* 1458 (Given - Provider: Domonique Delgado RN) 0931 (Given - Provider: Sugey Coffey, RN) 0827 (Given - Provider: Sugey Coffey, RN) PRN Medication Order 01/22/2025 01/23/2025 01/24/2025 dextrose 50 % solution 12.5 g(Linked Group 1) 12.5 g, Intravenous, Every 15 min PRN, low blood sugar, between 50 and 69 mg/dL, Starting on Mon01/22/25 at 1419, For patient with IV access who is NPO or unable to swallow. See Hypoglycemia Management guideline. dextrose 50 % solution 25 g(Linked Group 1) 25 g, Intravenous, Every 15 min PRN, low blood sugar, less than 50 mg/dL, Starting on Mon01/22/25 at 1419, For patient with IV access who is NPO or unable to swallow. See Hypoglycemia Management guideline. glucagon (GLUCAGEN) injection 1 mg(Linked Group 1) 1 mg, Intramuscular, Daily PRN, low blood sugar, for Blood Glucose LESS than 70 mg/dL and NPO and no IV access, Starting on Mon01/22/25 at 1419, Glucagon may be repeated x 1 (for a total of 2 doses per hypoglycemic event) if patient remains hypoglycemic after first dose. Do not use with hepatic disease or alcohol intoxication. See Hypoglycemia Management guideline. Reconstitute vial with 1 mL sterile water for injection. glucose (GLUTOSE 15) 40 % oral gel 37.5 g(Linked Group 1) 37.5 g (1 Tube), Oral, Every 15 min PRN, low blood sugar, between 50 and 69 mg/dL, Starting on Mon01/22/25 at 1419, Juice or soda is preferred for alert patients (4 oz juice or 6 oz soda). Use glucose gel for patients with fluid restriction. See Hypoglycemia Management guideline. Each 37.5 gram tube of glucose 40 % = 15 grams of glucose. glucose (GLUTOSE 15) 40 % oral gel 75 g(Linked Group 1) 75 g (2 Tube), Oral, Every 15 min PRN, low blood sugar, less than 50 mg/dL, Starting on Mon01/22/25 at 1419, Juice or soda is preferred for alert patients (8 oz juice or 12 oz soda). Use glucose gel for patients with fluid restriction. See Hypoglycemia Management guideline. Each 37.5 gram tube of glucose 40 % = 15 grams of glucose. HYDROmorphone (DILAUDID) injection 1 mg 1 mg, Intravenous, Every 4 hours PRN, severe to excruciating pain 7-10, Starting on Mon01/22/25 at 1850, For 7 days HYDROmorphone (DILAUDID) tablet 2 mg 2 mg, Oral, Every 4 hours PRN, moderate to moderately severe pain 4-6, Starting on Mon01/22/25 at 1850, For 7 days 2249 (Given - Provider: Claudia Amor RN) iohexol (OMNIPAQUE) 350 mg/mL injection 50 mL (COMPLETED) 50 mL, Intravenous, Once in imaging, contrast, Starting on Mon01/22/25 at 1321, For 1 dose, Radiology Appointment 1322 (Given - Provider: Magnolia Gonzalez RT) ondansetron (ZOFRAN-ODT) disintegrating tablet 4 mg 4 mg, Oral, Every 6 hours PRN, nausea, vomiting, Starting on Mon01/22/25 at 1850, Using dry hands, place tablet on tongue and allow to dissolve. Swallow with saliva. 1855 (Given - Provider: Zhang Kowalski RN) polyethylene glycol (miraLAx) packet 17 g 17 g, Oral, Daily PRN, constipation, Starting on Mon01/22/25 at 1505, Stir and dissolve in 4-8 oz of fluids. Linked Groups Order Group 1: glucose (GLUTOSE 15) 40 % oral gel 37.5 gJump to med 37.5 g (1 Tube), Oral, Every 15 min PRN, low blood sugar, between 50 and 69 mg/dL, Starting on Mon01/22/25 at 1419, Juice or soda is preferred for alert patients (4 oz juice or 6 oz soda). Use glucose gel for patients with fluid restriction. See Hypoglycemia Management guideline. Each 37.5 gram tube of glucose 40 % = 15 grams of glucose. Or glucose (GLUTOSE 15) 40 % oral gel 75 gJump to med 75 g (2 Tube), Oral, Every 15 min PRN, low blood sugar, less than 50 mg/dL, Starting on Mon01/22/25 at 1419, Juice or soda is preferred for alert patients (8 oz juice or 12 oz soda). Use glucose gel for patients with fluid restriction. See Hypoglycemia Management guideline. Each 37.5 gram tube of glucose 40 % = 15 grams of glucose. Or dextrose 50 % solution 12.5 gJump to med 12.5 g, Intravenous, Every 15 min PRN, low blood sugar, between 50 and 69 mg/dL, Starting on Mon01/22/25 at 1419, For patient with IV access who is NPO or unable to swallow. See Hypoglycemia Management guideline. Or dextrose 50 % solution 25 gJump to med 25 g, Intravenous, Every 15 min PRN, low blood sugar, less than 50 mg/dL, Starting on Mon01/22/25 at 1419, For patient with IV access who is NPO or unable to swallow. See Hypoglycemia Management guideline. Or glucagon (GLUCAGEN) injection 1 mgJump to med 1 mg, Intramuscular, Daily PRN, low blood sugar, for Blood Glucose LESS than 70 mg/dL and NPO and no IV access, Starting on Mon01/22/25 at 1419, Glucagon may be repeated x 1 (for a total of 2 doses per hypoglycemic event) if patient remains hypoglycemic after first dose. Do not use with hepatic disease or alcohol intoxication. See Hypoglycemia Management guideline. Reconstitute vial with 1 mL sterile water for injection. documented in this encounter
--- OUTSIDE RECORDS SUMMARY | 2025-01-29 16:27 | XMS_ITS | Encounter Summary ---
Author Organization [facility] Address [address] [place] [address] Care Team Providers Care Vice President Payment Name Role Phone Unavailable Primary Care Provider Unavailabl e Encounter Details Date Type Department Care Team (Late st Contact Info) Description 01/24/2025 Orders Only LIZZ LEEIN [address] [place] [address] Lissy Burgess, DO [address] [place], [place] [id number] Mastoiditis Social History Tobacco Use Types Packs/Day Years Used Date Smoking Tobacco: Never Assessed [facility] Utilities Answer Date Recorded In the past 12 months has th e electric, gas, oil, or water company threatened to shut off services in your [...] any time in the past 12 m [facility], were you homeless or living in a senior living (including now)? No 01/23/2025 Comments Unknown Sex and Gender Information Value Date Recorded Sex Assigned at Female 01/22/2025 9:42 AM EDT Legal Sex Female 6:14 AM EDT Gender Identity Female 01/22/2025 9:42 AM EDT Sexual Orientation Choose not to disclose 2024 9:42 AM EDT documented as of this encounter Plan of Treatment Not on file documented as of this encounter Visit Diagnoses Diagnosis Mastoiditis Unspecified mastoiditis documented in this encounter
--- OUTSIDE RECORDS SUMMARY | 2025-01-29 16:28 | XMS_ITS | Clinical Summary ---
Author Organization [facility] Address [address] [place] [address] Care Team Providers Care Promotion Manager Name Role Phone Unavailable Primary Care Provider Unavailabl e Allergies Active Allergy Reactions Criticality Noted Date Comments Clams Unknown/Patient and Family Unable to Define Medium 01/22/2025 Colchicine Unknown/Patient and Family Unable to Define Medium 01/22/2025 Ibuprofen Unknown/Patient and Family Unable to Define Medium 01/22/2025 [place] Unknown/Patient and Family Unable to Define Medium 01/22/2025 Medications allopurinol (ZYLOPRIM) 100 mg tablet Take 2 tablets (200 mg total) by mouth daily. 5 Active amLODIPine (NORVASC) 2.5 MG tablet Take 1 tablet (2.5 mg total) by mouth daily. 5 Active atorvastatin (LIPITOR) 10 MG tablet Take 1 tablet (10 mg total) by mouth nightly. 5 Active isosorbide mononitrate (IMDUR) 30 MG 24 hr tablet Take 1 tablet (30 mg total) by mouth daily. 5 Active metoPROLOL SUCCINATE (TOPROL-XL) 50 MG 24 hr tablet Take 1 tablet (50 mg total) by mouth daily. 5 Active PANTOprazole (PROTONIX) 40 MG EC tablet Take 1 tablet (40 mg total) by mouth daily. 5 Active acetaminophen (TYLENOL) 325 MG tablet Take 2 tablets (650 mg total) by mouth 4 times daily (every 6 hours) as needed for mild pain. Active amoxicillin-clav ulanate (AUGMENTIN) 500-125 MG per tabletIndication s:Mastoiditis Take 1 tablet by mouth 2 times a day. 42 tablet 5 02/15/20 25 Active metFORMIN (GLUCOPHAGE) 500 MG tablet 0.5 tablets (250 mg total) by Mouth/Oral Cavity route every 12 hours. 5 01/25/20 25 Discontinu ed(Stop Taking at Discharge) amoxicillin (AMOXIL) 500 MG capsule TAKE 2 CAPSULES BY MOUTH TWICE DAILY FOR 10 DAYS 5 01/25/20 25 Discontinu ed(Stop Taking at Discharge) Active Problems Problem Noted Date Diagnosed Date CKD (chronic kidney disease) 01/23/2025 Assessment & Plan (01/23/2025 8:59 AM EDT): Unknown baseline Cr today is 1.8 Will hold lasix for now Avoid nephrotoxic medications Type 2 diabetes mellitus wit hout complication, without long-term current use of insulin 01/23/2025 Assessment & Plan (01/23/2025 8:59 AM EDT): SSI and diabetic diet CHF (congestive heart failure) 01/23/2025 Assessment & Plan (01/23/2025 9:41 AM EDT): Appears euvolemic on exam Holding lasix for now, it does not look like it was renewed so I will need to clarify if she is still on this Continue lipitor Continue metoprolol Continue imdur HTN (hypertension) 01/23/2025 Assessment & Plan (01/23/2025 8:59 AM EDT): Continue amlodipine Holding lasix as above Mastoiditis 01/22/2025 Assessment & Plan (01/23/2025 8:59 AM EDT): ID and ENT following ENT recs reviewed, no surgical intervention planned at this time Id recs reviewed, continue unasyn Encounters Date Type Department Care Team Description 01/24/2025 Orders Only LIZZ AYALA [address] [place] [address] Lissy Burgess DO Mastoiditis 01/22/2025 9:39 AM EDT - 01/24/2025 12:21 PM EDT Hospital Encounter LIZZ AYALA [address] [place] [address] Angelic Gross MD Sheth, MD Jenifer Montiel Lindsay, DO Mastoiditis (Primary Dx) Discharge Disposition: Home with Health Care Services 01/22/2025 7:25 AM EDT Ancillary Procedure [facility] Radiology [address] [facility] [place] [place] [address] Provider, File Room 01/22/2025 7:20 AM EDT Ancillary Procedure [facility] Radiology [address] [place] [address] Provider, File Room 01/22/2025 Travel from Last 3 Months Social History Tobacco Use Types Packs/Day Years Used Date Smoking Tobacco: Never Assessed [facility] Utilities Answer Date Recorded In the past 12 months has th e electric, gas, oil, or water company threatened to shut off services in your home? No 01/23/2025 Hunger Vital Sign Answer Date Recorded Within the past 12 months, y ou worried that your food would run out before you got the money to buy more. Never true 01/24/20 Within the past 12 months, t he [...] any time in the past 12 m [facility], were you homeless or living in a longterm (including now)? No 01/23/2025 Comments Unknown Sex and Gender Information Value Date Recorded Sex Assigned at Female 01/22/2025 9:42 AM EDT Legal Sex Female 6:14 AM EDT Gender Identity Female 01/22/2025 9:42 AM EDT Sexual Orientation Choose not to disclose 2024 9:42 AM EDT Last Filed Vital Signs Vital Sign Reading [...] Mass Index 30.11 01/22/2025 2:55 PM EDT Plan of Treatment Health Maintenance Due Date Last Done Comments Foot Exam 1945 Lipid Panel 1945 Ophthalmology Exam 1945 DTaP/Tdap/Td Vaccines (1 - Tdap) 1955 Pneumococcal Vaccines 50+ (1 of 2 - PCV) 1955 Zoster (Shingles) Vaccine (1 of 2) 1986 DXA Bone Density (Females,Ages 65 and older) 2001 RSV Vaccine 60 years and older and Patients (1 - 1-dose 75+ series) 2011 Influenza Vaccine 05/16/2024 06/28/2022, , 07/12/2019, Additional history exists COVID-19 Vaccine ( season) 2024 02/15/2022, 08/19/2021, 01/09/2021, Additional history exists Hemoglobin A1C 07/25/2025 01/23/2025 Creatinine with GFR 01/24/2026 01/24/2025, 01/23/2025, 01/22/2025 Hepatitis B Vaccines Aged Out No long er eligible based on patient's age to complete this topic Procedures Procedure Name Priority Date/Time Associated Diagnosis Comments POCT GLUCOSE, FINGERSTICK (CHARGE) Routine 01/24/2025 8:02 AM EDT BASIC METABOLIC PANEL Routine 01/24/2025 6:59 AM EDT COMPLETE BLOOD COUNT, WITHOUT DIFFERENTIAL Routine 01/24/2025 6:59 AM EDT POCT GLUCOSE, FINGERSTICK (CHARGE) Routine 01/23/2025 9:56 PM EDT POCT GLUCOSE, FINGERSTICK (CHARGE) Routine 01/23/2025 5:05 PM EDT POCT GLUCOSE, FINGERSTICK (CHARGE) Routine 01/23/2025 11:43 AM EDT HEMOGLOBIN A1C WITH ESTIMATED AVERAGE GLUCOSE Routine 01/23/2025 7:40 AM EDT BASIC METABOLIC PANEL Routine 01/23/2025 7:40 AM EDT COMPLETE BLOOD COUNT, WITH DIFFERENTIAL Routine 01/23/2025 7:40 AM EDT POCT GLUCOSE, FINGERSTICK (CHARGE) Routine 01/23/2025 7:36 AM EDT POCT GLUCOSE, FINGERSTICK (CHARGE) Routine 01/22/2025 9:05 PM EDT POCT GLUCOSE, FINGERSTICK (CHARGE) Routine 01/22/2025 5:42 PM EDT HIGH SENSITIVITY TROPONIN T Routine 01/22/2025 1:30 PM EDT CTA CHEST FOR P.E. STAT 01/22/2025 1: 20 PM EDT ECG 12-LEAD STAT 01/22/2025 12:24 PM EDT PROBNP, N-TERMINAL STAT 01/22/2025 12 :10 PM EDT PROTIME-INR STAT 01/22/2025 12:10 PM EDT HIGH SENSITIVITY TROPONIN T CARD 01/22/2025 12:10 PM EDT XR CHEST 1 VIEW-PORTABLE STAT 01/22/2025 12:05 PM EDT BASIC METABOLIC PANEL STAT 01/22/2025 11:06 AM EDT COMPLETE BLOOD COUNT, WITH DIFFERENTIAL STAT 01/22/2025 11:06 AM EDT [facility] ARCHIVE FOR REFERENCE ONLY CT Routine 01/22/2025 7:25 AM EDT [facility] ARCHIVE FOR REFERENCE ONLY CT Routine 01/22/2025 7:20 AM EDT from Last 3 Months Results * (ABNORMAL) POCT Glucose, Fingerstick (01/24/2025 8:02 AM EDT) Only the most recent of7 resultswithin the time period is included. Pathologist [facility] POC Glucose 134(H) 65 - 99 mg/dL 01/24/2025 8:12 AM EDT Blood specimen / Unknown 01/24/2025 8:02 AM EDT 01/24/2025 8:12 AM EDT us Angelic Gross MD POINT OF CARE TEST ORDERABLES Final Result HOSPITAL LAB See Below * (ABNORMAL) Complete Blood Count WITHOUT Differential - in AM (01/24/2025 6:59 AM EDT) Pathologist [facility] White Blood Cell Count 13.8(H) 4.0 - 11.0 Thou/uL 01/24/2025 7:27 AM EDT [facility] Platelet Count 251 150 - 450 Thou/uL 01/24/2025 7:27 AM EDT [facility] Hemoglobin 9.6(L) 11.7 - 15.7 g/dL 01/24/2025 7:27 AM EDT [facility] Hematocrit 30.4(L) 35.0 - 47.0 % 01/24/2025 7:27 AM [facility] Red Blood Cell Count 3.11(L) 4.00 - 5.40 Mil/uL 01/24/2025 7:27 AM [facility] MCV 98 80 - 100 fL 01/24/2025 7:27 AM [facility] MCH 30.9 27.0 - 31.0 pg 01/24/2025 7:27 AM [facility] MCHC 31.6 30.0 - 36.0 g/dL 01/24/2025 7:27 AM [facility] RDW 14.2 11.5 - 14.5 % 01/24/2025 7:27 AM [facility] MPV 10.8 7.5 - 12.5 fL 01/24/2025 7:27 AM [facility] Blood Blood specimen / Unknown 01/24/2025 6:59 AM EDT 01/24/2025 7:20 AM EDT [facility] LAB BLOOD ORDERABLES [place] [address], [place] [address] * (ABNORMAL) BASIC METABOLIC PANEL (01/24/2025 6:59 AM EDT) Only the most recent of3 resultswithin the time period is included. Glucose 133(H) 65 - 99 mg/dL 01/24/2025 8:01 AM [facility] Comment:Fasting: <100 mg/dL, Non-Fasting: <200 mg/dL (ADA 2005) Blood Urea Nitrogen (BUN) 34(H) 8 - 21 mg/dL 01/24/2025 8:01 AM [facility] Creatinine 2.2(H) 0.4 - 1.1 mg/dL 01/24/2025 8:01 AM [facility] eGFR 21(L) >59 01/24/2025 8:01 AM [facility] Comment:CKD-EPI (2020) in mL /min/1.73 sq meters. Sodium 138 136 - 145 mmol/L 01/24/2025 8:01 AM T [facility] Potassium 3.7 3.4 - 5.3 mmol/L 01/24/2025 8:01 AM [facility] Chloride 103 98 - 107 mmol/L 01/24/2025 8:01 AM [facility] CO2 24 22 - 33 mmol/L 01/24/2025 8:01 AM [facility] Anion Gap 11 7 - 17 01/24/2025 8:01 AM [facility] Calcium 9.1 8.7 - 10.5 mg/dL 01/24/2025 8:01 AM [facility] BUN/Creatinine Ratio 15 10.0 - 25.0 Ratio 01/24/2025 8:01 AM [facility] Blood Blood specimen / Unknown 01/24/2025 6:59 AM EDT 01/24/2025 7:20 AM EDT Lissy Burgess DO LAB BLOOD ORDERABLES Final Resul t Performing Organization Address City/State/[facility] [place] [address], [place] [address] * (ABNORMAL) Hemoglobin A1c with Estimated Average Glucose (01/23/2025 7:40 AM EDT) Hemoglobin A1C 6.1(H) <5.7 % 01/23/2025 8:58 AM [facility] Comment: A1c% ? Interpretation 5.7 - 6.0 ?Increase risk of diabetes 6.1 - 6.4 ?Higher risk of diabetes > or = 6.5 ?? Consistent with diabetes Diabetes Care, 33(Supp 1):S1-S61, 2010 Estimated Average Glucose 128 mg/dL 01/23/2025 8:58 AM EDT [facility] Blood Blood specimen / Unknown 01/23/2025 7:40 AM EDT 01/23/2025 8:00 AM EDT Audrey Simmons MD LAB BLOOD ORDERABLES Final Result [facility] [address] [place] [address], [facility] [address] [place] [address] * (ABNORMAL) Complete Blood Count, with Differential (01/23/2025 7:40 AM EDT) Only the most recent of2 resultswithin the time period is included. White Blood Cell Count 20.6(H) 4.0 - 11.0 Thou/uL 01/23/2025 8:19 AM [facility] Platelet Count 267 150 - 450 Thou/uL 01/23/2025 8:19 AM [facility] Hemoglobin 10.5(L) 11.7 - 15.7 g/dL 01/23/2025 8:19 AM [facility] Hematocrit 32.7(L) 35.0 - 47.0 % 01/23/2025 8:19 AM [facility] Red Blood Cell Count 3.35(L) 4.00 - 5.40 Mil/uL 01/23/2025 8:19 AM [facility] MCV 98 80 - 100 fL 01/23/2025 8:19 AM [facility] MCH 31.3(H) 27.0 - 31.0 pg 01/23/2025 8:19 AM [facility] MCHC 32.1 30.0 - 36.0 g/dL 01/23/2025 8:19 AM [facility] RDW 14.0 11.5 - 14.5 % 01/23/2025 8:19 AM [facility] MPV 10.8 7.5 - 12.5 fL 01/23/2025 8:19 AM [facility] Neutrophils Auto 76.0 % 01/24/20 8:19 AM [facility] Immature Granulocytes 0.7 % 01/23/2025 8:19 AM [facility] Lymphocytes Auto 14.7 % 01/24/20 8:19 AM [facility] Monocytes Auto 8.2 % 01/23/2025 8:19 AM [facility] Eosinophils Auto 0.2 % 01/24/20 8:19 AM [facility] Basophils Auto 0.2 % 01/23/2025 8:19 AM EDT [facility] Abs Neutrophils Auto 15.61(H) 2.00 - 7.50 Thou/uL 01/23/2025 8:19 AM EDT [facility] Abs Immature Granulocytes 0.15(H) 0.00 - 0.10 Thou/uL 01/23/2025 8:19 AM EDT [facility] Abs Lymphocytes Auto 3.02 1.50 - 4.50 Thou/uL 01/23/2025 8:19 AM EDT [facility] Abs Monocytes Auto 1.68(H) 0.20 - 1.50 Thou/uL 01/23/2025 8:19 AM EDT [facility] Abs Eosinophils Auto 0.05 0.00 - 0.70 Thou/uL 01/23/2025 8:19 AM EDT [facility] Abs Basophils Auto 0.05 0.00 - 0.20 Thou/uL 01/23/2025 8:19 AM T [facility] Blood Blood specimen / Unknown 01/23/2025 7:40 AM EDT 01/23/2025 8:00 AM EDT Audrey Simmons MD LAB BLOOD ORDERABLES Final Result Performing Organization Address [facility] [place] [address], [place] [address] * (ABNORMAL) High Sensitivity Troponin T (01/22/2025 1:30 PM EDT) Only the most recent of2 resultswithin the time period is included. High Sensitivity Troponin T 28(H) <15 ng/L 01/22/2025 2:17 PM EDT [facility] Delta (Change) 1 <3 01/22/2025 2:17 PM EDT [facility] Comment:Increased 01/22/2025 1:30 PM EDT 01/22/2025 1:36 PM EDT Alexander Cooley PA-C LAB BLOOD ORDERABLES F inal Result Performing Organization Address City/[facility]/ZIP Co de Phone Number [address] [place] [address], [facility] [address] [facility] [place] [address] * CTA Chest for P.E. (01/22/2025 1:20 [...] Radiol. 2015 Nov;12(2): 143-50 Alexander Cooley PA-C IM CT ORDERABLES Kerrie quinten Result * ECG 12 lead (01/22/2025 12:24 PM EDT) Ventricular rate 65 BPM EKG [facility] Atrial rate 65 BPM EKG [facility] P-R interval 208 ms EKG [facility] QRS duration 80 ms EKG [facility] Q-T interval 414 ms EKG [facility] QTC calculation (Bazett) 431 ms EKG [facility] P axis 79 degrees EKG [facility] R axis 13 degrees EKG [facility] T axis 29 degrees EKG [facility] 01/22/2025 12:2 4 PM EDT Narrative EKG [facility] - 01/22/2025 5:30 PM EDT Normal sinus rhythm Normal ECG No previous ECGs available Confirmed by MD Elizondo Kevin ([id number]) on 01/22/2025 5:30:50 PM Procedure Note Dariel Elizondo MD - 01/22/2025 Normal sinus rhythm Normal ECG No previous ECGs available Confirmed by MD Elizondo Kevin ([id number]) on 01/22/2025 5:30:50 PM Alexander Cooley PA-C ECG ORDERABLES Final Result Performing Organization Address City/[facility]/ZIP Co de Phone Number [facility] * (ABNORMAL) proBNP, N-terminal (BNP) (01/22/2025 12:10 PM EDT) proBNP, N-terminal 2,546(H) <450 pg/mL 01/22/2025 1:25 PM EDT [facility] Blood Blood specimen / Unknown 01/22/2025 12:10 PM EDT 01/22/2025 12:47 PM EDT Alexander Cooley PA-C LAB BLOOD ORDERABLES F inal Result Performing Organization Address [facility] Co de Phone Number [address] [address], [address] [address] * (ABNORMAL) INR (01/22/2025 12:10 PM EDT) Anticoagulant NO ANTI COAGULANT MEDS 01/22/2025 11:42 AM EDT [facility] Prothrombin Time (PT) 13.6(H) 10.0 - 13.5 seconds 01/22/2025 1:31 PM EDT [facility] INR 1.2 01/22/2025 1:31 PM EDT [facility] Comment:INR Therapeutic Rang es: Standard dose anticoagulant 2.0 to 3.0, High dose anticoagulant 2.5-3.5. Blood Blood specimen / Unknown 01/22/2025 12:10 PM EDT 01/22/2025 12:47 PM EDT us Alexander Cooley PA-C LAB BLOOD ORDERABLES F inal Result [address] [address], [address] [address] * XR Chest 1 view-Portable (01/22/2025 12:05 [...] without prior studies available for direct comparison. us Alexander Cooley PA-C IMG DIAGNOSTIC IMAGING ORDERABLES Final Result * [facility] Archive for reference only CT (01/22/2025 7:25 AM EDT) Only the most recent of2 resultswithin the time period is included. Narrative SYSTEMGENERATED, DOCUMENTATION - 01/22/2025 7:16 AM EDT This order has been auto-finalized and does not contain a result. us File Room Provider IMG DIGITIZE FILMS Final Resu lt from Last 3 Months Insurance MEDICARE PART A & B BLUE CROSS OUT [facility] BLUE CROSS OUT OF [facility] MEDICARE PART A & B Advance Directives * DNR (Latest Code Status on File) Date Activated Date Inactivated Comments 01/22/2025 2:18 PM Question Answer Comments Decision thoroughly discussed with: Patient
--- OUTSIDE RECORDS SUMMARY | 2025-01-29 16:28 | XMS_ITS | Clinical Summary ---
Author Organization [facility] Facility Address [address] [place] [address] Care Team Providers Care Senior Planning Analyst Name Role Phone Unavailable Primary Care Provider [...] Influenza Vaccine (Season Ended) 2025 Pneumococcal Vaccine: 50+ Years Completed 07/15/2019, 06/26/2019, 07/19/2005 Hepatitis B Vaccine Aged Out No longe r eligible based on patient's age to complete this topic Insurance Medicare [facility] Medicare [facility]
--- OUTSIDE RECORDS SUMMARY | 2025-01-29 16:28 | XMS_ITS | Clinical Summary ---
Author Organization Unknown Care Team Providers Care Quality Improvement Analyst Name Role Phone MADIHA AQUINO, GREG Unavailable Unavailable ARNIE VALADEZ, CYNTHIA Unavailable Unavailable Payers Payer Name Policy Type Policy Number Effective Date Expira tion Date MEDICARE - [place] [id number] [facility] - ORDER DRIVEN [id number] Problems Condition Name Condition Details Condition Category Status Onset Date Resolution Date Last Treatment Date Treating Clinician Comments CODING TO BE COMPLETED AFTER CLINICAL DOCUMENTATIO N REVIEW Active 01-22 00:00: 00 CHRONIC KIDNEY DISEASE, UNSPECIFIED Active 01-22 00:00: 00 ACUTE MASTOIDITIS WITHOUT COMPLICATION S, LEFT EAR Active 01-22 00:00: 00 Allergies, Adverse Reactions, Alerts Allergy Name Allergy Type Status Severity Reaction(s) Onset Date Inactive Date Treating Clinician Comments CLAMS Propensity to adverse reactions Active 01-26 20:49: 47 IBUPROFEN Propensity to adverse reactions Active 01-26 20:50: 01 WALNUT Propensity to adverse reactions Active 01-26 20:50: 09 COLCHICINE Propensity to adverse reactions Active 01-26 20:50: 21 Immunizations Ordered Immunization Name Filled Immunization Name Date Status Comments Refusal Reason REFUSED FLU, PPV 2025-01-25 00:00:00 Vital Signs Vital Name Observation Time Observation Value Commen ts Temperature 2025-01-28 13:02:00.000 97.6 [degF] Temperature 2025-01-25 12:18:00.000 98 [degF] BMI (%) 2025-01-25 12:18:00.000 29 kg/m2 Height 2025-01-25 12:18:00.000 63 [in_us] Pulse 2025-01-28 13:02:00.000 72 /min Pulse 2025-01-25 12:18:00.000 66 /min O2 Saturation (%) 2025-01-28 13:02:00.000 94 % O2 Saturation (%) 2025-01-25 12:18:00.000 95 % Respirations 2025-01-28 13:02:00.000 18 /min Respirations 2025-01-25 12:18:00.000 18 /min Weight (lbs) 2025-01-25 12:18:00.000 165 [lb_av] Systolic Blood Pressure 2025-01-28 13:02:00.000 130 mm [Hg] Systolic Blood Pressure 2025-01-25 12:18:00.000 118 mm [Hg] Diastolic Blood Pressure 2025-01-28 13:02:00.000 68 mm [Hg] Diastolic Blood Pressure 2025-01-25 12:18:00.000 60 mm [Hg] Plan of Treatment Planned Activity Planned Date Details Comments Future Scheduled Test SKILLED NU RSE TO EVALUATE PATIENT, IDENTIFY PRIMARY AND CO-MORBID CONDITIONS CODED PER CODING GUIDELINES, AND DEVELOP PATIENT SPECIFIC PLAN OF CARE THAT INCLUDES PATIENT GOAL FOR HOME HEALTH. [code = SKILLED NURSE TO EVALUATE PATIENT, IDENTIFY PRIMARY AND CO-MORBID CONDITIONS CODED PER CODING GUIDELINES, AND DEVELOP PATIENT SPECIFIC PLAN OF CARE THAT INCLUDES PATIENT GOAL FOR HOME HEALTH.] Future Scheduled Test SKILLED NU RSE TO REVIEW PATIENT MEDICATIONS (PRESCRIPTION/OTC). INSTRUCT PATIENT/CAREGIVER ON ALL MEDICATIONS INCLUDING PURPOSE, WHEN TO TAKE, IMPORTANCE OF MEDICATION ADHERENCE, MONITORING OF EFFECTIVENESS, ADVERSE DRUG REACTIONS, POSSIBLE SIDE EFFECTS, AND WHEN TO NOTIFY AGENCY OR PHYSICIAN/PROVIDER OF ANY CONCERNS. [code = SKILLED NURSE TO REVIEW PATIENT MEDICATIONS (PRESCRIPTION/OTC). INSTRUCT PATIENT/CAREGIVER ON ALL MEDICATIONS INCLUDING PURPOSE, WHEN TO TAKE, IMPORTANCE OF MEDICATION ADHERENCE, MONITORING OF EFFECTIVENESS, ADVERSE DRUG REACTIONS, POSSIBLE SIDE EFFECTS, AND WHEN TO NOTIFY AGENCY OR PHYSICIAN/PROVIDER OF ANY CONCERNS.] Future Scheduled Test PATIENT [place] S A RISK OF HOSPITALIZATION AND ED USE. SKILLED NURSE TO ESTABLISH SUPPORT MEASURES TO MINIMIZE RISK OF HOSPITALIZATION AND ED USE, AND INSTRUCT PATIENT/CAREGIVER ON METHODS TO REDUCE AVOIDABLE HOSPITALIZATION AND ED USE. [code = PATIENT HAS A RISK OF HOSPITALIZATION AND ED USE. SKILLED NURSE TO ESTABLISH SUPPORT MEASURES TO MINIMIZE RISK OF HOSPITALIZATION AND ED USE, AND INSTRUCT PATIENT/CAREGIVER ON METHODS TO REDUCE AVOIDABLE HOSPITALIZATION AND ED USE.] Future Scheduled Test SKILLED NU RSE TO PROVIDE INSTRUCTION TO PATIENT/CAREGIVER RELATED TO DISCHARGE PLANNING. [code = SKILLED NURSE TO PROVIDE INSTRUCTION TO PATIENT/CAREGIVER RELATED TO DISCHARGE PLANNING.] Future Scheduled Test SKILLED NU RSE TO PERFORM ENVIRONMENTAL SAFETY RISK ASSESSMENT AND FALL RISK ASSESSMENT AND PROVIDE INSTRUCTION TO IMPLEMENT ENVIRONMENTAL SAFETY AND FALL PREVENTION STRATEGIES THROUGHOUT THE CERTIFICATION PERIOD. SKILLED NURSE WILL MAINTAIN SITUATIONAL AWARENESS AND WILL NOTIFY CLINICAL EXECUTIVE ASSISTANT AND PHYSICIAN/PROVIDER WITH ANY CHANGE IN CONDITION. [code = SKILLED NURSE TO PERFORM ENVIRONMENTAL SAFETY RISK ASSESSMENT AND FALL RISK ASSESSMENT AND PROVIDE INSTRUCTION TO IMPLEMENT ENVIRONMENTAL SAFETY AND FALL PREVENTION STRATEGIES THROUGHOUT THE CERTIFICATION PERIOD. SKILLED NURSE WILL MAINTAIN SITUATIONAL AWARENESS AND WILL NOTIFY CLINICAL EXECUTIVE ASSISTANT AND PHYSICIAN/PROVIDER WITH ANY CHANGE IN CONDITION.] Future Scheduled Test SKILLED NU RSE FOR OBSERVATION AND ASSESSMENT OF PATIENTS PAIN LEVEL AND EFFECTIVENESS OF PAIN MANAGEMENT REGIMEN. SKILLED NURSE TO INSTRUCT PATIENT/CAREGIVER REGARDING PHARMACOLOGIC AND NON-PHARMACOLOGIC PAIN CONTROL MEASURES. SKILLED NURSE TO REPORT TO PHYSICIAN IF PAIN IS UNCONTROLLED WITH CURRENT PAIN MANAGEMENT REGIMEN. [code = SKILLED NURSE FOR OBSERVATION AND ASSESSMENT OF PATIENTS PAIN LEVEL AND EFFECTIVENESS OF PAIN MANAGEMENT REGIMEN. SKILLED NURSE TO INSTRUCT PATIENT/CAREGIVER REGARDING PHARMACOLOGIC AND NON-PHARMACOLOGIC PAIN CONTROL MEASURES. SKILLED NURSE TO REPORT TO PHYSICIAN IF PAIN IS UNCONTROLLED WITH CURRENT PAIN MANAGEMENT REGIMEN.] Future Scheduled Test SKILLED NU RSE TO ASSESS PATIENT'S SKIN INTEGRITY AND INSTRUCT PATIENT/CAREGIVER ON MEASURES TO PREVENT PRESSURE ULCERS. [code = SKILLED NURSE TO ASSESS PATIENT'S SKIN INTEGRITY AND INSTRUCT PATIENT/CAREGIVER ON MEASURES TO PREVENT PRESSURE ULCERS.] Future Scheduled Test SKILLED NU RSE TO PROVIDE TEACHING ON SIGNS AND SYMPTOMS AND MANAGEMENT OF HYPERTENSION. [code = SKILLED NURSE TO PROVIDE TEACHING ON SIGNS AND SYMPTOMS AND MANAGEMENT OF HYPERTENSION.] Future Scheduled Test SKILLED NU RSE FOR O/A, TEACHING AND SELF-MANAGEMENT RELATED TO HEART FAILURE. INSTRUCT PATIENT/CAREGIVER ON SIGNS AND SYMPTOMS OF EXACERBATION TO REPORT AND IMPORTANCE OF OBTAINING AND RECORDING DAILY WEIGHT AND/OR MEASUREMENTS. SN OR TRAINED PATIENT/CAREGIVER TO OBTAIN WEIGHT DAILY AND WEIGHT GAIN OF 2 LBS OVERNIGHT OR 5 LBS IN 1 WEEK TO BE REPORTED TO PHYSICIAN/PROVIDER. IF UNABLE TO WEIGH PATIENT, SN OR TRAINED PATIENT/CAREGIVER TO OBTAIN MEASUREMENT OF L CALF IN CM DAILY AND REPORT AN INCREASE OF 2 CM TO PHYSICIAN/PROVIDER. [code = SKILLED NURSE FOR O/A, TEACHING AND SELF-MANAGEMENT RELATED TO HEART FAILURE. INSTRUCT PATIENT/CAREGIVER ON SIGNS AND SYMPTOMS OF EXACERBATION TO REPORT AND IMPORTANCE OF OBTAINING AND RECORDING DAILY WEIGHT AND/OR MEASUREMENTS. SN OR TRAINED PATIENT/CAREGIVER TO OBTAIN WEIGHT DAILY AND WEIGHT GAIN OF 2 LBS OVERNIGHT OR 5 LBS IN 1 WEEK TO BE REPORTED TO PHYSICIAN/PROVIDER. IF UNABLE TO WEIGH PATIENT, SN OR TRAINED PATIENT/CAREGIVER TO OBTAIN MEASUREMENT OF L CALF IN CM DAILY AND REPORT AN INCREASE OF 2 CM TO PHYSICIAN/PROVIDER.] Future Scheduled Test SKILLED NU RSE FOR O/A AND TEACHING OF DIABETIC MANAGEMENT INCLUDING BLOOD SUGAR MONITORING/USE OF GLUCOMETER, DIABETIC DIET, LOWER EXTREMITY SKIN INSPECTION, PROPER SKIN/FOOT CARE, AND SIGNS AND SYMPTOMS HYPO/HYPERGLYCEMIA TO REPORT. [code = SKILLED NURSE FOR O/A AND TEACHING OF DIABETIC MANAGEMENT INCLUDING BLOOD SUGAR MONITORING/USE OF GLUCOMETER, DIABETIC DIET, LOWER EXTREMITY SKIN INSPECTION, PROPER SKIN/FOOT CARE, AND SIGNS AND SYMPTOMS HYPO/HYPERGLYCEMIA TO REPORT.] Future Scheduled Test SKILLED NU RSE TO PROVIDE TEACHING/REINFORCEMENT RELATED TO URINARY INCONTINENCE. [code = SKILLED NURSE TO PROVIDE TEACHING/REINFORCEMENT RELATED TO URINARY INCONTINENCE.] Future Scheduled Test SKILLED NU RSE FOR O/A AND SKILLED TEACHING RELATED TO SIGNS AND SYMPTOMS AND MANAGEMENT OF L KNEE PAIN [code = SKILLED NURSE FOR O/A AND SKILLED TEACHING RELATED TO SIGNS AND SYMPTOMS AND MANAGEMENT OF L KNEE PAIN] Future Scheduled Test PHYSICAL T HERAPIST TO EVALUATE PATIENT FOR ENDURANCE, MOBILITY [code = PHYSICAL THERAPIST TO EVALUATE PATIENT FOR ENDURANCE, MOBILITY] Future Scheduled Test OCCUPATION AL THERAPIST TO EVALUATE PATIENT FOR ADLS DEFICIT [code = OCCUPATIONAL THERAPIST TO EVALUATE PATIENT FOR ADLS DEFICIT] Goal Patient Goal - F EEDBACK TO MY PRIOR FUNCTIONING INDEPENDENCE Goal Provider Goal - A PLAN OF CARE WILL BE ESTABLISHED THAT MEETS PATIENT'S CUSTODIAL NEEDS AND INCLUDES PATIENT GOAL FOR HOME HEALTH. Goal Provider Goal - PATIENT/CAREGIVER WILL VERBALIZE UNDERSTANDING OF EDUCATION PROVIDED ON MEDICATIONS BY THE END OF THE CERTIFICATION PERIOD. Goal Provider Goal - PATIENT WILL HAVE SUPPORT MEASURES ESTABLISHED TO PREVENT HOSPITALIZATION AND ED USE AND PATIENT/CAREGIVER WILL VERBALIZE/DEMONSTRATE METHODS TO REDUCE AVOIDABLE HOSPITALIZATION AND ED USE BY END OF EPISODE. Goal Provider Goal - PATIENT/CAREGIVER WILL VERBALIZE UNDERSTANDING OF DISCHARGE PLANNING INSTRUCTIONS BY DATE OF DISCHARGE. Goal Provider Goal - PATIENT/CAREGIVER WILL VERBALIZE/DEMONSTRATE EFFECTIVE ENVIRONMENTAL SAFETY AND FALL PREVENTION STRATEGIES, WILL REMAIN SAFE IN THE COMMUNITY, AND WILL BE FREE OF DANGER TO SELF AND OTHERS THROUGHOUT THE CERTIFICATION PERIOD. Goal Provider Goal - PATIENT/CAREGIVER WILL DEMONSTRATE UNDERSTANDING OF PHARMACOLOGIC AND NONPHARMACOLOGIC PAIN CONTROL MEASURES AND PATIENT WILL HAVE IMPROVEMENT IN PAIN INTERFERING WITH ACTIVITY EVIDENCED BY PAIN CONTROLLED AT LEVEL OF 7 OR LESS BY END OF CERTIFICATION PERIOD. Goal Provider Goal - PATIENT/CAREGIVER WILL VERBALIZE UNDERSTANDING OF PRESSURE ULCER PREVENTION BY END OF THE EPISODE. Goal Provider Goal - PATIENT/CAREGIVER WILL VERBALIZE SIGNS AND SYMPTOMS OF HYPERTENSION AND WILL BE ABLE TO DEMONSTRATE ABILITY TO MANAGE EXACERBATION BY END OF THE EPISODE. Goal Provider Goal - PATIENT/CAREGIVER WILL VERBALIZE/DEMONSTRATE KNOWLEDGE AND MANAGEMENT OF HEART FAILURE DISEASE PROCESS BY END OF EPISODE. Goal Provider Goal - PATIENT/CAREGIVER WILL VERBALIZE/DEMONSTRATE KNOWLEDGE OF DIABETIC MANAGEMENT. CHANGES IN DIABETIC STATUS WILL BE IDENTIFIED AND REPORTED TO PHYSICIAN FOR PROMPT INTERVENTION THROUGHOUT THE CERTIFICATION PERIOD. Goal Provider Goal - PATIENT / CAREGIVER WILL VERBALIZE UNDERSTANDING OF EFFECTS OF URINARY INCONTINENCE BY THE END OF THE CERTIFICATION PERIOD. Goal Provider Goal - PATIENT/CAREGIVER WILL VERBALIZE UNDERSTANDING OF L KNEE PAIN MUSCULOSKELETAL DISEASE INCLUDING SIGNS AND SYMPTOMS, MANAGEMENT, AND PRESCRIBED TREATMENT REGIMEN BY END OF EPISODE. Goal Provider Goal - A PHYSICAL THERAPY EVALUATION TO BE COMPLETED WITH RECOMMENDATIONS AND/OR WRITTEN PLAN OF TREATMENT ESTABLISHED FOR PHYSICIANS SIGNATURE. Goal Provider Goal - OCCUPATIONAL THERAPY EVALUATION TO BE COMPLETED WITH RECOMMENDATIONS AND WRITTEN PLAN OF TREATMENT ESTABLISHED FOR THE PHYSICIANS SIGNATURE. Progress Notes Progress Notes <paragraph>[Visit Date: 2024 by NOEL RUBIO LPN]:</paragraph><paragraph>SNV 01/28/25 ABNORMAL VITALS: NA FALLS: NA OBSERVATION AND ASSESSMENT PROVIDED: ALERT AND ORIENTED X4 PLEASANT DEMEANOR PT. SON PRESENT FOR VISIT. HOME FREE OF CLUTTER. SOME AREA RUGS NOTED FOR FALL RISK OBSTACLES THAT WERE ADDRESSED DURING VISIT WITH PHYSICAL THERAPIST AND MYSELF. VITALS WNL OF PT BASELINE. NO SIGNS OF DISTRESS NOTED. SPEAKING CLEARLY IN FULL SENTENCES. LUNGS CLEAR ON ROOM AIR. OCCASIONAL SOB WITH EXERTION NOTED. SKIN INTACT. NO CHANGES TO APPPETITE. BOWEL AND BLADDER FUNCTIONS REMAIN REGULAR. PT STATES SHE LOST STRENGTH POST HOSPITAL STAY AND IS LOOKING TO REGAIN SO THAT SHE CAN STAY IN HOME. NOTED THAT [facility] WAS DISCONTINUED IN HOSPITAL STAY BECAUSE OF TITUS, BUT ALSO SEEING BILATERAL LOWER LIMB EDEMA. CALL TO PCP WHILE WITH PT FOR ORDERS. NO CALL BACK AT THIS TIME. WILL CALL AGAIN TOMORROW TO SEE IF MD CALLED PT DIRECTLY. REVIEWED NEXT SCHEDULED VISIT PRIOR TO LEAVING. PT STATES SHE UNDERSTANDS AND IS AGREEABLE. EDUCATION: MONITOR FOR INCREASED EDEMA INTERVENTIONS NEEDED AT NEXT VISIT: ASSESSMENT COMMUNICATION WITH MD: CALL TO PCP ABOUT [facility] D/C IN HOSPITAL FOR TITUS BUT NOW BILATERAL ANKLE SWELLING +3 NOTED DURING ASSESSMENT. PT HAS CHF NEXT MD APPOINTMENT: TBS PATIENT AND CAREGIVER INSTRUCTED TO CALL [facility] WITH ANY QUESTIONS OR CONCERNS AND/OR CHANGES IN CONDITION, PATIENT STATES UNDERSTANDING. NOEL RUBIO LPN</paragraph> <paragraph>[Visit Date: 2024 by NE JOSEPH RN, ADMISSION NURSE]:</paragraph><paragraph>SOC 01/25/25 1. THE PATIENT IS RECEIVING HOMECARE DUE TO MASTOIDITIS INFECTION 2. ABNORMAL/SIGNIFICANT FINDINGS: A PATIENT NEEDING HELP DUE TO MUSCLE WEAKNES, GAIT INSTABILITY PATIENT DRINKING A [employer] SHAMROCK MILKSHAKE WHEN THIS NURSE ARRIVED RANDOM BLOOD SUGAR 218 3. CARE COORDINATION DETAILS: PCP TP UPDATE ON START OF CARE 4. SKILLED PROCEDURE PERFORMED THIS VISIT: NONE NEEDED 5. NEXT PHYSICIAN/PROVIDER APPT: SERG 6. PLAN/FOLLOW-UP NEEDED FOR NEXT VISIT: DISEASE MANAGEMENT MEDICATION EDUCATION ADDRESS ABOVE APPROPRIATE IN NARRATIVE BELOW: PATIENT IS AN 89-YEAR-OLD FEMALE WHO LIVES ALONE WITHOUT NO OUTSIDE SERVICES PATIENT IS RECEIVING HOME CARE DUE TO RECENT DISCHARGED FROM THE HOSPITAL RELATED TO MASTOIDITIS INFECTION PATIENT ON ANTIBIOTICS PATIENT'S PRIMARY PRIMARY MEDICAL CONDITION CONGESTIVE HEART FAILURE HISTORY OF PULMONARY EMBOLI CHRONIC KIDNEY DISEASE HYPERTENSION DIABETES HYPERLIPIDEMIA PATIENT'S DME IN THE HOME AND GRAB BARS BP CUFF GLUCOMETER WALKER CANE PATIENT'S LUNG SOUNDS DIMINISHED NO WHEEZING OR CRACKLES BILATERAL LOWER EXTREMITIES EDEMA NONPITTING BOWEL SOUNDS X4 LAST BOWEL MOVEMENT TODAY PATIENT NEEDING A LOT OF ASSISTANCE WITH ADLS AND IADLS WOULD BENEFIT FROM PHYSICAL THERAPY AND OCCUPATIONAL THERAPY SERVICES PATIENT'S MEDICATIONS RECONCILED WITH MEDICATIONS IN THE HOME AND DISCHARGE LIST NO ISSUES FOUND PATIENT EDUCATED ON HEALTHY FOOD CHOICES PATIENT DRINKING A SHAMROCK MILKSHAKE FROM [employer] WHEN SN ARRIVED RANDOM BLOOD SUGAR 218 PATIENT EDUCATED ON ANTIBIOTICS USE AND SIDE EFFECTS PATIENT AND DAUGHTER WHO WAS PRESENT DURING VISIT EDUCATED ON CALLING [employer] FOR ANY CONCERNS OR CHANGE IN CONDITION WELL CALENDAR AND VISITS BOTH AGREE THE PLAN AND VERBALIZED UNDERSTANDING FOCUS OF CARE SN 1 TIMES PER WEEK FOR DISEASE MANAGEMENT DIABETES EDUCATION, MEDICATION EDUCATION, VITAL SIGNS PT AND OT TO EVALUATE AND TREAT NECESSARY.</paragraph> Encounters Start Date/Time End Date/Time Encounter Type Admission Type Attending Clinicians Care Facility Care Department Encounter ID Discharge Date Discharge Status Discharge Condition Discharge Reason Percent Goals Met 2025-01-25 00:00:00 2025-03-25 00:00:00 Outpatient NEW ADMISSION ARNIECYNTHIA [facility] [id number] 25.93
--- OUTSIDE RECORDS SUMMARY | 2025-01-29 16:28 | XMS_ITS | Clinical Summary ---
Author Organization Unknown Care Team Providers Care Roll Tester Name Role Phone MADIHA AQUINO, GREG Unavailable Unavailable ARNIE VALADEZ, CYNTHIA Unavailable Unavailable Payers Payer Name Policy Type Policy Number Effective Date Expira tion Date MEDICARE - [place] PD[place] [id number] [facility] - ORDER DRIVEN [id number] Problems Condition Name Condition Details Condition Category [...] MAINTAIN SITUATIONAL AWARENESS AND WILL NOTIFY CLINICAL OFFICE RN AND PHYSICIAN/PROVIDER WITH ANY CHANGE IN CONDITION. [code = SKILLED NURSE TO PERFORM ENVIRONMENTAL SAFETY RISK ASSESSMENT AND FALL RISK ASSESSMENT AND PROVIDE INSTRUCTION TO IMPLEMENT ENVIRONMENTAL SAFETY AND FALL PREVENTION STRATEGIES THROUGHOUT THE CERTIFICATION PERIOD. SKILLED NURSE WILL MAINTAIN SITUATIONAL AWARENESS AND WILL NOTIFY CLINICAL OFFICE RN AND PHYSICIAN/PROVIDER WITH ANY CHANGE IN CONDITION.] [...] CARE WILL BE ESTABLISHED THAT MEETS PATIENT'S GROUP HOME NEEDS AND INCLUDES PATIENT GOAL FOR HOME [...] MUSCLE WEAKNES, GAIT INSTABILITY PATIENT DRINKING A [employer] SHAMROCK MILKSHAKE WHEN THIS NURSE ARRIVED RANDOM [...] CHOICES PATIENT DRINKING A SHAMROCK MILKSHAKE FROM [employer] WHEN SN ARRIVED RANDOM BLOOD SUGAR 218 [...] 00:00:00 2025-03-25 00:00:00 Outpatient NEW ADMISSION ARNI[facility]YNTHIA [facility] [id number] 25.93
[2025-01-29 18:23] LABS: Anion Gap 13 (12-20); Blood Urea Nitrogen 17 mg/dL (9-16); Carbon Dioxide 25 mmol/L (22-29); Chloride 109 mmol/L (96-108); Estimated Glomerular Filt Rate 33; Glucose Random 120 mg/dL (60-115); Potassium 3.9 mmol/L (3.3-5.1); Sodium 143 mmol/L (135-145)
== END 2025-01-29 13:47 | disposition home or self-care (01) ==
LOC: HO.WFDLDS 13:46
PROVIDERS: Visit Provider Family Medicine
DX: Z53.21 Procedure and treatment not carried out due to patient leaving prior to being seen by health care provider (principal); Z00.00 Encounter for general adult medical examination without abnormal findings; I10 Essential (primary) hypertension
CPT/HCPCS: 36415; 80048

== ENCOUNTER 2025-01-30 13:59 | Outpatient (REF) | payer MEDICARE, SELFPAY ==
[2025-01-30 18:16] LABS: Creatinine Urine 118.01 mg/dL; Microalbum/Creatinine Ratio Ur 17.7 ug/mg cr (<30)
--- OUTSIDE RECORDS SUMMARY | 2025-01-30 18:29 | XMS_ITS | Clinical Summary ---
Author Organization [facility] Address [address] [place] [address] Care Team Providers Care Direct Care Provider Name Role Phone Unavailable Primary Care Provider Unavailabl e Allergies Active Allergy Reactions Criticality Noted Date Comments Clams Unknown/Patient and Family Unable to Define Medium 01/22/2025 Colchicine Unknown/Patient and Family Unable to Define Medium 01/22/2025 Ibuprofen Unknown/Patient and Family Unable to Define Medium 01/22/2025 [place] Unknown/Patient and Family Unable to Define Medium [...] 01/24/2025 Orders Only LIZZ AYALA [address] [place] [address] Lissy Burgess DO Mastoiditis 01/22/2025 9:39 AM EDT - 01/24/2025 12:21 PM EDT Hospital Encounter LIZZ AYALA [address] [place] [address] Angelic Gross MD Sheth, MD Jenifer Montiel Lindsay, DO Mastoiditis (Primary Dx) Discharge Disposition: Home with Health Care Services 01/22/2025 7:25 AM EDT Ancillary Procedure [facility] [address] [place] [address] Provider, File Room 01/22/2025 7:20 AM EDT Ancillary Procedure [facility] [address] [place] [address] Provider, File Room 01/22/2025 Travel from Last 3 Months Social History Tobacco Use Types Packs/Day Years Used Date Smoking Tobacco: Never Assessed [facility] Utilities Answer Date Recorded In the [...] any time in the past 12 m [facility], were you homeless or living in a residential (including now)? No 01/23/2025 Comments Unknown Sex [...] resultswithin the time period is included. Pathologist [facility] POC Glucose 134(H) 65 - 99 mg/dL 01/24/2025 8:12 AM EDT Blood specimen / Unknown 01/24/2025 8:02 AM EDT 01/24/2025 8:12 AM EDT us Angelic Gross MD POINT OF CARE TEST ORDERABLES Final Result HOSPITAL LAB See Below * (ABNORMAL) Complete Blood Count WITHOUT Differential - in AM (01/24/2025 6:59 AM EDT) Pathologist [facility] White Blood Cell Count 13.8(H) 4.0 - 11.0 Thou/uL 01/24/2025 7:27 AM EDT [facility] Platelet Count 251 150 - 450 Thou/uL 01/24/2025 7:27 AM EDT [facility] Hemoglobin 9.6(L) 11.7 - 15.7 g/dL 01/24/2025 7:27 AM EDT [facility] Hematocrit 30.4(L) 35.0 - 47.0 % 01/24/2025 7:27 AM [facility] Red Blood Cell Count 3.11(L) 4.00 - 5.40 Mil/uL 01/24/2025 7:27 AM [facility] MCV 98 80 - 100 fL 01/24/2025 7:27 AM [facility] MCH 30.9 27.0 - 31.0 pg 01/24/2025 7:27 AM [facility] MCHC 31.6 30.0 - 36.0 g/dL 01/24/2025 7:27 AM [facility] RDW 14.2 11.5 - 14.5 % 01/24/2025 7:27 AM [facility] MPV 10.8 7.5 - 12.5 fL 01/24/2025 7:27 AM [facility] Blood Blood specimen / Unknown 01/24/2025 6:59 AM EDT 01/24/2025 7:20 AM EDT [facility] LAB BLOOD ORDERABLES [place] [address], [place] [address] * (ABNORMAL) BASIC METABOLIC PANEL (01/24/2025 6:59 AM EDT) Only the most recent of3 resultswithin the time period is included. Glucose 133(H) 65 - 99 mg/dL 01/24/2025 8:01 AM [facility] Comment:Fasting: <100 mg/dL, Non-Fasting: <200 mg/dL (ADA 2005) Blood Urea Nitrogen (BUN) 34(H) 8 - 21 mg/dL 01/24/2025 8:01 AM [facility] Creatinine 2.2(H) 0.4 - 1.1 mg/dL 01/24/2025 8:01 AM [facility] eGFR 21(L) >59 01/24/2025 8:01 AM [facility] Comment:CKD-EPI (2020) in mL /min/1.73 sq meters. Sodium 138 136 - 145 mmol/L 01/24/2025 8:01 AM T [facility] Potassium 3.7 3.4 - 5.3 mmol/L 01/24/2025 8:01 AM [facility] Chloride 103 98 - 107 mmol/L 01/24/2025 8:01 AM [facility] CO2 24 22 - 33 mmol/L 01/24/2025 8:01 AM [facility] Anion Gap 11 7 - 17 01/24/2025 8:01 AM [facility] Calcium 9.1 8.7 - 10.5 mg/dL 01/24/2025 8:01 AM [facility] BUN/Creatinine Ratio 15 10.0 - 25.0 Ratio 01/24/2025 8:01 AM [facility] Blood Blood specimen / Unknown 01/24/2025 6:59 AM EDT 01/24/2025 7:20 AM EDT Lissy Burgess DO LAB BLOOD ORDERABLES Final Resul t Performing Organization Address City/State/[facility] [place] [address], [place] [address] * (ABNORMAL) Hemoglobin A1c with Estimated Average Glucose (01/23/2025 7:40 AM EDT) Hemoglobin A1C 6.1(H) <5.7 % 01/23/2025 8:58 AM [facility] Comment: A1c% ? Interpretation 5.7 - [...] ORDERABLES Final Result [facility] [address] [place] [address], [facility] [address] [place] [address] * (ABNORMAL) Complete Blood Count, with Differential (01/23/2025 7:40 AM EDT) Only the most recent of2 resultswithin the time period is included. White Blood Cell Count 20.6(H) 4.0 - 11.0 Thou/uL 01/23/2025 8:19 AM [facility] Platelet Count 267 150 - 450 Thou/uL 01/23/2025 8:19 AM [facility] Hemoglobin 10.5(L) 11.7 - 15.7 g/dL 01/23/2025 8:19 AM [facility] Hematocrit 32.7(L) 35.0 - 47.0 % 01/23/2025 8:19 AM [facility] Red Blood Cell Count 3.35(L) 4.00 - 5.40 Mil/uL 01/23/2025 8:19 AM [facility] MCV 98 80 - 100 fL 01/23/2025 8:19 AM [facility] MCH 31.3(H) 27.0 - 31.0 pg 01/23/2025 8:19 AM [facility] MCHC 32.1 30.0 - 36.0 g/dL 01/23/2025 8:19 AM [facility] RDW 14.0 11.5 - 14.5 % 01/23/2025 8:19 AM [facility] MPV 10.8 7.5 - 12.5 fL 01/23/2025 8:19 AM [facility] Neutrophils Auto 76.0 % 01/24/20 8:19 AM [facility] Immature Granulocytes 0.7 % 01/23/2025 8:19 AM [facility] Lymphocytes Auto 14.7 % 01/24/20 8:19 AM [facility] Monocytes Auto 8.2 % 01/23/2025 8:19 AM [facility] Eosinophils Auto 0.2 % 01/24/20 8:19 AM [facility] Basophils Auto 0.2 % 01/23/2025 8:19 [...] BLOOD ORDERABLES Final Result Performing Organization Address [facility] [place] [address], [place] [address] * (ABNORMAL) High Sensitivity Troponin T (01/22/2025 [...] ORDERABLES F inal Result Performing Organization Address City/[facility]/ZIP Co de Phone Number [address] [place] [address], [facility] [address] [place] [address] * CTA Chest for P.E. (01/22/2025 1:20 [...] [facility] Atrial rate 65 BPM EKG [facility] P-R interval [address] [facility] QRS duration 80 ms EKG [facility] Q-T interval 414 ms EKG [facility] QTC calculation (Bazett) 431 ms EKG [facility] P axis 79 degrees EKG [facility] R axis 13 degrees EKG [facility] T axis 29 degrees EKG [facility] 01/22/2025 12:2 4 PM EDT Narrative [...] ECG ORDERABLES Final Result Performing Organization Address City/[facility]/ZIP [facility] * (ABNORMAL) proBNP, N-terminal (BNP) (01/22/2025 12:10 PM EDT) proBNP, N-terminal 2,546(H) <450 pg/mL 01/22/2025 1:25 PM EDT [facility] Blood Blood specimen / Unknown 01/22/2025 12:10 PM EDT 01/22/2025 12:47 PM EDT Alexander Cooley PA-C LAB BLOOD ORDERABLES F inal Result Performing Organization Address [facility] Co de Phone Number [address] [address], [address] [address] * (ABNORMAL) INR (01/22/2025 12:10 PM EDT) [...] PA-C LAB BLOOD ORDERABLES F inal Result [address] [address], [address] [address] * XR Chest 1 view-Portable (01/22/2025 12:05 [...] PART A & B BLUE CROSS OUT [facility] BLUE CROSS OUT OF [facility] MEDICARE PART A & B Advance Directives * DNR (Latest Code Status on File) Date Activated Date Inactivated Comments 01/22/2025 2:18 PM Question Answer Comments Decision thoroughly discussed with: Patient
--- OUTSIDE RECORDS SUMMARY | 2025-01-30 18:29 | XMS_ITS | Clinical Summary ---
Author Organization Unknown Care Team Providers Care Configuration Developer Name Role Phone MADIHA AQUINO, GREG Unavailable Unavailable ARNIE VALADEZ, CYNTHIA Unavailable Unavailable Payers Payer Name Policy Type Policy Number Effective Date Expira tion Date MEDICARE - [place] PDGM [id number] [facility] - ORDER DRIVEN [id number] Problems Condition Name Condition Details Condition Category [...] MAINTAIN SITUATIONAL AWARENESS AND WILL NOTIFY CLINICAL CREATIVE SERVICES PRODUCER AND PHYSICIAN/PROVIDER WITH ANY CHANGE IN CONDITION. [code = SKILLED NURSE TO PERFORM ENVIRONMENTAL SAFETY RISK ASSESSMENT AND FALL RISK ASSESSMENT AND PROVIDE INSTRUCTION TO IMPLEMENT ENVIRONMENTAL SAFETY AND FALL PREVENTION STRATEGIES THROUGHOUT THE CERTIFICATION PERIOD. SKILLED NURSE WILL MAINTAIN SITUATIONAL AWARENESS AND WILL NOTIFY CLINICAL CREATIVE SERVICES PRODUCER AND PHYSICIAN/PROVIDER WITH ANY CHANGE IN CONDITION.] [...] CARE WILL BE ESTABLISHED THAT MEETS PATIENT'S ASSISTED NEEDS AND INCLUDES PATIENT GOAL FOR HOME [...] TO COMPLETE VIRTUAL VISIT. PT INFORMED THIS VC++ DEVELOPER THAT HER PCP DOES NOT HAVE ANY [...] CHOICES PATIENT DRINKING A SHAMROCK MILKSHAKE FROM [employer] WHEN SN ARRIVED RANDOM BLOOD SUGAR 218 [...] 2025-03-25 00:00:00 Outpatient NEW ADMISSION CYNTHIA GAITAN [facility] [id number]
--- OUTSIDE RECORDS SUMMARY | 2025-01-30 18:29 | XMS_ITS | Clinical Summary ---
Author Organization Unknown Care Team Providers Care Software Recruiter Name Role Phone MADIHA AQUINO, GREG Unavailable Unavailable ARNIE VALADEZ, CYNTHIA Unavailable Unavailable Payers Payer Name Policy Type Policy Number Effective Date Expira tion Date MEDICARE - [place] PDGM [id number] [facility] - ORDER DRIVEN [id number] Problems Condition Name Condition Details Condition Category [...] MAINTAIN SITUATIONAL AWARENESS AND WILL NOTIFY CLINICAL COMBUSTION ENGINEER AND PHYSICIAN/PROVIDER WITH ANY CHANGE IN CONDITION. [code = SKILLED NURSE TO PERFORM ENVIRONMENTAL SAFETY RISK ASSESSMENT AND FALL RISK ASSESSMENT AND PROVIDE INSTRUCTION TO IMPLEMENT ENVIRONMENTAL SAFETY AND FALL PREVENTION STRATEGIES THROUGHOUT THE CERTIFICATION PERIOD. SKILLED NURSE WILL MAINTAIN SITUATIONAL AWARENESS AND WILL NOTIFY CLINICAL COMBUSTION ENGINEER AND PHYSICIAN/PROVIDER WITH ANY CHANGE IN CONDITION.] [...] CARE WILL BE ESTABLISHED THAT MEETS PATIENT'S HALF-WAY NEEDS AND INCLUDES PATIENT GOAL FOR HOME [...] TO COMPLETE VIRTUAL VISIT. PT INFORMED THIS SENIOR SYSTEMS ENGINEER THAT HER PCP DOES NOT HAVE ANY [...] CHOICES PATIENT DRINKING A SHAMROCK MILKSHAKE FROM [employer] WHEN SN ARRIVED RANDOM BLOOD SUGAR 218 [...] 2025-03-25 00:00:00 Outpatient NEW ADMISSION CYNTHIA GAITAN [facility] [id number] 33.33
--- OUTSIDE RECORDS SUMMARY | 2025-01-30 18:29 | XMS_ITS | Clinical Summary ---
Author Organization [facility] Facility Address [address] [place] [address] Care Team Providers Care Sander Operator Name Role Phone Unavailable Primary Care [...] age to complete this topic Insurance Medicare [facility] Medicare [facility]
--- OUTSIDE RECORDS SUMMARY | 2025-01-30 18:29 | XMS_ITS | Encounter Summary ---
Author Organization [facility] Address [address] [place] [address] Care Team Providers Care Cloth Printer Name Role Phone Unavailable Primary Care Provider Unavailabl e Encounter Details Date Type Department Care Team (Late st Contact Info) Description 01/24/2025 Orders Only LIZZ LEEIN [address] [place] [address] Lissy Burgess, DO [address] [place], [place] [id number] Mastoiditis Social History Tobacco Use Types Packs/Day Years Used Date Smoking Tobacco: Never Assessed [facility] Utilities Answer Date Recorded In the [...] any time in the past 12 m [facility], were you homeless or living in a halfway (including now)? No 01/23/2025 Comments Unknown Sex [...]
== END 2025-01-30 14:00 | disposition home or self-care (01) ==
LOC: HO.LNP 13:59
PROVIDERS: PCP Family Medicine; Visit Provider Family Medicine
DX: R60.0 Localized edema (principal); H70.92 Unspecified mastoiditis, left ear; H92.09 Otalgia, unspecified ear; E11.22 Type 2 diabetes mellitus with diabetic chronic kidney disease; I12.9 Hypertensive chronic kidney disease with stage 1 through stage 4 chronic kidney disease, or unspecified chronic kidney disease; N18.30 Chronic kidney disease, stage 3 unspecified
CPT/HCPCS: 82043; 82570; 99212

== ENCOUNTER 2025-01-30 13:59 | Outpatient (AMB) | payer MEDICARE, SELFPAY ==
--- NOTE | 2025-01-30 14:03 | MHC.PC.OV ---
Vital Signs 01/30/25 14:11 Height 5 ft 3 in Weight 176 lb 6 oz BMI 31.2 BP 152/67 H Blood Pressure Location Rt brachial Position Sitting Respiration 16 Pulse 71 Pulse Source Pulse Oximeter Temp 97.4 F Temp Source Oral Pulse Oximetry (%) 91 L Oxygen Delivery Method Room Air Intake Visit Reasons: Edema Intake Note: patient here c/o Edema on both legs Aged Or Disabled Care Worker Required: No Is last menstrual period known: No Post menopausal: No Patient : No Allergies clams Allergy (Intermediate, Verified 01/30/25 14:07) Facial Swelling walnut Allergy (Intermediate, Verified 01/30/25 14:07) Hives ibuprofen Allergy (Unknown, Verified 01/30/25 14:07) Hives colchicine Adverse Reaction (Intermediate, Verified 01/30/25 14:07) gi upset Tobacco use date assessed: 01/30/25 Fall risk assessment: 2 + Falls in past year Last assessed Fall Risk: 01/30/25 Dental Screening Dental Screen Date: 01/30/25 Did you have a dental visit in the last 12 months?: Yes Did you have a dental problem in the last 6 months where you did not have access to dental care?: No Was dental information given to patient?: Patient has dentist HPI Edema HPI Details 89 y/o female presents today with complaints of lower extremity edema. Recent ED visit for worsening ear pain/ear infection. Had been started on amoxicillin and had went to the emergency department after experiencing worsening pain of L ear, L-sided neck pain when she moves or takes a deep breath. [facility] Medical History Essential hypertension Diabetes type 2, controlled Surgical History History of surgery History of left knee replacement History of arthroscopy of right knee History of hysterectomy Family History Father No problems noted. Mother No problems noted. Son Multiple sclerosis Daughter Rheumatoid arthritis Hx of cancer of lung Social History Household Members: None Housing: House Alcohol intake: never Patient Tobacco Use Status: Never used Tobacco e-Cigarette/Vaping Use: Never Used Second Hand Smoke Exposure: No Patient : No service: No Current occupational status: retired Current occupational exposures/hazards: No Cognitive needs: No Hearing needs: No Vision needs: No Questionnaire Thrive Questionnaire Date Thrive assessed: 12/19/24 I am a: Patient What is your living situation today?: I have a steady place to live Within the past 12 months, did the food you bought not last and you didn't have the money to get more?: Never true Within the past 12 months, did you worry whether your food would run out before you got money to buy more?: Never true Do you have trouble paying for medicines?: No Do you have trouble getting transportation to medical appointments?: No Do you have trouble paying your heating and electricity bill?: No Do you have trouble taking care of your child, family member or friend?: I choose not to answer this question Do you have trouble with day-to-day activities such as bathing, preparing meals, shopping, managing finances, etc.?: Yes Are you currently unemployed and looking for a job?: No Are you interested in more education?: No Please select the resources that you would like help with: None Currently or been in a relationship where the following occur: No concerns reported THRIVE Score: 0 CORNELIUS-7 AMB Questionnaire CORNELIUS-7 Date CORNELIUS - 7 assessed: 01/09/24 Source: Developed by Drs. Don Balderrama, Sakina Rodriguez, Reji Tse and colleagues, with an educational yaneli from [employer]. Review of Systems Const Denies chills, Denies fatigue, Denies fever(s), Denies headache(s) and Denies weakness ENT Denies dizziness and Denies headache(s) Card Denies chest pain, Denies lightheadedness, Denies dyspnea and Denies other (Palpitations) Resp Denies cough, Denies dyspnea, Denies wheezing and Denies other ( shortness of breath) Musc Denies numbness and Denies tingling Neuro Denies dizziness, Denies headache(s), Denies numbness, Denies tingling, Denies paresthesias and Denies weakness Psych Denies anxiety and Denies depression Endo Denies fatigue Aller/Immun Denies wheezing Physical exam (Primary Care) Vital Signs: Last Vital Signs Temp 97.4 F 01/30/25 14:11 Pulse 71 01/30/25 14:11 Resp 16 01/30/25 14:11 BP 152/67 H 01/30/25 14:11 Pulse Ox 91 L 01/30/25 14:11 Oxygen Delivery Method Room Air 01/30/25 14:11 BMI result Body Mass Index 31.2 Tobacco/Smoking Status: Tobacco use Status Tobacco use date assessed 01/30/25 01/30/25 14:14 Patient Tobacco Use Status Never used Tobacco 01/30/25 14:14 e-Cigarette/Vaping Use Never Used 01/30/25 14:14 Thrive Assessment: Date of Thrive Assessment Date Thrive assessed 12/19/24 01/30/25 14:14 Currently or been in a relationship where the following occur: No concerns reported Const General: no acute distress and well developed Nutritional Appearance: well nourished Orientation/consciousness: patient oriented x3 HENMT Head: Yes normocephalic and Yes atraumatic Eyes General: appearance normal, both eyes and all related structures Pupils: Equal, round and reactive pupils present EOM: EOMs intact bilaterally Resp Effort & Inspection: normal respiratory effort Auscultation: clear to auscultation bilaterally Cardio Rate: regular rate Rhythm: regular rhythm Heart sounds: S1 normal heart sound present, S2 normal heart sound present, no gallops, Murmur heart sound present and no rubs Neuro General: patient oriented x3 and gait normal Cranial nerves: Yes Equal, round and reactive pupils present Psych Affect: normal affect Coding Level of Care Code Tele Est Pt Level 4 (84507) Diagnoses Lower extremity edema R60.0 Mastoiditis of left side H70.92 Ear pain H92.09 CKD (chronic kidney disease) N18.9 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 disease, without long-term current use of insulin E11.22; N18.30 Chronic kidney disease stage: stage 3 (moderate) Diabetes mellitus complication detail: with chronic kidney disease Diabetes mellitus complication status: with kidney complications Diabetes mellitus 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 This?was?discontinued?while?she?was?in?the?hospital?for?recent?left?mastoiditis. She?may?resume?this.??Watching?her?renal?function?creatinine?levels. Hydrate?well?and?avoid?salt/sodium.??Elevate?legs. Will?refer?her?to?vascular?surgery (2) Mastoiditis of left side: Code(s): H70.92 - Unspecified mastoiditis, left ear Category: Medical Plan: Left?mastoiditis.??Patient?was?treated?in[facility]. She?was?switched?from?amoxicillin?to?Augmentin Surgical?intervention?was?considered?but?not?needed. Continues?to?improve Finish?all?antibiotic Warm?compresses (3) Ear pain: Code(s): H92.09 - Otalgia, unspecified ear Category: Medical Plan: Improving (4) CKD (chronic kidney disease): Code(s): N18.9 - Chronic kidney disease, unspecified Category: Medical Plan: Patient?has?a?history?of?chronic?kidney?disease. Creatinine?baseline?on?furosemide?and?metformin?is?1.5-1?6.??Watching?this?closely She?may?resume?these?medications?which?were?discontinued?in?the?hospital. (5) Diabetes type 2, controlled: Code(s): E11.9 - Type 2 diabetes mellitus without complications Category: Medical Qualifiers: Chronic kidney disease stage: stage 3 (moderate) Diabetes mellitus complication detail: with chronic kidney disease Diabetes mellitus complication status: with kidney complications Diabetes mellitus longterm insulin use: without longterm use Qualified Code(s): E11.22 - Type 2 diabetes mellitus with diabetic chronic kidney disease; N18.30 - Chronic kidney disease, stage 3 unspecified Plan: Blood?sugars appeared?controlled?at?last?check?in?December.??A1c?5?9% Has?been?off?metformin.??A1c?not?checked?today. We?can?check?it?at?her?visit?in?May Resuming?metformin?and?continue?all?medications. Orders: Orders Comprehensive Met. Panel 2 Weeks N18.9 - Chronic kidney disease, unspecified UA CC w/rflx Micro + Cult 2 Weeks N18.9 - Chronic kidney disease, unspecified, Z00.00 - Encounter for general adult medical examination without abnormal findings UA CC w/rflx Micro + Cult Today Z00.00 - Encounter for general adult medical examination without abnormal findings Complete Blood Count Auto Diff 2 Weeks N18.9 - Chronic kidney disease, unspecified, Z00.00 - Encounter for general adult medical examination without abnormal findings Referrals Vascular Surgery Referral R60.0 - Localized edema Medications: Changed From furosemide 20 mg PO DAILY To furosemide 20 mg (1/2 x 40 mg) PO DAILY 90 days 45 tabs 2RF Refilled metformin 250 mg (1/2 x 500 mg) PO BID 90 days 90 tabs 2RF E11.9 - Type 2 diabetes mellitus without complications
[2025-01-30 14:11] VITALS: BP 152/67; PULSE 71; RESP 16; TEMP 36.3; O2SAT 91; BMI 31.2
--- OUTSIDE RECORDS SUMMARY | 2025-01-30 17:05 | XMS_ITS | Clinical Summary ---
Author Organization [facility] Facility Address [address] [place] [id number] Care Team Providers Care Product Craftsman Name Role Phone Unavailable Primary Care Provider [...] age to complete this topic Insurance Medicare [facility] Medicare [facility]
--- OUTSIDE RECORDS SUMMARY | 2025-01-30 17:05 | XMS_ITS | Clinical Summary ---
Author Organization [facility] Address [address] [place] [address] Care Team Providers Care Piano Player Name Role Phone Unavailable Primary Care Provider Unavailabl e Allergies Active Allergy Reactions Criticality Noted Date Comments Clams Unknown/Patient and Family Unable to Define Medium 01/22/2025 Colchicine Unknown/Patient and Family Unable to Define Medium 01/22/2025 Ibuprofen Unknown/Patient and Family Unable to Define Medium 01/22/2025 [place] Unknown/Patient and Family Unable to Define Medium [...] 01/24/2025 Orders Only LIZZ AYALA [address] [place] [address] Lissy Burgess DO Mastoiditis 01/22/2025 9:39 AM EDT - 01/24/2025 12:21 PM EDT Hospital Encounter LIZZ AYALA [address] [place] [address] Angelic Gross MD Sheth, MD Jenifer Montiel Lindsay, DO Mastoiditis (Primary Dx) Discharge Disposition: Home with Health Care Services 01/22/2025 7:25 AM EDT Ancillary Procedure [facility] [address] [facility] [address] Provider, File Room 01/22/2025 7:20 AM EDT Ancillary Procedure [facility] [address] [place] [address] Provider, File Room 01/22/2025 Travel from Last 3 Months Social History Tobacco Use Types Packs/Day Years Used Date Smoking Tobacco: Never Assessed [facility] Utilities Answer Date Recorded In the past [...] any time in the past [address] [facility], were you homeless or living in a assisted (including now)? No 01/23/2025 Comments Unknown Sex [...] resultswithin the time period is included. Pathologist [facility] POC Glucose 134(H) 65 - 99 mg/dL 01/24/2025 8:12 AM EDT Blood specimen / Unknown 01/24/2025 8:02 AM EDT 01/24/2025 8:12 AM EDT us Angelic Gross MD POINT OF CARE TEST ORDERABLES Final Result HOSPITAL LAB See Below * (ABNORMAL) Complete Blood Count WITHOUT Differential - in AM (01/24/2025 6:59 AM EDT) Pathologist [facility] White Blood Cell Count 13.8(H) 4.0 - 11.0 Thou/uL 01/24/2025 7:27 AM EDT [facility] Platelet Count 251 150 - 450 Thou/uL 01/24/2025 7:27 AM EDT [facility] Hemoglobin 9.6(L) 11.7 - 15.7 g/dL 01/24/2025 7:27 AM EDT [facility] Hematocrit 30.4(L) 35.0 - 47.0 % 01/24/2025 7:27 AM [facility] Red Blood Cell Count 3.11(L) 4.00 - 5.40 Mil/uL 01/24/2025 7:27 AM [facility] MCV 98 80 - 100 fL 01/24/2025 7:27 AM [facility] MCH 30.9 27.0 - 31.0 pg 01/24/2025 7:27 AM [facility] MCHC 31.6 30.0 - 36.0 g/dL 01/24/2025 7:27 AM [facility] RDW 14.2 11.5 - 14.5 % 01/24/2025 7:27 AM [facility] MPV 10.8 7.5 - 12.5 fL 01/24/2025 7:27 AM [facility] Blood Blood specimen / Unknown 01/24/2025 6:59 AM EDT 01/24/2025 7:20 AM EDT [facility] LAB BLOOD [place] [address], [place] [address] * (ABNORMAL) BASIC METABOLIC PANEL (01/24/2025 6:59 AM EDT) Only the most recent of3 resultswithin the time period is included. Glucose 133(H) 65 - 99 mg/dL 01/24/2025 8:01 AM [facility] Comment:Fasting: <100 mg/dL, Non-Fasting: <200 mg/dL (ADA 2005) Blood Urea Nitrogen (BUN) 34(H) 8 - 21 mg/dL 01/24/2025 8:01 AM [facility] Creatinine 2.2(H) 0.4 - 1.1 mg/dL 01/24/2025 8:01 AM [facility] eGFR 21(L) >59 01/24/2025 8:01 AM [facility] Comment:CKD-EPI (2020) in mL /min/1.73 sq meters. Sodium 138 136 - 145 mmol/L 01/24/2025 8:01 AM T [facility] Potassium 3.7 3.4 - 5.3 mmol/L 01/24/2025 8:01 AM [facility] Chloride 103 98 - 107 mmol/L 01/24/2025 8:01 AM [facility] CO2 24 22 - 33 mmol/L 01/24/2025 8:01 AM [facility] Anion Gap 11 7 - 17 01/24/2025 8:01 AM [facility] Calcium 9.1 8.7 - 10.5 mg/dL 01/24/2025 8:01 AM [facility] BUN/Creatinine Ratio 15 10.0 - 25.0 Ratio 01/24/2025 8:01 AM [facility] Blood Blood specimen / Unknown 01/24/2025 6:59 AM EDT 01/24/2025 7:20 AM EDT Lissy Burgess DO LAB BLOOD ORDERABLES Final Resul t Performing Organization Address City/State/[facility] [place] [address], [place] [address] * (ABNORMAL) Hemoglobin A1c with Estimated Average Glucose (01/23/2025 7:40 AM EDT) Hemoglobin A1C 6.1(H) <5.7 % 01/23/2025 8:58 AM [facility] Comment: A1c% ? Interpretation 5.7 - 6.0 ?Increase risk of diabetes 6.1 - 6.4 ?Higher risk of diabetes > or = 6.5 ?? Consistent with diabetes Diabetes Care, 33(Supp 1):S1-S61, 2010 Estimated Average Glucose 128 mg/dL 01/23/2025 8:58 AM EDT [facility] Blood Blood specimen / Unknown 01/23/2025 7:40 AM EDT 01/23/2025 8:00 AM EDT Audrey Simmons MD LAB BLOOD ORDERABLES Final Result [facility] [address] [place] [address], [facility] [address] [place] [address] * (ABNORMAL) Complete Blood Count, with Differential (01/23/2025 7:40 AM EDT) Only the most recent of2 resultswithin the time period is included. White Blood Cell Count 20.6(H) 4.0 - 11.0 Thou/uL 01/23/2025 8:19 AM [facility] Platelet Count 267 150 - 450 Thou/uL 01/23/2025 8:19 AM [facility] Hemoglobin 10.5(L) 11.7 - 15.7 g/dL 01/23/2025 8:19 AM [facility] Hematocrit 32.7(L) 35.0 - 47.0 % 01/23/2025 8:19 AM [facility] Red Blood Cell Count 3.35(L) 4.00 - 5.40 Mil/uL 01/23/2025 8:19 AM [facility] MCV 98 80 - 100 fL 01/23/2025 8:19 AM [facility] MCH 31.3(H) 27.0 - 31.0 pg 01/23/2025 8:19 AM [facility] MCHC 32.1 30.0 - 36.0 g/dL 01/23/2025 8:19 AM [facility] RDW 14.0 11.5 - 14.5 % 01/23/2025 8:19 AM [facility] MPV 10.8 7.5 - 12.5 fL 01/23/2025 8:19 AM [facility] Neutrophils Auto 76.0 % 01/24/20 8:19 AM [facility] Immature Granulocytes 0.7 % 01/23/2025 8:19 AM [facility] Lymphocytes Auto 14.7 % 01/24/20 8:19 AM [facility] Monocytes Auto 8.2 % 01/23/2025 8:19 AM [facility] Eosinophils Auto 0.2 % 01/24/20 8:19 AM [facility] Basophils Auto 0.2 % 01/23/2025 8:19 AM EDT [facility] Abs Neutrophils Auto 15.61(H) 2.00 - 7.50 Thou/uL 01/23/2025 8:19 AM EDT [facility] Abs Immature Granulocytes 0.15(H) 0.00 - 0.10 Thou/uL 01/23/2025 8:19 AM EDT [facility] Abs Lymphocytes Auto 3.02 1.50 - 4.50 Thou/uL 01/23/2025 8:19 AM EDT [facility] Abs Monocytes Auto 1.68(H) 0.20 - 1.50 Thou/uL 01/23/2025 8:19 AM EDT [facility] Abs Eosinophils Auto 0.05 0.00 - 0.70 Thou/uL 01/23/2025 8:19 AM EDT [facility] Abs Basophils Auto 0.05 0.00 - 0.20 Thou/uL 01/23/2025 8:19 AM T [facility] Blood Blood specimen / Unknown 01/23/2025 7:40 AM EDT 01/23/2025 8:00 AM EDT Audrey Simmons MD LAB BLOOD ORDERABLES Final Result Performing Organization Address [facility] [place] [address], [place] [address] * (ABNORMAL) High Sensitivity Troponin T (01/22/2025 1:30 PM EDT) Only the most recent of2 resultswithin the time period is included. High Sensitivity Troponin T 28(H) <15 ng/L 01/22/2025 2:17 PM EDT [facility] Delta (Change) 1 <3 01/22/2025 2:17 PM EDT [facility] Comment:Increased 01/22/2025 1:30 PM EDT 01/22/2025 1:36 PM EDT Alexander Cooley PA-C LAB BLOOD ORDERABLES F inal Result Performing Organization Address City/[facility]/ZIP Co de Phone Number [address] [place] [address], [facility] [address] [facility] [place] [address] * CTA Chest for P.E. (01/22/2025 1:20 [...] PM EDT) Ventricular rate 65 BPM EKG [facility] Atrial rate 65 BPM EKG [facility] P-R interval 208 ms EKG [facility] QRS duration 80 ms EKG [facility] Q-T interval 414 ms EKG [facility] QTC calculation (Bazett) 431 ms EKG [facility] P axis 79 degrees EKG [facility] R axis 13 degrees EKG [facility] T axis 29 degrees EKG [facility] 01/22/2025 12:2 4 PM EDT Narrative EKG [facility] - 01/22/2025 5:30 PM EDT Normal sinus rhythm Normal ECG No previous ECGs available Confirmed by MD Elizondo Kevin ([id number]) on 01/22/2025 5:30:50 PM Procedure Note Dariel Elizondo MD - 01/22/2025 Normal sinus rhythm Normal ECG No previous ECGs available Confirmed by MD Elizondo Kevin ([id number]) on 01/22/2025 5:30:50 PM Alexander Cooley PA-C ECG ORDERABLES Final Result Performing Organization Address City/[facility]/ZIP Co de Phone Number [facility] * (ABNORMAL) proBNP, N-terminal (BNP) (01/22/2025 12:10 PM EDT) proBNP, N-terminal 2,546(H) <450 pg/mL 01/22/2025 1:25 PM EDT [facility] Blood Blood specimen / Unknown 01/22/2025 12:10 PM EDT 01/22/2025 12:47 PM EDT Alexander Cooley PA-C LAB BLOOD ORDERABLES F inal Result Performing Organization Address [facility] Co de Phone Number [address] [address], [address] [address] * (ABNORMAL) INR (01/22/2025 12:10 PM EDT) Anticoagulant NO ANTI COAGULANT MEDS 01/22/2025 11:42 AM EDT [facility] Prothrombin Time (PT) 13.6(H) 10.0 - 13.5 seconds 01/22/2025 1:31 PM EDT [facility] INR 1.2 01/22/2025 1:31 PM EDT [facility] Comment:INR Therapeutic Rang es: Standard dose anticoagulant 2.0 to 3.0, High dose anticoagulant 2.5-3.5. Blood Blood specimen / Unknown 01/22/2025 12:10 PM EDT 01/22/2025 12:47 PM EDT us Alexander Cooley PA-C LAB BLOOD ORDERABLES F inal Result [address] [address], [address] [address] * XR Chest 1 view-Portable (01/22/2025 12:05 [...] PART A & B BLUE CROSS OUT [facility] BLUE CROSS OUT OF [facility] MEDICARE PART A & B Advance Directives * DNR (Latest Code Status on File) Date Activated Date Inactivated Comments 01/22/2025 2:18 PM Question Answer Comments Decision thoroughly discussed with: Patient
--- OUTSIDE RECORDS SUMMARY | 2025-01-30 17:05 | XMS_ITS | Clinical Summary ---
Author Organization Unknown Care Team Providers Care Mba Internship Name Role Phone MADIHA AQUINO, GREG Unavailable Unavailable ARNIE VALADEZ, CYNTHIA Unavailable Unavailable Payers Payer Name Policy Type Policy Number Effective Date Expira tion Date MEDICARE - NGS [place] - PDGM [id number] [facility] - ORDER DRIVEN [id number] Problems Condition Name Condition Details Condition Category [...] MAINTAIN SITUATIONAL AWARENESS AND WILL NOTIFY CLINICAL STOCK COUNTER AND PHYSICIAN/PROVIDER WITH ANY CHANGE IN CONDITION. [code = SKILLED NURSE TO PERFORM ENVIRONMENTAL SAFETY RISK ASSESSMENT AND FALL RISK ASSESSMENT AND PROVIDE INSTRUCTION TO IMPLEMENT ENVIRONMENTAL SAFETY AND FALL PREVENTION STRATEGIES THROUGHOUT THE CERTIFICATION PERIOD. SKILLED NURSE WILL MAINTAIN SITUATIONAL AWARENESS AND WILL NOTIFY CLINICAL STOCK COUNTER AND PHYSICIAN/PROVIDER WITH ANY CHANGE IN CONDITION.] [...] CARE WILL BE ESTABLISHED THAT MEETS PATIENT'S SNF NEEDS AND INCLUDES PATIENT GOAL FOR HOME [...] Notes <paragraph>[Visit Date: 2024 by NOEL RUBIO LPN]:</paragraph><paragraph>VIRTUAL VISIT ATTEMPTED ON 01/29/25 BUT UNABLE TO GET IN TOUCH WITH PT. MESSAGE LEFT. NO CALL BACK OBTAINED. CALL ON 01/30/25 PT ANSWERED PHONE AND WAS ABLE TO COMPLETE VIRTUAL VISIT. PT INFORMED THIS SPORTS STATISTICIAN THAT HER PCP DOES NOT HAVE ANY DOCUMENTATION OF HOSPITAL STAY. I INSTRUCTED PT TO BRING DISCHARGE PAPERWORK. PT STATES THAT SHE STILL DOES NOT FEEL WELL REPORTING SOB WITH EXERTION AND LETHARGY. INFORMED PT TO BRING THIS ALL TO PCP ATTENTION DURING VISIT. ALSO SPEAKING WITH PT EDUCATED PT TO ASK PCP IF LASIX ND MEETFORMIN SHOULD BE RESUMED. PT STATES SHE UNDERSTANDS. APOLOGIZED THAT PT IS GOING THROUGH THIS STRUGGLE. EXPLAINED THAT THE MD OFFICE NEVER CALLED BACK AFTER SPEAKING WITH THEM VIA PHONE DURING OUR IN PERSON VISIT. PT THANKFUL FOR FOLLOW THROUGH WITH NURSING FROM AGENCY.</paragraph> <paragraph>[Visit Date: 2024 by NOEL RUBIO LPN]:</paragraph><paragraph>SNV [...] MUSCLE WEAKNES, GAIT INSTABILITY PATIENT DRINKING A [employer] MILKSHAKE WHEN THIS NURSE ARRIVED RANDOM BLOOD SUGAR 218 3. CARE COORDINATION DETAILS: PCP TP UPDATE ON START OF CARE 4. SKILLED PROCEDURE PERFORMED THIS VISIT: NONE NEEDED 5. NEXT PHYSICIAN/PROVIDER APPT: TBD 6. PLAN/FOLLOW-UP NEEDED FOR NEXT VISIT: DISEASE [...] CHOICES PATIENT DRINKING A SHAMROCK MILKSHAKE FROM [employer] WHEN SN ARRIVED RANDOM BLOOD SUGAR 218 PATIENT EDUCATED ON ANTIBIOTICS USE AND SIDE EFFECTS PATIENT AND DAUGHTER WHO WAS PRESENT DURING VISIT EDUCATED ON CALLING [facility]ARA FIRST FOR ANY CONCERNS OR CHANGE IN [...] 2025-01-25 00:00:00 2025-03-25 00:00:00 Outpatient NEW ADMISSION CYNTHIA GAITAN [facility] [id number]
--- OUTSIDE RECORDS SUMMARY | 2025-01-30 17:05 | XMS_ITS | Encounter Summary ---
Author Organization [facility] Address [address] [place] [address] Care Team Providers Care Cement Gun Operator Name Role Phone Unavailable Primary Care Provider Unavailabl e Encounter Details Date Type Department Care Team (Late st Contact Info) Description 01/24/2025 Orders Only LIZZ LEEIN [address] [place] [address] Lissy Burgess, DO [address] [place], [place] [id number] Mastoiditis Social History Tobacco Use Types Packs/Day Years Used Date Smoking Tobacco: Never Assessed [facility] Utilities Answer Date Recorded In the [...] any time in the past 12 m [facility], were you homeless or living in a alf (including now)? No 01/23/2025 Comments Unknown Sex [...]
--- OUTSIDE RECORDS SUMMARY | 2025-01-30 17:05 | XMS_ITS | Clinical Summary ---
Author Organization Unknown Care Team Providers Care Social Work Faculty Member Name Role Phone MADIHA AQUINO, GREG Unavailable Unavailable ARNIE VALADEZ, CYNTHIA Unavailable Unavailable Payers Payer Name Policy Type Policy Number Effective Date Expira tion Date MEDICARE - [place] - PDGM [id number] [facility] - ORDER DRIVEN [id number] Problems Condition Name Condition Details Condition Category [...] MAINTAIN SITUATIONAL AWARENESS AND WILL NOTIFY CLINICAL MAJOR CASE DETECTIVE AND PHYSICIAN/PROVIDER WITH ANY CHANGE IN CONDITION. [code = SKILLED NURSE TO PERFORM ENVIRONMENTAL SAFETY RISK ASSESSMENT AND FALL RISK ASSESSMENT AND PROVIDE INSTRUCTION TO IMPLEMENT ENVIRONMENTAL SAFETY AND FALL PREVENTION STRATEGIES THROUGHOUT THE CERTIFICATION PERIOD. SKILLED NURSE WILL MAINTAIN SITUATIONAL AWARENESS AND WILL NOTIFY CLINICAL MAJOR CASE DETECTIVE AND PHYSICIAN/PROVIDER WITH ANY CHANGE IN CONDITION.] [...] CARE WILL BE ESTABLISHED THAT MEETS PATIENT'S INTERMEDIATE NEEDS AND INCLUDES PATIENT GOAL FOR HOME [...] TO COMPLETE VIRTUAL VISIT. PT INFORMED THIS STRATEGIC MARKETING LEADER THAT HER PCP DOES NOT HAVE ANY [...] CHOICES PATIENT DRINKING A SHAMROCK MILKSHAKE FROM [employer] WHEN SN ARRIVED RANDOM BLOOD SUGAR 218 [...] Outpatient NEW ADMISSION CYNTHIA GAITAN [facility] [id number]
== END 2025-01-30 15:44 | disposition home or self-care (01) ==
LOC: HO.HMCFM 14:00
PROVIDERS: PCP Family Medicine; Visit Provider Family Medicine
DX: R60.0 Localized edema (principal); E11.22 Type 2 diabetes mellitus with diabetic chronic kidney disease; N18.30 Chronic kidney disease, stage 3 unspecified; H70.92 Unspecified mastoiditis, left ear; H92.02 Otalgia, left ear

== ENCOUNTER 2025-02-21 13:33 | Outpatient (REF) | payer MEDICARE, SELFPAY ==
--- OUTSIDE RECORDS SUMMARY | 2025-02-21 13:37 | XMS_ITS | Clinical Summary ---
Author Organization [facility] Facility Address [address] [place] [address] Care Team Providers Care Livestock Auctioneer Name Role Phone Unavailable Primary Care Provider [...] age to complete this topic Insurance Medicare [facility] Medicare [facility]
--- OUTSIDE RECORDS SUMMARY | 2025-02-21 13:37 | XMS_ITS | Clinical Summary ---
Author Organization Unknown Care Team Providers Care Occ Therapy Asst Name Role Phone MADIHA AQUINO, GREG Unavailable Unavailable SHAKIRA GANNON OT Unavailable [facility] ([facility]) [facility] - PT, SAROJ Unavailable Unavailable [facility] ([facility]) [facility] - REAMING PRESS OPERATOR, CASEY Unavailable Un available ARNIE RNCYNTHIA Unavailable Unavailable Payers Payer Name Policy Type Policy Number Effective Date Expira tion Date MEDICARE - [facility]/MS - PD [id number] [facility] - ORDER DRIVEN [id number] Problems Condition Name Condition Details Condition Category Status Onset Date Resolution Date Last Treatment Date Treating Clinician Comments UNSPECIFIED MASTOIDITIS, LEFT EAR Active 10-16 00:00: 00 HYP HRT AND CHR KDNY DIS W HRT FAIL AND STG 1-4/UNSP CHR KDNY Active 10-16 00:00: 00 HEART FAILURE, UNSPECIFIED Active 10-16 00:00: 00 TYPE 2 DIABETES MELLITUS W DIABETIC CHRONIC KIDNEY DISEASE Active 10-16 00:00: 00 CHRONIC KIDNEY DISEASE, UNSPECIFIED Active 10-16 00:00: 00 HYPERLIPIDEM IA, UNSPECIFIED Active 10-16 00:00: 00 ELEVATED WHITE BLOOD CELL COUNT, UNSPECIFIED Active 10-16 00:00: 00 Problems related to health literacy Active 10-16 00:00: 00 SOCIAL EXCLUSION AND REJECTION Active 10-16 00:00: 00 PERSONAL HISTORY OF PULMONARY EMBOLISM Active 10-16 00:00: 00 Allergies, Adverse Reactions, Alerts Allergy Name Allergy Type Status Severity Reaction(s) Onset Date Inactive Date Treating Clinician Comments CLAMS Propensity to adverse reactions Active 01-26 20:49: 47 IBUPROFEN Propensity to adverse reactions Active 01-26 20:50: 01 WALNUT Propensity to adverse reactions Active 01-26 20:50: 09 COLCHICINE Propensity to adverse reactions Active 01-26 20:50: 21 Medications Ordered Medication Name Filled Medication Name Start Date Stop Date Current Medication? Ordering Clinician Indication Dosage Frequency Signature (SIG) Comments Components amoxicillin 500 mg-potassiu m clavulanate 125 mg tablet 01-24 00:00: 00 01-25 00:00 :00 No [id number] Per instruc tions Per instructio ns (route: oral) Med Classific ation: Anti-Infe ctive Agents amoxicillin 500 mg capsule 01-16 00:00: 00 01-25 00:00 :00 No [id number] Unavailable Per instruc tions TWICE DAILY FOR 10 DAYS Per instructio ns TWICE DAILY FOR 10 DAYS (route: oral) Med Classific ation: Anti-Infe ctive Agents atorvastati n 10 mg tablet 01-15 00:00: 00 01-25 00:00 :00 No [id number] Per instruc tions AT BEDTIME Per instructio ns AT BEDTIME (route: oral) Med Classific ation: Cardiovas cular Therapy Agents metoprolol succinate ER 50 mg tablet,exte nded release 24 hr 01-15 00:00: 00 01-25 00:00 :00 No [id number] Per instruc tions ONCE DAILY Per instructio ns ONCE DAILY (route: oral) Med Classific ation: Cardiovas cular Therapy Agents acetaminoph en 500 mg tablet 01-25 00:00: 00 Yes [id number] 2 tablet EVERY 8 HOURS 2 tablet EVERY 8 HOURS (route: oral) Med Classific ation: Analgesic , Anti-infl ammatory or Antipyret ic allopurinol 100 mg tablet 01-25 00:00: 00 Yes [id number] 1 tablet DAILY 1 tablet DAILY (route: oral) Med Classific ation: Gout and Hyperuric emia Therapy amlodipine 2.5 mg tablet 01-25 00:00: 00 Yes [id number] 1 tablet DAILY 1 tablet DAILY (route: oral) Med Classific ation: Cardiovas cular Therapy Agents atorvastati n 10 mg tablet 01-25 00:00: 00 Yes [id number] 1 tablet BEDTIME 1 tablet BEDTIME (route: oral) Med Classific ation: Cardiovas cular Therapy Agents Augmentin 500 mg-125 mg tablet 01-25 00:00: 00 01-31 23:59 :00 No [id number] 1 tablet 2 TIMES DAILY 1 tablet 2 TIMES DAILY (route: oral) Med Classific ation: Anti-Infe ctive Agents isosorbide mononitrate ER 30 mg tablet,exte nded release 24 hr 01-25 00:00: 00 Yes [id number] 1 tablet DAILY 1 tablet DAILY (route: oral) Med Classific ation: Cardiovas cular Therapy Agents metoprolol succinate ER 50 mg tablet,exte nded release 24 hr 01-25 00:00: 00 Yes [id number] 1 tablet DAILY 1 tablet DAILY (route: oral) Med Classific ation: Cardiovas cular Therapy Agents Protonix 40 mg tablet,teresa yed release 01-25 00:00: 00 Yes [id number] 1 tablet DAILY 1 tablet DAILY (route: oral) Med Classific ation: Gastroint estinal Therapy Agents Immunizations Ordered Immunization Name Filled Immunization Name Date Status Comments Refusal Reason REFUSED FLU, PPV 2025-01-25 00:00:00 Vital Signs Vital Name Observation Time Observation Value Commen ts Temperature 2025-02-19 13:02:00.000 97.6 [degF] Temperature 2025-02-19 12:11:00.000 97.4 [degF] Temperature 2025-02-13 12:15:00.000 97.7 [degF] Temperature 2025-02-12 14:30:00.000 97.4 [degF] Temperature 2025-02-07 13:14:00.000 97.4 [degF] Temperature 2025-02-06 13:53:00.000 97.9 [degF] Temperature 2025-02-03 12:55:00.000 97.4 [degF] Temperature 2025-01-31 14:42:00.000 97.6 [degF] Temperature 2025-01-28 13:02:00.000 97.6 [degF] Temperature 2025-01-28 12:30:00.000 98.1 [degF] Temperature 2025-01-25 12:18:00.000 98 [degF] BMI (%) 2025-01-25 12:18:00.000 29 kg/m2 Height 2025-01-25 12:18:00.000 63 [in_us] Pulse 2025-02-19 13:11:00.000 60 /min Pulse 2025-02-19 12:11:00.000 68 /min Pulse 2025-02-18 11:24:00.000 66 /min Pulse 2025-02-13 12:15:00.000 65 /min Pulse 2025-02-12 14:30:00.000 66 /min Pulse 2025-02-11 11:38:00.000 60 /min Pulse 2025-02-07 13:14:00.000 74 /min Pulse 2025-02-06 13:53:00.000 69 /min Pulse 2025-02-03 14:10:00.000 80 /min Pulse 2025-02-03 12:55:00.000 68 /min Pulse 2025-01-31 14:42:00.000 68 /min Pulse 2025-01-28 13:02:00.000 72 /min Pulse 2025-01-28 12:30:00.000 61 /min Pulse 2025-01-25 12:18:00.000 66 /min O2 Saturation (%) 2025-02-19 13:02:00.000 95 % O2 Saturation (%) 2025-02-18 11:24:00.000 98 % O2 Saturation (%) 2025-02-13 12:15:00.000 97 % O2 Saturation (%) 2025-02-11 11:38:00.000 93 % O2 Saturation (%) 2025-02-06 13:53:00.000 96 % O2 Saturation (%) 2025-02-03 14:10:00.000 95 % O2 Saturation (%) 2025-01-28 13:02:00.000 94 % O2 Saturation (%) 2025-01-25 12:18:00.000 95 % Respirations 2025-02-19 13:02:00.000 14 /min Respirations 2025-02-19 12:11:00.000 18 /min Respirations 2025-02-13 12:15:00.000 16 /min Respirations 2025-02-12 14:30:00.000 18 /min Respirations 2025-02-07 13:14:00.000 18 /min Respirations 2025-02-06 13:53:00.000 18 /min Respirations 2025-02-03 12:55:00.000 18 /min Respirations 2025-01-31 14:42:00.000 18 /min Respirations 2025-01-28 13:02:00.000 18 /min Respirations 2025-01-28 12:30:00.000 17 /min Respirations 2025-01-25 12:18:00.000 18 /min Weight (lbs) 2025-02-19 13:02:00.000 163 [lb_av] Weight (lbs) 2025-02-19 12:12:00.000 163 [lb_av] Weight (lbs) 2025-02-18 11:24:00.000 163 [lb_av] Weight (lbs) 2025-02-13 12:16:00.000 165 [lb_av] Weight (lbs) 2025-02-12 14:35:00.000 168 [lb_av] Weight (lbs) 2025-02-07 13:21:00.000 167 [lb_av] Weight (lbs) 2025-02-03 12:56:00.000 174 [lb_av] Weight (lbs) 2025-01-25 12:18:00.000 165 [lb_av] Systolic Blood Pressure 2025-02-19 13:02:00.000 125 mm [Hg] Systolic Blood Pressure 2025-02-19 12:11:00.000 114 mm [Hg] Systolic Blood Pressure 2025-02-18 11:24:00.000 118 mm [Hg] Systolic Blood Pressure 2025-02-13 12:15:00.000 151 mm [Hg] Systolic Blood Pressure 2025-02-12 14:30:00.000 122 mm [Hg] Systolic Blood Pressure 2025-02-11 11:38:00.000 124 mm [Hg] Systolic Blood Pressure 2025-02-07 13:14:00.000 124 mm [Hg] Systolic Blood Pressure 2025-02-06 13:53:00.000 118 mm [Hg] Systolic Blood Pressure 2025-02-03 14:10:00.000 110 mm [Hg] Systolic Blood Pressure 2025-02-03 12:55:00.000 122 mm [Hg] Systolic Blood Pressure 2025-01-31 14:42:00.000 130 mm [Hg] Systolic Blood Pressure 2025-01-28 13:02:00.000 130 mm [Hg] Systolic Blood Pressure 2025-01-28 12:30:00.000 140 mm [Hg] Systolic Blood Pressure 2025-01-25 12:18:00.000 118 mm [Hg] Diastolic Blood Pressure 2025-02-19 13:02:00.000 69 mm [Hg] Diastolic Blood Pressure 2025-02-19 12:11:00.000 66 mm [Hg] Diastolic Blood Pressure 2025-02-18 11:24:00.000 60 mm [Hg] Diastolic Blood Pressure 2025-02-13 12:15:00.000 70 mm [Hg] Diastolic Blood Pressure 2025-02-12 14:30:00.000 64 mm [Hg] Diastolic Blood Pressure 2025-02-11 11:38:00.000 66 mm [Hg] Diastolic Blood Pressure 2025-02-07 13:14:00.000 68 mm [Hg] Diastolic Blood Pressure 2025-02-06 13:53:00.000 60 mm [Hg] Diastolic Blood Pressure 2025-02-03 14:10:00.000 58 mm [Hg] Diastolic Blood Pressure 2025-02-03 12:55:00.000 64 mm [Hg] Diastolic Blood Pressure 2025-01-31 14:42:00.000 70 mm [Hg] Diastolic Blood Pressure 2025-01-28 13:02:00.000 68 mm [Hg] Diastolic Blood Pressure 2025-01-28 12:30:00.000 72 mm [Hg] Diastolic Blood Pressure 2025-01-25 12:18:00.000 [...] Scheduled Test SKILLED NU RSE FOR O/A, TEACHING, AND MANAGEMENT OF HLD. [code = SKILLED NURSE FOR O/A, TEACHING, AND MANAGEMENT OF HLD.] Future Scheduled Test SKILLED NU RSE FOR O/A, TEACHING AND MANAGEMENT OF CKD FOR EARLY IDENTIFICATION OF EXACERBATION OF DISEASE PROCESS [code = SKILLED NURSE FOR O/A, TEACHING AND MANAGEMENT OF CKD FOR EARLY IDENTIFICATION OF EXACERBATION OF DISEASE PROCESS] Future Scheduled Test OCCUPATION AL THERAPIST TO EVALUATE PATIENT FOR ADLS DEFICIT [code = OCCUPATIONAL THERAPIST TO EVALUATE PATIENT FOR ADLS DEFICIT] Future Scheduled Test SKILLED NU RSE FOR O/A AND SKILLED TEACHING RELATED TO SIGNS AND SYMPTOMS OF INFECTION AND INFECTION CONTROL MEASURES. [code = SKILLED NURSE FOR O/A AND SKILLED TEACHING RELATED TO SIGNS AND SYMPTOMS OF INFECTION AND INFECTION CONTROL MEASURES.] Future Scheduled Test PHYSICAL T HERAPIST TO EVALUATE PATIENT FOR ENDURANCE, MOBILITY [code = PHYSICAL THERAPIST TO EVALUATE PATIENT FOR ENDURANCE, MOBILITY] Future Scheduled Test SKILLED NU RSE TO [...] REPORT.] Future Scheduled Test SKILLED NU RSE FOR O/A AND SKILLED TEACHING RELATED TO SIGNS AND SYMPTOMS AND MANAGEMENT OF L KNEE PAIN [code = SKILLED NURSE FOR O/A AND SKILLED TEACHING RELATED TO SIGNS AND SYMPTOMS AND MANAGEMENT OF L KNEE PAIN] Future Scheduled Test PATIENT LAGUNA S A [...] MAINTAIN SITUATIONAL AWARENESS AND WILL NOTIFY CLINICAL BOILER OPERATORS SUPERVISOR AND PHYSICIAN/PROVIDER WITH ANY CHANGE IN CONDITION. [code = SKILLED NURSE TO PERFORM ENVIRONMENTAL SAFETY RISK ASSESSMENT AND FALL RISK ASSESSMENT AND PROVIDE INSTRUCTION TO IMPLEMENT ENVIRONMENTAL SAFETY AND FALL PREVENTION STRATEGIES THROUGHOUT THE CERTIFICATION PERIOD. SKILLED NURSE WILL MAINTAIN SITUATIONAL AWARENESS AND WILL NOTIFY CLINICAL BOILER OPERATORS SUPERVISOR AND PHYSICIAN/PROVIDER WITH ANY CHANGE IN CONDITION.] [...] PHYSICIAN/PROVIDER OF ANY CONCERNS.] Future Scheduled Test PHYSICAL T HERAPIST TO EVALUATE PATIENT SECONDARY TO FUNCTIONAL DEFICITS/SAFETY CONCERNS. PHYSICAL THERAPY TO ESTABLISH /UPGRADE/DOWNGRADE THERAPEUTIC EXERCISE PROGRAM AND INSTRUCT PATIENT/CAREGIVER ON EXERCISE PRECAUTIONS WITH WRITTEN HOME PROGRAM. MAY INCLUDE PROM, AAROM, AROM, RROM APPROPRIATE TO IMPROVE FUNCTIONAL STRENGTH AND RANGE OF MOTION. PHYSICAL THERAPY TO INSTRUCT PATIENT/CAREGIVER ON SAFE TRANSFER TECHNIQUES USING PROPER BODY MECHANICS AND EQUIPMENT. PHYSICAL THERAPY TO INSTRUCT PATIENT/CAREGIVER ON GAIT TRAINING TECHNIQUES USING APPROPRIATE ASSISTIVE DEVICE, PROPER BODY MECHANICS TO IMPROVE MOBILITY, AND PREVENT INJURY OF PATIENT AND/OR CAREGIVER. PHYSICAL THERAPY TO ASSESS AND RECOMMEND HOME SAFETY ADAPTATIONS AND EDUCATE PATIENT /CAREGIVER ON FALL PREVENTION STRATEGIES. PHYSICAL THERAPY TO INSTRUCT PATIENT/CAREGIVER ON BALANCE AND BALANCE STRATEGIES TO IMPROVE SAFE MOBILITY AND REDUCE RISK FOR FALL AND INJURY SUMMARY OF THERAPY EVAL/ASSESSMENT FINDINGS AND REASON(S) SKILLS OF A THERAPIST ARE INDICATED: PATIENT REFERRED TO HOME PHYSICAL THERAPY AFTER RECENT HOSPITALIZATION FOR MASTOIDITIS INFECTION ALSO SUSTAINED FALL FIRST NIGHT BACK HOME. PAST MEDICAL HISTORY INCLUDES CHF, PE, CKD, HYPERTENSION, DIABETES, HYPERLIPIDEMIA AND LEFT TOTAL KNEE REPLACEMENT. PATIENT'S BASELINE IS WITHOUT ASSISTIVE DEVICE TO CANE TO LEAVE HOME FOR BALANCE. PATIENTS GOAL IS TO WALK BETTER AND IMPROVE BALANCE. PATIENT IS ALERT AND ORIENTATED TIMES FOUR. HE STANDS 5 FT 3 IN TALL. PATIENT COMPLAINTS OF OCCASIONAL EAR PAIN NOT PRESENT TIME OF EVALUATION. PATIENT RECEIVES ASSISTANCE TIMES ONE FOR ADL CARE UTILIZING SHOWER. RESTING BLOOD PRESSURE 140 / 72 HEART RATE 61 RESPIRATORY RATE 17 TEMPERATURE 98.1 AND O2 SATURATION 94% ON ROOM AIR. PATIENT NOTED TO HAVE BILATERAL LOWER EXTREMITY PITTING EDEMA. 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 RANGE OF MOTION LIMITED RIGHT SHOULDER 40? LEFT SHOULDER 80?. BILATERAL LOWER EXTREMITY WEAKNESS GROSSLY FAIR GRADE WITH ZERO REPETITIONS OF CHAIR RISE TEST. PATIENT REQUIRES ASSISTANCE TIMES ONE FOR TRANSFERS AND AMBULATION WITH SMALL BASE QUAD CANE PATIENT WAS UNSAFE AND SET UP WITH FRONT WHEELED WALKER. TIMED UP AND GO WAS 32 SECONDS = FALLRISK. PATIENT HAS EIGHT STEPS TO ENTER HOME. WILL BENEFIT FROM SHORT-TERM HOME THERAPY TO ADDRESS BILATERAL LOWER EXTREMITY STRENGTH, DYNAMIC BALANCE AND FALL PREVENTION, PROGRESSIVE GAIT TRAINING CAREGIVER TRAINING. PATIENT'S SON WAS PRESENT FOR TRAINING SESSION. PATIENT AGREES WITH PLAN OF CARE. [code = PHYSICAL THERAPIST TO EVALUATE PATIENT SECONDARY TO FUNCTIONAL DEFICITS/SAFETY CONCERNS. PHYSICAL THERAPY TO ESTABLISH /UPGRADE/DOWNGRADE THERAPEUTIC EXERCISE PROGRAM AND INSTRUCT PATIENT/CAREGIVER ON EXERCISE PRECAUTIONS WITH WRITTEN HOME PROGRAM. MAY INCLUDE PROM, AAROM, AROM, RROM APPROPRIATE TO IMPROVE FUNCTIONAL STRENGTH AND RANGE OF MOTION. PHYSICAL THERAPY TO INSTRUCT PATIENT/CAREGIVER ON SAFE TRANSFER TECHNIQUES USING PROPER BODY MECHANICS AND EQUIPMENT. PHYSICAL THERAPY TO INSTRUCT PATIENT/CAREGIVER ON GAIT TRAINING TECHNIQUES USING APPROPRIATE ASSISTIVE DEVICE, PROPER BODY MECHANICS TO IMPROVE MOBILITY, AND PREVENT INJURY OF PATIENT AND/OR CAREGIVER. PHYSICAL THERAPY TO ASSESS AND RECOMMEND HOME SAFETY ADAPTATIONS AND EDUCATE PATIENT /CAREGIVER ON FALL PREVENTION STRATEGIES. PHYSICAL THERAPY TO INSTRUCT PATIENT/CAREGIVER ON BALANCE AND BALANCE STRATEGIES TO IMPROVE SAFE MOBILITY AND REDUCE RISK FOR FALL AND INJURY SUMMARY OF THERAPY EVAL/ASSESSMENT FINDINGS AND REASON(S) SKILLS OF A THERAPIST ARE INDICATED: PATIENT REFERRED TO HOME PHYSICAL THERAPY AFTER RECENT HOSPITALIZATION FOR MASTOIDITIS INFECTION ALSO SUSTAINED FALL FIRST NIGHT BACK HOME. PAST MEDICAL HISTORY INCLUDES CHF, PE, CKD, HYPERTENSION, DIABETES, HYPERLIPIDEMIA AND LEFT TOTAL KNEE REPLACEMENT. PATIENT'S BASELINE IS WITHOUT ASSISTIVE DEVICE TO CANE TO LEAVE HOME FOR BALANCE. PATIENTS GOAL IS TO WALK BETTER AND IMPROVE BALANCE. PATIENT IS ALERT AND ORIENTATED TIMES FOUR. HE STANDS 5 FT 3 IN TALL. PATIENT COMPLAINTS OF OCCASIONAL EAR PAIN NOT PRESENT TIME OF EVALUATION. PATIENT RECEIVES ASSISTANCE TIMES ONE FOR ADL CARE UTILIZING SHOWER. RESTING BLOOD PRESSURE 140 / 72 HEART RATE 61 RESPIRATORY RATE 17 TEMPERATURE 98.1 AND O2 SATURATION 94% ON ROOM AIR. PATIENT NOTED TO HAVE BILATERAL LOWER EXTREMITY PITTING EDEMA. 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 RANGE OF MOTION LIMITED RIGHT SHOULDER 40? LEFT SHOULDER 80?. BILATERAL LOWER EXTREMITY WEAKNESS GROSSLY FAIR GRADE WITH ZERO REPETITIONS OF CHAIR RISE TEST. PATIENT REQUIRES ASSISTANCE TIMES ONE FOR TRANSFERS AND AMBULATION WITH SMALL BASE QUAD CANE PATIENT WAS UNSAFE AND SET UP WITH FRONT WHEELED WALKER. TIMED UP AND GO WAS 32 SECONDS = FALLRISK. PATIENT HAS EIGHT STEPS TO ENTER HOME. WILL BENEFIT FROM SHORT-TERM HOME THERAPY TO ADDRESS BILATERAL LOWER EXTREMITY STRENGTH, DYNAMIC BALANCE AND FALL PREVENTION, PROGRESSIVE GAIT TRAINING CAREGIVER TRAINING. PATIENT'S SON WAS PRESENT FOR TRAINING SESSION. PATIENT AGREES WITH PLAN OF CARE.] Future Scheduled Test OCCUPATION AL THERAPIST TO EVALUATE PATIENT SECONDARY TO FUNCTIONAL DEFICITS/SAFETY CONCERNS IDENTIFIED DURING EVALUATION OCCUPATIONAL THERAPY TO ESTABLISH /UPGRADE/DOWNGRADE THERAPEUTIC EXERCISE PROGRAM AND INSTRUCT PATIENT/CAREGIVER ON EXERCISE PRECAUTIONS WITH WRITTEN HOME PROGRAM. MAY INCLUDE PROM, AAROM, AROM, RROM APPROPRIATE TO IMPROVE FUNCTIONAL STRENGTH AND/OR RANGE OF MOTION. OCCUPATIONAL THERAPY TO INSTRUCT PATIENT/CAREGIVER ON SAFE TRANSFER TECHNIQUES USING PROPER BODY MECHANICS AND EQUIPMENT TO ENHANCE PARTICIPATION IN ADLS. OCCUPATIONAL THERAPY TO ASSESS AND RECOMMEND HOME SAFETY ADAPTATIONS AND EDUCATE PATIENT /CAREGIVER ON FALL PREVENTION STRATEGIES TO ENHANCE PARTICIPATION IN ADLS. SUMMARY OF THERAPY EVAL/ASSESSMENT FINDINGS AND REASON(S) SKILLS OF A THERAPIST ARE INDICATED: OT EVALUATION (02/03/25) PATIENT IS AN 89 YO FEMALE REFERRED TO OT SERVICES AFTER RECENT HOSPITALIZATION DUE TO A MASTOIDITIS INFECTION. PATIENT STABILIZED AND DISCHARGED HOME. PAST MEDICAL HISTORY SIGNIFICANT FOR: CHF, H/O PE, CKD, HYPERTENSION, DIABETES, HYPERLIPIDEMIA, AND LEFT TOTAL KNEE REPLACEMEN. PRIOR LEVEL OF FUNCTION: PATIENT LIVES ALONE SINGLE FAMILY HOME ON FIRST FLOOR OF HER [place]. HAS 8 STEPS TO ENTER AND EXIT HOME, INDEPENDENT WITH ADLS, INCLUDING SHOWER LEVEL BATHIN, IADLS INCLUDING DRIVING, AND SHOPPING. HAS VERY SUPPORTIVE FAMILY INVOLVED. CURRENT LEVEL OF FUNCTION: PATIENT SITTING IN CHAIR WAITING FOR THERAPIST. PATIENT AMBULATES WITH USE OF ROLLING WALKER THROUGHOUT FIRST FLOOR OF HOME. SHE HAS INCREASED SHORTNESS OF BREATH OVER THE LAST FEW DAYS MAKING FOR NOT FEEL GREAT. 2-3 PLUS PITTING EDEMA BILATERAL LOWER EXTREMITIES. SHE REPORTS THAT PHYSICAL THERAPY WAS HERE EARLIER IN THE MORNING AND COMPARED WEIGHTS FROM START OF CARE TO NOW AND HAS HAD A 10 POUND WEIGHT GAIN IN 7 DAYS. PATIENT DID RESTART LASIX FROM PCP APPOINTMENT LAST TUESDAY 01/30. SHE OFFERS NO COMPLAINTS OF PAIN DURING SESSION. RECOMMENDATIONS FOR SHOWER STALL INCLUDE GRAB BARS OR HANDHELD SHOWERHEAD AND USING HER SHOWER CHAIR FOR THE BUILT-IN SEAT OF THE SHOWER STALL. EXTENDED FAMILY AND CHILDREN ARE PROVIDING MEALS TO PATIENT AT THIS TIME BRINGING THEM TO HER ON ROTATION. SON AND [id number] ARE PROVIDING TRANSPORTATION TO MD APPOINTMENTS. SHE HAS WITHIN FUNCTIONAL LIMITS RANGE OF MOTION BOTH UPPER EXTREMITIES FROM THE ELBOWS WRISTS AND DIGITS HOWEVER BILATERAL SHOULDERS WITH ROTATOR CUFF INJURIES. RIGHT SHOULDER WEAKER ON THE LEFT AND IS ABLE TO GET TO FLEXION APPROXIMATELY 90-95 DEGREES ACTIVE. PATIENT'S BIGGEST COMPLAINT TODAY IS SHORTNESS OF BREATH WHICH WAS NOTICEABLE EVEN WITH JUST TALKING DURING EVALUATION. RECOMMENDATIONS AND EDUCATION PROVIDED FOR ELEVATION OF LE'S, PACING, AND SITTING TO DO ACTIVITIES VERSUS STANDING. ASSESSMENT/POC: OCCUPATIONAL THERAPY EVALUATION COMPLETED TODAY WITH RECOMMENDATION FOR SKILLED OT TO ADDRESS ENDURANCE AND SAFETY WITH ADLS. WILL BENEFIT FROM 1 TIME A WEEK X4 TO MEET GOALS. MD OFFICE NOTIFIED OF OT EVAL AND PLAN OF CARE. PATIENT HAS A FOLLOW UP 03/05/25 WITH PCP. [code = OCCUPATIONAL THERAPIST TO EVALUATE PATIENT SECONDARY TO FUNCTIONAL DEFICITS/SAFETY CONCERNS IDENTIFIED DURING EVALUATION OCCUPATIONAL THERAPY TO ESTABLISH /UPGRADE/DOWNGRADE THERAPEUTIC EXERCISE PROGRAM AND INSTRUCT PATIENT/CAREGIVER ON EXERCISE PRECAUTIONS WITH WRITTEN HOME PROGRAM. MAY INCLUDE PROM, AAROM, AROM, RROM APPROPRIATE TO IMPROVE FUNCTIONAL STRENGTH AND/OR RANGE OF MOTION. OCCUPATIONAL THERAPY TO INSTRUCT PATIENT/CAREGIVER ON SAFE TRANSFER TECHNIQUES USING PROPER BODY MECHANICS AND EQUIPMENT TO ENHANCE PARTICIPATION IN ADLS. OCCUPATIONAL THERAPY TO ASSESS AND RECOMMEND HOME SAFETY ADAPTATIONS AND EDUCATE PATIENT /CAREGIVER ON FALL PREVENTION STRATEGIES TO ENHANCE PARTICIPATION IN ADLS. SUMMARY OF THERAPY EVAL/ASSESSMENT FINDINGS AND REASON(S) SKILLS OF A THERAPIST ARE INDICATED: OT EVALUATION (02/03/25) PATIENT IS AN 89 YO FEMALE REFERRED TO OT SERVICES AFTER RECENT HOSPITALIZATION DUE TO A MASTOIDITIS INFECTION. PATIENT STABILIZED AND DISCHARGED HOME. PAST MEDICAL HISTORY SIGNIFICANT FOR: CHF, H/O PE, CKD, HYPERTENSION, DIABETES, HYPERLIPIDEMIA, AND LEFT TOTAL KNEE REPLACEMEN. PRIOR LEVEL OF FUNCTION: PATIENT LIVES ALONE SINGLE FAMILY HOME ON FIRST FLOOR OF HER [place]. HAS 8 STEPS TO ENTER AND EXIT HOME, INDEPENDENT WITH ADLS, INCLUDING SHOWER LEVEL BATHIN, IADLS INCLUDING DRIVING, AND SHOPPING. HAS VERY SUPPORTIVE FAMILY INVOLVED. CURRENT LEVEL OF FUNCTION: PATIENT SITTING IN CHAIR WAITING FOR THERAPIST. PATIENT AMBULATES WITH USE OF ROLLING WALKER THROUGHOUT FIRST FLOOR OF HOME. SHE HAS INCREASED SHORTNESS OF BREATH OVER THE LAST FEW DAYS MAKING FOR NOT FEEL GREAT. 2-3 PLUS PITTING EDEMA BILATERAL LOWER EXTREMITIES. SHE REPORTS THAT PHYSICAL THERAPY WAS HERE EARLIER IN THE MORNING AND COMPARED WEIGHTS FROM START OF CARE TO NOW AND HAS HAD A 10 POUND WEIGHT GAIN IN 7 DAYS. PATIENT DID RESTART LASIX FROM PCP APPOINTMENT LAST TUESDAY 01/30. SHE OFFERS NO COMPLAINTS OF PAIN DURING SESSION. RECOMMENDATIONS FOR SHOWER STALL INCLUDE GRAB BARS OR HANDHELD SHOWERHEAD AND USING HER SHOWER CHAIR FOR THE BUILT-IN SEAT OF THE SHOWER STALL. EXTENDED FAMILY AND CHILDREN ARE PROVIDING MEALS TO PATIENT AT THIS TIME BRINGING THEM TO HER ON ROTATION. SON AND [id number] ARE PROVIDING TRANSPORTATION TO MD APPOINTMENTS. SHE HAS WITHIN FUNCTIONAL LIMITS RANGE OF MOTION BOTH UPPER EXTREMITIES FROM THE ELBOWS WRISTS AND DIGITS HOWEVER BILATERAL SHOULDERS WITH ROTATOR CUFF INJURIES. RIGHT SHOULDER WEAKER ON THE LEFT AND IS ABLE TO GET TO FLEXION APPROXIMATELY 90-95 DEGREES ACTIVE. PATIENT'S BIGGEST COMPLAINT TODAY IS SHORTNESS OF BREATH WHICH WAS NOTICEABLE EVEN WITH JUST TALKING DURING EVALUATION. RECOMMENDATIONS AND EDUCATION PROVIDED FOR ELEVATION OF LE'S, PACING, AND SITTING TO DO ACTIVITIES VERSUS STANDING. ASSESSMENT/POC: OCCUPATIONAL THERAPY EVALUATION COMPLETED TODAY WITH RECOMMENDATION FOR SKILLED OT TO ADDRESS ENDURANCE AND SAFETY WITH ADLS. WILL BENEFIT FROM 1 TIME A WEEK X4 TO MEET GOALS. MD OFFICE NOTIFIED OF OT EVAL AND PLAN OF CARE. PATIENT HAS A FOLLOW UP 03/05/25 WITH PCP.] Goal Patient Goal - F EEDBACK TO MY PRIOR FUNCTIONING INDEPENDENCE Goal Provider Goal - A PLAN OF CARE WILL BE ESTABLISHED THAT MEETS PATIENT'S FPC NEEDS AND INCLUDES PATIENT GOAL FOR HOME HEALTH. Goal Provider Goal - PATIENT / CAREGIVER WILL VERBALIZE UNDERSTANDING OF EFFECTS OF URINARY INCONTINENCE BY THE END OF THE CERTIFICATION PERIOD. Goal Provider Goal - PATIENT/CAREGIVER WILL VERBALIZE/DEMONSTRATE MANAGEMENT OF CARDIAC DISEASE PROCESS AND EXACERBATIONS WILL BE IDENTIFIED AND PROMPTLY REPORTED THROUGHOUT THE CERTIFICATION PERIOD. Goal Provider Goal - PATIENT/CAREGIVER WILL VERBALIZE UNDERSTANDING OF GENITOURINARY DISEASE PROCESS, AND EXACERBATIONS OF GENITOURINARY DISEASE WILL BE PROMPTLY IDENTIFIED FOR EARLY INTERVENTION THROUGHOUT THE CERTIFICATION PERIOD. Goal Provider Goal - OCCUPATIONAL THERAPY EVALUATION TO BE COMPLETED WITH RECOMMENDATIONS AND WRITTEN PLAN OF TREATMENT ESTABLISHED FOR THE PHYSICIANS SIGNATURE. Goal Provider Goal - PATIENT/CAREGIVER WILL VERBALIZE/DEMONSTRATE UNDERSTANDING OF S/S OF INFECTION AND INFECTION CONTROL MEASURES. SIGNS AND SYMPTOMS OF INFECTION WILL BE IDENTIFIED AND PHYSICIAN NOTIFIED FOR PROMPT INTERVENTION THROUGHOUT THE CERTIFICATION PERIOD. Goal Provider Goal - A PHYSICAL THERAPY EVALUATION TO BE COMPLETED WITH RECOMMENDATIONS AND/OR WRITTEN PLAN OF TREATMENT ESTABLISHED FOR PHYSICIANS SIGNATURE. Goal Provider Goal - PATIENT/CAREGIVER WILL VERBALIZE [...] END OF EPISODE. Goal Provider Goal - PATIENT WILL HAVE [...] THE CERTIFICATION PERIOD. Goal Provider Goal - PHYSICAL THERAPY EVALUATION TO BE COMPLETED WITH RECOMMENDATIONS AND/OR WRITTEN TREATMENT PLAN OF CARE ESTABLISHED FOR THE PHYSICIANS SIGNATURE PATIENT/CAREGIVER WILL PERFORM THERAPEUTIC EXERCISE/S AND DEMONSTRATE PARTICIPATION IN A HOME PROGRAM. PATIENT/CAREGIVER WILL DEMONSTRATE SAFE TRANSFERS USING APPROPRIATE ASSISTIVE DEVICE, BODY MECHANICS AND EQUIPMENT. PATIENT/CAREGIVER WILL DEMONSTRATE IMPROVED GAIT TECHNIQUES TO MINIMIZE RISK OF INJURY. PATIENT/CAREGIVER WILL DEMONSTRATE/VERBALIZE UNDERSTANDING OF RECOMMENDATIONS TO INCREASE SAFETY IN THE HOME AND FALL PREVENTION. PATIENT/CAREGIVER WILL DEMONSTRATE IMPROVED BALANCE AND REDUCE THE RISK OF FALLS AND INJURY. Goal Provider Goal - OCCUPATIONAL THERAPIST TO EVALUATE PATIENT SECONDARY TO FUNCTIONAL DEFICITS/SAFETY CONCERNS IDENTIFIED DURING EVALUATION. PATIENT/CAREGIVER WILL PERFORM THERAPEUTIC EXERCISE/S AND DEMONSTRATE PARTICIPATION IN A HOME PROGRAM. PATIENT/CAREGIVER WILL DEMONSTRATE SAFE TRANSFERS USING APPROPRIATE ASSISTIVE DEVICE, BODY MECHANICS AND EQUIPMENT. CAREGIVER/PATIENT WILL DEMONSTRATE/VERBALIZE UNDERSTANDING OF RECOMMENDATIONS TO INCREASE SAFETY IN THE HOME AND FALL PREVENTION. Progress Notes Progress Notes <paragraph>[Visit Date: 2024 by CYNTHIA GAITAN RN]:</paragraph><paragraph>1. ABNORMAL FINDINGS/SIGNIFICANT CHANGES VS WDL 2. CARE COORDINATION DETAILS NONE 3. SKILLED PROCEDURE PERFORMED THIS VISIT MEDICATION REVIEW, AND TEACHING AND ASSESSMENT AND BG TAKEN BECAUSE CLIENT HAD FORGOTTEN 4. NEXT PHYSICIAN/PROVIDER APPT 03/04/25 5. PLAN/FOLLOW-UP NEEDED FOR NEXT VISIT TEACHING REINFORCEMENT ON MEDICATION AND SAFETY WITH UTILIZING THE WALKER AT ALL TIMES, ASSESSMENT AND MEDICATION REVIEW ADDRESS ABOVE APPROPRIATE IN NARRATIVE BELOW: CLIENT IS A VERY PLEASANT LADY WITH A BEAUTIFUL HOME. CLIENT HOME DOES REEK OF ANIMAL URINE. CLIENT IS AO X4 AND ABLE TO MAKE NEEDS KNOWN. CLIENT HAD NOT TAKEN HER BLOOD GLUCOSE FOR THIS MORNING SO I OFFERED TO TAKE IT FOR HER, WHICH SHE ALLOWED. SHE STATED SHE HAD FORGOTTEN TO TAKE IT EARLIER. CLIENT DENIES ANY S/S OF INFECTION, CHEST PAINS, DIZZINESS, PAIN OR SOB. CLIENT'S LUNGS ARE CLEAR TO AUSCULTATION AND BOWEL SOUNDS AUDIBLE IN ALL QUADRANTS. CLIENT DOES COMPLAIN OF CONSTIPATION WHICH IS NORMAL FOR HER. SHE DOES TAKE MIRALAX FOR RELIEF. CLIENT SKIN IS WARM DRY AND INTACT WITHOUT EDEMA. CLIENT INSTRUCTED TO CONTACT NERY JIMENEZ 08/05 WITH ANY ISSUES OR HEALTH CARE CONCERNS. CLIENT ACKNOWLEDGES UNDERSTANDING OF ALL.</paragraph> Encounters Start Date/Time End Date/Time Encounter Type Admission Type Attending Clinicians Care Facility Care Department Encounter ID Discharge Date Discharge Status Discharge Condition Discharge Reason Percent Goals Met 2025-01-25 00:00:00 2025-03-25 00:00:00 Outpatient NEW ADMISSION CYNTHIA GAITAN [facility] [id number] 34.09
--- OUTSIDE RECORDS SUMMARY | 2025-02-21 13:37 | XMS_ITS | Clinical Summary ---
Author Organization [facility] Address [address] [place] [address] Care Team Providers Care Motorsports Technician Name Role Phone Unavailable Primary Care Provider Unavailabl e Allergies Active Allergy Reactions Criticality Noted Date Comments Clams Unknown/Patient and Family Unable to Define Medium 01/22/2025 Colchicine Unknown/Patient and Family Unable to Define Medium 01/22/2025 Ibuprofen Unknown/Patient and Family Unable to Define Medium 01/22/2025 [place] Unknown/Patient and Family Unable to Define Medium [...] hours) as needed for mild pain. Active metFORMIN (GLUCOPHAGE) 500 MG tablet 0.5 tablets (250 mg total) by Mouth/Oral Cavity route every 12 hours. 5 01/25/20 25 Discontinue d(Stop Taking at Discharge) amoxicillin (AMOXIL) 500 MG capsule TAKE 2 CAPSULES BY MOUTH TWICE DAILY FOR 10 DAYS 01/25/20 25 Discontinue d(Stop Taking at Discharge) amoxicillin-cla vulanate (AUGMENTIN) 500-125 MG per tabletIndicatio ns:Mastoiditis Take 1 tablet by mouth 2 times a day. 42 tablet 02/15/20 25 Active Problems Problem Noted Date Diagnosed Date [...] 01/24/2025 Orders Only [facility] [address] [place] [address] Lissy Burgess DO Mastoiditis 01/22/2025 9:39 AM EDT - 01/24/2025 12:21 PM EDT Hospital Encounter [facility] [address] [place] [address] Angelic Gross MD Sheth, MD Jenifer Montiel Lindsay, DO Mastoiditis (Primary Dx) Discharge Disposition: Home with Health Care Services 01/22/2025 7:25 AM EDT Ancillary Procedure [facility] Radiology [address] [place] [address] Provider, File Room 01/22/2025 7:20 AM EDT Ancillary Procedure [facility] Radiology [address] [place] [address] Provider, File Room 01/22/2025 Travel from Last 3 Months Social History Tobacco Use Types Packs/Day Years Used Date Smoking Tobacco: Never Assessed [facility] Utilities Answer Date Recorded In [...] time in the past 12 m [facility], were you homeless or living in a [facility] (including now)? No 01/23/2025 Comments Unknown Sex [...] Patients (1 - 1-dose 75+ series) 2011 COVID-19 Vaccine ( season) 2024 02/15/2022, 08/19/2021, 01/09/2021, Additional history exists Influenza Vaccine 05/16/2025 06/28/2022, , 07/12/2019, Additional history exists Hemoglobin A1C 07/25/2025 01/23/2025 [...] of7 resultswithin the time period is included. POC Glucose 134(H) 65 - 99 mg/dL [...] - 11.0 Thou/uL 01/24/2025 7:27 AM EDT [facility] Platelet Count 251 150 - 450 Thou/uL 01/24/2025 7:27 AM EDT [facility] Hemoglobin 9.6(L) 11.7 - 15.7 g/dL 01/24/2025 7:27 AM EDT [facility] Hematocrit 30.4(L) 35.0 - 47.0 % 01/24/2025 7:[address] [facility] Red Blood Cell Count 3.11(L) 4.00 - 5.40 Mil/uL 01/24/2025 7:27 [address] [facility] MCV 98 80 - 100 fL 01/24/2025 7:27 AM [facility] MCH 30.9 27.0 - 31.0 pg 01/24/2025 7:27 AM [facility] MCHC 31.6 30.0 - 36.0 g/dL 01/24/2025 7:27 AM [facility] RDW 14.2 11.5 - 14.5 % 01/24/2025 7:27 AM [facility] MPV 10.8 7.5 - 12.5 fL 01/24/2025 7:27 AM [facility] Blood Blood specimen / Unknown 01/24/2025 6:59 AM EDT 01/24/2025 7:20 AM EDT Lissy Shi DO LAB BLOOD ORDERABLES [place] [address], [address] [address] * (ABNORMAL) BASIC METABOLIC PANEL (01/24/2025 6:59 AM EDT) Only the most recent of3 resultswithin the time period is included. Glucose 133(H) 65 - 99 mg/dL 01/24/2025 8:01 AM [facility] Comment:Fasting: <100 mg/dL, Non-Fasting: <200 mg/dL (ADA 2005) Blood Urea Nitrogen (BUN) 34(H) 8 - 21 mg/dL 01/24/2025 8:01 AM [facility] Creatinine 2.2(H) 0.4 - 1.1 mg/dL 01/24/2025 8:01 AM [facility] eGFR 21(L) >59 01/24/2025 8:01 AM [facility] Comment:CKD-EPI (2020) in mL /min/1.73 sq meters. Sodium 138 136 - 145 mmol/L 01/24/2025 8:01 AM EDT [facility] Potassium 3.7 3.4 - 5.3 mmol/L 01/24/2025 8:01 AM [facility] Chloride 103 98 - 107 mmol/L 01/24/2025 8:01 AM [facility] CO2 24 22 - 33 mmol/L 01/24/2025 8:01 AM [facility] Anion Gap 11 7 - 17 01/24/2025 8:01 AM [facility] Calcium 9.1 8.7 - 10.5 mg/dL 01/24/2025 8:01 AM [facility] BUN/Creatinine Ratio 15 10.0 - 25.0 Ratio 01/24/2025 8:01 AM [facility] Blood Blood specimen / Unknown 01/24/2025 6:59 AM EDT 01/24/2025 7:20 AM EDT Lissy Burgess DO LAB BLOOD ORDERABLES Final Resul t Performing Organization Address City/State/[facility] [place] [address], [place] [address] * (ABNORMAL) Hemoglobin A1c with Estimated Average Glucose (01/23/2025 7:40 AM EDT) Hemoglobin A1C 6.1(H) <5.7 % 01/23/2025 8:58 AM [facility] Comment: A1c% ? Interpretation 5.7 - 6.0 ?Increase risk of diabetes 6.1 - 6.4 ?Higher risk of diabetes > or = 6.5 ?? Consistent with diabetes Diabetes Care, 33(Supp 1):S1-S61, 2010 Estimated Average Glucose 128 mg/dL 01/23/2025 8:58 AM EDT [facility] Blood Blood specimen / Unknown 01/23/2025 7:40 AM EDT 01/23/2025 8:00 AM EDT Audrey Simmons MD LAB BLOOD ORDERABLES Final Result [facility] [address] [place] [address], [facility] [address] [place] [address] * (ABNORMAL) Complete Blood Count, with Differential (01/23/2025 7:40 AM EDT) Only the most recent of2 resultswithin the time period is included. White Blood Cell Count 20.6(H) 4.0 - 11.0 Thou/uL 01/23/2025 8:19 AM [facility] Platelet Count 267 150 - 450 Thou/uL 01/23/2025 8:19 AM [facility] Hemoglobin 10.5(L) 11.7 - 15.7 g/dL 01/23/2025 8:19 AM [facility] Hematocrit 32.7(L) 35.0 - 47.0 % 01/23/2025 8:19 AM [facility] Red Blood Cell Count 3.35(L) 4.00 - 5.40 Mil/uL 01/23/2025 8:19 AM [facility] MCV 98 80 - 100 fL 01/23/2025 8:19 AM [facility] MCH 31.3(H) 27.0 - 31.0 pg 01/23/2025 8:19 AM [facility] MCHC 32.1 30.0 - 36.0 g/dL 01/23/2025 8:19 AM [facility] RDW 14.0 11.5 - 14.5 % 01/23/2025 8:19 AM [facility] MPV 10.8 7.5 - 12.5 fL 01/23/2025 8:19 AM [facility] Neutrophils Auto 76.0 % 01/24/20 8:19 AM [facility] Immature Granulocytes 0.7 % 01/23/2025 8:19 AM [facility] Lymphocytes Auto 14.7 % 01/24/20 8:19 AM [facility] Monocytes Auto 8.2 % 01/23/2025 8:19 AM [facility] Eosinophils Auto 0.2 % 01/24/20 8:19 AM [facility] Basophils Auto 0.2 % 01/23/2025 8:19 AM EDT [facility] Abs Neutrophils Auto 15.61(H) 2.00 - 7.50 Thou/uL 01/23/2025 8:19 AM EDT [facility] Abs Immature Granulocytes 0.15(H) 0.00 - 0.10 Thou/uL 01/23/2025 8:19 AM EDT [facility] Abs Lymphocytes Auto 3.02 1.50 - 4.50 Thou/uL 01/23/2025 8:19 AM EDT [facility] Abs Monocytes Auto 1.68(H) 0.20 - 1.50 Thou/uL 01/23/2025 8:19 AM EDT [facility] Abs Eosinophils Auto 0.05 0.00 - 0.70 Thou/uL 01/23/2025 8:19 AM EDT [facility] Abs Basophils Auto 0.05 0.00 - 0.20 Thou/uL 01/23/2025 8:19 AM T [facility] Blood Blood specimen / Unknown 01/23/2025 7:40 AM EDT 01/23/2025 8:00 AM EDT Audrey Simmons MD LAB BLOOD ORDERABLES Final Result Performing Organization Address [facility] [place] [address], [place] [address] * (ABNORMAL) High Sensitivity Troponin T (01/22/2025 1:30 PM EDT) Only the most recent of2 resultswithin the time period is included. High Sensitivity Troponin T 28(H) <15 ng/L 01/22/2025 2:17 PM EDT [facility] Delta (Change) 1 <3 01/22/2025 2:17 PM EDT [facility] Comment:Increased 01/22/2025 1:30 PM EDT 01/22/2025 1:36 PM EDT Alexander Cooley PA-C LAB BLOOD ORDERABLES F inal Result [place] [address] [place] [address], [facility] [address] [place] [address] * CTA Chest for P.E. (01/22/2025 1:20 [...] Alexander Cooley PA-C IM CT ORDERABLES Kerrie shipley Result * ECG 12 lead (01/22/2025 12:24 PM EDT) Ventricular rate 65 BPM EKG [facility] Atrial rate [address] [facility] P-R interval 208 ms EKG [facility] QRS duration 80 ms EKG [facility] Q-T interval 414 ms EKG [facility] QTC calculation (Bazett) 431 ms EKG [facility] P axis 79 degrees EKG [facility] R axis 13 degrees EKG [facility] T axis 29 degrees EKG [facility] 01/22/2025 12:2 4 PM EDT Narrative EKG [facility] - 01/22/2025 5:30 PM EDT Normal sinus rhythm Normal ECG No previous ECGs available Confirmed by MD Elizondo Kevin ([id number]) on 01/22/2025 5:30:50 PM Procedure Note Dariel Elizondo MD - 01/22/2025 Normal sinus rhythm Normal ECG No previous ECGs available Confirmed by MD Elizondo Kevin ([id number]) on 01/22/2025 5:30:50 PM Alexander Cooley PA-C ECG ORDERABLES Final Result Performing Organization Address City/[facility]/ZIP Co de [facility] * (ABNORMAL) proBNP, N-terminal (BNP) (01/22/2025 12:10 PM EDT) proBNP, N-terminal 2,546(H) <450 pg/mL 01/22/2025 1:25 PM EDT [facility] Blood Blood specimen / Unknown 01/22/2025 12:10 PM EDT 01/22/2025 12:47 PM EDT Alexander Cooley PA-C LAB BLOOD ORDERABLES F inal Result Performing Organization Address [facility] Co de Phone Number [address] [address], [address] [address] * (ABNORMAL) INR (01/22/2025 12:10 PM EDT) Anticoagulant NO ANTI COAGULANT MEDS 01/22/2025 11:42 AM EDT [facility] Prothrombin Time (PT) 13.6(H) 10.0 - 13.5 seconds 01/22/2025 1:31 PM EDT [facility] INR 1.2 01/22/2025 1:31 PM EDT [facility] Comment:INR Therapeutic Rang es: Standard dose anticoagulant 2.0 to 3.0, High dose anticoagulant 2.5-3.5. Blood Blood specimen / Unknown 01/22/2025 12:10 PM EDT 01/22/2025 12:47 PM EDT us Alexander Cooley PA-C LAB BLOOD ORDERABLES F inal Result [address] [address], [address] [address] * XR Chest 1 view-Portable (01/22/2025 12:05 [...] PART A & B BLUE CROSS OUT [facility] BLUE CROSS OUT OF [facility] MEDICARE PART A & B Advance Directives * DNR (Latest Code Status on File) Date Activated Date Inactivated Comments 01/22/2025 2:18 PM Question Answer Comments Decision thoroughly discussed with: Patient
--- OUTSIDE RECORDS SUMMARY | 2025-02-21 13:37 | XMS_ITS | Clinical Summary ---
Author Organization Unknown Care Team Providers Care Alley Tender Name Role Phone MADIHA AQUINO, GREG Unavailable Unavailable SHAKIRA GANNON OT Unavailable [employer]av[employer] ([facility]) [facility] - PT, SAROJ Unavailable Unavailable MOLINA ([facility]) [facility] - CHAIR INSPECTOR, CASEY Unavailable Un available ARNIE RNCYNTHIA Unavailable Unavailable Payers Payer Name Policy Type Policy Number Effective Date Expira tion Date MEDICARE - [facility] [id number] [facility] - ORDER DRIVEN [id number] Problems Condition Name Condition Details Condition Category [...] 01-24 00:00: 00 01-25 00:00 :00 No [id number] Per instruc tions Per instructio ns (route: oral) Med Classific ation: Anti-Infe ctive Agents amoxicillin 500 mg capsule 01-16 00:00: 00 01-25 00:00 :00 No [id number] Unavailable Per instruc tions TWICE DAILY FOR 10 DAYS Per instructio ns TWICE DAILY FOR 10 DAYS (route: oral) Med Classific ation: Anti-Infe ctive Agents atorvastati n 10 mg tablet 01-15 00:00: 00 01-25 00:00 :00 No [id number] Per instruc tions AT BEDTIME Per instructio ns AT BEDTIME (route: oral) Med Classific ation: Cardiovas cular Therapy Agents metoprolol succinate ER 50 mg tablet,exte nded release 24 hr 01-15 00:00: 00 01-25 00:00 :00 No [id number] Per instruc tions ONCE DAILY Per instructio ns ONCE DAILY (route: oral) Med Classific ation: Cardiovas cular Therapy Agents acetaminoph en 500 mg tablet 01-25 00:00: 00 Yes [id number] 2 tablet EVERY 8 HOURS 2 tablet EVERY 8 HOURS (route: oral) Med Classific ation: Analgesic , Anti-infl ammatory or Antipyret ic allopurinol 100 mg tablet 01-25 00:00: 00 Yes [id number] 1 tablet DAILY 1 tablet DAILY (route: oral) Med Classific ation: Gout and Hyperuric emia Therapy amlodipine 2.5 mg tablet 01-25 00:00: 00 Yes [id number] 1 tablet DAILY 1 tablet DAILY (route: oral) Med Classific ation: Cardiovas cular Therapy Agents atorvastati n 10 mg tablet 01-25 00:00: 00 Yes [id number] 1 tablet BEDTIME 1 tablet BEDTIME (route: oral) Med Classific ation: Cardiovas cular Therapy Agents Augmentin 500 mg-125 mg tablet 01-25 00:00: 00 01-31 23:59 :00 No [id number] 1 tablet 2 TIMES DAILY 1 tablet 2 TIMES DAILY (route: oral) Med Classific ation: Anti-Infe ctive Agents isosorbide mononitrate ER 30 mg tablet,exte nded release 24 hr 01-25 00:00: 00 Yes [id number] 1 tablet DAILY 1 tablet DAILY (route: oral) Med Classific ation: Cardiovas cular Therapy Agents metoprolol succinate ER 50 mg tablet,exte nded release 24 hr 01-25 00:00: 00 Yes [id number] 1 tablet DAILY 1 tablet DAILY (route: oral) Med Classific ation: Cardiovas cular Therapy Agents Protonix 40 mg tablet,teresa yed release 01-25 00:00: 00 Yes [id number] 1 tablet DAILY 1 tablet DAILY (route: [...] MAINTAIN SITUATIONAL AWARENESS AND WILL NOTIFY CLINICAL BOTTLE HOUSE QUALITY CONTROL TECHNICIAN AND PHYSICIAN/PROVIDER WITH ANY CHANGE IN CONDITION. [code = SKILLED NURSE TO PERFORM ENVIRONMENTAL SAFETY RISK ASSESSMENT AND FALL RISK ASSESSMENT AND PROVIDE INSTRUCTION TO IMPLEMENT ENVIRONMENTAL SAFETY AND FALL PREVENTION STRATEGIES THROUGHOUT THE CERTIFICATION PERIOD. SKILLED NURSE WILL MAINTAIN SITUATIONAL AWARENESS AND WILL NOTIFY CLINICAL BOTTLE HOUSE QUALITY CONTROL TECHNICIAN AND PHYSICIAN/PROVIDER WITH ANY CHANGE IN CONDITION.] [...] THEM TO HER ON ROTATION. SON AND [id number] ARE PROVIDING TRANSPORTATION TO MD APPOINTMENTS. SHE [...] THEM TO HER ON ROTATION. SON AND [id number] ARE PROVIDING TRANSPORTATION TO MD APPOINTMENTS. SHE [...] 2025-03-25 00:00:00 Outpatient NEW ADMISSION CYNTHIA GAITAN [facility] [id number] 34.09
[2025-02-21 17:44] LABS: MANUAL DIFF FLAG NO
[2025-02-21 17:49] LABS: Basophils Absolute Auto 0.1 X10*3/uL (0.0-0.2); Basophils Percent Auto 0.5 % (0-2); Eosinophils Absolute Auto 0.3 X10*3/uL (0.0-0.4); Eosinophils Percent Auto 3.1 % (0-4); Hematocrit 35.7 % (37.0-47.0); Hemoglobin 11.2 g/dl (12.0-16.0); Lymphocytes Absolute Auto 2.9 X10*3/uL (1.2-4.9); Mean Corpuscular HGB Conc 31.4 g/dl (31.0-35.0); Mean Corpuscular Hemoglobin 30.4 pg (27.0-33.0); Mean Platelet Volume 10.7 fL (9.4-12.3); Monocytes Absolute Auto 0.7 X10*3/uL (0.1-1.2); Monocytes Percent Auto 7.3 % (2-11); Neutrophils Absolute Auto 6.1 x10*3/uL (2.0-8.3); Neutrophils Percent Auto 60.1 % (45-73); Platelet Count 355 X10*3/uL (160-400); Red Blood Count 3.68 X10*6/uL (4.20-5.50); Red Cell Distribution Width 14.2 % (11.0-16.0); White Blood Count 10.2 X10*3/uL (4.8-10.8)
[2025-02-21 18:15] LABS: Parathyroid Hormone Intact 101.3 pg/mL (8.7-77.1)
[2025-02-21 18:38] LABS: Alanine Aminotransferase 6 U/L (0-31); Albumin Level 3.7 g/dL (3.5-5.0); Alkaline Phosphatase 107 U/L (39-117); Anion Gap 15 (12-20); Aspartate Amino Transferase 16 U/L (5-31); Bilirubin Total 0.6 mg/dL (0.0-1.0); Blood Urea Nitrogen 15 mg/dL (9-16); Calcium 9.4 mg/dL (8.4-10.2); Carbon Dioxide 27 mmol/L (22-29); Chloride 104 mmol/L (96-108); Estimated Glomerular Filt Rate 35; Glucose Random 118 mg/dL (60-115); Potassium 3.8 mmol/L (3.3-5.1); Sodium 142 mmol/L (135-145); Total Protein 6.9 g/dL (6.5-8.0)
[2025-02-21 18:54] LABS: Vitamin D 25-OH Total 31.1 ng/mL (>30)
[2025-02-27 08:44] LABS: IgA 293 mg/dL (70-320); IgG 1106 mg/dL (600-1540); IgM 134 mg/dL (50-300)
== END 2025-02-21 13:34 | disposition home or self-care (01) ==
LOC: HO.WFDLDS 13:33
PROVIDERS: Referring Provider Internal Medicine Nephrology; Visit Provider Family Medicine
DX: Z00.00 Encounter for general adult medical examination without abnormal findings (principal); N18.31 Chronic kidney disease, stage 3a
CPT/HCPCS: 36415; 80053; 82306; 82784; 83970; 85025; 86334

== ENCOUNTER 2025-02-27 13:44 | Outpatient (AMB) | payer MEDICARE, SELFPAY ==
--- NOTE | 2025-02-27 13:47 | HO.NEPHOV ---
Vital Signs 02/27/25 13:58 Height 5 ft 3 in Weight 166 lb 2 oz BMI 29.4 BP 120/60 Blood Pressure Location Lt brachial Position Sitting Pulse 68 Pulse Source Pulse Oximeter Pulse Oximetry (%) 97 Oxygen Delivery Method Room Air Intake Visit Reasons: 6mon follow up w/labs-Conf Production Proofreader Required: No Accompanied by: Daughter Allergies clams Allergy (Intermediate, Verified 02/27/25 13:58) Facial Swelling walnut Allergy (Intermediate, Verified 02/27/25 13:58) Hives ibuprofen Allergy (Unknown, Verified 02/27/25 13:58) Hives colchicine Adverse Reaction (Intermediate, Verified 02/27/25 13:58) gi upset HPI Comments Details: Lakshmi was seen for fluctuant serum creatinine on a backdrop of CKD. She is 89 years of age who has been in good health. She is a diabetic and does not have any retinopathy, significant proteinuria or neuropathy. She denies any carotid artery disease, CVA, GURPREET, PAD, CAD or CHF. She has chronic edema. She has H/O PE. She does not take any excessive nonsteroidal anti-inflammatories. She has no history of dry eyes and dry mouth or generalized joint pains. She does not get recurrent urinary infections. She tries to maintain good hydration. She has no hearing issues, sinusitis, epistaxis, photosensitivity, urinary symptoms, history of renal calculus, flank pain, new bone pain. She has no history of hypercalcemia. She recently had left ear infection and was on antibiotics. [facility] Medical History Essential hypertension Diabetes type 2, controlled Surgical History History of surgery History of left knee replacement History of arthroscopy of right knee History of hysterectomy Family History Father No problems noted. Mother No problems noted. Son Multiple sclerosis Daughter Rheumatoid arthritis Hx of cancer of lung Social History Household Members: None Housing: House Alcohol intake: never Patient Tobacco Use Status: Never used Tobacco e-Cigarette/Vaping Use: Never Used Second Hand Smoke Exposure: No service: No Current occupational status: retired Current occupational exposures/hazards: No Cognitive needs: No Hearing needs: No Vision needs: No Review of Systems Const All systems reviewed & are unremarkable except as noted in HPI and below Physical Exam Const General: comfortable and no acute distress Orientation/consciousness: patient oriented x3 HEENT Head: Yes normocephalic Mouth: Normal oral and palatal mucosa present Eyes EOM: EOMs intact bilaterally Neck Neck: Yes supple Resp Auscultation: clear to auscultation bilaterally Cardio Jugular venous distension: no JVD Rate: regular rate GI Palpation (GI): Soft to palpation Auscultation: normal bowel sounds General: Yes no CVA tenderness Back/Spine/Pelvis Back: no CVA tenderness Skin General skin exam: no rashes or lesions noted Neuro General: patient oriented x3 and moves all extremities Extrem General: Yes no pedal edema Results Reviewed Nephrology Results: Hgb 11.2 g/dl (12.0-16.0) L 02/21/25 WBC 10.2 X10*3/uL (4.8-10.8) 02/21/25 Plt Count 355 X10*3/uL (160-400) 02/21/25 Sodium 142 mmol/L (135-145) 02/21/25 Potassium 3.8 mmol/L (3.3-5.1) 02/21/25 Chloride 104 mmol/L (96-108) 02/21/25 Carbon Dioxide 27 mmol/L (22-29) 02/21/25 BUN 15 mg/dL (9-16) 02/21/25 Creatinine 1.41 mg/dL (0.5-1.4) H 02/21/25 Calcium 9.4 mg/dL (8.4-10.2) 02/21/25 PTH Intact 101.3 pg/mL (8.7-77.1) H 02/21/25 Urine Creatinine 118.01 mg/dL 01/30/25 Assessment & Plan Assessment & Plan (1) CKD stage 3a, GFR 45-59 ml/min: Code(s): N18.31 - Chronic kidney disease, stage 3a Category: Medical (2) Essential hypertension: Code(s): I10 - Essential (primary) hypertension Category: Medical Plan Lakshmi has CKD 3 at baseline. Her renal functions are stable. She is not known to have any significant proteinuria. She does not take any excessive nonsteroidal inflammatories. She denies any renal calculi , microscopic hematuria or pedal edema. She denied retinopathy. She has good urine output and there is no reason to suspect any obstructive uropathy. I asked her to cut down sodium in the diet and maintain good hydration. I have ordered repeat renal functions. All questions answered Orders: Orders Creatinine 6 Months I10 - Essential (primary) hypertension, N18.31 - Chronic kidney disease, stage 3a Blood Urea Nitrogen 6 Months I10 - Essential (primary) hypertension, N18.31 - Chronic kidney disease, stage 3a Electrolytes 6 Months I10 - Essential (primary) hypertension, N18.31 - Chronic kidney disease, stage 3a Coding Level of Care Code Est Pt Level 4 (41633) Diagnoses CKD stage 3a, GFR 45-59 ml/min N18.31 Essential hypertension I10
[2025-02-27 13:58] VITALS: BP 120/60; PULSE 68; O2SAT 97; BMI 29.4
--- OUTSIDE RECORDS SUMMARY | 2025-02-27 14:23 | XMS_ITS | Clinical Summary ---
Author Organization [facility] Address [address] [place] [address] Care Team Providers Care Minister Of Religion Name Role Phone Unavailable Primary Care Provider Unavailabl e Allergies Active Allergy Reactions Criticality Noted Date Comments Clams Unknown/Patient and Family Unable to Define Medium 01/22/2025 Colchicine Unknown/Patient and Family Unable to Define Medium 01/22/2025 Ibuprofen Unknown/Patient and Family Unable to Define Medium 01/22/2025 Savannah Unknown/Patient and Family Unable to Define Medium [...] day. 42 tablet 5 02/15/20 25 Active Problems Problem Noted Date [...] Department Care Team Description 01/24/2025 Orders Only [facility] [address] [place] [address] Lissy Burgess DO Mastoiditis 01/22/2025 9:39 AM EDT - 01/24/2025 12:21 PM EDT Hospital Encounter [facility] [address] [place] [address] Angelic Gross MD Sheth, MD Jenifer Montiel Lindsay, DO Mastoiditis (Primary Dx) Discharge Disposition: Home with Health Care Services 01/22/2025 7:25 AM EDT Ancillary Procedure [facility] [address] [place] [address] Provider, File Room 01/22/2025 7:20 AM EDT Ancillary Procedure [facility] [address] [place] [address] Provider, File Room 01/22/2025 Travel from Last 3 Months Social History Tobacco Use Types Packs/Day Years Used Date Smoking Tobacco: Never Assessed [facility] Utilities Answer Date Recorded In the [...] any time in the past 12 [facility], were you homeless or living in a [facility] (including now)? No 01/23/2025 Comments Unknown Sex [...] - in AM (01/24/2025 6:59 AM EDT) [facility] White Blood Cell Count 13.8(H) 4.0 - 11.0 Thou/uL 01/24/2025 7:27 AM [facility] Platelet Count 251 150 - 450 Thou/uL 01/24/2025 7:27 AM [facility] Hemoglobin 9.6(L) 11.7 - 15.7 g/dL 01/24/2025 7:27 AM [facility] Hematocrit 30.4(L) 35.0 - 47.0 % [...] 6:59 AM EDT 01/24/2025 7:20 AM EDT [facility] LAB BLOOD ORDERABLES [place] [address], [place] [address] * (ABNORMAL) BASIC METABOLIC PANEL (01/24/2025 6:59 [...] 136 - 145 mmol/L 01/24/2025 8:01 AM [facility] Potassium 3.7 3.4 - 5.3 mmol/L 01/24/2025 8:01 AM [facility] Chloride 103 98 - 107 mmol/L 01/24/2025 8:01 AM [facility] CO2 24 22 - 33 mmol/L 01/24/2025 8:01 AM [facility] Anion Gap 11 7 - 17 01/24/2025 8:01 AM EDT [facility] Calcium 9.1 8.7 - 10.5 mg/dL 01/24/2025 8:01 AM [facility] BUN/Creatinine Ratio 15 10.0 - 25.0 Ratio 01/24/2025 8:01 AM T [facility] Blood Blood specimen / Unknown 01/24/2025 6:59 AM EDT 01/24/2025 7:20 AM EDT Lissy Burgess DO LAB BLOOD ORDERABLES [place] [address], [place] [address] * (ABNORMAL) Hemoglobin A1c with Estimated Average Glucose (01/23/2025 7:40 AM EDT) Hemoglobin A1C 6.1(H) <5.7 % 01/23/2025 8:58 AM EDT [facility] Comment: A1c% ? Interpretation 5.7 - 6.0 ?Increase risk of diabetes 6.1 - 6.4 ?Higher risk of diabetes > or = 6.5 ?? Consistent with diabetes Diabetes Care, 33(Supp 1):S1-S61, 2009 Estimated Average Glucose 128 mg/dL 01/23/2025 8:58 AM EDT [facility] Blood Blood specimen / Unknown 01/23/2025 7:40 AM EDT 01/23/2025 8:00 AM EDT Audrey Simmons MD LAB BLOOD ORDERABLES Final Result Performing Organization Address City/[facility]/ZIP [place] [address], [place] [address] * (ABNORMAL) Complete Blood Count, with Differential [...] Basophils Auto 0.2 % 01/23/2025 8:19 AM [facility] Abs Neutrophils Auto 15.61(H) 2.00 - 7.50 Thou/uL 01/23/2025 8:19 AM [facility] Abs Immature Granulocytes 0.15(H) 0.00 - 0.10 Thou/uL 01/23/2025 8:19 AM [facility] Abs Lymphocytes Auto 3.02 1.50 - 4.50 Thou/uL 01/23/2025 8:19 AM EDT [facility] Abs Monocytes Auto 1.68(H) 0.20 - 1.50 Thou/uL 01/23/2025 8:19 AM EDT [facility] Abs Eosinophils Auto 0.05 0.00 - 0.70 Thou/uL 01/23/2025 8:19 AM EDT [facility] Abs Basophils Auto 0.05 0.00 - 0.20 Thou/uL 01/23/2025 8:19 AM EDT [facility] Blood Blood specimen / Unknown 01/23/2025 7:40 AM EDT 01/23/2025 8:00 AM EDT Audrey Simmons MD LAB BLOOD ORDERABLES Final Result Performing Organization Address [facility]/ZIP [place] [address], [place] [address] * (ABNORMAL) High Sensitivity Troponin T (01/22/2025 1:30 PM EDT) Only the most recent of2 resultswithin the time period is included. High Sensitivity Troponin T 28(H) <15 ng/L 01/22/2025 2:17 PM EDT [facility] Delta (Change) 1 <3 01/22/2025 2:17 PM EDT [facility] Comment:Increased 01/22/2025 1:30 PM EDT 01/22/2025 1:36 PM EDT Alexander Cooley PA-C LAB BLOOD ORDERABLES F inal Result Performing Organization Address City/[facility]/ZIP [place] [address], [place] [address] * CTA Chest for P.E. (01/22/2025 1:20 [...] Alexander Cooley PA-C IMG CT ORDERABLES Kerrie l Result * ECG 12 lead (01/22/2025 12:24 PM EDT) Ventricular rate 65 BPM EKG [facility] Atrial rate 65 BPM EKG [facility] P-R interval 208 ms EKG [facility] QRS duration 80 ms EKG [facility] Q-T interval 414 ms EKG [facility] QTC calculation (Bazett) 431 ms EKG [facility] P axis 79 degrees EKG [facility] R axis 13 degrees EKG [facility] T axis 29 degrees [facility] 01/22/2025 12:2 4 PM EDT Narrative EKG [facility] - 01/22/2025 5:30 PM EDT Normal sinus rhythm Normal ECG No previous ECGs available Confirmed by MD Elizondo Kevin ([id number]) on 01/22/2025 5:30:50 PM Procedure Note Dariel Elizondo MD - 01/22/2025 Normal sinus rhythm Normal ECG No previous ECGs available Confirmed by MD Elizondo Kevin ([id number]) on 01/22/2025 5:30:50 PM Alexander Cooley PA-C ECG ORDERABLES Final Result Performing Organization Address City/[facility]/ZIP Co de Phone Number EKG [facility] * (ABNORMAL) proBNP, N-terminal (BNP) (01/22/2025 12:10 PM EDT) proBNP, N-terminal 2,546(H) <450 pg/mL 01/22/2025 1:25 PM EDT [facility] Blood Blood specimen / Unknown 01/22/2025 12:10 PM EDT 01/22/2025 12:47 PM EDT [employer] PA-C LAB BLOOD ORDERABLES F inal Result Performing Organization Address [facility] de Phone Number [address] [address], [address] [address] * (ABNORMAL) INR (01/22/2025 12:10 PM EDT) [facility] Anticoagulant NO ANTI COAGULANT MEDS 01/22/2025 11:42 AM EDT [facility] Prothrombin Time (PT) 13.6(H) 10.0 - 13.5 seconds 01/22/2025 1:31 PM EDT [facility] INR 1.2 01/22/2025 1:31 PM EDT [facility] Comment:INR Therapeutic Rang es: Standard dose anticoagulant 2.0 to 3.0, High dose anticoagulant 2.5-3.5. Blood Blood specimen / Unknown 01/22/2025 12:10 PM EDT 01/22/2025 12:47 PM EDT [employer] PA-C LAB BLOOD ORDERABLES F inal Result Performing Organization Address [facility] Co de Phone Number [address] [address], [facility] [address] [place] [address] * XR Chest 1 view-Portable (01/22/2025 12:05 [...] prior studies available for direct comparison. Alexander WILL DIAGNOSTIC IMAGING ORDERABLES Final Result * CACHORRO Archive for reference only CT (01/22/2025 7:25 AM EDT) Only the most recent of2 resultswithin the time period is included. Narrative SYSTEMGENERATED, DOCUMENTATION - 01/22/2025 7:16 AM EDT This order has been auto-finalized and does not contain a result. File Room Provider IMG DIGITIZE FILMS Final Resu lt from Last 3 Months Insurance MEDICARE PART A & B BLUE CROSS OUT OF [facility] BLUE CROSS OUT OF [facility] MEDICARE PART A & B Advance Directives * DNR (Latest Code Status on File) Date Activated Date Inactivated Comments 01/22/2025 2:18 PM Question Answer Comments Decision thoroughly discussed with: Patient
--- OUTSIDE RECORDS SUMMARY | 2025-02-27 14:23 | XMS_ITS | Clinical Summary ---
Author Organization [facility] Address [address] [place] [address] Care Team Providers Care Intelligence Specialist Name Role Phone Unavailable Primary Care Provider [...] age to complete this topic Insurance Medicare [facility] Medicare [facility]
== END 2025-02-27 14:50 | disposition home or self-care (01) ==
LOC: HO.HKAS 13:44
PROVIDERS: PCP Family Medicine; Visit Provider Internal Medicine Nephrology
DX: N18.31 Chronic kidney disease, stage 3a (principal); I10 Essential (primary) hypertension
CPT/HCPCS: 99214

== ENCOUNTER → 2025-02-27 13:44 | Outpatient (BNVA) | payer MEDICARE, SELFPAY | PROVIDERS: PCP Family Medicine; Visit Provider Internal Medicine Nephrology | DX: I12.9 Hypertensive chronic kidney disease with stage 1 through stage 4 chronic kidney disease, or unspecified chronic kidney disease (principal); N18.31 Chronic kidney disease, stage 3a | CPT/HCPCS: 99212 ==

== ENCOUNTER 2025-03-04 13:54 | Outpatient (AMB) | payer MEDICARE, SELFPAY ==
--- NOTE | 2025-03-04 14:15 | A.OFFPC_ITS ---
Vital Signs 03/04/25 14:18 Height 5 ft 3 in Weight 163 lb 8 oz BMI 29.0 BP 126/66 Blood Pressure Location Lt brachial Position Sitting Respiration 12 Pulse 69 Pulse Source Pulse Oximeter Temp 97.6 F Temp Source Oral Pulse Oximetry (%) 97 Oxygen Delivery Method Room Air Intake Visit Reasons: HDF ~ Post hospital discharge FU Intake Note: Already had ED f/u at last ov. Following up on LE edema and DM. However, she does note some discomfort at ear still. Special Loan Officer Required: No Allergies clams Allergy (Intermediate, Verified 02/27/25 13:58) Facial Swelling walnut Allergy (Intermediate, Verified 02/27/25 13:58) Hives ibuprofen Allergy (Unknown, Verified 02/27/25 13:58) Hives Medication List - Last Reconciled 03/04/25 by Ray Forbes MD allopurinol TAKE 2 TABLETS (200mg) BY MOUTH ONCE DAILY amlodipine 2.5 mg PO DAILY 30 days atorvastatin 10 mg PO BEDTIME 90 days blood sugar diagnostic (FreeStyle Lite Strips) DX: E11.9, test blood sugar once a day, 90 days cane Cane, Daily As directed, 999 days. clotrimazole 1% 1 appl topical BID PRN diclofenac sodium 1% (Arthritis Pain (diclofenac)) 4 grams topical BID 30 days epinephrine (EpiPen 2-Nasir) 0.3 mg (0.3 mL) IM Q10M PRN 30 days furosemide 20 mg (1/2 x 40 mg) PO DAILY 90 days isosorbide mononitrate ER 30 mg PO DAILY lancets (FreeStyle Lancets) 1 gauge miscellaneous DAILY 90 days lancets (FreeStyle Lancets) As directed lidocaine HCl 4% (Aspercreme (lidocaine HCl)) 1 appl topical BID PRN 30 days metformin 250 mg (1/2 x 500 mg) PO BID 90 days metoprolol succinate ER 50 mg PO DAILY 90 days mupirocin 2% 1 appl topical BID 10 days pantoprazole 40 mg PO DAILY 90 days Tobacco use date assessed: 01/30/25 Dental Screening Dental Screen Date: 01/30/25 HPI HDF ~ Post hospital discharge FU HPI Details 89y/o female presents to f/u labs, diabe jigar, extremity edema. Had already talked about her hospital discharge visit last office visit. Ongoing mastoiditis of L side. Also reports ear discomfort. She does have some wax impaction. Pt reports a dry cough. She notes she feels unwell in general. A1c today 03/04/25 5.7%. She is on metformin 250mg b.i.d. She has started elevating her legs more for her LE edema and she has noticed improvements. [facility] Medical History Essential hypertension Diabetes type 2, controlled Surgical History History of surgery History of left knee replacement History of arthroscopy of right knee History of hysterectomy Family History Father No problems noted. Mother No problems noted. Son Multiple sclerosis Daughter Rheumatoid arthritis Hx of cancer of lung Social History Household Members: None Housing: House Alcohol intake: never Patient Tobacco Use Status: Never used Tobacco e-Cigarette/Vaping Use: Never Used Second Hand Smoke Exposure: No service: No Current occupational status: retired Current occupational exposures/hazards: No Cognitive needs: No Hearing needs: No Vision needs: No Questionnaire Thrive Questionnaire Date Thrive assessed: 12/19/24 I am a: Patient What is your living situation today?: I have a steady place to live Within the past 12 months, did the food you bought not last and you didn't have the money to get more?: Never true Within the past 12 months, did you worry whether your food would run out before you got money to buy more?: Never true Do you have trouble paying for medicines?: No Do you have trouble getting transportation to medical appointments?: No Do you have trouble paying your heating and electricity bill?: No Do you have trouble taking care of your child, family member or friend?: I choose not to answer this question Do you have trouble with day-to-day activities such as bathing, preparing meals, shopping, managing finances, etc.?: Yes Are you currently unemployed and looking for a job?: No Are you interested in more education?: No Please select the resources that you would like help with: None Currently or been in a relationship where the following occur: No concerns reported THRIVE Score: 0 CORNELIUS-7 AMB Questionnaire CORNELIUS-7 Date CORNELIUS - 7 assessed: 01/09/24 Source: Developed by Drs. Don Balderrama, Sakina Rodriguez, Reji Tse and colleagues, with an educational yaneli from [employer]. Review of Systems Const Denies chills, Denies fatigue, Denies fever(s), Denies headache(s) and Denies weakness ENT Denies dizziness and Denies headache(s) Card Denies dyspnea Resp Denies cough, Denies dyspnea, Denies wheezing and Denies other (shortness of breath) Musc Denies numbness and Denies tingling Neuro Denies dizziness, Denies headache(s), Denies numbness, Denies tingling and Denies weakness Psych Denies anxiety and Denies depression Endo Denies fatigue Aller/Immun Denies wheezing Physical exam (Primary Care) Vital Signs: Last Vital Signs Temp 97.6 F 03/04/25 14:18 Pulse 69 03/04/25 14:18 Resp 12 03/04/25 14:18 BP 126/66 03/04/25 14:18 Pulse Ox 97 03/04/25 14:18 Oxygen Delivery Method Room Air 03/04/25 14:18 BMI result Body Mass Index 29.0 Tobacco/Smoking Status: Tobacco use Status Tobacco use date assessed 01/30/25 03/04/25 14:21 Patient Tobacco Use Status Never used Tobacco 03/04/25 14:21 e-Cigarette/Vaping Use Never Used 03/04/25 14:21 Thrive Assessment: Date of Thrive Assessment Date Thrive assessed 12/19/24 03/04/25 14:21 Currently or been in a relationship where the following occur: No concerns reported Const General: well developed; No acute distress Nutritional Appearance: well nourished Orientation/consciousness: patient oriented x3 HENMT Head: Yes normocephalic and Yes atraumatic Eyes General: appearance normal, both eyes and all related structures Pupils: Equal, round and reactive pupils present EOM: EOMs intact bilaterally Resp Effort & Inspection: normal respiratory effort Auscultation: clear to auscultation bilaterally Cardio Rate: regular rate Rhythm: regular rhythm Heart sounds: S1 normal heart sound present, S2 normal heart sound present, no gallops, no murmurs and no rubs Neuro General: patient oriented x3 and gait normal Cranial nerves: Yes Equal, round and reactive pupils present Psych Affect: normal affect Coding Level of Care Code Est Pt Level 5 (85961) Diagnoses 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 disease, without long-term current use of insulin E11.22; N18.30 Chronic kidney disease stage: stage 3 (moderate) Diabetes mellitus complication detail: with chronic kidney disease Diabetes mellitus complication status: with kidney complications Diabetes mellitus terminal computer operator insulin use: without terminal computer operator use Essential hypertension I10 Lower extremity edema R60.0 Ear pain H92.09 Mastoiditis of left side H70.92 Cerumen impaction H61.20 Cough R05.9 Assessment & Plan Assessment & Plan (1) Diabetes type 2, controlled: Code(s): E11.9 - Type 2 diabetes mellitus without complications Category: Medical Qualifiers: Chronic kidney disease stage: stage 3 (moderate) Diabetes mellitus complication detail: with chronic kidney disease Diabetes mellitus complication status: with kidney complications Diabetes mellitus terminal computer operator insulin use: without intermediate use Qualified Code(s): E11.22 - Type 2 diabetes mellitus with diabetic chronic kidney disease; N18.30 - Chronic kidney disease, stage 3 unspecified Plan: A1c?5.7%.??Good?control.??Goal?is?7?% Continue?current?medication (2) Essential hypertension: Code(s): I10 - Essential (primary) hypertension Category: Medical Plan: Blood?pressure?is?controlled.??Goal?is?less?than?140/90 Continue?current?medications (3) Lower extremity edema: Code(s): R60.0 - Localized edema Category: Medical Plan: Ongoing?lower?extremity?edema?though?this?is?improved. She?is?not?able?to?put?on?and?take?off compression?stockings Avoid?salt?and?sodium Elevate?legs-she?has?started?elevating?legs?more?and?noted?some?improvements. Continue?furosemide?as?prescribed (4) Ear pain: Code(s): H92.09 - Otalgia, unspecified ear Category: Medical Plan: Recent?left-sided?Infectious?mastoiditis Still?has?some?ear?discomfort After?ear?lavage?for?cerumen?impaction: Erythema and scant clear fluid but no pus Given?recent?mastoid?air?cell?infection?however,?will?give?her?a?course?of?Augme ntin She?has?not?followed?up?with?ENT?yet?and?will?call?to?make?an?appointment. (5) Mastoiditis of left side: Code(s): H70.92 - Unspecified mastoiditis, left ear Category: Medical Plan: She?was?referred?to?ENT?but?has?not?gotten?her?appointment?rescheduled?yet. Encouraged?her?to?reschedule?appointment (6) Cerumen impaction: Code(s): H61.20 - Impacted cerumen, unspecified ear Category: Medical Plan: As above (7) Cough: Code(s): R05.9 - Cough, unspecified Category: Medical Plan: Dry?cough Lungs?are?clear?to?auscultation?bilaterally Medications: New amoxicillin-pot clavulanate 500-125 mg (Augmentin) 1 tab PO Q12H 10 days 20 tabs 0RF
[2025-03-04 14:18] VITALS: BP 126/66; PULSE 69; RESP 12; TEMP 36.4; O2SAT 97; BMI 29.0
--- OUTSIDE RECORDS SUMMARY | 2025-03-04 15:13 | XMS_ITS | Clinical Summary ---
Author Organization [facility] Address [address] [place] [address] Care Team Providers Care Ship'S Engineer Name Role Phone Unavailable Primary Care Provider Unavailabl e Allergies Active Allergy Reactions Criticality Noted Date Comments Clams Unknown/Patient and Family Unable to Define Medium 01/22/2025 Colchicine Unknown/Patient and Family Unable to Define Medium 01/22/2025 Ibuprofen Unknown/Patient and Family Unable to Define Medium 01/22/2025 Tyler Unknown/Patient and Family Unable to Define Medium [...] 01/24/2025 Orders Only [facility] [address] [place] [address] Lissy Burgess DO Mastoiditis 01/22/2025 9:39 AM EDT - 01/24/2025 12:21 PM EDT Hospital Encounter [facility] [address] [place] [address] Angelic Gross MD Sheth, MD Jenifer Montiel Lindsay, DO Mastoiditis (Primary Dx) Discharge Disposition: Home with Health Care Services 01/22/2025 7:25 AM EDT Ancillary Procedure [facility] [address] [place] [address] Provider, File Room 01/22/2025 7:20 AM EDT Ancillary Procedure [facility] [address] [place] [address] Provider, File Room 01/22/2025 Travel from Last 3 Months Social History Tobacco Use Types Packs/Day Years Used Date Smoking Tobacco: Never Assessed [facility] Utilities Answer Date Recorded In the [...] any time in the past 12 m [facility], were you homeless or living in a fci (including now)? No 01/23/2025 Comments Unknown Sex [...] resultswithin the time period is included. Pathologist [facility] POC Glucose 134(H) 65 - 99 mg/dL 01/24/2025 8:12 AM EDT Blood specimen / Unknown 01/24/2025 8:02 AM EDT 01/24/2025 8:12 AM EDT us Angelic Gross MD POINT OF CARE TEST ORDERABLES Final Result HOSPITAL LAB See Below * (ABNORMAL) Complete Blood Count WITHOUT Differential - in AM (01/24/2025 6:59 AM EDT) [facility] White Blood Cell Count 13.8(H) 4.0 - 11.0 Thou/uL 01/24/2025 7:27 AM [facility] Platelet Count 251 150 - 450 Thou/uL 01/24/2025 7:27 AM [facility] Hemoglobin 9.6(L) 11.7 - 15.7 g/dL 01/24/2025 7:27 AM [facility] Hematocrit 30.4(L) 35.0 - 47.0 % 01/24/2025 7:27 AM [facility] Red Blood Cell Count 3.11(L) 4.00 - 5.40 Mil/uL 01/24/2025 7:27 AM [facility] MCV 98 80 - 100 fL 01/24/2025 7:27 AM [facility] MCH 30.9 27.0 - 31.0 pg 01/24/2025 7:27 AM [facility] MCHC 31.6 30.0 - 36.0 g/dL 01/24/2025 7:27 AM [facility] RDW 14.2 11.5 - 14.5 % 01/24/2025 7:27 AM [facility] MPV 10.8 7.5 - 12.5 fL 01/24/2025 7:27 AM [facility] Blood Blood specimen / Unknown 01/24/2025 6:59 AM EDT 01/24/2025 7:20 AM EDT [facility] LAB BLOOD ORDERABLES [place] [address], [place] [address] * (ABNORMAL) BASIC METABOLIC PANEL (01/24/2025 6:59 AM EDT) Only the most recent of3 resultswithin the time period is included. Glucose 133(H) 65 - 99 mg/dL 01/24/2025 8:01 AM [facility] Comment:Fasting: <100 mg/dL, Non-Fasting: <200 mg/dL (ADA 2005) Blood Urea Nitrogen (BUN) 34(H) 8 - 21 mg/dL 01/24/2025 8:01 AM [facility] Creatinine 2.2(H) 0.4 - 1.1 mg/dL 01/24/2025 8:01 AM [facility] eGFR 21(L) >59 01/24/2025 8:01 AM [facility] Comment:CKD-EPI (2020) in mL /min/1.73 sq meters. Sodium 138 136 - 145 mmol/L 01/24/2025 8:01 AM [facility] Potassium 3.7 3.4 - 5.3 mmol/L 01/24/2025 8:01 AM [facility] Chloride 103 98 - 107 mmol/L 01/24/2025 8:01 AM [facility] CO2 24 22 - 33 mmol/L 01/24/2025 8:01 AM [facility] Anion Gap 11 7 - 17 01/24/2025 8:01 AM EDT [facility] Calcium 9.1 8.7 - 10.5 mg/dL 01/24/2025 8:01 AM [facility] BUN/Creatinine Ratio 15 10.0 - 25.0 Ratio 01/24/2025 8:01 AM T [facility] Blood Blood specimen / Unknown 01/24/2025 6:59 AM EDT 01/24/2025 7:20 AM EDT Lissy Burgess DO LAB BLOOD ORDERAB[place] [address], [place] [address] * (ABNORMAL) Hemoglobin A1c with Estimated Average Glucose (01/23/2025 7:40 AM EDT) Hemoglobin A1C 6.1(H) <5.7 % 01/23/2025 8:58 AM EDT [facility] Comment: A1c% ? Interpretation 5.7 - 6.0 ?Increase risk of diabetes 6.1 - 6.4 ?Higher risk of diabetes > or = 6.5 ?? Consistent with diabetes Diabetes Care, 33(Supp 1):S1-S61, 2009 Estimated Average Glucose 128 mg/dL 01/23/2025 8:58 AM EDT [facility] Blood Blood specimen / Unknown 01/23/2025 7:40 AM EDT 01/23/2025 8:00 AM EDT Audrey Simmons MD LAB BLOOD ORDERABLES Final Result Performing Organization Address City/[facility]/[place] [address], [place] [address] * (ABNORMAL) Complete Blood Count, with Differential (01/23/2025 7:40 AM EDT) Only the most recent of2 resultswithin the time period is included. White Blood Cell Count 20.6(H) 4.0 - 11.0 Thou/uL 01/23/2025 8:19 AM [facility] Platelet Count 267 150 - 450 Thou/uL 01/23/2025 8:19 AM [facility] Hemoglobin 10.5(L) 11.7 - 15.7 g/dL 01/23/2025 8:19 AM [facility] Hematocrit 32.7(L) 35.0 - 47.0 % 01/23/2025 8:19 AM [facility] Red Blood Cell Count 3.35(L) 4.00 - 5.40 Mil/uL 01/23/2025 8:19 AM [facility] MCV 98 80 - 100 fL 01/23/2025 8:19 AM [facility] MCH 31.3(H) 27.0 - 31.0 pg 01/23/2025 8:19 AM [facility] MCHC 32.1 30.0 - 36.0 g/dL 01/23/2025 8:19 AM [facility] RDW 14.0 11.5 - 14.5 % 01/23/2025 8:19 AM [facility] MPV 10.8 7.5 - 12.5 fL 01/23/2025 8:19 AM [facility] Neutrophils Auto 76.0 % 01/24/20 8:19 AM [facility] Immature Granulocytes 0.7 % 01/23/2025 8:19 AM [facility] Lymphocytes Auto 14.7 % 01/24/20 8:19 AM [facility] Monocytes Auto 8.2 % 01/23/2025 8:19 AM [facility] Eosinophils Auto 0.2 % 01/24/20 8:19 AM [facility] Basophils Auto 0.2 % 01/23/2025 8:19 AM [facility] Abs Neutrophils Auto 15.61(H) 2.00 - 7.50 Thou/uL 01/23/2025 8:19 AM [facility] Abs Immature Granulocytes 0.15(H) 0.00 - 0.10 Thou/uL 01/23/2025 8:19 AM [facility] Abs Lymphocytes Auto 3.02 1.50 - 4.50 Thou/uL 01/23/2025 8:19 AM EDT [facility] Abs Monocytes Auto 1.68(H) 0.20 - 1.50 Thou/uL 01/23/2025 8:19 AM EDT [facility] Abs Eosinophils Auto 0.05 0.00 - 0.70 Thou/uL 01/23/2025 8:19 AM EDT [facility] Abs Basophils Auto 0.05 0.00 - 0.20 Thou/uL 01/23/2025 8:19 AM EDT [facility] Blood Blood specimen / Unknown 01/23/2025 7:40 AM EDT 01/23/2025 8:00 AM EDT Audrey Simmons MD LAB BLOOD ORDERABLES Final Result Performing Organization Address [facility]/[place] [address], [place] [address] * (ABNORMAL) High Sensitivity Troponin T (01/22/2025 1:30 PM EDT) Only the most recent of2 resultswithin the time period is included. High Sensitivity Troponin T 28(H) <15 ng/L 01/22/2025 2:17 PM EDT [facility] Delta (Change) 1 <3 01/22/2025 2:17 PM EDT [facility] Comment:Increased 01/22/2025 1:30 PM EDT 01/22/2025 1:36 PM EDT Alexander Cooley PA-C LAB BLOOD ORDERABLES F inal Result Performing Organization Address City/[facility]/[place] [address], [place] [address] * CTA Chest for P.E. (01/22/2025 1:20 [...] PM EDT) Ventricular rate 65 BPM EKG [facility] Atrial rate 65 BPM EKG [facility] P-R interval 208 ms EKG [facility] QRS duration 80 ms EKG [facility] Q-T interval 414 ms EKG [facility] QTC calculation (Bazett) 431 ms EKG [facility] P axis 79 degrees EKG [facility] R axis 13 degrees EKG [facility] T axis 29 degrees [facility] 01/22/2025 12:2 4 PM EDT Narrative EKG [facility] - 01/22/2025 5:30 PM EDT Normal sinus rhythm Normal ECG No previous ECGs available Confirmed by MD Elizondo Kevin ([id number]) on 01/22/2025 5:30:50 PM Procedure Note Dariel Elizondo MD - 01/22/2025 Normal sinus rhythm Normal ECG No previous ECGs available Confirmed by MD Elizondo Kevin ([id number]) on 01/22/2025 5:30:50 PM Alexander Cooley PA-C ECG ORDERABLES Final Result Performing Organization Address City/[facility]/ZIP Co de Phone Number EKG [facility] * (ABNORMAL) proBNP, N-terminal (BNP) (01/22/2025 12:10 PM EDT) proBNP, N-terminal 2,546(H) <450 pg/mL 01/22/2025 1:25 PM EDT [facility] Blood Blood specimen / Unknown 01/22/2025 12:10 PM EDT 01/22/2025 12:47 PM EDT Exclusively.in PA-C LAB BLOOD ORDERABLES F inal Result Performing Organization Address [facility] de Phone Number [address] [address], [address] [address] * (ABNORMAL) INR (01/22/2025 12:10 PM EDT) [facility] Anticoagulant NO ANTI COAGULANT MEDS 01/22/2025 11:42 AM EDT [facility] Prothrombin Time (PT) 13.6(H) 10.0 - 13.5 seconds 01/22/2025 1:31 PM EDT [facility] INR 1.2 01/22/2025 1:31 PM EDT [facility] Comment:INR Therapeutic Rang es: Standard dose anticoagulant 2.0 to 3.0, High dose anticoagulant 2.5-3.5. Blood Blood specimen / Unknown 01/22/2025 12:10 PM EDT 01/22/2025 12:47 PM EDT Exclusively.in PA-C LAB BLOOD ORDERABLES F inal Result Performing Organization Address [facility] Co de Phone Number [address] [address], [facility] [address] [facility] [address] * XR Chest 1 view-Portable (01/22/2025 12:05 [...] A & B BLUE CROSS OUT OF [facility] BLUE CROSS OUT OF [facility] MEDICARE PART A & B Advance Directives * DNR (Latest Code Status on File) Date Activated Date Inactivated Comments 01/22/2025 2:18 PM Question Answer Comments Decision thoroughly discussed with: Patient
--- OUTSIDE RECORDS SUMMARY | 2025-03-04 15:13 | XMS_ITS | Clinical Summary ---
Author Organization Unknown Care Team Providers Care Warehouse Selector Name Role Phone MADIHA AQUINO, GREG Unavailable Unavailable SHAKIRA GANNON OT Unavailable Unavailmynor NGO ([facility]) [facility] - PT, SAROJ Unavailable Unavailable MOLINA ([facility]) [facility] - FEED MILL OPERATOR, CASEY Unavailable Un available ARNIE RNCYNTHIA Unavailable Unavailable Payers Payer Name Policy Type Policy Number Effective Date Expira tion Date MEDICARE - [facility]/DC - PD [id number] [facility] - ORDER DRIVEN [id number] Problems Condition Name Condition Details Condition Category [...] 01-24 00:00: 00 01-25 00:00 :00 No [id number] Per instruc tions Per instructio ns (route: oral) Med Classific ation: Anti-Infe ctive Agents amoxicillin 500 mg capsule 01-16 00:00: 00 01-25 00:00 :00 No [id number] Unavailable Per instruc tions TWICE DAILY FOR 10 DAYS Per instructio ns TWICE DAILY FOR 10 DAYS (route: oral) Med Classific ation: Anti-Infe ctive Agents atorvastati n 10 mg tablet 01-15 00:00: 00 01-25 00:00 :00 No [id number] Per instruc tions AT BEDTIME Per instructio ns AT BEDTIME (route: oral) Med Classific ation: Cardiovas cular Therapy Agents metoprolol succinate ER 50 mg tablet,exte nded release 24 hr 01-15 00:00: 00 01-25 00:00 :00 No [id number] Per instruc tions ONCE DAILY Per instructio ns ONCE DAILY (route: oral) Med Classific ation: Cardiovas cular Therapy Agents acetaminoph en 500 mg tablet 01-25 00:00: 00 Yes [id number] 2 tablet EVERY 8 HOURS 2 tablet EVERY 8 HOURS (route: oral) Med Classific ation: Analgesic , Anti-infl ammatory or Antipyret ic allopurinol 100 mg tablet 01-25 00:00: 00 Yes [id number] 1 tablet DAILY 1 tablet DAILY (route: oral) Med Classific ation: Gout and Hyperuric emia Therapy amlodipine 2.5 mg tablet 01-25 00:00: 00 Yes [id number] 1 tablet DAILY 1 tablet DAILY (route: oral) Med Classific ation: Cardiovas cular Therapy Agents atorvastati n 10 mg tablet 01-25 00:00: 00 Yes [id number] 1 tablet BEDTIME 1 tablet BEDTIME (route: oral) Med Classific ation: Cardiovas cular Therapy Agents Augmentin 500 mg-125 mg tablet 01-25 00:00: 00 01-31 23:59 :00 No [id number] 1 tablet 2 TIMES DAILY 1 tablet 2 TIMES DAILY (route: oral) Med Classific ation: Anti-Infe ctive Agents isosorbide mononitrate ER 30 mg tablet,exte nded release 24 hr 01-25 00:00: 00 Yes [id number] 1 tablet DAILY 1 tablet DAILY (route: oral) Med Classific ation: Cardiovas cular Therapy Agents metoprolol succinate ER 50 mg tablet,exte nded release 24 hr 01-25 00:00: 00 Yes [id number] 1 tablet DAILY 1 tablet DAILY (route: oral) Med Classific ation: Cardiovas cular Therapy Agents Protonix 40 mg tablet,teresa yed release 01-25 00:00: 00 Yes [id number] 1 tablet DAILY 1 tablet DAILY (route: oral) Med Classific ation: Gastroint estinal Therapy Agents Miralax 17 gram oral powder packet 02-26 00:00: 00 Yes [id number] 1 packet DAILY 1 packet DAILY (route: oral) Med Classific ation: Gastroint estinal Therapy Agents Immunizations Ordered Immunization Name Filled Immunization Name Date Status Comments Refusal Reason REFUSED FLU, PPV 2025-01-25 00:00:00 Vital Signs Vital Name Observation Time Observation Value Commen ts Temperature 2025-02-26 13:51:00.000 98.7 [degF] Temperature 2025-02-19 13:02:00.000 97.6 [degF] Temperature 2025-02-19 [...] kg/m2 Height 2025-01-25 12:18:00.000 63 [in_us] Pulse 2025-02-26 13:51:00.000 64 /min Pulse 2025-02-25 12:03:00.000 82 /min Pulse 2025-02-19 13:11:00.000 60 /min Pulse 2025-02-19 [...] 2025-01-25 12:18:00.000 66 /min O2 Saturation (%) 2025-02-26 13:51:00.000 98 % O2 Saturation (%) 2025-02-25 12:03:00.000 100 % O2 Saturation (%) 2025-02-19 13:02:00.000 95 % O2 Saturation (%) 2025-02-18 11:24:00.000 98 % O2 Saturation (%) 2025-02-13 12:15:00.000 97 % O2 Saturation (%) 2025-02-11 11:38:00.000 93 % O2 Saturation (%) 2025-02-06 13:53:00.000 96 % O2 Saturation (%) 2025-02-03 14:10:00.000 95 % O2 Saturation (%) 2025-01-28 13:02:00.000 94 % O2 Saturation (%) 2025-01-25 12:18:00.000 95 % Respirations 2025-02-26 13:51:00.000 16 /min Respirations 2025-02-19 13:02:00.000 14 /min Respirations 2025-02-19 12:11:00.000 18 /min Respirations 2025-02-13 12:15:00.000 16 /min Respirations 2025-02-12 14:30:00.000 18 /min Respirations 2025-02-07 13:14:00.000 18 /min Respirations 2025-02-06 13:53:00.000 18 /min Respirations 2025-02-03 12:55:00.000 18 /min Respirations 2025-01-31 14:42:00.000 18 /min Respirations 2025-01-28 13:02:00.000 18 /min Respirations 2025-01-28 12:30:00.000 17 /min Respirations 2025-01-25 12:18:00.000 18 /min Weight (lbs) 2025-02-26 13:51:00.000 163 [lb_av] Weight (lbs) 2025-02-19 13:02:00.000 163 [lb_av] Weight (lbs) 2025-02-19 12:12:00.000 163 [lb_av] Weight (lbs) 2025-02-18 11:24:00.000 163 [lb_av] Weight (lbs) 2025-02-13 12:16:00.000 165 [lb_av] Weight (lbs) 2025-02-12 14:35:00.000 168 [lb_av] Weight (lbs) 2025-02-07 13:21:00.000 167 [lb_av] Weight (lbs) 2025-02-03 12:56:00.000 174 [lb_av] Weight (lbs) 2025-01-25 12:18:00.000 165 [lb_av] Systolic Blood Pressure 2025-02-26 13:51:00.000 156 mm [Hg] Systolic Blood Pressure 2025-02-25 12:03:00.000 104 mm [Hg] Systolic Blood Pressure 2025-02-19 13:02:00.000 125 mm [...] 12:18:00.000 118 mm [Hg] Diastolic Blood Pressure 2025-02-26 13:51:00.000 82 mm [Hg] Diastolic Blood Pressure 2025-02-25 12:03:00.000 62 mm [Hg] Diastolic Blood Pressure 2025-02-19 13:02:00.000 [...] MAINTAIN SITUATIONAL AWARENESS AND WILL NOTIFY CLINICAL TUBE WASHER AND PHYSICIAN/PROVIDER WITH ANY CHANGE IN CONDITION. [code = SKILLED NURSE TO PERFORM ENVIRONMENTAL SAFETY RISK ASSESSMENT AND FALL RISK ASSESSMENT AND PROVIDE INSTRUCTION TO IMPLEMENT ENVIRONMENTAL SAFETY AND FALL PREVENTION STRATEGIES THROUGHOUT THE CERTIFICATION PERIOD. SKILLED NURSE WILL MAINTAIN SITUATIONAL AWARENESS AND WILL NOTIFY CLINICAL TUBE WASHER AND PHYSICIAN/PROVIDER WITH ANY CHANGE IN CONDITION.] [...] THEM TO HER ON ROTATION. SON AND [id number] ARE PROVIDING TRANSPORTATION TO MD APPOINTMENTS. SHE [...] THEM TO HER ON ROTATION. SON AND [id number] ARE PROVIDING TRANSPORTATION TO MD APPOINTMENTS. SHE [...] CARE WILL BE ESTABLISHED THAT MEETS PATIENT'S [facility] NEEDS AND INCLUDES PATIENT GOAL FOR HOME [...] NONE 3. SKILLED PROCEDURE PERFORMED THIS VISIT TEACHING ON THE IMPORTANCE OF EATING AN APPROPRIATE DIABETIC DIET VERSUS EATING CANDY ALL DAY AND NO REAL FOOD PER CLIENT AND ASSESSMENT 4. NEXT PHYSICIAN/PROVIDER APPT UNKNOWN 5. PLAN/FOLLOW-UP NEEDED FOR NEXT VISIT MEDICATION REVIEW DIET REVIEW TEACHING AND ASSESSMENT ADDRESS ABOVE APPROPRIATE IN NARRATIVE BELOW: CLIENT IS A VERY PLEASANT LADY SHE HAS A LITTLE DOG THAT IS EXTREMELY AGGRESSIVE AND HOW SMELLS OF URINE. CLIENT INSTRUCTED ON HOME SAFETY MEASURES, FALL PRECAUTIONS AND INSTRUCT ON SAFE USE OF ASSISTIVE DEVICES TO ENSURE PATIENT IS SAFE UNTIL NEXT VISIT; SINCE SHE TENDS TO WALK AROUND WITHOUT HER ASSISTIVE DEVICE ON OCCASION. CLIENT IS AO X4 AND ABLE TO MAKE NEEDS KNOWN. CLIENT DENIES ANY S/S OF INFECTION, CP, DIZZINESS, PAIN OR SOB. CLIENT'S LUNGS ARE CLEAR TO AUSCULTATION AND BOWEL SOUNDS AUDIBLE IN ALL QUADRANTS. CLIENT SKIN IS WARM DRY AND INTACT WITHOUT ANY EDEMA BUT LOWER ANKLES DO APPEAR SWOLLEN. CLIENT SKIN IS WARM DRY AND INTACT. CLIENT INSTRUCTED TO CONTACT [facility] WITH ANY HEALTH CARE ISSUES OR CONCERNS 08/05. CLIENT ACKNOWLEDGES UNDERSTANDING OF ALL. LAST VISIT DATE: 01/25/2025</paragraph> Encounters Start Date/Time End Date/Time Encounter Type Admission Type Attending [facility] Care Department Encounter ID Discharge Date Discharge Status Discharge Condition Discharge Reason Percent Goals Met 2025-01-25 00:00:00 2025-03-25 00:00:00 Outpatient NEW ADMISSION ARNIE CYNTHIA [facility] [id number] 46.67
--- OUTSIDE RECORDS SUMMARY | 2025-03-04 15:13 | XMS_ITS | Clinical Summary ---
Author Organization Unknown Care Team Providers Care Dinker Name Role Phone MADIHA AQUINO, GREG Unavailable Unavailable SHAKIRA GANNON OT Unavailable Unavailmynor NGO ([facility]) [facility] - PT, SAROJ Unavailable Unavailable MOLINA ([facility]) [facility] - LEARNING SERVICES COORDINATOR, CASEY Unavailable Un available ARNIE RNCYNTHIA Unavailable Unavailable Payers Payer Name Policy Type Policy Number Effective Date Expira tion Date MEDICARE - [facility]/SC - PD [id number] [facility] - ORDER DRIVEN [id number] Problems Condition Name Condition Details Condition Category [...] 01-24 00:00: 00 01-25 00:00 :00 No [id number] Per instruc tions Per instructio ns (route: oral) Med Classific ation: Anti-Infe ctive Agents amoxicillin 500 mg capsule 01-16 00:00: 00 01-25 00:00 :00 No [id number] Unavailable Per instruc tions TWICE DAILY FOR 10 DAYS Per instructio ns TWICE DAILY FOR 10 DAYS (route: oral) Med Classific ation: Anti-Infe ctive Agents atorvastati n 10 mg tablet 01-15 00:00: 00 01-25 00:00 :00 No [id number] Per instruc tions AT BEDTIME Per instructio ns AT BEDTIME (route: oral) Med Classific ation: Cardiovas cular Therapy Agents metoprolol succinate ER 50 mg tablet,exte nded release 24 hr 01-15 00:00: 00 01-25 00:00 :00 No [id number] Per instruc tions ONCE DAILY Per instructio ns ONCE DAILY (route: oral) Med Classific ation: Cardiovas cular Therapy Agents acetaminoph en 500 mg tablet 01-25 00:00: 00 Yes [id number] 2 tablet EVERY 8 HOURS 2 tablet EVERY 8 HOURS (route: oral) Med Classific ation: Analgesic , Anti-infl ammatory or Antipyret ic allopurinol 100 mg tablet 01-25 00:00: 00 Yes [id number] 1 tablet DAILY 1 tablet DAILY (route: oral) Med Classific ation: Gout and Hyperuric emia Therapy amlodipine 2.5 mg tablet 01-25 00:00: 00 Yes [id number] 1 tablet DAILY 1 tablet DAILY (route: oral) Med Classific ation: Cardiovas cular Therapy Agents atorvastati n 10 mg tablet 01-25 00:00: 00 Yes [id number] 1 tablet BEDTIME 1 tablet BEDTIME (route: oral) Med Classific ation: Cardiovas cular Therapy Agents Augmentin 500 mg-125 mg tablet 01-25 00:00: 00 01-31 23:59 :00 No [id number] 1 tablet 2 TIMES DAILY 1 tablet 2 TIMES DAILY (route: oral) Med Classific ation: Anti-Infe ctive Agents isosorbide mononitrate ER 30 mg tablet,exte nded release 24 hr 01-25 00:00: 00 Yes [id number] 1 tablet DAILY 1 tablet DAILY (route: oral) Med Classific ation: Cardiovas cular Therapy Agents metoprolol succinate ER 50 mg tablet,exte nded release 24 hr 01-25 00:00: 00 Yes [id number] 1 tablet DAILY 1 tablet DAILY (route: oral) Med Classific ation: Cardiovas cular Therapy Agents Protonix 40 mg tablet,teresa yed release 01-25 00:00: 00 Yes [id number] 1 tablet DAILY 1 tablet DAILY (route: oral) Med Classific ation: Gastroint estinal Therapy Agents Miralax 17 gram oral powder packet 02-26 00:00: 00 Yes [id number] 1 packet DAILY 1 packet DAILY (route: [...] MAINTAIN SITUATIONAL AWARENESS AND WILL NOTIFY CLINICAL GATE ATTENDANT AND PHYSICIAN/PROVIDER WITH ANY CHANGE IN CONDITION. [code = SKILLED NURSE TO PERFORM ENVIRONMENTAL SAFETY RISK ASSESSMENT AND FALL RISK ASSESSMENT AND PROVIDE INSTRUCTION TO IMPLEMENT ENVIRONMENTAL SAFETY AND FALL PREVENTION STRATEGIES THROUGHOUT THE CERTIFICATION PERIOD. SKILLED NURSE WILL MAINTAIN SITUATIONAL AWARENESS AND WILL NOTIFY CLINICAL GATE ATTENDANT AND PHYSICIAN/PROVIDER WITH ANY CHANGE IN CONDITION.] [...] THEM TO HER ON ROTATION. SON AND [id number] ARE PROVIDING TRANSPORTATION TO MD APPOINTMENTS. SHE [...] THEM TO HER ON ROTATION. SON AND [id number] ARE PROVIDING TRANSPORTATION TO MD APPOINTMENTS. SHE [...] CARE WILL BE ESTABLISHED THAT MEETS PATIENT'S [facility] NEEDS AND INCLUDES PATIENT GOAL FOR HOME [...] End Date/Time Encounter Type Admission Type Attending [facility] Care Department Encounter ID Discharge Date Discharge Status Discharge Condition Discharge Reason Percent Goals Met 2025-01-25 00:00:00 2025-03-25 00:00:00 Outpatient NEW ADMISSION ARNIE CYNTHIA [facility] [id number] 46.67
--- OUTSIDE RECORDS SUMMARY | 2025-03-04 15:13 | XMS_ITS | Clinical Summary ---
Author Organization [facility] Facility Address [address] [place] [id number] Care Team Providers Care Pesticide Control Inspector Name Role Phone Unavailable Primary Care Provider [...] age to complete this topic Insurance Medicare [facility] Medicare [facility]
== END 2025-03-04 15:16 | disposition home or self-care (01) ==
LOC: HO.HMCFM 13:55
PROVIDERS: PCP Family Medicine; Visit Provider Family Medicine
DX: E11.22 Type 2 diabetes mellitus with diabetic chronic kidney disease (principal); N18.30 Chronic kidney disease, stage 3 unspecified; I10 Essential (primary) hypertension; R60.0 Localized edema; H92.02 Otalgia, left ear; H70.92 Unspecified mastoiditis, left ear; H61.20 Impacted cerumen, unspecified ear; R05.9 Cough, unspecified

== ENCOUNTER → 2025-03-04 13:54 | Outpatient (BNVA) | payer MEDICARE, SELFPAY | PROVIDERS: PCP Family Medicine; Visit Provider Family Medicine | DX: I12.9 Hypertensive chronic kidney disease with stage 1 through stage 4 chronic kidney disease, or unspecified chronic kidney disease (principal); E11.22 Type 2 diabetes mellitus with diabetic chronic kidney disease; N18.30 Chronic kidney disease, stage 3 unspecified; R60.0 Localized edema; H92.09 Otalgia, unspecified ear; H70.92 Unspecified mastoiditis, left ear; H61.23 Impacted cerumen, bilateral; R05.9 Cough, unspecified | CPT/HCPCS: 99212 ==

== ENCOUNTER → 2025-03-31 10:48 | Outpatient (BNVA) | payer MEDICARE, SELFPAY | PROVIDERS: PCP Family Medicine; Visit Provider Nurse Practitioner Family | DX: B02.9 Zoster without complications (principal); L03.319 Cellulitis of trunk, unspecified | CPT/HCPCS: 99212 ==

== ENCOUNTER → 2025-03-31 10:48 | Outpatient (AMB) | payer MEDICARE, SELFPAY ==
--- NOTE | 2025-03-31 10:50 | AM.OFFWIN_ITS ---
Intake Vital Signs 3 03/31/25 10:54 Height 5 ft 3 in BMI Reason not done Patient refused/unable BP 122/70 Blood Pressure Location Lt brachial Position Sitting Respiration 12 Pulse 60 Pulse Source Pulse Oximeter Temp 97.2 F Temp Source Oral Pulse Oximetry (%) 96 Oxygen Delivery Method Room Air Intake Visit Reasons: rash on right collarbone Intake Note: Patient c/o rash all over the chest and radiating down her chest x 1 week Patient Tobacco Use Status: Never used Tobacco Allergies clams Allergy (Intermediate, Verified 03/31/25 11:14) Facial Swelling walnut Allergy (Intermediate, Verified 03/31/25 11:14) Hives ibuprofen Allergy (Unknown, Verified 03/31/25 11:14) Hives Medication List - Last Reconciled 03/31/25 by HARITHA Rosario- allopurinol TAKE 2 TABLETS (200mg) BY MOUTH ONCE DAILY amlodipine 2.5 mg PO DAILY 30 days atorvastatin 10 mg PO BEDTIME 90 days blood sugar diagnostic (FreeStyle Lite Strips) DX: E11.9, test blood sugar once a day, 90 days cane Cane, Daily As directed, 999 days. clotrimazole 1% 1 appl topical BID PRN diclofenac sodium 1% (Arthritis Pain (diclofenac)) 4 grams topical BID 30 days epinephrine (EpiPen 2-Nasir) 0.3 mg (0.3 mL) IM Q10M PRN 30 days furosemide 20 mg (1/2 x 40 mg) PO DAILY 90 days isosorbide mononitrate ER 30 mg PO DAILY lancets (FreeStyle Lancets) 1 gauge miscellaneous DAILY 90 days lancets (FreeStyle Lancets) As directed lidocaine HCl 4% (Aspercreme (lidocaine HCl)) 1 appl topical BID PRN 30 days metformin 250 mg (1/2 x 500 mg) PO BID 90 days metoprolol succinate ER 50 mg PO DAILY 90 days mupirocin 2% 1 appl topical BID 10 days pantoprazole 40 mg PO DAILY 90 days Do you need a note to return to daycare/school/sports/work: No HPI HPI Comments 2 History of Present Illness0 Details History of Present Illness - The patient is an 89-year-old female p resenting with a rash, R anterior chest - Rash noted 1 week ago, started as a sm all red spot, now grown and blistered. - Itching and mild pain reported; no fev er or chills. - Previous treatment with Cortisone 10, Benadryl; minimal relief. - Prior Herpes Zoster (shingles) history ; - No skin trauma, no contact with simila r symptoms. - Previous Herpes Zoster vaccination ack nowledged. Review of Systems - Dermatologic: Reports rash with itchin g and blistering. - Constitutional: Denies fever or chills . Physical Exam General: Well developed, well nourished, in no acute distress. Appears stated age. Skin: see picture below. No warmth or drainage, very tender to touch. Discussion Notes The patient and I discussed the likelihood of the rash being Herpes Zoster given the blistering and the patient's past history with shingles. . We discussed treatment options, including the application of a topical antibiotic (Mupirocin) to prevent secondary bacterial infection and an oral antiviral (Valacyclovir) for five days. I explained potential side effects of Valacyclovir, such as gastrointestinal discomfort, and advised taking it with food. The treatment plan aims to reduce symptom severity and speed resolution. The patient was instructed to monitor for improvement and return for further evaluation if no improvement is observed before the follow-up appointment next Monday. Assessment and Plan - Mupirocin topical twice daily for 7 da ys. - Valacyclovir BID for 5 days; take with food. Patient Instructions - Use the prescribed Mupirocin cream twi ce daily on the rash for one week. - Take the antiviral medication, Valacyc lovir, once in the morning and once at night for 5 days, with food. - Monitor the rash for signs of improvem ent before your appointment next Monday. - Contact the clinic if the rash worsens or other concerning symptoms develop. Consent The patient consented to the proposed treatment plan after discussing the benefits of reducing symptom progression and preventing complications associated with Herpes Zoster. Risks, including potential gastrointestinal discomfort from the antiviral Valacyclovir, were communicated, and alternative treatments were not pursued as the selected regimen aligned with best practices. Consent was obtained directly from the patient, who was informed and agreed to the proposed management. Patient was informed and verbally consented to the use of an ambient scribe for clinic note documentation during this visit. [facility] Medical History Essential hypertension Diabetes type 2, controlled Surgical History History of surgery History of left knee replacement History of arthroscopy of right knee History of hysterectomy Family History Father No problems noted. Mother No problems noted. Son Multiple sclerosis Daughter Rheumatoid arthritis Hx of cancer of lung Social History Household Members: None Housing: House Alcohol intake: never Patient Tobacco Use Status: Never used Tobacco e-Cigarette/Vaping Use: Never Used Second Hand Smoke Exposure: No service: No Current occupational status: retired Current occupational exposures/hazards: No Cognitive needs: No Hearing needs: No Vision needs: No Physical Exam Vital Signs: Last Vital Signs Temp 97.2 F 03/31/25 10:54 Pulse 60 03/31/25 10:54 Resp 12 03/31/25 10:54 BP 122/70 03/31/25 10:54 Pulse Ox 96 03/31/25 10:54 Oxygen Delivery Method Room Air 03/31/25 10:54 Assessment & Plan Assessment & Plan (1) Shingles: Code(s): B02.9 - Zoster without complications Qualifiers: Herpes zoster complications: without complications Qualified Code(s): B 02.9 - Zoster without complications (2) Cellulitis: Code(s): L03.90 - Cellulitis, unspecified Qualifiers: Site of cellulitis: trunk Site of cellulitis of trunk: unspecified site Qualified Code(s): L03.319 - Cellulitis of trunk, unspecified Plan / Medications: New 2 mupirocin 2% 1 appl topical BID 22 grams 0RF valacyclovir (Valtrex) 500 mg PO BID 10 tabs 0RF Patient Instructions: Patient Instructions - Use the prescribed Mupirocin cream twice daily on the rash for one week. - Take the antiviral medication, Valacyclovir, once in the morning and once at night for 5 days, with food. - Monitor the rash for signs of improvement before your appointment next Monday. - Contact the clinic if the rash worsens or other concerning symptoms develo Coding Level of Care Code Est Pt Level 4 (98545) Diagnoses Herpes zoster without complication B02.9 Herpes zoster complications: without complications Cellulitis of trunk, unspecified site of trunk L03.319 Site of cellulitis: trunk Site of cellulitis of trunk: unspecified site
[2025-03-31 10:54] VITALS: BP 122/70; PULSE 60; RESP 12; TEMP 36.2; O2SAT 96
--- OUTSIDE RECORDS SUMMARY | 2025-03-31 12:13 | XMS_ITS | Clinical Summary ---
Author Organization [facility] Address [address] [place] [address] Care Team Providers Care Guest Associate Name Role Phone Unavailable Primary Care Provider Unavailabl e Allergies Active Allergy Reactions Criticality Noted Date Comments Clams Unknown/Patient and Family Unable to Define Medium 01/22/2025 Colchicine Unknown/Patient and Family Unable to Define Medium 01/22/2025 Ibuprofen Unknown/Patient and Family Unable to Define Medium 01/22/2025 [place] Unknown/Patient and Family Unable to Define Medium 01/22/2025 Medications allopurinol (ZYLOPRIM) 100 mg tablet Take 2 tablets (200 mg total) by mouth daily. 11/04/2024 Active amLODIPine (NORVASC) 2.5 MG tablet Take 1 tablet (2.5 mg total) by mouth daily. 12/05/2024 Active atorvastatin (LIPITOR) 10 MG tablet Take 1 tablet (10 mg total) by mouth nightly. 01/15/2025 Active isosorbide mononitrate (IMDUR) 30 MG 24 hr tablet Take 1 tablet (30 mg total) by mouth daily. 11/06/2024 Active metoPROLOL SUCCINATE (TOPROL-XL) 50 MG 24 hr tablet Take 1 tablet (50 mg total) by mouth daily. 01/15/2025 Active PANTOprazole (PROTONIX) 40 MG EC tablet Take 1 tablet (40 mg total) by mouth daily. 12/04/2024 Active acetaminophen (TYLENOL) 325 MG tablet Take 2 tablets (650 mg total) by mouth 4 times daily (every 6 hours) as needed for mild pain. Active Active Problems Problem Noted Date Diagnosed Date [...] Department Care Team Description 01/24/2025 Orders Only LUCY [address] [place] [address] Lissy Burgess DO Mastoiditis 01/22/2025 9:39 AM EDT - 01/24/2025 12:21 PM EDT Hospital Encounter [facility]DERON[facility]UC[facility] [address] [place] [address] Angelic Gross MD Sheth, MD Jenifer Montiel Lindsay, DO Mastoiditis (Primary Dx) Discharge Disposition: Home with Health Care Services 01/22/2025 7:25 AM EDT Ancillary Procedure [facility] [address] [place] [address] Provider, File Room 01/22/2025 7:20 AM EDT Ancillary Procedure [facility] [address] [place] [address] Provider, File Room 01/22/2025 Travel from Last 3 Months Social History Tobacco Use Types Packs/Day Years Used Date Smoking Tobacco: Never Assessed [facility] Utilities Answer Date Recorded In [...] time in the past 12 m [facility], were you homeless or living in a jail (including now)? No 01/23/2025 Comments Unknown Sex [...] 1-dose 75+ series) 2011 COVID-19 Vaccine ( - season) 2024 02/15/2022, 08/19/2021, 01/09/2021, Additional history [...] - in AM (01/24/2025 6:59 AM EDT) [facility] White Blood Cell Count 13.8(H) 4.0 - 11.0 Thou/uL 01/24/2025 7:27 AM [facility] Platelet Count 251 150 - 450 Thou/uL 01/24/2025 7:27 AM [facility] Hemoglobin 9.6(L) 11.7 - 15.7 g/dL 01/24/2025 7:27 AM [facility] Hematocrit 30.4(L) 35.0 - 47.0 % 01/24/2025 7:27 AM [facility] Red Blood Cell Count 3.11(L) 4.00 - 5.40 Mil/uL 01/24/2025 7:27 AM [facility] MCV 98 80 - 100 fL 01/24/2025 7:27 AM [facility] MCH 30.9 27.0 - 31.0 pg 01/24/2025 7:27 AM [facility] MCHC 31.6 30.0 - 36.0 g/dL 01/24/2025 7:27 AM [facility] RDW 14.2 11.5 - 14.5 % 01/24/2025 7:27 AM [facility] MPV 10.8 7.5 - 12.5 fL 01/24/2025 7:27 AM [facility] Blood Blood specimen / Unknown 01/24/2025 6:59 AM EDT 01/24/2025 7:20 AM EDT [facility] LAB BLOOD ORDERABLES Final Resul t [address] [address], [address] [address] * (ABNORMAL) BASIC METABOLIC PANEL (01/24/2025 6:59 AM EDT) Only the most recent of3 resultswithin the time period is included. Glucose 133(H) 65 - 99 mg/dL 01/24/2025 8:01 AM [facility] Comment:Fasting: <100 mg/dL, Non-Fasting: <200 mg/dL (ADA 2005) Blood Urea Nitrogen (BUN) 34(H) 8 - 21 mg/dL 01/24/2025 8:01 AM [facility] Creatinine 2.2(H) 0.4 - 1.1 mg/dL 01/24/2025 8:01 AM [facility] eGFR 21(L) >59 01/24/2025 8:01 AM [facility] Comment:CKD-EPI (2020) in mL /min/1.73 sq meters. Sodium 138 136 - 145 mmol/L 01/24/2025 8:01 AM [facility] Potassium 3.7 3.4 - 5.3 mmol/L 01/24/2025 8:01 AM [facility] Chloride 103 98 - 107 mmol/L 01/24/2025 8:01 AM [facility] CO2 24 22 - 33 mmol/L 01/24/2025 8:01 AM [facility] Anion Gap 11 7 - 17 01/24/2025 8:01 AM [facility] Calcium 9.1 8.7 - 10.5 mg/dL 01/24/2025 8:01 AM [facility] BUN/Creatinine Ratio 15 10.0 - 25.0 Ratio 01/24/2025 8:01 AM EDT [facility] Blood Blood specimen / Unknown 01/24/2025 6:59 AM EDT 01/24/2025 7:20 AM EDT Lissy Burgess DO LAB BLOOD ORDERABLES Final Resul t Performing Organization Address [facility] [place] [address], [place] [address] * (ABNORMAL) Hemoglobin A1c with Estimated Average Glucose (01/23/2025 7:40 AM EDT) Hemoglobin A1C 6.1(H) <5.7 % 01/23/2025 8:58 AM EDT [facility] Comment: A1c% ? Interpretation 5.7 - [...] ORDERABLES Final Result Performing Organization Address City/[facility] [place] [address], [address] [address] * (ABNORMAL) Complete Blood Count, with Differential (01/23/2025 7:40 AM EDT) Only the most recent of2 resultswithin the time period is included. White Blood Cell Count 20.6(H) 4.0 - 11.0 Thou/uL 01/23/2025 8:19 AM EDT [facility] Platelet Count 267 150 - 450 Thou/uL 01/23/2025 8:19 AM [facility] Hemoglobin 10.5(L) 11.7 - 15.7 g/dL 01/23/2025 8:19 AM [facility] Hematocrit 32.7(L) 35.0 - 47.0 % 01/23/2025 8:19 AM [facility] Red Blood Cell Count 3.35(L) 4.00 - 5.40 Mil/uL 01/23/2025 8:19 AM [facility] MCV 98 80 - 100 fL 01/23/2025 8:19 AM [facility] MCH 31.3(H) 27.0 - 31.0 pg 01/23/2025 8:19 AM [facility] MCHC 32.1 30.0 - 36.0 g/dL 01/23/2025 8:19 AM [facility] RDW 14.0 11.5 - 14.5 % 01/23/2025 8:19 AM [facility] MPV 10.8 7.5 - 12.5 fL 01/23/2025 8:19 AM [facility] Neutrophils Auto 76.0 % 01/24/20 8:19 AM [facility] Immature Granulocytes 0.7 % 01/23/2025 8:19 AM [facility] Lymphocytes Auto 14.7 % 01/24/20 8:19 AM [facility] Monocytes Auto 8.2 % 01/23/2025 8:19 AM [facility] Eosinophils Auto 0.2 % 01/24/20 8:19 AM [facility] Basophils Auto 0.2 % 01/23/2025 8:19 AM [facility] Abs Neutrophils Auto 15.61(H) 2.00 - 7.50 Thou/uL 01/23/2025 8:19 AM [facility] Abs Immature Granulocytes 0.15(H) 0.00 - 0.10 Thou/uL 01/23/2025 8:19 AM [facility] Abs Lymphocytes Auto 3.02 1.50 - 4.50 Thou/uL 01/23/2025 8:19 AM [facility] Abs Monocytes Auto 1.68(H) 0.20 - 1.50 Thou/uL 01/23/2025 8:19 AM EDT [facility] Abs Eosinophils Auto 0.05 0.00 - 0.70 Thou/uL 01/23/2025 8:19 AM EDT [facility] Abs Basophils Auto 0.05 0.00 - 0.20 Thou/uL 01/23/2025 8:19 AM EDT [facility] Blood Blood specimen / Unknown 01/23/2025 7:40 AM EDT 01/23/2025 8:00 AM EDT Audrey Simmons MD LAB BLOOD ORDERABLES Final Result Performing Organization Address City/[facility]/[place] [address], [place] [address] * (ABNORMAL) High Sensitivity Troponin T (01/22/2025 [...] F inal Result Performing Organization Address City/[facility]/ZIP Co de Phone Number [address] [address], [address] [address] * CTA Chest for P.E. (01/22/2025 1:20 [...] J Am Aranza Radiol. 2015 Nov;12(2): 143-50 us Alexander Cooley PA-C IMG CT ORDERABLES Kerrie quinten Result * ECG 12 lead (01/22/2025 12:24 PM EDT) Ventricular rate 65 BPM EKG [facility] Atrial rate 65 BPM EKG [facility] P-R interval 208 ms EKG [facility] QRS duration 80 ms EKG [facility] Q-T interval 414 ms EKG [facility] QTC calculation (Bazett) 431 ms EKG [facility] P axis 79 degrees EKG [facility] R axis 13 degrees EKG [facility] T axis 29 degrees EKG [facility] 01/22/2025 12:2 4 PM EDT Narrative [...] ORDERABLES Final Result Performing Organization Address City/[facility]/ZIP Co de Phone Number EKG [facility] * (ABNORMAL) proBNP, N-terminal (BNP) (01/22/2025 12:10 PM EDT) proBNP, N-terminal 2,546(H) <450 pg/mL 01/22/2025 1:25 PM EDT [facility] Blood Blood specimen / Unknown 01/22/2025 12:10 PM EDT 01/22/2025 12:47 PM EDT Alexander GARZAC LAB BLOOD ORDERABLES F inal Result Performing Organization Address [facility] [place] [address], [place] [address] * (ABNORMAL) INR (01/22/2025 12:10 PM EDT) [...] ORDERABLES F inal Result Performing Organization Address [facility] [place] [address], [address] [address] * XR Chest 1 view-Portable (01/22/2025 12:05 [...] IMFilemon DIAGNOSTIC IMAGING ORDERABLES Final Result * CACHORRO [...] A & B BL[facility] CR[facility] OUT OF [facility] BL[facility] CROSS OUT OF [facility] MEDICARE PART A & B Advance Directives * DNR (Latest Code Status on File) Date Activated Date Inactivated Comments 01/22/2025 2:18 PM Question Answer Comments Decision thoroughly discussed with: Patient
== END ==
LOC: HO.HMCWIW 10:48
PROVIDERS: PCP Family Medicine; Visit Provider Nurse Practitioner Family
DX: B02.9 Zoster without complications (principal); L03.319 Cellulitis of trunk, unspecified

== ENCOUNTER → 2025-03-31 23:59 | Outpatient (BNV) | payer MEDICARE, SELFPAY | PROVIDERS: PCP Family Medicine; Visit Provider Family Medicine | DX: I13.0 Hypertensive heart and chronic kidney disease with heart failure and stage 1 through stage 4 chronic kidney disease, or unspecified chronic kidney disease (principal); I50.9 Heart failure, unspecified; E11.22 Type 2 diabetes mellitus with diabetic chronic kidney disease; N18.9 Chronic kidney disease, unspecified | CPT/HCPCS: G0180 ==

== ENCOUNTER 2025-04-07 11:26 | Outpatient (AMB) | payer MEDICARE, SELFPAY ==
--- NOTE | 2025-04-07 11:32 | MHC.PC.OV ---
Vital Signs 04/07/25 11:35 Height 5 ft 3 in Weight 166 lb BMI 29.4 BP 110/60 Blood Pressure Location Lt brachial Position Sitting Respiration 14 Pulse 52 Pulse Source Pulse Oximeter Temp 97.4 F Temp Source Oral Pulse Oximetry (%) 97 Oxygen Delivery Method Room Air Intake Visit Reasons: Follow?up?chronic?conditions Intake Note: patient is scheduled for chronic condition Passenger Relations Representative Required: No Allergies clams Allergy (Intermediate, Verified 04/07/25 11:34) Facial Swelling walnut Allergy (Intermediate, Verified 04/07/25 11:34) Hives ibuprofen Allergy (Unknown, Verified 04/07/25 11:34) Hives Medication List - Last Reconciled 04/07/25 by Ray Forbes MD allopurinol TAKE 2 TABLETS (200mg) BY MOUTH ONCE DAILY amlodipine 2.5 mg PO DAILY 30 days atorvastatin 10 mg PO BEDTIME 90 days blood sugar diagnostic (FreeStyle Lite Strips) DX: E11.9, test blood sugar once a day, 90 days cane Cane, Daily As directed, 999 days. clotrimazole 1% 1 appl topical BID PRN diclofenac sodium 1% (Arthritis Pain (diclofenac)) 4 grams topical BID 30 days epinephrine (EpiPen 2-Nasir) 0.3 mg (0.3 mL) IM Q10M PRN 30 days furosemide 20 mg (1/2 x 40 mg) PO DAILY 90 days isosorbide mononitrate ER 30 mg PO DAILY lancets (FreeStyle Lancets) 1 gauge miscellaneous DAILY 90 days lancets (FreeStyle Lancets) As directed lidocaine HCl 4% (Aspercreme (lidocaine HCl)) 1 appl topical BID PRN 30 days metformin 250 mg (1/2 x 500 mg) PO BID 90 days metoprolol succinate ER 50 mg PO DAILY 90 days mupirocin 2% 1 appl topical BID 10 days mupirocin 2% 1 appl topical BID pantoprazole 40 mg PO DAILY 90 days valacyclovir (Valtrex) 500 mg PO BID Tobacco use date assessed: 01/30/25 Dental Screening Dental Screen Date: 01/30/25 HPI Follow?up?chronic?conditions HPI Details 89 y/o female presents to f/u chronic conditions. Blood pressure today 110/60, 52p. She is on metoprolol 50mg, amlodipine 2.5mg daily. Recent walk in clinic visit for rash - likely herpes zoster given blistering and hx of shingles. Was prescribed mupirocin, Valtrex. Pt reports symptoms improving. Reports mastoiditis resolved. Reports some LE edema. Reports ongoing R ear discomfort. [facility] Medical History Essential hypertension Diabetes type 2, controlled Surgical History History of surgery History of left knee replacement History of arthroscopy of right knee History of hysterectomy Family History Father No problems noted. Mother No problems noted. Son Multiple sclerosis Daughter Rheumatoid arthritis Hx of cancer of lung Social History Household Members: None Housing: House Alcohol intake: never Patient Tobacco Use Status: Never used Tobacco e-Cigarette/Vaping Use: Never Used Second Hand Smoke Exposure: No service: No Current occupational status: retired Current occupational exposures/hazards: No Cognitive needs: No Hearing needs: No Vision needs: No Questionnaire Thrive Questionnaire Date Thrive assessed: 12/19/24 I am a: Patient What is your living situation today?: I have a steady place to live Within the past 12 months, did the food you bought not last and you didn't have the money to get more?: Never true Within the past 12 months, did you worry whether your food would run out before you got money to buy more?: Never true Do you have trouble paying for medicines?: No Do you have trouble getting transportation to medical appointments?: No Do you have trouble paying your heating and electricity bill?: No Do you have trouble taking care of your child, family member or friend?: I choose not to answer this question Do you have trouble with day-to-day activities such as bathing, preparing meals, shopping, managing finances, etc.?: Yes Are you currently unemployed and looking for a job?: No Are you interested in more education?: No Please select the resources that you would like help with: None Currently or been in a relationship where the following occur: No concerns reported THRIVE Score: 0 CORNELIUS-7 AMB Questionnaire CORNELIUS-7 Date CORNELIUS - 7 assessed: 01/09/24 Source: Developed by Drs. Don Balderrama, Sakina Rodriguez, Reji Tse and colleagues, with an educational yaneli from [employer]. Review of Systems Const Denies chills, Denies fatigue, Denies fever(s), Denies headache(s) and Denies weakness ENT Denies dizziness and Denies headache(s) Card Denies dyspnea Resp Denies cough, Denies dyspnea, Denies wheezing and Denies other (shortness of breath) Musc Denies numbness and Denies tingling Neuro Denies dizziness, Denies headache(s), Denies numbness, Denies tingling and Denies weakness Psych Denies anxiety and Denies depression Endo Denies fatigue Aller/Immun Denies wheezing Physical exam (Primary Care) Vital Signs: Last Vital Signs Temp 97.4 F 04/07/25 11:35 Pulse 52 04/07/25 11:35 Resp 14 04/07/25 11:35 BP 110/60 04/07/25 11:35 Pulse Ox 97 04/07/25 11:35 Oxygen Delivery Method Room Air 04/07/25 11:35 BMI result Body Mass Index 29.4 Tobacco/Smoking Status: Tobacco use Status Tobacco use date assessed 01/30/25 04/07/25 11:39 Patient Tobacco Use Status Never used Tobacco 04/07/25 11:39 e-Cigarette/Vaping Use Never Used 04/07/25 11:39 Thrive Assessment: Date of Thrive Assessment Date Thrive assessed 12/19/24 04/07/25 11:39 Currently or been in a relationship where the following occur: No concerns reported Const General: well developed; No acute distress Nutritional Appearance: well nourished Orientation/consciousness: patient oriented x3 [facility] Head: Yes normocephalic and Yes atraumatic Eyes General: appearance normal, both eyes and all related structures Pupils: Equal, round and reactive pupils present EOM: EOMs intact bilaterally Resp Effort & Inspection: normal respiratory effort Auscultation: clear to auscultation bilaterally Cardio Rate: regular rate Rhythm: regular rhythm Heart sounds: S1 normal heart sound present, S2 normal heart sound present, no gallops, Murmur heart sound present and no rubs Neuro General: patient oriented x3 and gait normal Cranial nerves: Yes Equal, round and reactive pupils present Psych Affect: normal affect Coding Level of Care Code Est Pt Level 4 (72256) Diagnoses Essential hypertension I10 Herpes zoster without complication B02.9 Herpes zoster complications: without complications Mastoiditis of left side H70.92 Lower extremity edema R60.0 Ear pain H92.09 Assessment & Plan Assessment & Plan (1) Essential hypertension: Code(s): I10 - Essential (primary) hypertension Category: Medical Plan: Blood?pressure?is?well?controlled.??Goal?is?less?than?130/90 Continue?current?medications (2) Shingles: Code(s): B02.9 - Zoster without complications Category: Medical Qualifiers: Herpes zoster complications: without complications Qualified Code(s): B02.9 - Zoster without complications Plan: Recent,?recurrent?shingles Lesions?are?now?scabbed?over Recommended?Shingrix?shingles?shot?and?patient?will?inquire?with?her?pharmacy (3) Mastoiditis of left side: Code(s): H70.92 - Unspecified mastoiditis, left ear Category: Medical Plan: This?has?resolved (4) Lower extremity edema: Code(s): R60.0 - Localized edema Category: Medical Plan: Fairly?well?controlled. Does?not?tolerate?compression?stockings Continue?furosemide Avoid?salt/sodium Elevate?legs (5) Ear pain: Code(s): H92.09 - Otalgia, unspecified ear Category: Medical Plan: Ear?discomfort?or?fullness No?cerumen?but?does?have?small?uninfected?effusion?at?left?TM Trial?Flonase Orders: Orders UA CC w/rflx Micro + Cult Today N18.31 - Chronic kidney disease, stage 3a, Z00.00 - Encounter for general adult medical examination without abnormal findings Basic Metabolic Panel Today N18.31 - Chronic kidney disease, stage 3a, Z00.00 - Encounter for general adult medical examination without abnormal findings Microalbumin, Random (w Creat) Today I10 - Essential (primary) hypertension, N18.31 - Chronic kidney disease, stage 3a Medications: New fluticasone propionate 50 mcg/actuation (Flonase Allergy Relief) administer into each nostril 1 spray intranasal Q12H 16 grams 2RF 30 days
[2025-04-07 11:35] VITALS: BP 110/60; PULSE 52; RESP 14; TEMP 36.3; O2SAT 97; BMI 29.4
--- OUTSIDE RECORDS SUMMARY | 2025-04-07 13:06 | XMS_ITS | Clinical Summary ---
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 Role Phone Unavailable Primary Care Provider Unavailabl e Allergies Active Allergy Reactions Criticality Noted Date Comments Clams Unknown/Patient and Family Unable to Define Medium 01/22/2025 Colchicine Unknown/Patient and Family Unable to Define Medium 01/22/2025 Ibuprofen Unknown/Patient and Family Unable to Define Medium 01/22/2025 Davis Unknown/Patient and Family Unable to Define Medium [...] Description 01/24/2025 Orders Only LUCY [address] [place] [address] Lissy Burgess DO Mastoiditis 01/22/2025 9:39 AM EDT - 01/24/2025 12:21 PM EDT Hospital Encounter LIZZ CALDERONLUCY [address] [place] [address] Angelic Gross MD Sheth, MD Jenifer Montiel Lindsay, DO Mastoiditis (Primary Dx) Discharge Disposition: Home with Health Care Services 01/22/2025 7:25 AM EDT Ancillary Procedure [facility] Radiology [address] [place] [address] Provider, File Room 01/22/2025 7:20 AM EDT Ancillary Procedure [facility]iology [address] [place] [address] Provider, File Room 01/22/2025 Travel from Last [...] any time in the past 12 m [facility], were you homeless or living in a care home (including now)? No 01/23/2025 Comments Unknown Sex [...] 69 01/24/2025 8:25 AM EDT Temperature 37.6 C (99.6 F) 01/24/2025 4:41 AM EDT Respiratory Rate 16 01/24/2025 4:41 AM EDT [...] resultswithin the time period is included. Pathologist [facility] POC Glucose 134(H) 65 - 99 mg/dL 01/24/2025 8:12 AM EDT Blood specimen / Unknown 01/24/2025 8:02 AM EDT 01/24/2025 8:12 AM EDT us Angelic Gross MD POINT OF CARE TEST ORDERABLES Final Result HOSPITAL LAB See Below * (ABNORMAL) Complete Blood Count WITHOUT Differential - in AM (01/24/2025 6:59 AM EDT) [facility] White Blood Cell Count 13.8(H) 4.0 - 11.0 Thou/uL 01/24/2025 7:27 AM [facility] Platelet Count 251 150 - 450 Thou/uL 01/24/2025 7:27 AM [facility] Hemoglobin 9.6(L) 11.7 - 15.7 g/dL 01/24/2025 7:27 AM [facility] Hematocrit 30.4(L) 35.0 - 47.0 % 01/24/2025 7:27 AM [facility] Red Blood Cell Count 3.11(L) 4.00 - 5.40 Mil/uL 01/24/2025 7:27 AM [facility] MCV 98 80 - 100 fL 01/24/2025 7:27 AM [facility] MCH 30.9 27.0 - 31.0 pg 01/24/2025 7:27 AM [facility] MCHC 31.6 30.0 - 36.0 g/dL 01/24/2025 7:27 AM [facility] RDW 14.2 11.5 - 14.5 % 01/24/2025 7:27 AM [facility] MPV 10.8 7.5 - 12.5 fL 01/24/2025 7:27 AM [facility] Blood Blood specimen / Unknown 01/24/2025 6:59 AM EDT 01/24/2025 7:20 AM EDT Lissy [facility] LAB BLOOD ORDERABLES Final Resul t [address] [address], [address] [address] * (ABNORMAL) BASIC METABOLIC PANEL (01/24/2025 6:59 AM EDT) Only the most recent of3 resultswithin the time period is included. Glucose 133(H) 65 - 99 mg/dL 01/24/2025 8:01 AM [facility] Comment:Fasting: <100 mg/dL, Non-Fasting: <200 mg/dL (ADA 2005) Blood Urea Nitrogen (BUN) 34(H) 8 - 21 mg/dL 01/24/2025 8:01 AM [facility] Creatinine 2.2(H) 0.4 - 1.1 mg/dL 01/24/2025 8:01 AM [facility] eGFR 21(L) >59 01/24/2025 8:01 AM [facility] Comment:CKD-EPI (2020) in mL /min/1.73 sq meters. Sodium 138 136 - 145 mmol/L 01/24/2025 8:01 AM [facility] Potassium 3.7 3.4 - 5.3 mmol/L 01/24/2025 8:01 AM [facility] Chloride 103 98 - 107 mmol/L 01/24/2025 8:01 AM [facility] CO2 24 22 - 33 mmol/L 01/24/2025 8:01 AM [facility] Anion Gap 11 7 - 17 01/24/2025 8:01 AM [facility] Calcium 9.1 8.7 - 10.5 mg/dL 01/24/2025 8:01 AM [facility] BUN/Creatinine Ratio 15 10.0 - 25.0 Ratio 01/24/2025 8:01 AM EDT [facility] Blood Blood specimen / Unknown 01/24/2025 6:59 AM EDT 01/24/2025 7:20 AM EDT Lissy Burgess DO LAB BLOOD ORDERABLES Final Resul t Performing Organization Address City/[facility] [place] [address], [place] [address] * (ABNORMAL) Hemoglobin A1c with Estimated Average Glucose (01/23/2025 7:40 AM EDT) Hemoglobin A1C 6.1(H) <5.7 % 01/23/2025 8:58 AM EDT [facility] Comment: A1c% Interpretation 5.7 - 6.0 Increase risk of diabetes 6.1 - 6.4 Higher risk of diabetes > or = 6.5 Consistent with diabetes Diabetes Care, 33(Supp 1):S1-S61, 2010 Estimated Average Glucose 128 mg/dL 01/23/2025 8:58 AM EDT [facility] Blood Blood specimen / Unknown 01/23/2025 7:40 AM EDT 01/23/2025 8:00 AM EDT Audrey Simmons MD LAB BLOOD ORDERABLES Final Result Performing Organization Address City/[facility] [place] [address], [address] [address] * (ABNORMAL) Complete Blood Count, with Differential (01/23/2025 7:40 AM EDT) Only the most recent of2 resultswithin the time period is included. White Blood Cell Count 20.6(H) 4.0 - 11.0 Thou/uL 01/23/2025 8:19 AM EDT [facility] Platelet Count 267 150 - 450 Thou/uL 01/23/2025 8:19 AM EDT [facility] Hemoglobin 10.5(L) 11.7 - 15.7 g/dL 01/23/2025 8:19 AM [facility] Hematocrit 32.7(L) 35.0 - 47.0 % 01/23/2025 8:19 AM [facility] Red Blood Cell Count 3.35(L) 4.00 - 5.40 Mil/uL 01/23/2025 8:19 AM [facility] MCV 98 80 - 100 fL 01/23/2025 8:19 AM [facility] MCH 31.3(H) 27.0 - 31.0 pg 01/23/2025 8:19 AM [facility] MCHC 32.1 30.0 - 36.0 g/dL 01/23/2025 8:19 AM [facility] RDW 14.0 11.5 - 14.5 % 01/23/2025 8:19 AM [facility] MPV 10.8 7.5 - 12.5 fL 01/23/2025 8:19 AM [facility] Neutrophils Auto 76.0 % 01/24/20 8:19 AM [facility] Immature Granulocytes 0.7 % 01/23/2025 8:19 AM [facility] Lymphocytes Auto 14.7 % 01/24/20 8:19 AM [facility] Monocytes Auto 8.2 % 01/23/2025 8:19 AM [facility] Eosinophils Auto 0.2 % 01/24/20 8:19 AM [facility] Basophils Auto 0.2 % 01/23/2025 8:19 AM [facility] Abs Neutrophils Auto 15.61(H) 2.00 - 7.50 Thou/uL 01/23/2025 8:19 AM [facility] Abs Immature Granulocytes 0.15(H) 0.00 - 0.10 Thou/uL 01/23/2025 8:19 AM [facility] Abs Lymphocytes Auto 3.02 1.50 - 4.50 Thou/uL 01/23/2025 8:19 AM [facility] Abs Monocytes Auto 1.68(H) 0.20 - 1.50 Thou/uL 01/23/2025 8:19 AM [facility] Abs Eosinophils Auto 0.05 0.00 - 0.70 Thou/uL 01/23/2025 8:19 AM EDT [facility] Abs Basophils Auto 0.05 0.00 - 0.20 Thou/uL 01/23/2025 8:19 AM EDT [facility] Blood Blood specimen / Unknown 01/23/2025 7:40 AM EDT 01/23/2025 8:00 AM EDT Audrey Simmons MD LAB BLOOD ORDERABLES Final Result Performing Organization Address City/[facility] [place] [address], [place] [address] * (ABNORMAL) High Sensitivity Troponin T (01/22/2025 1:30 PM EDT) Only the most recent of2 resultswithin the time period is included. High Sensitivity Troponin T 28(H) <15 ng/L 01/22/2025 2:17 PM EDT [facility] Delta (Change) 1 <3 01/22/2025 2:17 PM EDT [facility] Comment:Increased 01/22/2025 1:30 PM EDT 01/22/2025 1:36 PM EDT Alexander Cooley PA-C LAB BLOOD ORDERABLES F inal Result Performing Organization Address [facility] [place] [address], [place] [address] * CTA Chest for P.E. (01/22/2025 1:20 PM EDT) Anatomical Region Laterality Modality Chest Computed Tomogra phy 01/22/2025 12:5 9 PM EDT Impressions 01/22/2025 1:44 PM EDT 1. No evidence of pulmonary embolism. 2. [...] ECG 12 lead (01/22/2025 12:24 PM EDT) [facility] Ventricular rate 65 BPM EKG [facility] Atrial rate 65 BPM EKG [facility] P-R interval 208 ms EKG [facility] QRS duration 80 ms EKG [facility] Q-T interval 414 ms EKG [facility] QTC calculation (Bazett) 431 ms EKG [facility] P axis 79 degrees EKG [facility] R axis 13 degrees EKG [facility] T axis 29 degrees EKG [facility] 01/22/2025 12:2 4 PM EDT Narrative EKG [facility] - 01/22/2025 5:30 PM EDT Normal sinus rhythm Normal ECG No previous ECGs available Confirmed by MD Elizondo Kevin ([id number]) on 01/22/2025 5:30:50 PM Procedure Note Dariel Elizondo MD - 01/22/2025 Normal sinus rhythm Normal ECG No previous ECGs available Confirmed by MD Elizondo Kevin ([id number]) on 01/22/2025 5:30:50 PM Alexander Cooley PA-C ECG ORDERABLES Final Result EKG [facility] * (ABNORMAL) proBNP, N-terminal (BNP) (01/22/2025 12:10 PM EDT) proBNP, N-terminal 2,546(H) <450 pg/mL 01/22/2025 1:25 PM EDT [facility] Blood Blood specimen / Unknown 01/22/2025 12:10 PM EDT 01/22/2025 12:47 PM EDT Alexander VICKERS-Joel LAB BLOOD ORDERABLES F inal Result [address] [address], [address] [address] * (ABNORMAL) INR (01/22/2025 12:10 PM EDT) Anticoagulant NO ANTI COAGULANT MEDS 01/22/2025 11:42 AM EDT [facility] Prothrombin Time (PT) 13.6(H) 10.0 - 13.5 seconds 01/22/2025 1:31 PM EDT [facility] INR 1.2 01/22/2025 1:31 PM EDT [facility] Comment:INR Therapeutic Rang es: Standard dose anticoagulant 2.0 to 3.0, High dose anticoagulant 2.5-3.5. Blood Blood specimen / Unknown 01/22/2025 12:10 PM EDT 01/22/2025 12:47 PM EDT [employer] [facility] LAB BLOOD ORDERABLES F inal Result [address] [address], [address] [address] * XR Chest 1 view-Portable (01/22/2025 12:05 [...] A & B BLUE CROSS OUT OF [facility] BLUE CROSS OUT OF [facility] MEDICARE PART A & B Advance Directives * DNR (Latest Code Status on File) Date Activated Date Inactivated Comments 01/22/2025 2:18 PM Question Answer Comments Decision thoroughly discussed with: Patient
== END 2025-04-07 12:03 | disposition home or self-care (01) ==
LOC: HO.HMCFM 11:27
PROVIDERS: PCP Family Medicine; Visit Provider Family Medicine
DX: I10 Essential (primary) hypertension (principal); B02.9 Zoster without complications; H70.92 Unspecified mastoiditis, left ear; R60.0 Localized edema; H92.09 Otalgia, unspecified ear

== ENCOUNTER → 2025-04-07 11:26 | Outpatient (BNVA) | payer MEDICARE, SELFPAY | PROVIDERS: PCP Family Medicine; Visit Provider Family Medicine | DX: I10 Essential (primary) hypertension (principal); B02.9 Zoster without complications; H70.92 Unspecified mastoiditis, left ear; R60.0 Localized edema; H92.02 Otalgia, left ear | CPT/HCPCS: 99212 ==

== ENCOUNTER → 2025-05-07 23:59 | Outpatient (BNV) | payer MEDICARE, SELFPAY | PROVIDERS: PCP Family Medicine; Visit Provider Family Medicine | DX: I13.0 Hypertensive heart and chronic kidney disease with heart failure and stage 1 through stage 4 chronic kidney disease, or unspecified chronic kidney disease (principal); I50.9 Heart failure, unspecified; E11.22 Type 2 diabetes mellitus with diabetic chronic kidney disease; N18.9 Chronic kidney disease, unspecified | CPT/HCPCS: G0180 ==

== ENCOUNTER 2025-06-19 11:10 | Outpatient (REF) | payer MEDICARE, SELFPAY ==
--- OUTSIDE RECORDS SUMMARY | 2025-06-19 12:48 | XMS_ITS ---
Author Name [facility] Organization Unknown Results Test Name/Text Value Interpretation Date Range Source POC Glucose 134.0 mg/dL Above high normal 01/24/2025 65 - 99 [facility] CO2 SerPl-sCnc 24.0 mmol/L Normal 01/24/2025 22 - 33 HH CCT Anion Gap Bld-sCnc 11.0 Normal 01/24/2025 7 - 17 H[facility] BUN SerPl-mCnc 34.0 mg/dL Above high normal 01/24/2025 8 - 2 1 H[facility] Creat SerPl-mCnc 2.2 mg/dL Above high normal 01/24/2025 0.4 - 1.1 H[facility]CT Glucose SerPl-mCnc 133.0 mg/dL Above high normal 01/24/2025 65 - 99 H[facility]CT Chloride SerPl-sCnc 103.0 mmol/L Normal 01/24/2025 98 - 1 07 [facility]CT Potassium SerPl-sCnc 3.7 mmol/L Normal 01/24/2025 3.4 - 5 .3 HHCCT GFR/BSA.pred SerPlBld [id number] 21.0 Below low normal 01/24/2025 59 - HHCCT BUN/Creat SerPl 15.0 Ratio Normal 01/24/2025 10 - 25 HH CCT Sodium SerPl-sCnc 138.0 mmol/L Normal 01/24/2025 136 - 14 5 H[facility]CT Calcium SerPl-mCnc 9.1 mg/dL Normal 01/24/2025 8.7 - 10.5 H[facility]CT WBC num Bld Auto 13.8 Thou/uL Above high normal 01/24/2025 4 - 11 [facility] Platelet num Bld Auto 251.0 Thou/uL Normal 01/24/2025 150 - 450 [facility] MCV RBC Auto 98.0 fL Normal 01/24/2025 80 - 100 [facility] RDW RBC Auto-Rto 14.2 % Normal 01/24/2025 11.5 - 14.5 H[facility]CT MCHC RBC Auto-mCnc 31.6 g/dL Normal 01/24/2025 30 - 36 H[facility]CT Hct VFr Bld Auto 30.4 % Below low normal 01/24/2025 35 - 47 H[facility]CT MCH RBC Qn Auto 30.9 pg Normal 01/24/2025 27 - [address] PMV Bld Auto 10.8 fL Normal 01/24/2025 7.5 - 12.5 [facility] RBC num Bld Auto 3.11 Mil/uL Below low normal 01/24/2025 4 - 5.4 H[facility]CT Hgb Bld-mCnc 9.6 g/dL Below low normal 01/24/2025 11.7 - 15 .7 H[facility]CT POC Glucose 97.0 mg/dL Normal 01/24/2025 65 - 99 H[facility] POC Glucose 222.0 mg/dL Above high normal 01/23/2025 65 - 99 H[facility]CT POC Glucose 138.0 mg/dL Above high normal 01/23/2025 65 - 99 HHCCT Hgb A1c MFr Bld 6.1 % Above high normal 01/23/2025 - 5.7 HHCCT Est. average glucose Bld gHb Est-mCnc 128.0 mg/dL Normal 01/23/2025 HHCCT Potassium SerPl-sCnc 3.6 mmol/L Normal 01/23/2025 3.4 - 5 .3 HHCCT Sodium SerPl-sCnc 139.0 mmol/L Normal 01/23/2025 136 - 14 5 HHCCT BUN SerPl-mCnc 29.0 mg/dL Above high normal 01/23/2025 8 - 2 1 H[facility]CT Anion Gap Bld-sCnc 14.0 Normal 01/23/2025 7 - 17 H[facility]CT Calcium SerPl-mCnc 9.0 mg/dL Normal 01/23/2025 8.7 - 10.5 HHCCT Glucose SerPl-mCnc 115.0 mg/dL Above high normal 01/23/2025 65 - 99 HHCCT CO2 SerPl-sCnc 22.0 mmol/L Normal 01/23/2025 22 - 33 HH CCT Chloride SerPl-sCnc 103.0 mmol/L Normal 01/23/2025 98 - 1 07 H[facility]CT BUN/Creat SerPl 16.0 Ratio Normal 01/23/2025 10 - 25 HH CCT GFR/BSA.pred SerPlBld [id number] 27.0 Below low normal 01/23/2025 59 - HHCCT Creat SerPl-mCnc 1.8 mg/dL Above high normal 01/23/2025 0.4 - 1.1 HHCCT Lymphocytes num Bld Auto 3.02 Thou/uL Normal 01/23/2025 1.5 - 4.5 HHCCT Monocytes/leuk NFr Bld Auto 8.2 % Normal 01/23/2025 HHCCT MCH RBC Qn Auto 31.3 pg Above high normal 01/23/2025 27 - 31 HHCCT Eosinophil/leuk NFr Bld Auto 0.2 % Normal 01/23/2025 HHCCT Imm Granulocytes/leuk NFr Bld Auto 0.7 % Normal 01/23/2025 HHCCT Basophils num Bld Auto 0.05 Thou/uL Normal 01/23/2025 0 - 0.2 HHCCT Imm Granulocytes num Bld Auto 0.15 Thou/uL Above high normal 01/23/2025 0 - 0.1 HHCCT Basophils/leuk NFr Bld Auto 0.2 % Normal 01/23/2025 HHCCT Neutrophils num Bld Auto 15.61 Thou/uL Above high normal 01/23/2025 2 - 7.5 HHCCT Monocytes num Bld Auto 1.68 Thou/uL Above high normal 01/23/2025 0.2 - 1.5 HHCCT WBC num Bld Auto 20.6 Thou/uL Above high normal 01/23/2025 4 - 11 HHCCT RBC num Bld Auto 3.35 Mil/uL Below low normal 01/23/2025 4 - 5.4 HHCCT Platelet num Bld Auto 267.0 Thou/uL Normal 01/23/2025 150 - 450 HHCCT Lymphocytes/leuk NFr Bld Auto 14.7 % Normal 01/23/2025 HHCCT Eosinophil num Bld Auto 0.05 Thou/uL Normal 01/23/2025 0 - 0.7 HHCCT PMV Bld Auto 10.8 fL Normal 01/23/2025 7.5 - 12.5 HHCCT Hgb Bld-mCnc 10.5 g/dL Below low normal 01/23/2025 11.7 - 15 .7 HHCCT MCV RBC Auto 98.0 fL Normal 01/23/2025 80 - 100 HHCCT MCHC RBC Auto-mCnc 32.1 g/dL Normal 01/23/2025 30 - 36 HHCCT Hct VFr Bld Auto 32.7 % Below low normal 01/23/2025 35 - 47 HHCCT Neutrophils/leuk NFr Bld Auto 76.0 % Normal 01/23/2025 CCT RDW RBC Auto-Rto 14.0 % Normal 01/23/2025 11.5 - 14.5 HHCCT POC Glucose 129.0 mg/dL Above high normal 01/23/2025 65 - 99 CCT POC Glucose 143.0 mg/dL Above high normal 01/23/2025 65 - 99 CCT POC Glucose 165.0 mg/dL Above high normal 01/22/2025 65 - 99 H[facility]CT Delta 1.0 Normal 01/22/2025 - 3 CCT Troponin T SerPl-mCnc 28.0 ng/L Above high normal 01/22/2025 - 15 [facility] INR PPP 1.2 Normal 01/22/2025 CCT Prothrombin time 13.6 seconds Above high normal 01/22/2025 1 0 - 13.5 HHCCT Anticoagulant NO ANTI COAGULANT MEDS Normal 01/22/2025 [facility] pro BNP, N-terminal 2546.0 pg/mL Above high normal 5 - 450 CCT Troponin T SerPl-mCnc 27.0 ng/L Above high normal 01/22/2025 - 15 CCT Delta NO PREVIOUS RESULT Normal 01/22/2025 - 3 [facility]CT Lymphocytes/leuk NFr Bld Auto 7.5 % Normal 01/22/2025 HHCCT Eosinophil/leuk NFr Bld Auto 0.0 % Normal 01/22/2025 H[facility]CT Lymphocytes num Bld Auto 1.67 Thou/uL Normal 01/22/2025 1.5 - 4.5 HHCCT WBC num Bld Auto 22.2 Thou/uL Above high normal 01/22/2025 4 - 11 H[facility]CT RBC num Bld Auto 3.71 Mil/uL Below low normal 01/22/2025 4 - 5.4 HHCCT Hgb Bld-mCnc 11.7 g/dL Normal 01/22/2025 11.7 - 15.7 [facility] T Basophils/leuk NFr Bld Auto 0.2 % Normal 01/22/2025 H[facility]CT Platelet num Bld Auto 254.0 Thou/uL Normal 01/22/2025 150 - 450 H[facility]CT Imm Granulocytes num Bld Auto 0.28 Thou/uL Above high normal 01/22/2025 0 - 0.1 HHCCT Hct VFr Bld Auto 37.3 % Normal 01/22/2025 35 - 47 HH CCT Neutrophils/leuk NFr Bld Auto 82.8 % Normal 01/22/2025 HHCCT Eosinophil num Bld Auto 0.01 Thou/uL Normal 01/22/2025 0 - 0.7 HHCCT RDW RBC Auto-Rto 13.7 % Normal 01/22/2025 11.5 - 14.5 HHCCT Imm Granulocytes/leuk NFr Bld Auto 1.3 % Normal 01/22/2025 H[facility]CT MCH RBC Qn Auto 31.5 pg Above high normal 01/22/2025 27 - 31 HHCCT Monocytes/leuk NFr Bld Auto 8.2 % Normal 01/22/2025 HHCCT MCHC RBC Auto-mCnc 31.4 g/dL Normal 01/22/2025 30 - 36 HHCCT Neutrophils num Bld Auto 18.36 Thou/uL Above high normal 01/22/2025 2 - 7.5 HHCCT MCV RBC Auto 101.0 fL Above high normal 01/22/2025 80 - 100 HHCCT Basophils num Bld Auto 0.05 Thou/uL Normal 01/22/2025 0 - 0.2 HHCCT Monocytes num Bld Auto 1.81 Thou/uL Above high normal 01/22/2025 0.2 - 1.5 HHCCT CO2 SerPl-sCnc 23.0 mmol/L Normal 01/22/2025 22 - 33 HH CCT Sodium SerPl-sCnc 141.0 mmol/L Normal 01/22/2025 136 - 14 5 HHCCT BUN/Creat SerPl 15.0 Ratio Normal 01/22/2025 10 - 25 HH CCT Glucose SerPl-mCnc 158.0 mg/dL Above high normal 01/22/2025 65 - 99 HHCCT GFR/BSA.pred SerPlBld [id number] 33.0 Below low normal 01/22/2025 59 - HHCCT BUN SerPl-mCnc 23.0 mg/dL Above high normal 01/22/2025 8 - 2 1 HHCCT Chloride SerPl-sCnc 104.0 mmol/L Normal 01/22/2025 98 - 1 07 HHCCT Calcium SerPl-mCnc 9.2 mg/dL Normal 01/22/2025 8.7 - 10.5 HHCCT Anion Gap Bld-sCnc 14.0 Normal 01/22/2025 7 - 17 HHCCT Potassium SerPl-sCnc 3.8 mmol/L Normal 01/22/2025 3.4 - 5 .3 HHCCT Creat SerPl-mCnc 1.5 mg/dL Above high normal 01/22/2025 0.4 - 1.1 HHCCT Encounters Encounter Type Encounter Reason Primary Diagnosis Location Date Inpatient Unspecified mastoiditis, unspecified ear Unspecified mastoiditis, unspecified ear [facility] 01/22/2025 Amb[facility] 01/22/2025 [facility] 01/22/2025 Care Team Organization Name Specialty Phone Email Start Date End [facility] 01/26/2025 02/24/2025 [facility] 01/22/2025
--- OUTSIDE RECORDS SUMMARY | 2025-06-19 12:49 | XMS_ITS | Clinical Summary ---
Author Organization [facility] Facility Address [address] [place] [address] Care Team Providers Care Field Recruiter Name Role Phone Unavailable Primary Care Provider [...] Visual Foot Exam 11/25/2022 Influenza Vaccine (#1) 2025 Pneumococcal Vaccine: 50+ Years Completed 07/15/2019, 06/26/2019, 07/19/2005 Hepatitis B Vaccine Aged Out No longe r eligible based on patient's age to complete this topic Insurance Medicare [facility] Medicare [facility]
--- OUTSIDE RECORDS SUMMARY | 2025-06-19 12:49 | XMS_ITS | Clinical Summary ---
Author Organization [facility] Address [address] [place] [address] Care Team Providers Care Assistant Professor Of Nursing Name Role Phone Unavailable Primary Care Provider Unavailabl e Allergies Active Allergy Reactions Criticality Noted Date Comments Clams Unknown/Patient and Family Unable to Define Medium 01/22/2025 Colchicine Unknown/Patient and Family Unable to Define Medium 01/22/2025 Ibuprofen Unknown/Patient and Family Unable to Define Medium 01/22/2025 [place] Unknown/Patient and Family Unable to Define Medium [...] this time Id recs reviewed, continue unasyn Social History Tobacco Use Types Packs/Day Years Used Date Smoking Tobacco: Never Assessed [facility] Utilities Answer Date Recorded In the past 12 months has th e [facility], gas, oil, or water [employer] threatened to shut off services in your [...] you homeless or living in a senior care (including now)? No 01/23/2025 Comments Unknown Sex [...] Health Maintenance Due Date Last Done Comments Advance Care Planning 1936 Foot Exam 1946 Lipid Panel 1946 Ophthalmology Exam 1946 DTaP/Tdap/Td Vaccines (1 - Tdap) 1955 Pneumococcal Vaccines 50+ (1 of 2 - PCV) 1955 Zoster (Shingles) Vaccine (1 of 2) 1986 DXA Bone Density (Females,Ages 65 and older) 2001 RSV Vaccine 60 years and older and Patients (1 - 1-dose 75+ series) 2011 Influenza Vaccine 05/16/2025 06/28/2022, , 07/12/2019, Additional history exists COVID-19 Vaccine ( season) 2025 02/15/2022, 08/19/2021, 01/09/2021, Additional history exists Hemoglobin A1C 07/25/2025 01/23/2025 Creatinine with GFR 01/24/2026 01/24/2025, 01/23/2025, 01/22/2025 Hepatitis B Vaccines Aged Out No long er eligible based on patient's age to complete this topic Procedures Procedure Name Priority Date/Time Associated Diagnosis Comments BASIC METABOLIC PANEL Routine 01/24/2025 6:59 AM EDT HEMOGLOBIN A1C WITH ESTIMATED AVERAGE GLUCOSE Routine 01/23/2025 7:40 AM EDT from Last 3 Months or Most Recently Relevant to Health Maintenance Results * (ABNORMAL) BASIC METABOLIC PANEL (01/24/2025 6:59 AM EDT) Glucose 133(H) 65 - 99 mg/dL 01/24/2025 8:01 AM [facility] Comment:Fasting: <100 mg/dL, Non-Fasting: <200 mg/dL (ADA 2005) Blood Urea Nitrogen (BUN) 34(H) 8 - 21 mg/dL 01/24/2025 8:01 AM [facility] Creatinine 2.2(H) 0.4 - 1.1 mg/dL 01/24/2025 8:01 AM [facility] eGFR 21(L) >59 01/24/2025 8:01 AM [facility] Comment:CKD-EPI (2020) in mL /min/1.73 sq meters. Sodium 138 136 - 145 mmol/L 01/24/2025 8:01 AM [facility] Potassium 3.7 3.4 - 5.3 mmol/L 01/24/2025 8:01 AM [facility] Chloride 103 98 - 107 mmol/L 01/24/2025 8:01 AM [facility] CO2 24 22 - 33 mmol/L 01/24/2025 8:01 AM [facility] Anion Gap 11 7 - 17 01/24/2025 8:01 AM [facility] Calcium 9.1 8.7 - 10.5 mg/dL 01/24/2025 8:01 AM [facility] BUN/Creatinine Ratio 15 10.0 - 25.0 Ratio 01/24/2025 8:01 AM EDT [facility] Blood Blood specimen / Unknown 01/24/2025 6:59 AM EDT 01/24/2025 7:20 AM EDT Lissy Burgess DO LAB BLOOD ORDERABLES Final Resul t Performing Organization Address [facility] [place] [address], [place] [address] * (ABNORMAL) Hemoglobin A1c with Estimated Average Glucose (01/23/2025 7:40 AM EDT) Hemoglobin A1C 6.1(H) <5.7 % 01/23/2025 8:58 AM EDT [facility] Comment: A1c% Interpretation 5.7 - 6.0 Increase risk of diabetes 6.1 - 6.4 Higher risk of diabetes > or = 6.5 Consistent with diabetes Diabetes Care, 33(Supp 1):S1-S61, 2010 Estimated Average Glucose 128 mg/dL 01/23/2025 8:58 AM EDT [facility] Blood Blood specimen / Unknown 01/23/2025 7:40 AM EDT 01/23/2025 8:00 AM EDT Audrey Simmons MD LAB BLOOD ORDERABLES Final Result Performing Organization Address [facility] [place] [address], [address] [address] from Last 3 Months or Most Recently Relevant to Health Maintenance Insurance MEDICARE PART A & B BLUE CROSS OUT OF [facility] BLUE CROSS OUT OF [facility] MEDICARE PART A & B Advance Directives * DNR (Latest Code Status on File) Date Activated Date Inactivated Comments 01/22/2025 2:18 PM Question Answer Comments Decision thoroughly discussed with: Patient
[2025-06-19 14:24] LABS: Anion Gap 10 (12-20); Blood Urea Nitrogen 28 mg/dL (9-16); Calcium 9.1 mg/dL (8.4-10.2); Carbon Dioxide 28 mmol/L (22-29); Chloride 107 mmol/L (96-108); Estimated Glomerular Filt Rate 29; Potassium 4.1 mmol/L (3.3-5.1); Sodium 141 mmol/L (135-145)
== END 2025-06-19 11:11 | disposition home or self-care (01) ==
LOC: HO.WFDLDS 11:10
PROVIDERS: Internal Medicine Nephrology; Visit Provider Family Medicine
DX: Z00.00 Encounter for general adult medical examination without abnormal findings (principal); N18.31 Chronic kidney disease, stage 3a
CPT/HCPCS: 36415; 80048

== ENCOUNTER 2025-06-23 11:42 | Outpatient (AMB) | payer MEDICARE, SELFPAY ==
--- NOTE | 2025-06-23 11:49 | A.OFFPC_ITS ---
Vital Signs 06/23/25 11:53 Height 5 ft 3 in Weight 171 lb 8 oz BMI 30.4 BP 122/60 Blood Pressure Location Rt brachial Position Sitting Pulse 54 Pulse Source Pulse Oximeter Pulse Oximetry (%) 96 Oxygen Delivery Method Room Air Intake Visit Reasons: f/u diabetes Accompanied by: Daughter Allergies clams Allergy (Intermediate, Verified 06/23/25 11:55) Facial Swelling walnut Allergy (Intermediate, Verified 06/23/25 11:55) Hives ibuprofen Allergy (Unknown, Verified 06/23/25 11:55) Hives Tobacco use date assessed: 06/23/25 Fall risk assessment: 1 Fall in past year Last assessed Fall Risk: 06/23/25 Dental Screening Dental Screen Date: 06/23/25 Did you have a dental visit in the last 12 months?: Yes Did you have a dental problem in the last 6 months where you did not have access to dental care?: No Was dental information given to patient?: Patient has dentist HPI f/u diabetes HPI Details 89 y/o female presents to f/u diabetes. A1c today 06/23/25 is 5.8%. Blood pressure today 122/60, 54p. She is on amlodipine 2.5mg daily. Last eye exam about 2 years ago. Recent visit to urgent care for shingles. Also had sores on her tongue. Pt notes shingles have been improving. Reports some unsteady gait. HPI Comments History of Present Illness Details Documentation assistance for Ray Forbes MD, was provided by Elio Acosta,? Biomass Production Manager on at 12:26 PM EST. I, Dr. Forbes, have read, observed, and verified documentation. ? PFSH Medical History Essential hypertension Diabetes type 2, controlled Surgical History History of surgery History of left knee replacement History of arthroscopy of right knee History of hysterectomy Family History Father No problems noted. Mother No problems noted. Son Multiple sclerosis Daughter Rheumatoid arthritis Hx of cancer of lung Social History Household Members: None Housing: House Alcohol intake: never Patient Tobacco Use Status: Never used Tobacco e-Cigarette/Vaping Use: Never Used Second Hand Smoke Exposure: No service: No Current occupational status: retired Current occupational exposures/hazards: No Cognitive needs: No Hearing needs: No Vision needs: No Questionnaire PHQ-9 Over the last 2 weeks, how often have you been bothered by any of the following problems? 1. Little interest or pleasure in doing things: not at all 2. Feeling down, depressed, or hopeless: not at all 3. Trouble falling or staying asleep, or sleeping too much: not at all 4. Feeling tired or having little energy: not at all 5. Poor appetite or overeating: not at all 6. Feeling bad about yourself - or that you are a failure or have let yourself or your family down: not at all 7. Trouble concentrating on things, such as reading the newspaper or watching television: not at all 8. Moving or speaking so slowly that other people could have noticed. Or the opposite - being so fidgety or restless that you have been moving around a lot more than usual: not at all 9. Thoughts that you would be better off or of hurting yourself in some way: not at all Total score: 0 Depression Screening Interpretation: Negative Depression Screening Done: Yes Source: Developed by Drs. Don Balderrama, Sakina Rodriguez, Reji Tse and colleagues, with an educational yaneli from [employer]. Thrive Questionnaire Date Thrive assessed: 12/19/24 I am a: Patient What is your living situation today?: I have a steady place to live Within the past 12 months, did the food you bought not last and you didn't have the money to get more?: Never true Within the past 12 months, did you worry whether your food would run out before you got money to buy more?: Never true Do you have trouble paying for medicines?: No Do you have trouble getting transportation to medical appointments?: No Do you have trouble paying your heating and electricity bill?: No Do you have trouble taking care of your child, family member or friend?: I choose not to answer this question Do you have trouble with day-to-day activities such as bathing, preparing meals, shopping, managing finances, etc.?: Yes Are you currently unemployed and looking for a job?: No Are you interested in more education?: No Please select the resources that you would like help with: None Currently or been in a relationship where the following occur: No concerns reported THRIVE Score: 0 AUDIT C Alcohol Use Questionnaire (AUDIT-C) 1. How often do you have a drink containing alcohol?: Never 3. How often do you have six or more drinks on one occasion?: Never Total Score: 0 CORNELIUS-7 AMB Questionnaire CORNELIUS-7 Date CORNELIUS - 7 assessed: 06/23/25 Feeling nervous, anxious, or on edge: 0 = Not at all Not being able to stop or control worryin = Not at all Worrying too much about different things: 0 = Not at all Trouble relaxin = Not at all Being so restless that it is hard to sit still: 0 = Not at all Becoming easily annoyed or irritable: 0 = Not at all Feeling afraid as if something awful might happen: 0 = Not at all Total CORNELIUS-7 score (0-4 normal; 5-9 mild; 10-14 moderate; 15-21 severe): 0 Source: Developed by Drs. Don Balderrama, Sakina Rodriguez, Reji Tse and colleagues, with an educational yaneli from [employer]. Review of Systems Const Denies chills, Denies fatigue, Denies fever(s), Denies headache(s) and Denies weakness ENT Denies dizziness and Denies headache(s) Card Denies dyspnea Resp Denies cough, Denies dyspnea, Denies wheezing and Denies other (shortness of breath) Musc Denies numbness and Denies tingling Neuro Denies dizziness, Denies headache(s), Denies numbness, Denies tingling and Denies weakness Psych Denies anxiety and Denies depression Endo Denies fatigue Aller/Immun Denies wheezing Physical exam (Primary Care) Vital Signs: Last Vital Signs Pulse 54 06/23/25 11:53 BP 122/60 06/23/25 11:53 Pulse Ox 96 06/23/25 11:53 Oxygen Delivery Method Room Air 06/23/25 11:53 BMI result Body Mass Index 30.4 Tobacco/Smoking Status: Tobacco use Status Tobacco use date assessed 06/23/25 06/23/25 11:58 Patient Tobacco Use Status Never used Tobacco 06/23/25 11:51 e-Cigarette/Vaping Use Never Used 06/23/25 11:51 PHQ-9: PHQ-9 Score PHQ-9: Total score 0 06/23/25 12:23 Depression Screening Interpretation: Negative Thrive Assessment: Date of Thrive Assessment Date Thrive assessed 12/19/24 06/23/25 11:51 Currently or been in a relationship where the following occur: No concerns reported Const General: well developed; No acute distress Nutritional Appearance: well nourished Orientation/consciousness: patient oriented x3 HENMT Head: Yes normocephalic and Yes atraumatic Eyes General: appearance normal, both eyes and all related structures Pupils: Equal, round and reactive pupils present EOM: EOMs intact bilaterally Resp Effort & Inspection: normal respiratory effort Neuro General: patient oriented x3 and No gait normal Cranial nerves: Yes Equal, round and reactive pupils present Psych Affect: normal affect Results AMB Hemoglobin A1c AMB Hemoglobin A1c 5.8 % Last Edit by Monica Paul CMA on 06/23/25 12:42 Coding Level of Care Code Est Pt Level 4 (40641) Diagnoses Essential hypertension I10 Diabetes type 2, controlled E11.9 Sore in mouth K13.79 Herpes zoster without complication B02.9 Herpes zoster complications: without complications Unsteady gait R26.81 Lower extremity weakness R29.898 Immunization counseling Z71.85 Assessment & Plan Assessment & Plan (1) Essential hypertension: Code(s): I10 - Essential (primary) hypertension Category: Medical Plan: Blood pressure is controlled. Goal is less than 140/90 Continue current medications (2) Diabetes type 2, controlled: Code(s): E11.9 - Type 2 diabetes mellitus without complications Category: Medical Plan: A1c 5.8%. Good control. Goal is less than 7% Continue current medications (3) Sore in mouth: Code(s): K13.79 - Other lesions of oral mucosa Category: Medical Plan: Unclear cause Does not appear to be thrush or neoplastic Advised good hydration, warm saltwater gargles Follow-up with your dentist (4) Shingles: Code(s): B02.9 - Zoster without complications Category: Medical Qualifiers: Herpes zoster complications: without complications Qualified Code(s): B02.9 - Zoster without complications Plan: S/p shingles Advised Shingrix vaccine (5) Unsteady gait: Code(s): R26.81 - Unsteadiness on feet Category: Medical (6) Lower extremity weakness: Code(s): R29.898 - Other symptoms and signs involving the musculoskeletal system Category: Medical (7) Immunization counseling: Code(s): Z71.85 - Encounter for immunization safety counseling Category: Medical Plan Patient has some ongoing low back pain as well as lower extremity weakness and unsteady gait Start physical therapy Will re-evaluate. If still having issues, will consider imaging and referral Orders: Orders Comprehensive [place]. Panel Fast Today Z00.00 - Encounter for general adult medical examination without abnormal findings Microalbumin, Random (w Creat) Today I10 - Essential (primary) hypertension AMB Hemoglobin A1c Today Z13.9 - Encounter for screening, unspecified PT Evaluation and Treatment Today M54.9 - Dorsalgia, unspecified, R26.81 - Unsteadiness on feet, R29.898 - Other symptoms and signs involving the musculoskeletal system Complete Blood Count Auto Diff Today Z00.00 - Encounter for general adult medical examination without abnormal findings Lipid Panel Today Z00.00 - Encounter for general adult medical examination without abnormal findings TSH reflex Free T4 Today Z00.00 - Encounter for general adult medical examination without abnormal findings UA CC w/rflx Micro + Cult Today Z00.00 - Encounter for general adult medical examination without abnormal findings
[2025-06-23 11:53] VITALS: BP 122/60; PULSE 54; O2SAT 96; BMI 30.4
--- OUTSIDE RECORDS SUMMARY | 2025-06-23 14:22 | XMS_ITS | Clinical Summary ---
Author Organization [facility] Facility Address [address] [place] [id number] Care Team Providers Care Certified Dialysis Technician Name Role Phone Unavailable Primary Care [...] age to complete this topic Insurance Medicare [facility] Medicare [facility]
--- OUTSIDE RECORDS SUMMARY | 2025-06-23 14:22 | XMS_ITS | Clinical Summary ---
Author Organization [facility] Address [address] [place] [address] Care Team Providers Care Orchestra Leader Name Role Phone Unavailable Primary Care Provider Unavailabl e Allergies Active Allergy Reactions Criticality Noted Date Comments Clams Unknown/Patient and Family Unable to Define Medium 01/22/2025 Colchicine Unknown/Patient and Family Unable to Define Medium 01/22/2025 Ibuprofen Unknown/Patient and Family Unable to Define Medium 01/22/2025 [place] Unknown/Patient and Family Unable to Define Medium [...] Date Smoking Tobacco: Never Assessed [facility] Utilities Answer Date Recorded In the past 12 months has th e [employer], gas, oil, or water [email or web address] threatened to shut off services in your [...] any time in the past [address] [facility], were you homeless or living in a [...] 65 - 99 mg/dL 01/24/2025 8:01 AM [facility] Comment:Fasting: <100 mg/dL, Non-Fasting: <200 mg/dL (ADA 2005) Blood Urea Nitrogen (BUN) 34(H) 8 - 21 mg/dL 01/24/2025 8:01 AM [facility] Creatinine 2.2(H) 0.4 - 1.1 mg/dL 01/24/2025 8:01 AM [facility] eGFR 21(L) >59 01/24/2025 8:01 AM [facility] Comment:CKD-EPI (2020) in mL /min/1.73 sq meters. Sodium 138 136 - 145 mmol/L 01/24/2025 8:01 AM [facility] Potassium 3.7 3.4 - 5.3 mmol/L 01/24/2025 8:01 AM [facility] Chloride 103 98 - 107 mmol/L 01/24/2025 8:01 AM [facility] CO2 24 22 - 33 mmol/L 01/24/2025 8:01 AM [facility] Anion Gap 11 7 - 17 01/24/2025 8:01 AM [facility] Calcium 9.1 8.7 - 10.5 mg/dL 01/24/2025 8:01 AM [facility] BUN/Creatinine Ratio 15 10.0 - 25.0 Ratio 01/24/2025 8:01 AM EDT [facility] Blood Blood specimen / Unknown 01/24/2025 6:59 AM EDT 01/24/2025 7:20 AM EDT Lissy Burgess DO LAB BLOOD ORDERABLES Final Resul t Performing Organization Address [facility] [place] [address], [place] [address] * (ABNORMAL) Hemoglobin A1c with Estimated Average Glucose (01/23/2025 7:40 AM EDT) Hemoglobin A1C 6.1(H) <5.7 % 01/23/2025 8:58 AM EDT [facility] Comment: A1c% Interpretation 5.7 - 6.0 Increase risk of diabetes 6.1 - 6.4 Higher risk of diabetes > or = 6.5 Consistent with diabetes Diabetes Care, 33(Supp 1):S1-S61, 2010 Estimated Average Glucose 128 mg/dL 01/23/2025 8:58 AM EDT [facility] Blood Blood specimen / Unknown 01/23/2025 7:40 AM EDT 01/23/2025 8:00 AM EDT Audrey Simmons MD LAB BLOOD ORDERABLES Final Result Performing Organization Address [facility] [place] [address], [address] [address] from Last 3 Months or Most Recently Relevant to Health Maintenance Insurance MEDICARE PART A & B BLUE CROSS OUT OF [facility] BLUE CROSS OUT OF [facility] MEDICARE PART A & B Advance Directives * DNR (Latest Code Status on File) Date Activated Date Inactivated Comments 01/22/2025 2:18 PM Question Answer Comments Decision thoroughly discussed with: Patient
== END 2025-06-23 13:57 | disposition home or self-care (01) ==
LOC: HO.HMCFM 11:43
PROVIDERS: PCP Family Medicine; Visit Provider Family Medicine
DX: I10 Essential (primary) hypertension (principal); E11.9 Type 2 diabetes mellitus without complications; K13.79 Other lesions of oral mucosa; B02.9 Zoster without complications; R26.81 Unsteadiness on feet; R29.898 Other symptoms and signs involving the musculoskeletal system; Z71.85 Encounter for immunization safety counseling; Z13.9 Encounter for screening, unspecified

== ENCOUNTER → 2025-06-23 11:42 | Outpatient (BNVA) | payer MEDICARE, SELFPAY | PROVIDERS: PCP Family Medicine; Visit Provider Family Medicine | DX: E11.9 Type 2 diabetes mellitus without complications (principal); I10 Essential (primary) hypertension; K13.79 Other lesions of oral mucosa; B02.9 Zoster without complications; R26.81 Unsteadiness on feet; R29.898 Other symptoms and signs involving the musculoskeletal system; M54.9 Dorsalgia, unspecified; Z71.85 Encounter for immunization safety counseling | CPT/HCPCS: 83036; 96127; 99212 ==

== ENCOUNTER 2025-08-22 10:12 | Outpatient (REF) | payer MEDICARE, SELFPAY ==
[2025-08-22 11:25] LABS: MANUAL DIFF FLAG NO
[2025-08-22 11:47] LABS: Hematocrit 34.7 % (37.0-47.0); Hemoglobin 11.1 g/dl (12.0-16.0); Imm Gran Abs Auto 0.02 X10*3/uL (0.00-0.03); Imm Gran Pct Auto 0.2 % (0.0-0.4); Lymphocytes Absolute Auto 3.0 X10*3/uL (1.2-4.9); Mean Corpuscular HGB Conc 32.0 g/dl (31.0-35.0); Mean Corpuscular Hemoglobin 31.6 pg (27.0-33.0); Mean Corpuscular Volume 98.9 fL (80.0-98.0); NRBC Abs Auto 0.000 X10*3/uL (0.0-0.012); NRBC Pct Auto 0.0 /100WBC (0.0-0.2); Platelet Count 237 X10*3/uL (160-400); Red Blood Count 3.51 X10*6/uL (4.20-5.50); White Blood Count 8.8 X10*3/uL (4.8-10.8)
--- OUTSIDE RECORDS SUMMARY | 2025-08-22 12:01 | XMS_ITS | Clinical Summary ---
Author Organization [facility] Address [address] [place] [address] Care Team Providers Care Jockey Valet Name Role Phone Unavailable Primary Care Provider Unavailabl e Allergies Active Allergy Reactions Criticality Noted Date Comments Clams Unknown/Patient and Family Unable to Define Medium 01/22/2025 Colchicine Unknown/Patient and Family Unable to Define Medium 01/22/2025 Ibuprofen Unknown/Patient and Family Unable to Define Medium 01/22/2025 [place] Unknown/Patient and Family Unable to Define Medium [...] Years Used Date Smoking Tobacco: Never Assessed [facility] Utilities Answer Date Recorded In the past 12 months has th e [employer], gas, oil, or water [employer] threatened to shut off services in your [...] any time in the past 12 m [facility], were you homeless or living in a snf (including now)? No 01/23/2025 Comments Unknown Sex [...] (Females,Ages 65 and older) 2001 RSV Vaccine 50 years and older and Patients (1 - [...] 65 - 99 mg/dL 01/24/2025 8:01 AM [facility] Comment:Fasting: <100 mg/dL, Non-Fasting: <200 mg/dL (ADA 2005) Blood Urea Nitrogen (BUN) 34(H) 8 - 21 mg/dL 01/24/2025 8:01 AM [facility] Creatinine 2.2(H) 0.4 - 1.1 mg/dL 01/24/2025 8:01 AM [facility] eGFR 21(L) >59 01/24/2025 8:01 AM [facility] Comment:CKD-EPI (2020) in mL /min/1.73 sq meters. Sodium 138 136 - 145 mmol/L 01/24/2025 8:01 AM [facility] Potassium 3.7 3.4 - 5.3 mmol/L 01/24/2025 8:01 AM [facility] Chloride 103 98 - 107 mmol/L 01/24/2025 8:01 AM [facility] CO2 24 22 - 33 mmol/L 01/24/2025 8:01 AM [facility] Anion Gap 11 7 - 17 01/24/2025 8:01 AM [facility] Calcium 9.1 8.7 - 10.5 mg/dL 01/24/2025 8:01 AM [facility] BUN/Creatinine Ratio 15 10.0 - 25.0 Ratio 01/24/2025 8:01 AM EDT [facility] Blood Blood specimen / Unknown 01/24/2025 6:59 AM EDT 01/24/2025 7:20 AM EDT Lissy Burgess DO LAB BLOOD ORDERABLES Final Resul t Performing Organization Address [facility] [place] [place] [address], [place] [address] * (ABNORMAL) Hemoglobin A1c with Estimated Average Glucose (01/23/2025 7:40 AM EDT) Hemoglobin A1C 6.1(H) <5.7 % 01/23/2025 8:58 AM EDT [facility] Comment: A1c% Interpretation 5.7 - 6.0 Increase risk of diabetes 6.1 - 6.4 Higher risk of diabetes > or = 6.5 Consistent with diabetes Diabetes Care, 33(Supp 1):S1-S61, 2010 Estimated Average Glucose 128 mg/dL 01/23/2025 8:58 AM EDT [facility] Blood Blood specimen / Unknown 01/23/2025 7:40 AM EDT 01/23/2025 8:00 AM EDT Audrey Simmons MD LAB BLOOD ORDERABLES Final Result Performing Organization Address [facility] [place] [place] [address], [address] [address] from Last 3 Months or Most Recently Relevant to Health Maintenance Insurance MEDICARE PART A & B BLUE CROSS OUT OF [facility] BLUE CROSS OUT OF [facility] MEDICARE PART A & B Advance Directives * DNR (Latest Code Status on File) Date Activated Date Inactivated Comments 01/22/2025 2:18 PM Question Answer Comments Decision thoroughly discussed with: Patient
--- OUTSIDE RECORDS SUMMARY | 2025-08-22 12:01 | XMS_ITS | Clinical Summary ---
Author Organization [facility] Facility Address [address] [place] [id number] Care Team Providers Care Teacher Counselor Name Role Phone Unavailable Primary Care Provider [...] age to complete this topic Insurance Medicare [facility] Medicare [facility]
[2025-08-22 12:16] LABS: Alanine Aminotransferase 8 U/L (0-31); Albumin Level 3.9 g/dL (3.5-5.0); Alkaline Phosphatase 96 U/L (39-117); Anion Gap 13 (12-20); Aspartate Amino Transferase 18 U/L (5-31); Blood Urea Nitrogen 21 mg/dL (9-16); Calcium 9.0 mg/dL (8.4-10.2); Carbon Dioxide 25 mmol/L (22-29); Chloride 110 mmol/L (96-108); Cholesterol 134 mg/dL (<200); Estimated Glomerular Filt Rate 24; HDL Cholesterol 46 mg/dL (>40); Potassium 3.7 mmol/L (3.3-5.1); Sodium 144 mmol/L (135-145); Total Protein 6.4 g/dL (6.5-8.0); Triglycerides 111 mg/dL (<150)
[2025-08-22 12:34] LABS: Alanine Aminotransferase 7 U/L (0-31); Albumin Level 3.8 g/dL (3.5-5.0); Alkaline Phosphatase 91 U/L (39-117); Anion Gap 11 (12-20); Aspartate Amino Transferase 17 U/L (5-31); Blood Urea Nitrogen 20 mg/dL (9-16); Calcium 9.2 mg/dL (8.4-10.2); Carbon Dioxide 27 mmol/L (22-29); Chloride 109 mmol/L (96-108); Estimated Glomerular Filt Rate 25; Potassium 3.9 mmol/L (3.3-5.1); Sodium 143 mmol/L (135-145); Total Protein 6.1 g/dL (6.5-8.0)
[2025-08-22 13:12] LABS: Uric Acid 4.0 mg/dL (2.4-5.7)
== END 2025-08-22 10:13 | disposition home or self-care (01) ==
LOC: HO.WFDLDS 10:12
PROVIDERS: Referring Provider Family Medicine; Visit Provider Internal Medicine Nephrology
DX: Z00.00 Encounter for general adult medical examination without abnormal findings (principal); Z13.6 Encounter for screening for cardiovascular disorders; M10.9 Gout, unspecified
CPT/HCPCS: 36415; 80053; 80061; 84443; 84550; 85025

== ENCOUNTER 2025-08-25 16:00 | Outpatient (AMB) | payer MEDICARE, SELFPAY ==
--- NOTE | 2025-08-25 16:27 | MHC.PC.OV ---
Vital Signs 08/25/25 16:33 Height 5 ft 3 in Weight 171 lb 2 oz BMI 30.3 BP 110/60 Blood Pressure Location Lt brachial Position Sitting Respiration 12 Pulse 50 Pulse Source Pulse Oximeter Temp 98 F Temp Source Oral Pulse Oximetry (%) 96 Oxygen Delivery Method Room Air Intake Visit Reasons: Extended Exam Intake Note: patient is scheduled for extend exam Corporate Auditor Required: No Is last menstrual period known: No Post menopausal: Yes Patient : No Allergies clams Allergy (Intermediate, Verified 08/25/25 16:28) Facial Swelling walnut Allergy (Intermediate, Verified 08/25/25 16:28) Hives ibuprofen Allergy (Unknown, Verified 08/25/25 16:28) Hives Tobacco use date assessed: 08/25/25 Fall risk assessment: 2 + Falls in past year Last assessed Fall Risk: 08/25/25 Dental Screening Dental Screen Date: 08/25/25 Did you have a dental visit in the last 12 months?: Yes Did you have a dental problem in the last 6 months where you did not have access to dental care?: No Was dental information given to patient?: No HPI Extended Exam HPI Details 89 y/o female presents for an extended exam with f/u labs and health maint. Labs drawn 08/22/25. Reviewed labs with pt. Triglycerides 111. TC 134. LDL 66. HDL 46. She is on artovastatin 10mg. Blood pressure today 110/60, 50p. She is on metoprolol 50mg, amlodipine 2.5mg, isosorbide 30mg daily. Pt reports night time coughing. HPI Comments History of Present Illness Details Documentation assistance for Ray Forbes MD, was provided by Elio Acosta,? Station Cashier on 08/25/2025 at 4:39 PM EST. I, Dr. Forbes, have read, observed, and verified documentation. ?? PFS Medical History Essential hypertension Diabetes type 2, controlled Surgical History History of surgery History of left knee replacement History of arthroscopy of right knee History of hysterectomy Family History Father No problems noted. Mother No problems noted. Son Multiple sclerosis Daughter Rheumatoid arthritis Hx of cancer of lung Social History (Reviewed 08/25/25 @ 16:30 by Carlos Manuel Shaikh [facility] Household Members: None Housing: House Alcohol intake: never Patient Tobacco Use Status: Never used Tobacco e-Cigarette/Vaping Use: Never Used Second Hand Smoke Exposure: No Patient : No service: No Current occupational status: retired Current occupational exposures/hazards: No Cognitive needs: No Hearing needs: No Vision needs: No Questionnaire PHQ-9 Over the last 2 weeks, how often have you been bothered by any of the following problems? 1. Little interest or pleasure in doing things: not at all 2. Feeling down, depressed, or hopeless: not at all 3. Trouble falling or staying asleep, or sleeping too much: not at all 4. Feeling tired or having little energy: not at all 5. Poor appetite or overeating: not at all 6. Feeling bad about yourself - or that you are a failure or have let yourself or your family down: not at all 7. Trouble concentrating on things, such as reading the newspaper or watching television: several days 8. Moving or speaking so slowly that other people could have noticed. Or the opposite - being so fidgety or restless that you have been moving around a lot more than usual: not at all 9. Thoughts that you would be better off or of hurting yourself in some way: not at all Total score: 1 Depression Screening Interpretation: Negative Depression Screening Done: Yes 46188 - PHQ-9 Billing: Yes Source: Developed by Drs. Don Balderrama, Sakina Rodriguez, Reji Tse and colleagues, with an educational yaneli from [employer]. Thrive Questionnaire Date Thrive assessed: 12/19/24 I am a: Patient What is your living situation today?: I have a steady place to live Within the past 12 months, did the food you bought not last and you didn't have the money to get more?: Never true Within the past 12 months, did you worry whether your food would run out before you got money to buy more?: Never true Do you have trouble paying for medicines?: No Do you have trouble getting transportation to medical appointments?: No Do you have trouble paying your heating and electricity bill?: No Do you have trouble taking care of your child, family member or friend?: I choose not to answer this question Do you have trouble with day-to-day activities such as bathing, preparing meals, shopping, managing finances, etc.?: Yes Are you currently unemployed and looking for a job?: No Are you interested in more education?: No Please select the resources that you would like help with: None Currently or been in a relationship where the following occur: No concerns reported THRIVE Score: 0 CORNELIUS-7 AMB Questionnaire CORNELIUS-7 Date CORNELIUS - 7 assessed: 08/25/25 Feeling nervous, anxious, or on edge: 0 = Not at all Not being able to stop or control worryin = Not at all Worrying too much about different things: 0 = Not at all Trouble relaxin = Not at all Being so restless that it is hard to sit still: 0 = Not at all Becoming easily annoyed or irritable: 1 = Several days Feeling afraid as if something awful might happen: 0 = Not at all Total CORNELIUS-7 score (0-4 normal; 5-9 mild; 10-14 moderate; 15-21 severe): 1 Source: Developed by Drs. Don Balderrama, Sakina Rodriguez, Reji Tse and colleagues, with an educational yaneli from [employer]. CORNELIUS-7 Assessment Billing CORNELIUS-7 Assessment Tool: CORNELIUS-7 Assessment 66319 Review of Systems Const Denies chills, Denies fatigue, Denies fever(s), Denies headache(s) and Denies weakness Eyes Denies change in vision ENT Denies dizziness, Denies headache(s), Denies hearing loss, Denies nasal congestion, Denies sinus pain, Denies sinus pressure and Denies sore throat Card Denies chest pain, Denies lightheadedness, Denies dyspnea and Denies other (palpitations) Resp Denies cough, Denies dyspnea and Denies wheezing GI Denies abdominal pain, Denies melena, Denies hematochezia, Denies change in bowel habits, Denies dyspepsia and Denies nausea Denies hematuria and Denies dysuria Musc Denies abnormal gait, Denies myalgias, Denies arthralgias, Denies numbness and Denies tingling Skin/Breast Denies rash, Denies unusual bruising and Denies wounds Neuro Denies abnormal gait, Denies dizziness, Denies headache(s), Denies memory loss, Denies numbness, Denies Sensory deficit (Neuro), Denies tingling and Denies weakness Psych Denies anxiety, Denies depression and Denies memory loss Endo Denies cold intolerance, Denies fatigue, Denies heat intolerance, Denies polydipsia and Denies polyuria Braxton/Lymph Denies easy bleeding and Denies easy bruising Aller/Immun Denies wheezing Physical exam (Primary Care) Tobacco/Smoking Status: Tobacco use Status Tobacco use date assessed 08/25/25 08/25/25 16:30 Patient Tobacco Use Status Never used Tobacco 08/25/25 16:30 e-Cigarette/Vaping Use Never Used 08/25/25 16:30 Depression Screening Interpretation: Negative Thrive Assessment: Date of Thrive Assessment Date Thrive assessed 12/19/24 08/25/25 16:30 Currently or been in a relationship where the following occur: No concerns reported Const General: no acute distress, well developed, alert and awake Nutritional Appearance: well nourished Orientation/consciousness: patient oriented x3 HENMT Head: Yes normocephalic and Yes atraumatic Ears: hearing grossly normal bilaterally and TM's normal bilaterally General nose exam: Normal external nose present and Normal nares present Mouth: Normal oral and palatal mucosa present and moist mucous membranes Teeth and gingiva: dentition normal Throat: Yes posterior oropharynx normal Eyes General: appearance normal, both eyes and all related structures Pupils: Equal, round and reactive pupils present and Pupil accommodation reflex normal EOM: EOMs intact bilaterally Neck Neck: Yes normal visual inspection, Yes no lymphadenopathy and Yes trachea midline Thyroid: Thyroid normal Carotids: no bruits Lymphatic: no lymphadenopathy noted Chest Chest palpation & inspection: normal inspection of the chest Resp Effort & Inspection: normal respiratory effort Auscultation: clear to auscultation bilaterally Cardio Rate: regular rate Rhythm: regular rhythm Heart sounds: S1 normal heart sound present, S2 normal heart sound present, no gallops, no murmurs and no rubs Bruits: no abdominal aortic bruits and no carotid bruits GI Palpation (GI): No Abdominal aortic bruit present, Soft to palpation, nontender, No hepatosplenomegaly present and No Rebound tenderness present Auscultation: normal bowel sounds General: Yes no CVA tenderness Back/Spine/Pelvis Back: no CVA tenderness Cervical Spine: cervical ROM normal and No Cervical spine tenderness Thoracic/Lumbar Spine: thoraco-lumbar ROM normal, No pain with thoraco-lumbar ROM, No thoracic spinal tenderness and No lumbar spinal tenderness Skin Lesions: no lesions Rashes: no rashes Trauma: no lacerations or abrasions Wounds: no wounds Nails: normal Neuro General: patient oriented x3 Cranial nerves: Yes Equal, round and reactive pupils present Cognition (Neuro): normal cognition Gait exam (Neuro): Normal gait present Motor exam (neuro): 5/5 motor strength present throughout Sensory Exam: No Sensory deficit (Neuro) Deep tendon reflexes (DTR's): Right patellar reflex intensity grade: 2+ and Left patellar reflex intensity grade: 2+ Extrem General: Yes normal to inspection and No edema Psych Appearance: grossly normal Affect: normal affect Attitude: cooperative Thought process: Normal thought process present Results AMB Hemoglobin A1c AMB Hemoglobin A1c 5.6 % Last Edit by SHANIKA Merida on 08/25/25 16:44 Coding Level of Care Code Est Pt Level 4 (98151) Diagnoses Essential hypertension I10 Hyperlipidemia E78.5 Cough R05.9 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 disease, without long-term current use of insulin E11.22; N18.30 Chronic kidney disease stage: stage 3 (moderate) Diabetes mellitus complication detail: with chronic kidney disease Diabetes mellitus complication status: with kidney complications Diabetes mellitus custodial insulin use: without custodial use Screening for osteoporosis Z13.820 Adult general medical exam Z00.00 Additional Codes CORNELIUS-7 Assessment Billing - CORNELIUS-7 Assessment Tool: CORNELIUS-7 Assessment 50977 ([id number]) PHQ-9 - 48565 - PHQ-9 Billing: Yes ([id number]) Assessment & Plan Assessment & Plan (1) Essential hypertension: Code(s): I10 - Essential (primary) hypertension Category: Medical Plan: Blood pressure is controlled. Goal is less than 130/80 Continue current medications (2) Hyperlipidemia: Code(s): E78.5 - Hyperlipidemia, unspecified Category: Medical Plan: Lipids are well controlled. Continue atorvastatin (3) Cough: Code(s): R05.9 - Cough, unspecified Category: Medical Plan: Mild cough at night History of hiatal hernia Continue pantoprazole Avoid trigger foods and eating too close to bedtime May also be related to allergy and she can trial a daytime antihistamine (4) Diabetes type 2, controlled: Code(s): E11.9 - Type 2 diabetes mellitus without complications Category: Medical Qualifiers: Chronic kidney disease stage: stage 3 (moderate) Diabetes mellitus complication detail: with chronic kidney disease Diabetes mellitus complication status: with kidney complications Diabetes mellitus custodial insulin use: without ferry terminal agent use Qualified Code(s): E11.22 - Type 2 diabetes mellitus with diabetic chronic kidney disease; N18.30 - Chronic kidney disease, stage 3 unspecified Plan: A1c shows good control. Goal is less than 7.0% Continue current medications Continue diabetic diet (5) Screening for osteoporosis: Code(s): Z13.820 - Encounter for screening for osteoporosis Category: Medical Plan: Patient declines screening for osteoporosis (6) Adult general medical exam: Code(s): Z00.00 - Encounter for general adult medical examination without abnormal findings Category: Medical Plan: 89-year-old female presents for an extended exam Encouraged healthy diet with active lifestyle and plenty of exercise as tolerated. Unsteady gait and fall risk. She continues physical therapy. Orders: Orders AMB Hemoglobin A1c Today E11.22 - Type 2 diabetes mellitus with diabetic chronic kidney disease, N18.30 - Chronic kidney disease, stage 3 unspecified
[2025-08-25 16:33] VITALS: BP 110/60; PULSE 50; RESP 12; TEMP 36.6; O2SAT 96; BMI 30.3
--- OUTSIDE RECORDS SUMMARY | 2025-08-25 17:55 | XMS_ITS | Clinical Summary ---
Author Organization [facility] Address [address] [place] [address] Care Team Providers Care Home Care Rn Name Role Phone Unavailable Primary Care Provider Unavailabl e Allergies Active Allergy Reactions Criticality Noted Date Comments Clams Unknown/Patient and Family Unable to Define Medium 01/22/2025 Colchicine Unknown/Patient and Family Unable to Define Medium 01/22/2025 Ibuprofen Unknown/Patient and Family Unable to Define Medium 01/22/2025 Kanosh Unknown/Patient and Family Unable to Define Medium [...] Years Used Date Smoking Tobacco: Never Assessed [facility] Utilities Answer Date Recorded In the past 12 months has th e [employer], gas, oil, or water [employer] threatened to shut off services in your [...] any time in the past [facility], were you homeless or living in a half-way (including now)? No 01/23/2025 Comments Unknown Sex [...] - 25.0 Ratio 01/24/2025 8:01 AM EDT [facility] Blood Blood specimen / Unknown 01/24/2025 6:59 AM EDT 01/24/2025 7:20 AM EDT Lissy Burgess DO LAB BLOOD ORDERABLES Final Resul t Performing Organization Address [facility] Co de Phone Number [place] [address], [place] [address] * (ABNORMAL) Hemoglobin A1c with Estimated Average Glucose (01/23/2025 7:40 AM EDT) Hemoglobin A1C 6.1(H) <5.7 % 01/23/2025 8:58 AM EDT [facility] Comment: A1c% Interpretation 5.7 - 6.0 Increase risk of diabetes 6.1 - 6.4 Higher risk of diabetes > or = 6.5 Consistent with diabetes Diabetes Care, 33(Supp 1):S1-S61, 2010 Estimated Average Glucose 128 mg/dL 01/23/2025 8:58 AM EDT [facility] Blood Blood specimen / Unknown 01/23/2025 7:40 AM EDT 01/23/2025 8:00 AM EDT Audrey Simmons MD LAB BLOOD ORDERABLES Final Result Performing Organization Address [facility] Co de Phone Number [place] [address], [address] [address] from Last 3 Months or Most Recently Relevant to Health Maintenance Insurance MEDICARE PART A & B BLUE CROSS OUT OF [facility] [employer] OUT OF [facility] MEDICARE PART A & B Advance Directives * DNR (Latest Code Status on File) Date Activated Date Inactivated Comments 01/22/2025 2:18 PM Question Answer Comments Decision thoroughly discussed with: Patient
--- OUTSIDE RECORDS SUMMARY | 2025-08-25 17:55 | XMS_ITS | Clinical Summary ---
Author Organization [facility] Facility Address [address] [place] [id number] Care Team Providers Care Aviation Warfare Systems Operator Name Role Phone Unavailable Primary Care [...] age to complete this topic Insurance Medicare [facility] Medicare [facility]
== END 2025-08-25 16:58 | disposition home or self-care (01) ==
LOC: HO.HMCFM 16:01
PROVIDERS: PCP Family Medicine; Visit Provider Family Medicine
DX: I10 Essential (primary) hypertension (principal); E78.5 Hyperlipidemia, unspecified; R05.9 Cough, unspecified; E11.22 Type 2 diabetes mellitus with diabetic chronic kidney disease; N18.30 Chronic kidney disease, stage 3 unspecified; Z13.820 Encounter for screening for osteoporosis; Z00.00 Encounter for general adult medical examination without abnormal findings

== ENCOUNTER 2025-08-25 16:00 | Outpatient (REF) | payer MEDICARE, SELFPAY ==
[2025-08-26 11:34] LABS: Appearance Urine Cloudy; Glucose Urine UA Negative (Negative); PH 7.5 (5.0-9.0); Specific Gravity - Urine 1.015 (1.005-1.025); UMIC TRIGGER UACC YES
[2025-08-26 11:53] LABS: UACC Culture Trigger YES
[2025-08-26 12:15] LABS: Microalbum/Creatinine Ratio Ur 20.5 ug/mg cr (<30)
--- OUTSIDE RECORDS SUMMARY | 2025-08-26 16:09 | XMS_ITS | Clinical Summary ---
Author Organization [facility] Address [address] [place] [address] Care Team Providers Care Crisis Mental Health Therapist Name Role Phone Unavailable Primary Care Provider Unavailabl e Allergies Active Allergy Reactions Criticality Noted Date Comments Clams Unknown/Patient and Family Unable to Define Medium 01/22/2025 Colchicine Unknown/Patient and Family Unable to Define Medium 01/22/2025 Ibuprofen Unknown/Patient and Family Unable to Define Medium 01/22/2025 Jud Unknown/Patient and Family Unable to Define Medium [...] the past 12 months has th e [employer], gas, oil, or water [employer] threatened to shut off services in your [...] any time in the past 12 m [facility], were you homeless or living in [...] 65 - 99 mg/dL 01/24/2025 8:01 AM [facility] Comment:Fasting: <100 mg/dL, Non-Fasting: <200 mg/dL (ADA 2005) Blood Urea Nitrogen (BUN) 34(H) 8 - 21 mg/dL 01/24/2025 8:01 AM [facility] Creatinine 2.2(H) 0.4 - 1.1 mg/dL 01/24/2025 8:01 AM [facility] eGFR 21(L) >59 01/24/2025 8:01 AM [facility] Comment:CKD-EPI (2020) in mL /min/1.73 sq meters. Sodium 138 136 - 145 mmol/L 01/24/2025 8:01 AM [facility] Potassium 3.7 3.4 - 5.3 mmol/L 01/24/2025 8:01 AM [facility] Chloride 103 98 - 107 mmol/L 01/24/2025 8:01 AM [facility] CO2 24 22 - 33 mmol/L 01/24/2025 8:01 AM [facility] Anion Gap 11 7 - 17 01/24/2025 8:01 AM [facility] Calcium 9.1 8.7 - 10.5 mg/dL 01/24/2025 8:01 AM [facility] BUN/Creatinine Ratio 15 10.0 - 25.0 Ratio 01/24/2025 8:01 AM EDT [facility] Blood Blood specimen / Unknown 01/24/2025 6:59 AM EDT 01/24/2025 7:20 AM EDT Lissy Burgess DO LAB BLOOD ORDERABLES Final Resul t Performing Organization Address [facility] [place] [address], [place] [address] * (ABNORMAL) Hemoglobin A1c with Estimated Average Glucose (01/23/2025 7:40 AM EDT) Hemoglobin A1C 6.1(H) <5.7 % 01/23/2025 8:58 AM EDT [facility] Comment: A1c% Interpretation 5.7 - 6.0 Increase risk of diabetes 6.1 - 6.4 Higher risk of diabetes > or = 6.5 Consistent with diabetes Diabetes Care, 33(Supp 1):S1-S61, 2010 Estimated Average Glucose 128 mg/dL 01/23/2025 8:58 AM EDT [facility] Blood Blood specimen / Unknown 01/23/2025 7:40 AM EDT 01/23/2025 8:00 AM EDT Audrey Simmons MD LAB BLOOD ORDERABLES Final Result Performing Organization Address [facility] [place] [address], [address] [address] from Last 3 Months or Most Recently Relevant to Health Maintenance Insurance MEDICARE PART A & B BLUE CROSS OUT OF [facility] BL[facility] CROSS OUT OF [facility] MEDICARE PART A & B Advance Directives * DNR (Latest Code Status on File) Date Activated Date Inactivated Comments 01/22/2025 2:18 PM Question Answer Comments Decision thoroughly discussed with: Patient
== END 2025-08-25 16:01 | disposition home or self-care (01) ==
LOC: HO.WFDLDS 16:00
PROVIDERS: PCP Family Medicine; Visit Provider Family Medicine
DX: Z00.00 Encounter for general adult medical examination without abnormal findings (principal); E78.5 Hyperlipidemia, unspecified; R05.9 Cough, unspecified; E11.22 Type 2 diabetes mellitus with diabetic chronic kidney disease; I12.9 Hypertensive chronic kidney disease with stage 1 through stage 4 chronic kidney disease, or unspecified chronic kidney disease; N18.30 Chronic kidney disease, stage 3 unspecified; Z13.820 Encounter for screening for osteoporosis
CPT/HCPCS: 81001; 82043; 82570; 83036; 96127; 99212

== ENCOUNTER 2025-09-09 13:40 | Outpatient (AMB) | payer MEDICARE, SELFPAY ==
--- NOTE | 2025-09-09 13:53 | HO.NEPHOV_ITS ---
Vital Signs 09/09/25 13:54 Height 5 ft 3 in Weight 173 lb BMI 30.6 BP 134/62 Blood Pressure Location Lt brachial Position Sitting Pulse 56 Pulse Source Pulse Oximeter Pulse Oximetry (%) 96 Oxygen Delivery Method Room Air Intake Visit Reasons: 6mon follow-up w/labs-Conf Stereotype Molder Required: No Accompanied by: Self / Same As Patient Allergies clams Allergy (Intermediate, Verified 09/09/25 13:54) Facial Swelling walnut Allergy (Intermediate, Verified 09/09/25 13:54) Hives ibuprofen Allergy (Unknown, Verified 09/09/25 13:54) Hives HPI Comments Details: Lakshmi was seen for fluctuant serum creatinine on a backdrop of CKD. She is 89 years of age who has been in good health. She has been having recurrent mouth ulcers. She is a diabetic and does not have any retinopathy, significant proteinuria or neuropathy. She denies any carotid artery disease, CVA, GURPREET, PAD, CAD or CHF. She has chronic edema. She has H/O PE. She does not take any excessive nonsteroidal anti-inflammatories. She has no history of dry eyes and dry mouth or generalized joint pains. She does not get recurrent urinary infections. She tries to maintain good hydration. She has no hearing issues, sinusitis, epistaxis, photosensitivity, urinary symptoms, history of renal calculus, flank pain, new bone pain. She has no history of hypercalcemia. [facility] Medical History Essential hypertension Diabetes type 2, controlled Surgical History History of surgery History of left knee replacement History of arthroscopy of right knee History of hysterectomy Family History Father No problems noted. Mother No problems noted. Son Multiple sclerosis Daughter Rheumatoid arthritis Hx of cancer of lung Social History Household Members: None Housing: House Alcohol intake: never Patient Tobacco Use Status: Never used Tobacco e-Cigarette/Vaping Use: Never Used Second Hand Smoke Exposure: No service: No Current occupational status: retired Current occupational exposures/hazards: No Cognitive needs: No Hearing needs: No Vision needs: No Review of Systems Const All systems reviewed & are unremarkable except as noted in HPI and below Physical Exam Vital Signs: Last Vital Signs Pulse 56 09/09/25 13:54 BP 134/62 09/09/25 13:54 Pulse Ox 96 09/09/25 13:54 Oxygen Delivery Method Room Air 09/09/25 13:54 BMI result Body Mass Index 30.6 Const General: comfortable and no acute distress Orientation/consciousness: patient oriented x3 HEENT Head: Yes normocephalic Mouth: Normal oral and palatal mucosa present Eyes EOM: EOMs intact bilaterally Neck Neck: Yes supple Resp Auscultation: clear to auscultation bilaterally Cardio Jugular venous distension: no JVD Rate: regular rate GI Palpation (GI): Soft to palpation Auscultation: normal bowel sounds General: Yes no CVA tenderness Back/Spine/Pelvis Back: no CVA tenderness Skin General skin exam: no rashes or lesions noted Neuro General: patient oriented x3 and moves all extremities Extrem General: Yes no pedal edema Results Reviewed Nephrology Results: Hgb, (12.0-16.0) 11.1 g/dl L 08/22/25 WBC, (4.8-10.8) 8.8 X10*3/uL 08/22/25 Plt Count, (160-400) 237 X10*3/uL Δ 08/22/25 Sodium, (135-145) 143 mmol/L 08/22/25 Potassium, (3.3-5.1) 3.9 mmol/L 08/22/25 Chloride, (96-108) 109 mmol/L H 08/22/25 Carbon Dioxide, (22-29) 27 mmol/L 08/22/25 BUN, (9-16) 20 mg/dL H 08/22/25 Creatinine, (0.5-1.4) 1.92 mg/dL H 08/22/25 Calcium, (8.4-10.2) 9.2 mg/dL 08/22/25 Urine Protein TNP 08/26/25 Urine Creatinine 92.66 mg/dL 08/25/25 Assessment & Plan Assessment & Plan (1) CKD stage 3b, GFR 30-44 ml/min: Code(s): N18.32 - Chronic kidney disease, stage 3b Category: Medical (2) Essential hypertension: Code(s): I10 - Essential (primary) hypertension Category: Medical Plan Lakshmi has CKD 3 at baseline. She is not known to have any significant proteinuria. She does not take any excessive nonsteroidal inflammatories. She denies any renal calculi , microscopic hematuria or pedal edema. She denied retinopathy. She has good urine output and there is no reason to suspect any obstructive uropathy. I asked her to cut down sodium in the diet and maintain good hydration. I have ordered repeat renal functions and is considering switching her from metformin to Jardiance at next visit . All questions answered Orders: Orders Blood Urea Nitrogen 2 Months N18.32 - Chronic kidney disease, stage 3b Creatinine 2 Months N18.32 - Chronic kidney disease, stage 3b Electrolytes 2 Months N18.32 - Chronic kidney disease, stage 3b Coding Level of Care Code Est Pt Level 4 (79670) Diagnoses CKD stage 3b, GFR 30-44 ml/min N18.32 Essential hypertension I10
[2025-09-09 13:54] VITALS: BP 134/62; PULSE 56; O2SAT 96; BMI 30.6
--- OUTSIDE RECORDS SUMMARY | 2025-09-09 17:32 | XMS_ITS | Clinical Summary ---
Author Organization [facility] Facility Address [address] [place] [address] Care Team Providers Care Paint Line Operator Name Role Phone Unavailable Primary Care [...]
--- OUTSIDE RECORDS SUMMARY | 2025-09-09 17:32 | XMS_ITS | Clinical Summary ---
Author Organization [facility] Address [address] [place] [address] Care Team Providers Care Warehouse Inventory Clerk Name Role Phone Unavailable Primary Care Provider Unavailabl e Allergies Active Allergy Reactions Criticality Noted Date Comments Clams Unknown/Patient and Family Unable to Define Medium 01/22/2025 Colchicine Unknown/Patient and Family Unable to Define Medium 01/22/2025 Ibuprofen Unknown/Patient and Family Unable to Define Medium 01/22/2025 [place] Unknown/Patient and Family Unable to Define Medium [...] Years Used Date Smoking Tobacco: Never Assessed [facility] Utilities Answer Date Recorded In the past 12 months has th e [employer], gas, oil, or water [employer] threatened to shut off services in your [...] any time in the past 12 m [facility], were you homeless or living in [...] 65 - 99 mg/dL 01/24/2025 8:01 AM [facility] Comment:Fasting: <100 mg/dL, Non-Fasting: <200 mg/dL (ADA 2005) Blood Urea Nitrogen (BUN) 34(H) 8 - 21 mg/dL 01/24/2025 8:01 AM [facility] Creatinine 2.2(H) 0.4 - 1.1 mg/dL 01/24/2025 8:01 AM [facility] eGFR 21(L) >59 01/24/2025 8:01 AM [facility] Comment:CKD-EPI (2020) in mL /min/1.73 sq meters. Sodium 138 136 - 145 mmol/L 01/24/2025 8:01 AM [facility] Potassium 3.7 3.4 - 5.3 mmol/L 01/24/2025 8:01 AM [facility] Chloride 103 98 - 107 mmol/L 01/24/2025 8:01 AM [facility] CO2 24 22 - 33 mmol/L 01/24/2025 8:01 AM [facility] Anion Gap 11 7 - 17 01/24/2025 8:01 AM [facility] Calcium 9.1 8.7 - 10.5 mg/dL 01/24/2025 8:01 AM [facility] BUN/Creatinine Ratio 15 10.0 - 25.0 Ratio 01/24/2025 8:01 AM EDT Blood Blood specimen / Unknown 01/24/2025 6:59 AM EDT 01/24/2025 7:20 AM EDT Lissy Burgess DO LAB BLOOD ORDERABLES Final Resul t Performing Organization Address [facility] [place] [address], [place] [address] * (ABNORMAL) Hemoglobin A1c with Estimated Average Glucose (01/23/2025 7:40 AM EDT) Hemoglobin A1C 6.1(H) <5.7 % 01/23/2025 8:58 AM EDT Comment: A1c% Interpretation 5.7 - 6.0 Increase risk of diabetes 6.1 - 6.4 Higher risk of diabetes > or = 6.5 Consistent with diabetes Diabetes Care, 33(Supp 1):S1-S61, 2010 Estimated Average Glucose 128 mg/dL 01/23/2025 8:58 AM EDT Blood Blood specimen / Unknown 01/23/2025 7:40 AM EDT 01/23/2025 8:00 AM EDT Audrey Simmons MD LAB BLOOD ORDERABLES Final Result Performing Organization Address [facility] [place] [address], [address] [address] from Last 3 Months or Most Recently Relevant to Health Maintenance Insurance MEDICARE PART A & B BLUE CROSS OUT OF [facility] [employer] OUT OF [facility] MEDICARE PART A & B Advance Directives * DNR (Latest Code Status on File) Date Activated Date Inactivated Comments 01/22/2025 2:18 PM Question Answer Comments Decision thoroughly discussed with: Patient
== END 2025-09-09 14:28 | disposition home or self-care (01) ==
LOC: HO.HKAS 13:42
PROVIDERS: PCP Family Medicine; Visit Provider Internal Medicine Nephrology
DX: N18.32 Chronic kidney disease, stage 3b (principal); I10 Essential (primary) hypertension
CPT/HCPCS: 99214

== ENCOUNTER → 2025-09-09 13:40 | Outpatient (BNVA) | payer MEDICARE, SELFPAY | PROVIDERS: PCP Family Medicine; Visit Provider Internal Medicine Nephrology | DX: N18.32 Chronic kidney disease, stage 3b (principal); I12.9 Hypertensive chronic kidney disease with stage 1 through stage 4 chronic kidney disease, or unspecified chronic kidney disease | CPT/HCPCS: 99212 ==

== ENCOUNTER 2025-09-18 13:25 | Outpatient (AMB) | payer MEDICARE, SELFPAY ==
[2025-09-18 13:39] VITALS: BMI 29.4
--- NOTE | 2025-09-18 13:39 | MHC.OFFVIS ---
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 Patient reports her nails had been like this since february. She was established by another library media assistant but since she had missed her appointment due to being in the hospital she was unable to make an appointment with them. She states her glucose was 114 last week at and her last A1c was 5.2%. She denies experiencing any numbness or tingling in her feet. Allergies clams Allergy (Intermediate, Verified 09/18/25 13:41) Facial Swelling walnut Allergy (Intermediate, Verified 09/18/25 13:41) Hives ibuprofen Allergy (Unknown, Verified 09/18/25 13:41) Hives HPI Comments Details: The patient is an 89 year old female with a past medical history as seen below presenting for a diabetic foot exam. Her last known blood glucose level was approximately 113-114 mg/dL. Patient is unable to tend to her feet due to her past medical history. Her most recent A1c was approximately 5.2. She denies any numbness or tingling. She denies any recent pedal injuries. She denies any other pedal concerns. Patient was accompanied by family member. [facility] Medical History (Reviewed 08/25/25 @ 16:30 by Carlos Manuel Shaikh [facility]) Essential hypertension Diabetes type 2, controlled Surgical History History of surgery History of left knee replacement History of arthroscopy of right knee History of hysterectomy Family History Father No problems noted. Mother No problems noted. Son Multiple sclerosis Daughter Rheumatoid arthritis Hx of cancer of lung Social History Household Members: None Housing: House Alcohol intake: never Patient Tobacco Use Status: Never used Tobacco e-Cigarette/Vaping Use: Never Used Second Hand Smoke Exposure: No service: No Current occupational status: retired Current occupational exposures/hazards: No Cognitive needs: No Hearing needs: No Vision needs: No Review of Systems Const Details: - Integumentary: Reports thickened, discolored, elongated toenails with subungual debris x10. - Vascular: Varicosities reported. All systems reviewed & are unremarkable except as noted in HPI and below Physical Exam Vital Signs: BMI result Body Mass Index 29.4 Extrem Other: Bilateral lower extremity focused physical exam: Derm: Toenails x10 noted to be dystrophic, elongated, discolored and thickened with subungual debris. No open lesions abrasions or wounds noted. No hyperkeratotic or macerated areas noted. Blanching of skin noted. No clinical signs of infection noted. Vascular: DP/PT pulses mildly palpable. Capillary refill time less than 3 seconds. Temperature gradient warm to warm. Pedal hair absent. Varicosities noted. Nonpitting edema noted. Neuro: Protective sensations grossly intact to light touch and diminished to monofilament testing. MSK: Discomfort noted to the forefoot due to elongated and thickened toenails. Range of motion of the forefoot and hindfoot within normal limits. Range of motion of the ankle slightly diminished. No crepitus or fluctuance noted. Slow gait noted. Class B and C findings noted. Office Procedures AMB Debridement/Avulsion Podia Details: Debrided toenails x10 using sterile nail nippers and sterile Dremel without any incidents. 91579-Zmcthbvaezp of Nail 6+ Procedure code (CPT) selection complete Diabetic Foot Exam G9226 - Diabetic Foot Exam Results Reviewed Results Reviewed: Laboratory Tests 08/22/25 08/22/25 08/25/25 10:16 Unknown 16:40 WBC 8.8 Random Glucose 139 H Fasting Glucose 145 H Hgb A1c (Clinic) 5.6 AST 17 ALT 7 Assessment & Plan Assessment & Plan (1) Diabetes type 2, controlled: Code(s): E11.9 - Type 2 diabetes mellitus without complications Category: Medical (2) Varicose veins of bilateral lower extremities with other complications: Code(s): I83.893 - Varicose veins of bilateral lower extremities with other complications Category: Medical (3) Peripheral vascular disease: Code(s): I73.9 - Peripheral vascular disease, unspecified Category: Medical (4) Diabetic neuropathy: Code(s): E11.40 - Type 2 diabetes mellitus with diabetic neuropathy, unspecified Category: Medical (5) Tinea unguium: Code(s): B35.1 - Tinea unguium Category: Medical (6) Nail disorder: Code(s): L60.9 - Nail disorder, unspecified Category: Medical (7) Nail dystrophy: Code(s): L60.3 - Nail dystrophy Category: Medical Plan Patient was informed and verbally consented to the use of an ambient scribe for clinic note documentation during this visit. I educated patient on diabetes in the affects in the lower extremities. I performed debridement of her toenails and informed her that this would continue at future visits. I instructed her to schedule a follow-up appointment in nine weeks. - The patient's toenails were debrided x10. - Recommended patient wear compression stockings. - Advised patient to wear supportive shoe gear and to avoid barefoot walking. - Advised patient to monitor her feet daily. - Continue diabetic management as per PCP. RTC in 9 weeks. Orders: Orders AMB Debridement/Avulsion Podiatry 09/18/25 B35.1 - Tinea unguium, E11.22 - Type 2 diabetes mellitus with diabetic chronic kidney disease, E11.40 - Type 2 diabetes mellitus with diabetic neuropathy, unspecified, I73.9 - Peripheral vascular disease, unspecified, I83.893 - Varicose veins of bilateral lower extremities with other complications, L60.3 - Nail dystrophy, L60.9 - Nail disorder, unspecified, N18.30 - Chronic kidney disease, stage 3 unspecified AMB Diabetic Foot Exam 09/18/25 B35.1 - Tinea unguium, E11.22 - Type 2 diabetes mellitus with diabetic chronic kidney disease, E11.40 - Type 2 diabetes mellitus with diabetic neuropathy, unspecified, I73.9 - Peripheral vascular disease, unspecified, I83.893 - Varicose veins of bilateral lower extremities with other complications, L60.3 - Nail dystrophy, L60.9 - Nail disorder, unspecified, N18.30 - Chronic kidney disease, stage 3 unspecified Coding Level of Care Code New Pt Level 4 (87948) Diagnoses Diabetes type 2, controlled E11.9 Varicose veins of bilateral lower extremities with other complications I83.893 Peripheral vascular disease I73.9 Diabetic neuropathy E11.40 Tinea unguium B35.1 Nail disorder L60.9 Nail dystrophy L60.3 CPT Codes Skin Debridement - CPT: 50994-Hpjdtlszokd of Nail 6+ ([id number]) Diabetic Foot Exam - CPT: G9226 - Diabetic Foot Exam ([id number]) Time Spent (min) 55 Comment 10 mins for procedure
== END 2025-09-18 13:59 | disposition home or self-care (01) ==
LOC: HO.HPODS 13:26
PROVIDERS: PCP Family Medicine; Visit Provider Student in an Organized Health Care Education/Training Program
DX: E11.40 Type 2 diabetes mellitus with diabetic neuropathy, unspecified (principal); I83.893 Varicose veins of bilateral lower extremities with other complications; I73.9 Peripheral vascular disease, unspecified; B35.1 Tinea unguium; L60.3 Nail dystrophy
CPT/HCPCS: 11721; 99204; G9226

== ENCOUNTER → 2025-09-18 13:25 | Outpatient (BNVA) | payer MEDICARE, SELFPAY | PROVIDERS: PCP Family Medicine; Visit Provider Student in an Organized Health Care Education/Training Program | DX: E11.40 Type 2 diabetes mellitus with diabetic neuropathy, unspecified (principal); I83.893 Varicose veins of bilateral lower extremities with other complications; I73.9 Peripheral vascular disease, unspecified; B35.1 Tinea unguium; L60.9 Nail disorder, unspecified; L60.3 Nail dystrophy | CPT/HCPCS: 11721; 99202 ==